=== PATIENT | female | born 1950 | race Caucasian/White ===

== ENCOUNTER 2018-01-02 19:47 | Emergency (ER) | payer MEDICARE ==
--- NOTE | 2018-01-02 19:58 | ER Report ---
History and Physical Time Seen By MD: 19:50 HPI/ROS CHIEF COMPLAINT: Chest tightness for 2 days HISTORY OF PRESENT ILLNESS: 67-year-old female who is a new resident at [facility]. She removed in today. Patient's from [place] where she lived for 55 years. She is on supplemental O2. She has an ostomy. She has numerous medical problems. Please see enclosed paperwork from [facility]. There is an H&P from her physician from July of this year. Patient is also DO NOT RESUSCITATE. REVIEW OF SYSTEMS: Respiratory: No cough, no dyspnea. Cardiovascular: As above Gastrointestinal: No vomiting, no abdominal pain. Musculoskeletal: No back pain. Allergies: Coded Allergies: Sulfa (Sulfonamide Antibiotics) (Verified Allergy, Unknown, 01/02/18) allergic to cream only amitriptyline (Verified Allergy, Unknown, 01/02/18) aspirin (Verified Allergy, Unknown, 01/02/18) Home Meds Active Scripts Fluticasone/Vilanterol (Breo Ellipta 200-25 Mcg INH) 1 Each Blst.w.dev, 1 PUFF INH DAILY for COPD control, #1 Prov:EDILMA MARTINEZ DO 01/02/18 Hydrocodone Bit/Acetaminophen (HYDROCODON-ACETAMINOPHEN 5-325) 1 Each Tablet, 1 EACH PO Q4-6H PRN for PAIN, #30 TAKE ONE TABLET BY MOUTH EVERY 4-6 HOURS NEEDED FOR PAIN Prov:EDILMA MARTINEZ DO 01/02/18 Reported Medications Venlafaxine Hcl (EFFEXOR XR) 150 Mg Cap.er.24h, 150 MG PO QDAY 01/02/18 Trazodone Hcl (TRAZODONE HCL) 50 Mg Tablet, 25 MG PO QHS 01/02/18 Glycopyrrolate (ROBINUL) 1 Mg Tablet, 4 MG PO 01/02/18 Prednisone 10 Mg Tab (PREDNISONE 10 MG TAB) 10 Mg Tablet, 10 MG PO QDAY, TAB 01/02/18 Potassium Bicarbonate/Cit Ac (POTASSIUM 25 MEQ TABLET EFF) 25 Meq Tablet.eff, 20 MEQ PO 01/02/18 Piperacillin Sodium/Tazobactam (PIPERACIL-TAZOBACT 3.375 GM VL) 3.375 Gm Vial.port, 3.375 GM IV Q8H 01/02/18 Pantoprazole Sodium (PANTOPRAZOLE SODIUM) 40 Mg Tablet.dr, 40 MG PO QDAY, TAB.SR 01/02/18 Nifedipine (NIFEDIPINE) 20 Mg Capsule, 30 MG PO QDAY, CAPSULE 01/02/18 Lorazepam (LORAZEPAM) 0.5 Mg Tablet, 0.5 MG PO AB 01/02/18 Levothyroxine Sodium (LEVOTHYROXINE SODIUM) 50 Mcg Tablet, 25 MCG PO QDAY, TAB 01/02/18 Gabapentin (GABAPENTIN) 300 Mg Capsule, 600 MG PO TID, CAPSULE 01/02/18 Fluticasone Prop 44 Mcg (FLOVENT HFA 44 MCG) 44 Mcg Inha, 44 MCG INH, INH 01/02/18 Clonazepam (CLONAZEPAM) 0.5 Mg Tablet, 0.5 MG PO QID, #6 TAB 01/02/18 Past Medical/Surgical History [facility] for extensive past medical history Reviewed Nurses Notes: Yes Old Medical Records Reviewed: Yes Constitutional Vital Sign - Last 24 Hours 01/02/18 01/02/18 01/02/18 01/02/18 19:47 19:53 19:54 20:02 Temp 98.5 Pulse ??? 94 91 Resp 20 15 B/P (MAP) 188/100 188/100 (129) Pulse Ox 95 100 O2 Delivery Room Air 01/02/18 01/02/18 01/02/18 01/02/18 20:03 20:17 20:32 20:47 Pulse 92 ??? 92 Resp 31 25 Pulse Ox 99 98 100 O2 Flow Rate 4.0 01/02/18 01/02/18 01/02/18 01/02/18 20:55 21:00 21:02 21:17 Pulse 94 90 Resp 10 B/P (MAP) 150/91 (110) 160/87 (111) Pulse Ox 99 99 01/02/18 01/02/18 01/02/18 21:30 21:32 21:40 Pulse 90 B/P (MAP) 160/134 (143) 152/89 (110) Pulse Ox 99 Physical Exam General Appearance: The patient is alert, has no immediate need for airway protection and no current signs of toxicity. Vital signs stable, afebrile, pulse ox normal HEENT: Pupils equal and round no injection. Oropharynx without redness or exudate, mucous. Membranes are moist Respiratory: Chest is non tender, lungs are clear to auscultation. No chest wall tenderness Cardiac: regular rate and rhythm Gastrointestinal: Abdomen is soft and non tender, no masses, bowel sounds normal. Musculoskeletal: Neck: Neck is supple and non tender. No lymphadenopathy, no JVD Extremities have full range of motion and are non tender. Skin: No rashes or lesions. DIFFERENTIAL DIAGNOSIS: After history and physical exam differential diagnosis was considered for chest pain including but not limited to myocardial ischemia, pericarditis pulmonary embolus, chest wall pain, pleural inflammation and pulmonary infectious causes. Medical Decision Making Data Points Result Diagram: 01/02/18202101/02/182021 Laboratory Hematology Test 01/02/18 20:22 Red Blood Count 4.48 M/uL (4.17-5.56) Mean Corpuscular Volume 77.0 fL (80.0-96.0) Mean Corpuscular Hemoglobin 24.3 pg (26.0-33.0) Mean Corpuscular Hemoglobin Concent 31.5 g/dL (32.0-36.0) Red Cell Distribution Width 18.9 % (11.5-14.5) Mean Platelet Volume 6.4 fL (7.2-11.1) Neutrophils (%) (Auto) 84.8 % (39.4-72.5) Lymphocytes (%) (Auto) 7.9 % (17.6-49.6) Monocytes (%) (Auto) 5.0 % (4.1-12.4) Eosinophils (%) (Auto) 0.5 % (0.4-6.7) Basophils (%) (Auto) 1.8 % (0.3-1.4) Nucleated RBC Relative Count (auto) 0.0 /100WBC Neutrophils # (Auto) 10.2 K/uL (2.0-7.4) Lymphocytes # (Auto) 0.9 K/uL (1.3-3.6) Monocytes # (Auto) 0.6 K/uL (0.3-1.0) Eosinophils # (Auto) 0.1 K/uL (0.0-0.5) Basophils # (Auto) 0.2 K/uL (0.0-0.1) Nucleated RBC Absolute Count (auto) 0.00 K/uL Peripheral Blood Smear Yes Y/N Prothrombin Time 12.4 seconds (12.0-14.4) Prothromb Time International Ratio 0.93 Activated Partial Thromboplast Time 21 seconds (23-35) D-Dimer Quantitative (PE/DVT) 1.02 ug/ml (0-0.50) Sodium Level 130 mmol/L (137-145) Potassium Level 3.7 mmol/L (3.5-5.0) Chloride Level 95 mmol/L (98-107) Carbon Dioxide Level 22 mmol/L (22-31) Blood Urea Nitrogen 26 mg/dl (7-18) Creatinine 1.00 mg/dl (0.52-1.04) Glomerular Filtration Rate Calc 55.3 Random Glucose 111 mg/dl (75-110) Calcium Level 9.7 mg/dl (8.4-10.2) Total Bilirubin 0.3 mg/dl (0.2-1.3) Aspartate Amino Transf (AST/SGOT) 60 U/L (0-35) Alanine Aminotransferase (ALT/SGPT) 50 U/L (0-56) Alkaline Phosphatase 100 U/L (0-126) Troponin I < 0.012 ng/ml B-Type Natriuretic Peptide 20 pg/ml (0-100) Total Protein 7.6 g/dl (6.3-8.2) Albumin 3.9 g/dl (3.5-5.0) Chemistry Test 01/02/18 20:22 White Blood Count 12.0 k/uL (4.5-11.0) Red Blood Count 4.48 M/uL (4.17-5.56) Hemoglobin 10.9 g/dL (12.0-16.0) Hematocrit 34.5 % (34.0-47.0) Mean Corpuscular Volume 77.0 fL (80.0-96.0) Mean Corpuscular Hemoglobin 24.3 pg (26.0-33.0) Mean Corpuscular Hemoglobin Concent 31.5 g/dL (32.0-36.0) Red Cell Distribution Width 18.9 % (11.5-14.5) Platelet Count 360 K/uL (150-450) Mean Platelet Volume 6.4 fL (7.2-11.1) Neutrophils (%) (Auto) 84.8 % (39.4-72.5) Lymphocytes (%) (Auto) 7.9 % (17.6-49.6) Monocytes (%) (Auto) 5.0 % (4.1-12.4) Eosinophils (%) (Auto) 0.5 % (0.4-6.7) Basophils (%) (Auto) 1.8 % (0.3-1.4) Nucleated RBC Relative Count (auto) 0.0 /100WBC Neutrophils # (Auto) 10.2 K/uL (2.0-7.4) Lymphocytes # (Auto) 0.9 K/uL (1.3-3.6) Monocytes # (Auto) 0.6 K/uL (0.3-1.0) Eosinophils # (Auto) 0.1 K/uL (0.0-0.5) Basophils # (Auto) 0.2 K/uL (0.0-0.1) Nucleated RBC Absolute Count (auto) 0.00 K/uL Peripheral Blood Smear Yes Y/N Prothrombin Time 12.4 seconds (12.0-14.4) Prothromb Time International Ratio 0.93 Activated Partial Thromboplast Time 21 seconds (23-35) D-Dimer Quantitative (PE/DVT) 1.02 ug/ml (0-0.50) Glomerular Filtration Rate Calc 55.3 Calcium Level 9.7 mg/dl (8.4-10.2) Total Bilirubin 0.3 mg/dl (0.2-1.3) Aspartate Amino Transf (AST/SGOT) 60 U/L (0-35) Alanine Aminotransferase (ALT/SGPT) 50 U/L (0-56) Alkaline Phosphatase 100 U/L (0-126) Troponin I < 0.012 ng/ml B-Type Natriuretic Peptide 20 pg/ml (0-100) Total Protein 7.6 g/dl (6.3-8.2) Albumin 3.9 g/dl (3.5-5.0) Coagulation Test 01/02/18 20:22 Prothrombin Time 12.4 seconds Prothromb Time International Ratio 0.93 Activated Partial Thromboplast Time 21 seconds D-Dimer Quantitative (PE/DVT) 1.02 ug/ml EKG/Imaging EKG Interpretation 12 lead EK Rhythm: normal sinus rhythm at 91 bpm [place]: Left axis deviation QRS: normal ST segments: normal. There is some baseline artifact due to a spinal cord stimulator that the patient has implanted, doubt overall any evidence of ischemia. There are old inferior Q waves Imaging X-ray: Two-view chest x-ray was obtained. I viewed the images myself on the PACS system. My interpretation of the images is: No infiltrate, no effusion, normal mediastinum. The radiologist interpretation had no clinically significant variation from this interpretation. ED Course/Re-evaluation Clinical Indication for ER IV: IV Access ED Course Patient was admitted to an examination room. H&P was done. The differential diagnoses was considered. Patient with chest pain for 2 days. She is recent admission to [facility]. She's not had all of her medications. Family failed to fill all of her prescriptions and deliver them. She is out of her hydrocodone. She is also out of her clonazepam. Patient notes chest pain for 2 days. It's sharp without radiation. She notes no changes with breathing. She's had no diaphoresis or nausea. Patient denies leg swelling or calf pain. Patient is on Xarelto. I do not think further evaluation of the CT angiogram is necessary. Patient can return to [facility] prescriptions were provided for the meds that the patient doesn't have filled at the present time. Decision to Disposition Date: Jan 02, 2018 Decision to Disposition Time: 21:28 Depart Departure Latest Vital Signs Vital Signs Date Time Temp Pulse Resp B/P (MAP) Pulse Ox O2 Delivery O2 Flow Rate FiO2 01/02/18 21:40 152/89 (110) 01/02/18 21:32 90 99 01/02/18 21:02 10 01/02/18 20:03 4.0 01/02/18 19:53 98.5 Room Air Impression: Primary Impression: Non-cardiac chest pain Additional Impressions: Anxiety COPD exacerbation Condition: Improved Disposition: HOME OR SELF-CARE New Scripts Fluticasone/Vilanterol (Breo Ellipta 200-25 Mcg INH) 1 Each Blst.w.dev 1 PUFF INH DAILY for COPD control, #1 Prov: EDILMA MARTINEZ DO 01/02/18 Hydrocodone Bit/Acetaminophen (HYDROCODON-ACETAMINOPHEN 5-325) 1 Each Tablet 1 EACH PO Q4-6H PRN for PAIN, #30 TAKE ONE TABLET BY MOUTH EVERY 4-6 HOURS NEEDED FOR PAIN Prov: EDILMA MARTINEZ DO 01/02/18 Patient Instructions: Noncardiac Chest Pain (ED) Additional Instructions: Follow-up with as planned January 24 Problem Qualifiers EDILMA MARTINEZ DO Jan 02, 2018 19:58
[2018-01-02] MEDS ORDERED: ASPIRIN 81 MG CHEW PO ONE (20:00)
[2018-01-02] MEDS ORDERED: [UNRECOGNIZED DRUG - CODE] IV (20:24)
[2018-01-02] MEDS ORDERED: FLU44R INH (20:24)
[2018-01-02] MEDS ORDERED: CLON-331 PO (20:24)
[2018-01-02] MEDS ORDERED: NIFE20CA8 PO (20:24)
[2018-01-02] MEDS ORDERED: PANT40TA65 PO (20:24)
[2018-01-02] MEDS ORDERED: TRAZ50TA34 PO (20:24)
[2018-01-02] MEDS ORDERED: VENL150C61 PO (20:24)
[2018-01-02] MEDS ORDERED: LEVO50TA86 PO (20:24)
[2018-01-02] MEDS ORDERED: GLYC1TAB21 PO (20:24)
[2018-01-02] MEDS ORDERED: LORA-630 PO (20:24)
[2018-01-02] MEDS ORDERED: POTA25TA28 PO (20:24)
[2018-01-02] MEDS ORDERED: PRED-1 PO (20:24)
[2018-01-02] MEDS ORDERED: GABA-549 PO (20:24)
[2018-01-02] MEDS ORDERED: ONDANSETRON 4 MG ODT TABDP SL ONE (20:30)
[2018-01-02 20:32] LABS: PLATELET COUNT, AUTOMATED 360 K/uL (150-450)
[2018-01-02 20:43] LABS: INR 0.93
--- NOTE | 2018-01-02 20:44 | EKG ---
[place] [facility] [place] NAME: JACKLYN FRANCISCO : [id number] MR: [id number] V: [id number] EXAM DATE: ORDERING PHYSICIAN: EDILMA MARTINEZ TECHNOLOGIST: YEMI Test Reason : CHEST, STOMACH PAIN Blood Pressure : / mmHG Vent. Rate : 091 BPM Atrial Rate : 091 BPM P-R Int : 084 ms QRS Dur : 070 ms QT Int : 344 ms P-R-T Axes : 004 -47 002 degrees QTc Int : 423 ms Suggest repeat ECG due to electrical interference. Left axis deviation Pulmonary disease pattern No previous ECGs available Confirmed by RENATA DORSEY ([id number]) on 01/02/2018 9:41:12 PM Referred By: JUAN Confirmed By:RENATA DORSEY
--- NOTE | 2018-01-02 21:14 | RADIOLOGY IMAGING REPORT ---
FACILITY: [facility] PATIENT NAME: Xin Tran : 1950 MR: [id number] V: [id number] EXAM DATE: ORDERING PHYSICIAN: EDILMA MARTINEZ TECHNOLOGIST: Location: [facility] Patient: Xin Tran : 1950 Visit/Account:[id number] Date of Sevice: 01/02/2018 EXAMINATION: Chest 2 Views HISTORY: Chest pain. COMPARISON: None. FINDINGS: There is obscuration of the right heart border on the frontal view with adjacent density. This may re present a prominent fat pad or could reflect consolidation or atelectasis in the right middle lobe. The lungs are otherwise clear. Costophrenic angles are sharp. No pneumothorax. Normal heart size and pulmonary vascularity. Left IJ central venous port, with tip overlying the mid to upper SVC. Left mastectomy with surgical clips along the left axilla. There are compression fractures of several vertebral bodies in the mid and lower thoracic spine, like ly nonacute. Plate and screw fixation along the cervical spine. Partially visualized fixation hardwa re along the proximal right humerus. There is an electronic stimulator device projecting over the low er cervical spine. Cholecystectomy clips in the upper abdomen. IVC filter in place. IMPRESSION: 1. Obscuration of the right heart border with adjacent opacity. This could represent a prominent fat pad or consolidation or atelectasis in the right middle lobe. If clinically indicated, follow-up CT c ould be performed for further evaluation. 2. Lungs are otherwise clear. No other acute findings in the chest. Report Dictated By: Vitaly Hackett MD at 01/02/2018 9:05 PM Report E-Signed By: Vitaly Hackett MD at 01/02/2018 9:10 PM WSN:[id number]
[2018-01-02] MEDS ORDERED: clonazePAM 1 MG TAB PO ONE (21:20)
[2018-01-02] MEDS ORDERED: APAP/HYDROCODONE 325/5 TAB PO ONE (21:20)
[2018-01-02] MEDS ORDERED: FLUT1BLS3 INH (21:35)
[2018-01-02] MEDS ORDERED: ACET/HYDROC 5/325MG TH ER ONLY 2 TAB/BOTTLE PO ONE (21:35)
[2018-01-02] MEDS ORDERED: LOR5/325 PO (21:35)
[2018-01-02 21:40] VITALS: BP 152/89
== END 2018-01-02 21:50 | disposition home or self-care (01) ==
LOC: ER 19:51
DX: J44.1 Chronic obstructive pulmonary disease with (acute) exacerbation (principal); R07.89 Other chest pain; F41.9 Anxiety disorder, unspecified
CPT/HCPCS: 36415; 71046; 83880; 84484; 85025; 85379; 85610; 85730; 93005; 99284; A9270; Q0162; 82040; 82247; 82310; 82374; 82435; 82565; 82947; 84075; 84132; 84155; 84295; 84450; 84460; 84520; S0119

== ENCOUNTER 2018-01-06 18:49 | Inpatient (IN) | payer MEDICARE ==
[~2018-01-06] VITALS: Ht 158.8 cm; Wt 59.9 kg
[~2018-01-06 18:49] MED LIST changes: -ACET-1966 PO; -BUPR1PAT22 TD; -CALC300T30 PO; -CALC625T69 PO; -CEPH500C24 PO; -FLUT1AER INH; -GUAI237L21 PO; -LEVO25TA57 PO; -MAG-66 PO; -MENT118G TOP; -MOM PO; -MULT-839 PO; -NIFE-15 PO; -NYST15PO4 TP; -POLY15DR7 OU; -POTA20TA94 PO; -PROM-110 PO; -RIVA20TA PO; -ROPI4TAB2 PO; -TETR15DR9 OP
--- NOTE | 2018-01-06 19:10 | ER Report ---
History and Physical Time Seen By MD: 18:55 Hx. of Stated Complaint: wound on abdomen. fever. chest pain and headache HPI/ROS CHIEF COMPLAINT: fever, abdominal skin breakdown around ostomy, chest pain and headache HISTORY OF PRESENT ILLNESS: This is a 67 year old female. She was sent to the ER by ambulance from [facility]. She has recently moved there from [place]. She has an ileostomy, with recent surgery on this in July or 2017. She has ongoing problems with this, problems getting this to seal. Also with severe skin breakdown of the abdomen to the point that they cannot get the stoma area to seal and having bleeding and severe pain and inflammation. Today with fever as well. She was complaining of some chest area pain, but is not short of breath. She is having severe pain associated with the skin on her abdomen. She is having some dysuria as well. Has a headache. Review of paperwork from [facility]. She is a DNR/DNI patient. Complex medical history. REVIEW OF SYSTEMS: Constitutional: As above. Eyes: No discharge. ENT: No sore throat. No congestion. Cardiovascular: As above. Respiratory: No cough. Gastrointestinal: As above. Genitourinary: As above. Musculoskeletal: Has some musculoskeletal aches. Skin: As above. Neurological: No numbness. No weakness. Allergies: Coded Allergies: Sulfa (Sulfonamide Antibiotics) (Verified Allergy, Unknown, 01/02/18) allergic to cream only amitriptyline (Verified Allergy, Unknown, 01/02/18) aspirin (Verified Allergy, Unknown, 01/02/18) Home Meds Active Scripts Fluticasone/Vilanterol (Breo Ellipta 200-25 Mcg INH) 1 Each Blst.w.dev, 1 PUFF INH DAILY for COPD control, #1 Prov:EDILMA MARTINEZ DO 01/02/18 Hydrocodone Bit/Acetaminophen (HYDROCODON-ACETAMINOPHEN 5-325) 1 Each Tablet, 1 EACH PO Q4-6H PRN for PAIN, #30 TAKE ONE TABLET BY MOUTH EVERY 4-6 HOURS NEEDED FOR PAIN Prov:BAYRON MARTINEZChasity Staples DO 01/02/18 Reported Medications Rivaroxaban 20 Mg (XARELTO 20 MG) 20 Mg Tablet, 20 MG PO, TAB 01/06/18 Venlafaxine Hcl (EFFEXOR XR) 150 Mg Cap.er.24h, 150 MG PO QDAY 01/02/18 Trazodone Hcl (TRAZODONE HCL) 50 Mg Tablet, 25 MG PO QHS 01/02/18 Glycopyrrolate (ROBINUL) 1 Mg Tablet, 4 MG PO 01/02/18 Prednisone 10 Mg Tab (PREDNISONE 10 MG TAB) 10 Mg Tablet, 10 MG PO QDAY, TAB 01/02/18 Potassium Bicarbonate/Cit Ac (POTASSIUM 25 MEQ TABLET EFF) 25 Meq Tablet.eff, 20 MEQ PO 01/02/18 Pantoprazole Sodium (PANTOPRAZOLE SODIUM) 40 Mg Tablet.dr, 40 MG PO QDAY, TAB.SR 01/02/18 Nifedipine (NIFEDIPINE) 20 Mg Capsule, 30 MG PO QDAY, CAPSULE 01/02/18 Levothyroxine Sodium (LEVOTHYROXINE SODIUM) 50 Mcg Tablet, 25 MCG PO QDAY, TAB 01/02/18 Gabapentin (GABAPENTIN) 300 Mg Capsule, 600 MG PO TID, CAPSULE 01/02/18 Fluticasone Prop 44 Mcg (FLOVENT HFA 44 MCG) 44 Mcg Inha, 44 MCG INH, INH 01/02/18 Clonazepam (CLONAZEPAM) 0.5 Mg Tablet, 0.5 MG PO QID, #6 TAB 01/02/18 Discontinued Reported Medications Piperacillin Sodium/Tazobactam (PIPERACIL-TAZOBACT 3.375 GM VL) 3.375 Gm Vial.port, 3.375 GM IV Q8H 01/02/18 Lorazepam (LORAZEPAM) 0.5 Mg Tablet, 0.5 MG PO AB 01/02/18 Past Medical/Surgical History Ileostomy with short gut syndrome, chronic diarrhea and fecal incontinence, fibromyalgia, atrial fibrillation, hypertension, on chronic oxygen use at 4 L nasal cannula for COPD, history of PE in the past, h/o right leg DVT, on Xarelto and history of IVC filter, bipolar disorder with anxiety and depression, insomnia, GERD, Hypothyroidism, Neuropathy, migraine headaches, history of breast cancer with left mastectomy, bowel surgery for her stoma 2 in July 2017, hysterectomy, hemorrhoidectomy, Right hip ORIF Reviewed Nurses Notes: Yes Constitutional Vital Sign - Last 24 Hours 01/06/18 18:51 Temp 99.7 Pulse 102 Resp 18 B/P (MAP) 151/76 Pulse Ox 98 O2 Delivery Nasal Cannula Physical Exam General Appearance: The patient is alert. She is having acute distress because of the pain on her abdomen. Eyes: Pupils are equal, round. No pallor, injection or icterus. ENT: Mucous membranes are moist. Normal oral mucosa. Posterior oropharynx is normal. Neck: Supple and non tender. No lymphadenopathy. Respiratory: Lungs are clear to auscultation. Cardiovascular: Regular rate and rhythm. No murmurs, gallops or rubs. Trace edema lower extremities bilaterally with normal capillary refill. Gastrointestinal: Abdomen is diffusely tender but seems to be coming from the raw skin and skin breakdown. There is also warmth and redness despite the breakdown which looks more like a superficial cellulitis. The stoma on her abdomen show normal mucosa. No sign of necrosis. Liquid stool coming out of the right lower stoma. Neurological: Alert and oriented x3. Skin: Warm and dry other than the abdomen. The abdomen and into the groin and perineal area is very inflamed. Musculoskeletal: Extremities are nontender. No pain with palpating over the back and spine. DIFFERENTIAL DIAGNOSIS: After history and physical exam, differential diagnosis was considered for patient with fever, ongoing problems with skin breakdown from leakage of the stoma on her abdomen. This appears likely cellulitis on the abdomen as well as skin breakdown. We'll look for other causes of fever as well. Medical Decision Making Data Points Result Diagram: 01/06/18190801/06/181908 Laboratory Hematology Test 01/06/18 19:09 01/06/18 21:03 01/06/18 21:41 Red Blood Count 4.36 M/uL (4.17-5.56) Mean Corpuscular Volume 77.3 fL (80.0-96.0) Mean Corpuscular Hemoglobin 24.2 pg (26.0-33.0) Mean Corpuscular Hemoglobin Concent 31.3 g/dL (32.0-36.0) Red Cell Distribution Width 19.4 % (11.5-14.5) Mean Platelet Volume 6.7 fL (7.2-11.1) Neutrophils (%) (Auto) 83.1 % (39.4-72.5) Lymphocytes (%) (Auto) 11.0 % (17.6-49.6) Monocytes (%) (Auto) 5.0 % (4.1-12.4) Eosinophils (%) (Auto) 0.2 % (0.4-6.7) Basophils (%) (Auto) 0.7 % (0.3-1.4) Nucleated RBC Relative Count (auto) 0.0 /100WBC Neutrophils # (Auto) 10.8 K/uL (2.0-7.4) Lymphocytes # (Auto) 1.4 K/uL (1.3-3.6) Monocytes # (Auto) 0.7 K/uL (0.3-1.0) Eosinophils # (Auto) 0.0 K/uL (0.0-0.5) Basophils # (Auto) 0.1 K/uL (0.0-0.1) Nucleated RBC Absolute Count (auto) 0.01 K/uL Peripheral Blood Smear Yes Y/N Prothrombin Time 16.2 seconds (12.0-14.4) Prothromb Time International Ratio 1.30 Activated Partial Thromboplast Time 26 seconds (23-35) Sodium Level 136 mmol/L (137-145) Potassium Level 4.3 mmol/L (3.5-5.0) Chloride Level 101 mmol/L (98-107) Carbon Dioxide Level 26 mmol/L (22-31) Blood Urea Nitrogen 17 mg/dl (7-18) Creatinine 1.00 mg/dl (0.52-1.04) Glomerular Filtration Rate Calc 55.3 Random Glucose 112 mg/dl (75-110) Lactate 2.5 mmol/L (0.7-2.1) Calcium Level 9.4 mg/dl (8.4-10.2) Total Bilirubin 0.2 mg/dl (0.2-1.3) Aspartate Amino Transf (AST/SGOT) 34 U/L (0-35) Alanine Aminotransferase (ALT/SGPT) 35 U/L (0-56) Alkaline Phosphatase 99 U/L (0-126) Total Protein 7.0 g/dl (6.3-8.2) Albumin 3.5 g/dl (3.5-5.0) Urine Color Yellow Urine Clarity Cloudy Urine pH 5.0 pH (4.8-9.5) Urine Specific [place] 1.014 Urine Protein 30 mg/dL (NEGATIVE) Urine Glucose (UA) Negative mg/dL (NEGATIVE) Urine Ketones Negative mg/dL (NEGATIVE) Urine Blood Negative (NEGATIVE) Urine Nitrite Negative (NEGATIVE) Urine Bilirubin Negative (NEGATIVE) Urine Urobilinogen Negative mg/dL (0.2-1.9) Urine Leukocyte Esterase Large (NEGATIVE) Urine RBC 14 /HPF (0-2/HPF) Urine WBC 290 /HPF (0-5/HPF) Urine WBC Clumps Many /HPF Urine Squamous Epithelial Cells Moderate /LPF (NONE-FEW) Urine Bacteria Many /HPF (NONE-FEW) Urine Mucus None /HPF (NONE-FEW) Stool Leukocytes, Qualitative Negative Clostridium Difficile Toxin A & B Negative Clostridium difficile Antigen Negative Chemistry Test 01/06/18 19:09 01/06/18 21:03 01/06/18 21:41 White Blood Count 13.0 k/uL (4.5-11.0) Red Blood Count 4.36 M/uL (4.17-5.56) Hemoglobin 10.6 g/dL (12.0-16.0) Hematocrit 33.7 % (34.0-47.0) Mean Corpuscular Volume 77.3 fL (80.0-96.0) Mean Corpuscular Hemoglobin 24.2 pg (26.0-33.0) Mean Corpuscular Hemoglobin Concent 31.3 g/dL (32.0-36.0) Red Cell Distribution Width 19.4 % (11.5-14.5) Platelet Count 425 K/uL (150-450) Mean Platelet Volume 6.7 fL (7.2-11.1) Neutrophils (%) (Auto) 83.1 % (39.4-72.5) Lymphocytes (%) (Auto) 11.0 % (17.6-49.6) Monocytes (%) (Auto) 5.0 % (4.1-12.4) Eosinophils (%) (Auto) 0.2 % (0.4-6.7) Basophils (%) (Auto) 0.7 % (0.3-1.4) Nucleated RBC Relative Count (auto) 0.0 /100WBC Neutrophils # (Auto) 10.8 K/uL (2.0-7.4) Lymphocytes # (Auto) 1.4 K/uL (1.3-3.6) Monocytes # (Auto) 0.7 K/uL (0.3-1.0) Eosinophils # (Auto) 0.0 K/uL (0.0-0.5) Basophils # (Auto) 0.1 K/uL (0.0-0.1) Nucleated RBC Absolute Count (auto) 0.01 K/uL Peripheral Blood Smear Yes Y/N Prothrombin Time 16.2 seconds (12.0-14.4) Prothromb Time International Ratio 1.30 Activated Partial Thromboplast Time 26 seconds (23-35) Glomerular Filtration Rate Calc 55.3 Lactate 2.5 mmol/L (0.7-2.1) Calcium Level 9.4 mg/dl (8.4-10.2) Total Bilirubin 0.2 mg/dl (0.2-1.3) Aspartate Amino Transf (AST/SGOT) 34 U/L (0-35) Alanine Aminotransferase (ALT/SGPT) 35 U/L (0-56) Alkaline Phosphatase 99 U/L (0-126) Total Protein 7.0 g/dl (6.3-8.2) Albumin 3.5 g/dl (3.5-5.0) Urine Color Yellow Urine Clarity Cloudy Urine pH 5.0 pH (4.8-9.5) Urine Specific [place] 1.014 Urine Protein 30 mg/dL (NEGATIVE) Urine Glucose (UA) Negative mg/dL (NEGATIVE) Urine Ketones Negative mg/dL (NEGATIVE) Urine Blood Negative (NEGATIVE) Urine Nitrite Negative (NEGATIVE) Urine Bilirubin Negative (NEGATIVE) Urine Urobilinogen Negative mg/dL (0.2-1.9) Urine Leukocyte Esterase Large (NEGATIVE) Urine RBC 14 /HPF (0-2/HPF) Urine WBC 290 /HPF (0-5/HPF) Urine WBC Clumps Many /HPF Urine Squamous Epithelial Cells Moderate /LPF (NONE-FEW) Urine Bacteria Many /HPF (NONE-FEW) Urine Mucus None /HPF (NONE-FEW) Stool Leukocytes, Qualitative Negative Clostridium Difficile Toxin A & B Negative Clostridium difficile Antigen Negative Coagulation Test 01/06/18 19:09 Prothrombin Time 16.2 seconds Prothromb Time International Ratio 1.30 Activated Partial Thromboplast Time 26 seconds Urinalysis Test 01/06/18 21:03 Urine Color Yellow Urine Clarity Cloudy Urine pH 5.0 pH (4.8-9.5) Urine Specific [place] 1.014 Urine Protein 30 mg/dL (NEGATIVE) Urine Glucose (UA) Negative mg/dL (NEGATIVE) Urine Ketones Negative mg/dL (NEGATIVE) Urine Blood Negative (NEGATIVE) Urine Nitrite Negative (NEGATIVE) Urine Bilirubin Negative (NEGATIVE) Urine Urobilinogen Negative mg/dL (0.2-1.9) Urine Leukocyte Esterase Large (NEGATIVE) Urine RBC 14 /HPF (0-2/HPF) Urine WBC 290 /HPF (0-5/HPF) Urine WBC Clumps Many /HPF Urine Squamous Epithelial Cells Moderate /LPF (NONE-FEW) Urine Bacteria Many /HPF (NONE-FEW) Urine Mucus None /HPF (NONE-FEW) EKG/Imaging Imaging Examination: PA chest with abdominal series HISTORY: Abdominal pain. Chest pain. COMPARISON: Chest x-ray 01/02/2018 FINDINGS: PA view of the chest demonstrates linear platelike atelectasis within the left midlung. Lungs are otherwise clear and well aerated. A left internal jugular port catheter is unchanged. Stimulator type wires are in place and are also stable. There has been prior fixation of the right humerus. There has been prior cervical fusion. There are changes of prior left mastectomy. Heart size and mediastinal contours are normal. No pleural effusion or pneumothorax. Supine and upright views of the abdomen demonstrate no free air or air-fluid levels. There is a relative paucity of bowel gas. Surgical anastomosis seen in the left mid to low abdomen. There are cholecystectomy clips. There is an inferior vena cava filter. Postoperative defect involves the right iliac wing. Multilevel degenerative changes involve the spine. IMPRESSION: 1. Platelike atelectasis in the left midlung. Lungs otherwise clear. 2. No evidence of free air or air-fluid levels. 3. Relative paucity of intestinal bowel gas. Report Dictated By: Dhaval Chacko at 01/06/2018 9:20 PM ABDOMEN/PELVIS WITH CONTRAST HISTORY: abd pain Additional history: Right-sided abdominal pain. Infected stoma. History of 2 colostomies. TECHNIQUE: Following administration of IV contrast contiguous axial images acquired through the abdomen/pelvis. Coronal and sagittal reformatting also performed. One of the following dose optimization techniques was utilized in the performance of this exam: Automated exposure control; adjustment of the mA and/or kV according to the patient's size; or use of an iterative reconstruction technique. Specific details can be referenced in the facility's radiology CT exam operational policy. CONTRAST: 75 mL Isovue-370 COMPARISON: None. FINDINGS: Visualized lung bases: There is Minimal bibasilar dependent pulmonary at electasis. Otherwise unremarkable. Hepatobiliary: There is at least mild hepatic steatosis. No focal liver lesions are seen. Remote cholecystectomy. Spleen: Negative. Adrenals: Negative. Pancreas: Negative. Kidneys ureters or bladder: Several subcentimeter renal cysts are seen. Kidneys Otherwise unremarkable. There is a Alejandra catheter in place in the urinary bladder. Genitalia: Remote hysterectomy. GI: There is Previous resection of the proximal colon with an ileostomy in the right lower quadrant. There is herniation of peritoneal fat which contains several loops of small bowel at the ostomy site. There is no evidence of an abscess at the ostomy. The distal half of the colon is intact and unremarkable in appearance. No evidence of diverticula.. There is evidence of a old colostomy site in the left lower quadrant with herniation containing a loop of colon. There is no evidence of entrapment at either ostomy site. Vessels/spaces/nodes: There is an IVC filter in place. There is a nonocclusive focal thrombus seen in the right common femoral vein (axial image 138 series 2). The left external iliac system is very atretic and left leg drains via collaterals. The arterial vasculature is unremarkable. Unremarkable. No adenopathy present. Bones/soft tissues: There is advanced wedge compression fracture of the T12 vertebral body and mild compression of the T10 and L1 vertebral bodies. Additional findings: Neurostimulator noted with device implanted left buttocks. IMPRESSION: No acute pathology identified. Partial colectomy with ileostomy right lower quadrant. Both ostomy sites have herniated peritoneal fat containing loops of bowel. No evidence of abscess at the current ostomy site which was an area of concern. IVC filter noted with a nonocclusive thrombus in the right common femoral vein. The left external iliac vein is very atretic with left leg draining via collaterals. Hepatic steatosis. Multiple compression fractures in the spinal axis as detailed above. Additional benign findings per above Report Dictated By: Ammon Mandel MD at 01/06/2018 11:08 PM ED Course/Re-evaluation Clinical Indication for ER IV: Hydration, IV Access ED Course Patient was evaluated as noted. An IV was started and labs obtained. The patient had an abdominal 3 view done which did not show any acute abnormalities. She is complaining of pain and we use some LET topical that significantly improved her pain. Also gave her some morphine. Later saw an old paperwork that she is allergic to morphine. She did receive 2 doses of 4 mg didn't help her pain. When questioned, she says she is not supposed to take morphine because it causes her to feel funny but there is no rash or allergic reaction that happens. Later I did give her another dose of hydromorphone to help her pain which did seem to help a lot more. She received another dose of LET topical as well. Labs show slight elevated white count with shift and a urinalysis that shows signs of infection. It also appears that her abdomen has a component of cellulitis as well. We went ahead and started her on Primaxin and vancomycin after I discussed the case with our hospitalist, Dr. Hurtado, who accepted the patient for admission. Decision to Disposition Date: Jan 06, 2018 Decision to Disposition Time: 23:30 Depart Departure Latest Vital Signs Vital Signs Date Time Temp Pulse Resp B/P (MAP) Pulse Ox O2 Delivery O2 Flow Rate FiO2 01/06/18 18:51 99.7 102 18 151/76 98 Nasal Cannula Impression: Primary Impression: Cellulitis of abdominal wall Additional Impression: Urinary tract infection Condition: Condition Unchanged Disposition: Admitted from ER Problem Qualifiers Additional Impression: Urinary tract infection Urinary tract infection type: acute cystitis Hematuria presence: without hematuria Qualified Codes: N30.00 - Acute cystitis without hematuria JAYANT DIGGS MD Jan 06, 2018 19:10
[2018-01-06 19:30] LABS: PLATELET COUNT, AUTOMATED 425 K/uL (150-450)
[2018-01-06 19:46] LABS: INR 1.3
--- NOTE | 2018-01-06 20:00 | EKG ---
[place] [facility] [place] JACKLYN FRANCISCO : [id number] MR: [id number] V: [id number] EXAM DATE: ORDERING PHYSICIAN: JAYANT DIGGS TECHNOLOGIST: Test Reason : Blood Pressure : / mmHG Vent. Rate : 101 BPM Atrial Rate : 101 BPM P-R Int : 132 ms QRS Dur : 060 ms QT Int : 324 ms P-R-T Axes : 051 -39 055 degrees QTc Int : 420 ms Sinus tachycardia Left axis deviation Possible previous inferior infarct Decreased R wave progression anteriorly Abnormal ECG No previous ECGs available Confirmed by MONA GONZALES ([id number]) on 01/07/2018 5:51:01 AM Referred By: Confirmed By:MONA GONZALES
[2018-01-06] MEDS ORDERED: MORPHINE 4 MG/ML SDV IVP ONE ×2 (20:25→21:05)
[2018-01-06] MEDS ORDERED: TETRACAIN/EPI/LIDO GEL 3ML SYR TP ONE ×2 (21:05→23:45)
--- NOTE | 2018-01-06 21:30 | RADIOLOGY IMAGING REPORT ---
FACILITY: [facility] [place] PATIENT NAME: Xin Tran : 1950 MR: [id number] V: [id number] EXAM DATE: ORDERING PHYSICIAN: JAYANT DIGGS TECHNOLOGIST: Location: [facility] Patient: Xin Tran : 1950 Visit/Account:[id number] Date of Sevice: 01/06/2018 Examination: PA chest with abdominal series HISTORY: Abdominal pain. Chest pain. COMPARISON: Chest x-ray 01/02/2018 FINDINGS: PA view of the chest demonstrates linear platelike atelectasis within the left midlung. Lungs are oth erwise clear and well aerated. A left internal jugular port catheter is unchanged. Stimulator type wi res are in place and are also stable. There has been prior fixation of the right humerus. There has b een prior cervical fusion. There are changes of prior left mastectomy. Heart size and mediastinal con tours are normal. No pleural effusion or pneumothorax. Supine and upright views of the abdomen demonstrate no free air or air-fluid levels. There is a relat elver paucity of bowel gas. Surgical anastomosis seen in the left mid to low abdomen. There are cholecy stectomy clips. There is an inferior vena cava filter. Postoperative defect involves the right iliac wing. Multilevel degenerative changes involve the spine. IMPRESSION: 1. Platelike atelectasis in the left midlung. Lungs otherwise clear. 2. No evidence of free air or air-fluid levels. 3. Relative paucity of intestinal bowel gas. Report Dictated By: Dhaval Chacko at 01/06/2018 9:20 PM Report E-Signed By: Dhaval Chacko at 01/06/2018 9:26 PM [id number]
[2018-01-06] MEDS ORDERED: diphenhydrAMINE 50 MG/ML VIAL IVP ONE (21:45)
[2018-01-06] MEDS ORDERED: HYDROMORPHONE HCL 1 MG/ML SYRINGE IVP ONE (21:45)
[2018-01-06] MEDS ORDERED: IOPAMIDOL 76% 75 ML INFUS BTL 75 ML ONE (22:31)
[2018-01-06] MEDS ORDERED: APAP/HYDROCODONE 325/10 TAB PO ONE (23:05)
[2018-01-06] MEDS ORDERED: KETOROLAC 30 MG/ML VIAL IVP ONE (23:05)
[2018-01-06] MEDS ORDERED: RIVA20TA PO (23:42)
--- NOTE | 2018-01-06 23:54 | RADIOLOGY IMAGING REPORT ---
FACILITY: [facility] [place] PATIENT NAME: Xin Tran : 1950 MR: [id number] V: [id number] EXAM DATE: ORDERING PHYSICIAN: JAYANT DIGGS TECHNOLOGIST: Location: [facility] [place] Patient: Xin Tran : 1950 Visit/Account:[id number] Date of Sevice: 01/06/2018 ABDOMEN/PELVIS WITH CONTRAST HISTORY: abd pain Additional history: Right-sided abdominal pain. Infected stoma. History of 2 colostomies. TECHNIQUE: Following administration of IV contrast contiguous axial images acquired through the abdom en/pelvis. Coronal and sagittal reformatting also performed. One of the following dose optimization techniques was utilized in the performance of this exam: Automated exposure control; adjustment of t he mA and/or kV according to the patient's size; or use of an iterative reconstruction technique. S pecific details can be referenced in the facility's radiology CT exam operational policy. CONTRAST: 75 mL Isovue-370 COMPARISON: None. FINDINGS: Visualized lung bases: There is Minimal bibasilar dependent pulmonary atelectasis. Otherwise unremar kable. Hepatobiliary: There is at least mild hepatic steatosis. No focal liver lesions are seen. Remote cho lecystectomy. Spleen: Negative. Adrenals: Negative. Pancreas: Negative. Kidneys ureters or bladder: Several subcentimeter renal cysts are seen. Kidneys Otherwise unremarkabl e. There is a Alejandra catheter in place in the urinary bladder. Genitalia: Remote hysterectomy. GI: There is Previous resection of the proximal colon with an ileostomy in the right lower quadrant. There is herniation of peritoneal fat which contains several loops of small bowel at the ostomy site . There is no evidence of an abscess at the ostomy. The distal half of the colon is intact and unremarkable in appearance. No evidence of diverticula.. T here is evidence of a old colostomy site in the left lower quadrant with herniation containing a loop of colon. There is no evidence of entrapment at either ostomy site. Vessels/spaces/nodes: There is an IVC filter in place. There is a nonocclusive focal thrombus seen i n the right common femoral vein (axial image 138 series 2). The left external iliac system is very at retic and left leg drains via collaterals. The arterial vasculature is unremarkable. Unremarkable. No adenopathy present. Bones/soft tissues: There is advanced wedge compression fracture of the T12 vertebral body and mild compression of the T10 and L1 vertebral bodies. Additional findings: Neurostimulator noted with device implanted left buttocks. IMPRESSION: No acute pathology identified. Partial colectomy with ileostomy right lower quadrant. Both ostomy sites have herniated peritoneal f at containing loops of bowel. No evidence of abscess at the current ostomy site which was an area of concern. IVC filter noted with a nonocclusive thrombus in the right common femoral vein. The left external prema ac vein is very atretic with left leg draining via collaterals. Hepatic steatosis. Multiple compression fractures in the spinal axis as detailed above. Additional benign findings per above Report Dictated By: Ammon Mandel MD at 01/06/2018 11:08 PM Report E-Signed By: Ammon Mandel MD at 01/06/2018 11:50 PM WSN:[id number]
[2018-01-07] MEDS ORDERED: IMIPENEM/CILASTA(*) 500MG VIAL 500 MG in NS(*) 0.9% 100 ML BAG 100 ML IVPB ONE
[2018-01-07] MEDS ORDERED: VANCOMYCIN 1 GM ADDVIAL 1 GM in NS(*) 0.9% 250 ML ADDVAN BAG 250 ML IVPB ONE
[2018-01-07] MEDS ORDERED: NS(*) 0.9% 1000 ML BAG 1,000 ML IV ONE
[2018-01-07 02:19] VITALS: BP 149/86
[2018-01-07] MEDS ORDERED: NS(*) 0.9% 1000 ML BAG 1,000 ML IV PRN (03:00)
[2018-01-07] MEDS ORDERED: INFLUENZA VIRUS VAC 0.5ML SYR IM ONLY ONE (03:00)
[2018-01-07] MEDS ORDERED: HYDROmorphone HCL 2 MG/ML SDV IVP PRN (03:00)
[2018-01-07] MEDS ORDERED: HYDROCORTISONE 100 MG/2 ML IVP ONE (03:00)
[2018-01-07] MEDS ORDERED: clonazePAM 0.5 MG TAB PO PRN (03:00)
[2018-01-07] MEDS ORDERED: ACETAMINOPHEN 325 MG TAB PO PRN (03:00)
--- NOTE | 2018-01-07 03:33 | History & Physical ---
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 She recently moved to [facility] and has been doing most of her own ostomy care. She reports increasing pain/redness in her abdominal wall surrounding her ileostomy site over the past several days. She has had associated fevers as well. Her ileostomy output is variable from soft/pasty to liquid. She has not been able to have an ostomy appliance in place due to the pain and inability for it to adhere. She was evaluated in the ER and found to have an elevated WBC count, slightly elevated lactate, low grade fever. She had CT scan of abdomen and pelvis, which did not show obvious abscess or necrotic areas. She was recommended for admission. History Problems: (1) Ischemic disease of gut Status: Chronic (2) S/P partial colectomy Status: Chronic (3) S/P ileostomy Status: Chronic (4) DVT (deep venous thrombosis) Status: Chronic (5) PE (pulmonary thromboembolism) Status: Chronic (6) S/P insertion of IVC (inferior vena caval) filter Status: Chronic (7) HTN (hypertension) Status: Chronic (8) COPD (chronic obstructive pulmonary disease) Status: Chronic (9) Hypothyroidism Status: Chronic (10) Steroid dependence Status: Chronic (11) Depression Status: Chronic Home Meds Active Scripts Fluticasone/Vilanterol (Breo Ellipta 200-25 Mcg INH) 1 Each Blst.w.dev, 1 PUFF INH DAILY for COPD control, #1 Prov:EDILMA MARTINEZ DO 01/02/18 Hydrocodone Bit/Acetaminophen (HYDROCODON-ACETAMINOPHEN 5-325) 1 Each Tablet, 1 EACH PO Q4-6H PRN for PAIN, #30 TAKE ONE TABLET BY MOUTH EVERY 4-6 HOURS NEEDED FOR PAIN Prov:EDILMA MARTINEZ DO 01/02/18 Reported Medications Rivaroxaban 20 Mg (XARELTO 20 MG) 20 Mg Tablet, 20 MG PO, TAB 01/06/18 Venlafaxine Hcl (EFFEXOR XR) 150 Mg Cap.er.24h, 150 MG PO QDAY 01/02/18 Trazodone Hcl (TRAZODONE HCL) 50 Mg Tablet, 25 MG PO QHS 01/02/18 Glycopyrrolate (ROBINUL) 1 Mg Tablet, 4 MG PO 01/02/18 Prednisone 10 Mg Tab (PREDNISONE 10 MG TAB) 10 Mg Tablet, 10 MG PO QDAY, TAB 01/02/18 Potassium Bicarbonate/Cit Ac (POTASSIUM 25 MEQ TABLET EFF) 25 Meq Tablet.eff, 20 MEQ PO 01/02/18 Pantoprazole Sodium (PANTOPRAZOLE SODIUM) 40 Mg Tablet.dr, 40 MG PO QDAY, TAB.SR 01/02/18 Nifedipine (NIFEDIPINE) 20 Mg Capsule, 30 MG PO QDAY, CAPSULE 01/02/18 Levothyroxine Sodium (LEVOTHYROXINE SODIUM) 50 Mcg Tablet, 25 MCG PO QDAY, TAB 01/02/18 Gabapentin (GABAPENTIN) 300 Mg Capsule, 600 MG PO TID, CAPSULE 01/02/18 Fluticasone Prop 44 Mcg (FLOVENT HFA 44 MCG) 44 Mcg Inha, 44 MCG INH, INH 01/02/18 Clonazepam (CLONAZEPAM) 0.5 Mg Tablet, 0.5 MG PO QID, #6 TAB 01/02/18 Discontinued Reported Medications Piperacillin Sodium/Tazobactam (PIPERACIL-TAZOBACT 3.375 GM VL) 3.375 Gm Vial.port, 3.375 GM IV Q8H 01/02/18 Lorazepam (LORAZEPAM) 0.5 Mg Tablet, 0.5 MG PO AB 01/02/18 Allergies: Coded Allergies: Sulfa (Sulfonamide Antibiotics) (Verified Allergy, Unknown, 01/02/18) allergic to cream only amitriptyline (Verified Allergy, Unknown, 01/02/18) aspirin (Verified Allergy, Unknown, 01/02/18) Other Social/Family Hx She currently resides at [facility]. Hx Smoking: Yes Smoking Status: Former Smoker Hx Alcohol Use: Yes (None currently) Hx Substance Use Disorder: No Social Drug Use: Never History of IV Drug Use: No Review of Systems Constitutional: Fever, Weight Loss, Chills Neurological: Weakness; No Syncope, No Confusion Eyes: Loss of Vision; No Vision Change ENT: Hearing Loss Cardiovascular: Chest Pain Respiratory: No Shortness of Breath, No Cough Gastrointestinal: No Nausea, No Vomiting, No Hematemesis, No Hematochezia, No Melena; Abdominal Pain, Other (ileostomy) Genitourinary: Dysuria; No Hematuria Musculoskeletal: Pain, Impaired Mobility Psychiatric: Depression Exam Vital Signs Vital Signs Date Time Temp Pulse Resp B/P (MAP) Pulse Ox O2 Delivery O2 Flow Rate FiO2 01/07/18 02:19 99.0 90 14 149/86 (107) 99 Nasal Cannula 4.0 General Appearance: Alert, Awake Neuro: No Gross deficits Eyes: PERRLA ENT: Oropharynx Clear Neck: No Masses Cardiovascular: Regular Rate and Rhythm (no murmur noted) Respiratory: Other (Essentially clear/somewhat diminished breath sounds bilaterally) Chest: No Tenderness GI: Other (She has ileostomy present in RLQ with some protrusion/colostomy pre sent LLQ) : No CVA Tenderness Lymph: No Adenopathy Extremities: Warm, Perfused Integumentary: Generalized Fragile Skin, Other (skin of anterior abdominal wall is diffusely erythematous with patches of shallow ulceration and some areas of darker discoloration) Psych: Alert & Oriented X3 Medical Decision Making Data Points Result Diagram: 01/06/18190801/06/181908 Item Value Date Time Albumin 3.5 g/dl 01/06/181908 Total Protein 7.0 g/dl 01/06/181908 Alkaline Phosphatase 99 U/L 01/06/181908 Alanine Aminotransferase (ALT/SGPT) 35 U/L 01/06/181908 Aspartate Amino Transf (AST/SGOT) 34 U/L 01/06/181908 Total Bilirubin 0.2 mg/dl 01/06/181908 Calcium Level 9.4 mg/dl 01/06/181908 Lactate 2.5 mmol/L H 01/06/181908 Prothrombin Time 16.2 seconds H 01/06/181908 Prothromb Time International Ratio 1.30 01/06/181908 Activated Partial Thromboplast Time 26 seconds 01/06/181908 Urine Color Yellow 01/06/182102 Urine Clarity Cloudy 01/06/182102 Urine pH 5.0 pH 01/06/182102 Urine Specific [place] 1.014 01/06/182102 Urine Protein 30 mg/dL 01/06/182102 Urine Glucose (UA) Negative mg/dL 01/06/182102 Urine Ketones Negative mg/dL 01/06/182102 Urine Blood Negative 01/06/182102 Urine Nitrite Negative 01/06/182102 Urine Bilirubin Negative 01/06/182102 Urine Urobilinogen Negative mg/dL 01/06/182102 Urine Leukocyte Esterase Large H 01/06/182102 Urine RBC 14 /HPF 01/06/182102 Urine WBC 290 /HPF 01/06/182102 Urine WBC Clumps Many /HPF 01/06/182102 Urine Squamous Epithelial Cells Moderate /LPF H 01/06/182102 Urine Bacteria Many /HPF H 01/06/182102 Urine Mucus None /HPF 01/06/182102 Stool Leukocytes, Qualitative Negative 01/06/182140 Clostridium Difficile Toxin A & B Negative 01/06/182140 Clostridium difficile Antigen Negative 01/06/182140 EKG / Imaging Imaging PATIENT NAME: Xin Tran : 1950 MR: [id number] V: [id number] EXAM DATE: ORDERING PHYSICIAN: JAYANT DIGGS TECHNOLOGIST: Location: Patient: Xin Tran : 1950 Visit/Account:[id number] Date of Sevice: 01/06/2018 ABDOMEN/PELVIS WITH CONTRAST HISTORY: abd pain Additional history: Right-sided abdominal pain. Infected stoma. History of 2 colostomies. TECHNIQUE: Following administration of IV contrast contiguous axial images acquired through the abdomen/pelvis. Coronal and sagittal reformatting also performed. One of the following dose optimization techniques was utilized in the performance of this exam: Automated exposure control; adjustment of the mA and/or kV according to the patient's size; or use of an iterative reconstruction technique. Specific details can be referenced in the facility's radiology CT exam operational policy. CONTRAST: 75 mL Isovue-370 COMPARISON: None. FINDINGS: Visualized lung bases: There is Minimal bibasilar dependent pulmonary atelectasis. Otherwise unremarkable. Hepatobiliary: There is at least mild hepatic steatosis. No focal liver lesions are seen. Remote cholecystectomy. Spleen: Negative. Adrenals: Negative. Pancreas: Negative. Kidneys ureters or bladder: Several subcentimeter renal cysts are seen. Kidneys Otherwise unremarkable. There is a Alejandra catheter in place in the urinary bladder. Genitalia: Remote hysterectomy. GI: There is Previous resection of the proximal colon with an ileostomy in the right lower quadrant. There is herniation of peritoneal fat which contains several loops of small bowel at the ostomy site. There is no evidence of an abscess at the ostomy. The distal half of the colon is intact and unremarkable in appearance. No evidence of diverticula.. There is evidence of a old colostomy site in the left lower quadrant with herniation containing a loop of colon. There is no evidence of entrapment at either ostomy site. Vessels/spaces/nodes: There is an IVC filter in place. There is a nonocclusive focal thrombus seen in the right common femoral vein (axial image 138 series 2). The left external iliac system is very atretic and left leg drains via collaterals. The arterial vasculature is unremarkable. Unremarkable. No adenopathy present. Bones/soft tissues: There is advanced wedge compression fracture of the T12 vertebral body and mild compression of the T10 and L1 vertebral bodies. Additional findings: Neurostimulator noted with device implanted left buttocks. IMPRESSION: No acute pathology identified. Partial colectomy with ileostomy right lower quadrant. Both ostomy sites have herniated peritoneal fat containing loops of bowel. No evidence of abscess at the current ostomy site which was an area of concern. IVC filter noted with a nonocclusive thrombus in the right common femoral vein. The left external iliac vein is very atretic with left leg draining via collaterals. Hepatic steatosis. Multiple compression fractures in the spinal axis as detailed above. Additional benign findings per above Report Dictated By: Ammon Mandel MD at 01/06/2018 11:08 PM Report E-Signed By: Ammon Mandel MD at 01/06/2018 11:50 PM [id number] Assessment and Plan Problems: (1) Cellulitis of abdominal wall Status: Acute Assessment & Plan: It appears she probably has cellulitis and possibly chemical irritation (due to ileostomy drainage) of the skin of her abdominal wall. Will admit for IV antibiotics with Primaxin and vancomycin. She will need ostomy care to avoid further skin irritation/damage. Will discuss with general surgery. She has been managing the ileostomy herself up to this point, but she may need more help. (2) PE (pulmonary thromboembolism) Status: Chronic Assessment & Plan: She is on Xarelto and has an IVC filter in place. (3) Hypothyroidism Status: Chronic Assessment & Plan: Continue L-thyroxine 25mcg daily. (4) HTN (hypertension) Status: Chronic Assessment & Plan: She has been on nifedipine, but will hold for now and monitor BPs. (5) Steroid dependence Status: Chronic Assessment & Plan: She has been on prednisone 10mg daily for years. Will place on stress dose Solu-Cortef acutely and then transition back to oral prednisone. (6) Depression Status: Chronic Assessment & Plan: Continue Effexor and trazodone. (7) COPD (chronic obstructive pulmonary disease) Status: Chronic Assessment & Plan: She has been on chronic oxygen and Breo Ellipta (not on formulary) - will place on Advair while she is here. Venous Thromboembolism Antithrombotics Is Pt On Any Antithrombotics?: Yes Exam Sepsis Risk: No Definite Risk MONA GONZALES MD Jan 07, 2018 03:33
--- NOTE | 2018-01-07 04:03 | General Surgery Consultation ---
History of Present Illness Requesting Physician Milton Hurtado MD Reason for Consult Ileostomy and mucus fistula with abdominal wall cellulitis Chief Complaint Abdominal wall cellulitis History of Present Illness Ms. Tran is a 67 year old woman who is admitted currently with abdominal wall cellulitis. She reports she underwent exploratory laparotomy with end ileostomy and mucus fistula in July 2017 in [facility]. She underwent surgery for "chronic diarrhea." She does report that she think she had some form of IBD, though there are no current records available. She reports she has had some recent skin irritation with difficulty pouching her ileostomy. She reports having to use 3 pouches per day in the last few days. She reports intermittent loose watery stool output alternating with thicker output. She denies fevers/chills. She came to the ED tonight with worsened pain and erythema of the abdominal wall. Of note she is on chronic anticoagulation with xarelto. She also has chronic steroid use with 10mg of prednisone daily. PMH: Chronic steroid use HTN COPD Anxiety/Depression Chronic VTE - DVT and PE PSH: Exploratory laparotomy with colectomy and end ileostomy with mucus fistula IVC filter in place History Home Meds Active Scripts Fluticasone/Vilanterol (Breo Ellipta 200-25 Mcg INH) 1 Each Blst.w.dev, 1 PUFF INH DAILY for COPD control, #1 Prov:EDILMA MARTINEZ DO 01/02/18 Hydrocodone Bit/Acetaminophen (HYDROCODON-ACETAMINOPHEN 5-325) 1 Each Tablet, 1 EACH PO Q4-6H PRN for PAIN, #30 TAKE ONE TABLET BY MOUTH EVERY 4-6 HOURS NEEDED FOR PAIN Prov:EDILMA MARTINEZ DO 01/02/18 Reported Medications Rivaroxaban 20 Mg (XARELTO 20 MG) 20 Mg Tablet, 20 MG PO, TAB 01/06/18 Venlafaxine Hcl (EFFEXOR XR) 150 Mg Cap.er.24h, 150 MG PO QDAY 01/02/18 Trazodone Hcl (TRAZODONE HCL) 50 Mg Tablet, 25 MG PO QHS 01/02/18 Glycopyrrolate (ROBINUL) 1 Mg Tablet, 4 MG PO 01/02/18 Prednisone 10 Mg Tab (PREDNISONE 10 MG TAB) 10 Mg Tablet, 10 MG PO QDAY, TAB 01/02/18 Potassium Bicarbonate/Cit Ac (POTASSIUM 25 MEQ TABLET EFF) 25 Meq Tablet.eff, 20 MEQ PO 01/02/18 Pantoprazole Sodium (PANTOPRAZOLE SODIUM) 40 Mg Tablet.dr, 40 MG PO QDAY, TAB.SR 01/02/18 Nifedipine (NIFEDIPINE) 20 Mg Capsule, 30 MG PO QDAY, CAPSULE 01/02/18 Levothyroxine Sodium (LEVOTHYROXINE SODIUM) 50 Mcg Tablet, 25 MCG PO QDAY, TAB 01/02/18 Gabapentin (GABAPENTIN) 300 Mg Capsule, 600 MG PO TID, CAPSULE 01/02/18 Fluticasone Prop 44 Mcg (FLOVENT HFA 44 MCG) 44 Mcg Inha, 44 MCG INH, INH 01/02/18 Clonazepam (CLONAZEPAM) 0.5 Mg Tablet, 0.5 MG PO QID, #6 TAB 01/02/18 Discontinued Reported Medications Piperacillin Sodium/Tazobactam (PIPERACIL-TAZOBACT 3.375 GM VL) 3.375 Gm Vi al.port, 3.375 GM IV Q8H 01/02/18 Lorazepam (LORAZEPAM) 0.5 Mg Tablet, 0.5 MG PO AB 01/02/18 Allergies: Coded Allergies: Sulfa (Sulfonamide Antibiotics) (Verified Allergy, Unknown, 01/02/18) allergic to cream only amitriptyline (Verified Allergy, Unknown, 01/02/18) aspirin (Verified Allergy, Unknown, 01/02/18) Review of Systems Constitutional: No Fever Neurological: No Confusion Cardiovascular: No Chest Pain, No Palpitations Respiratory: No Shortness of Breath, No Cough Gastrointestinal: Other (Reports chronic abdominal pain) Musculoskeletal: Other (Abdominal wall pain/burning) Psychiatric: Depression, Anxiety Exam Vital Signs Vital Signs Date Time Temp Pulse Resp B/P (MAP) Pulse Ox O2 Delivery O2 Flow Rate FiO2 01/07/18 02:19 99.0 90 14 149/86 (107) 99 Nasal Cannula 4.0 General Appearance: Alert, Awake, No Acute Distress Eyes: PERRLA ENT: Normal Cardiovascular: Normal Rhythm & Peripheral Pulses Respiratory: No Respiratory Distress GI: Other (Diffuse mild tenderness to palpation without guarding or masses) Extremities: Soft and Non Tender; No Edema Integumentary: Skin Intact without Lesion / Mass, Other (Abdominal wall blanching erythema and skin breakdown around ileostomy.) Psych: Alert & Oriented X3, Appropriate Mood & Affect Medical Decision Making Data Points Result Diagram: 01/06/18190801/06/181908 Lactate 2.5 Assessment and Plan Problems: (1) S/P ileostomy Status: Chronic (2) DVT (deep venous thrombosis) Status: Chronic (3) PE (pulmonary thromboembolism) Status: Chronic (4) Steroid dependence Status: Chronic (5) Urinary tract infection Status: Acute (6) Cellulitis of abdominal wall Status: Acute Assessment & Plan: 01/07/2018: Abdominal wall cellulitis around chronic ileostomy: - New pouch applied to abdominal wall. May need continuous drainage if stoma output becomes mores loose. Will need to protect skin from stoma output as much as possible. - patient reports she covers her mucus fistula with gauze at home; reports no significant output. ABD with very light tape applied. - Agree with abx for cellulitis - started on primaxin and vancomycin. Hopefully with improvement in cellulitis, pouching stoma should become easier - Peristomal hernia noted on CT scan - no clinical evidence of hernia or evidence of obstruction. - no evidence of necrotizing soft tissue infection - no need for surgical debridement of the abdominal wall at this time - Will follow with you Venous Thromboembolism Antithrombotics Is Pt On Any Antithrombotics?: Yes Problem Qualifiers (1) Urinary tract infection: Urinary tract infection type: acute cystitis Hematuria presence: without hematuria Qualified Codes: N30.00 - Acute cystitis without hematuria ALHAJI YOUNG MD Jan 07, 2018 04:03
[2018-01-07] MEDS ORDERED: IMIPENEM/CILASTA(*) 500MG VIAL 500 MG in NS(*) 0.9% 100 ML BAG 100 ML IVPB SCH (06:00)
[2018-01-07] MEDS ORDERED: SALMETEROL/FLUTIC 250/50 1 INH INH SCH (06:00)
[2018-01-07] MEDS: LEVOTHYROXINE SOD 0.025 MG TAB PO SCH (06:16)
[2018-01-07] MEDS ORDERED: IMIPENEM/CILASTA(*) 500MG VIAL 300 MG in NS(*) 0.9% 100 ML BAG 100 ML IVPB SCH (07:00)
[2018-01-07 07:33] LABS: PLATELET COUNT, AUTOMATED 359 K/uL (150-450)
--- NOTE | 2018-01-07 07:51 | General Surgery Progress Note ---
Subjective Progress Notes Subjective feels better. Physical Exam Vital Signs Date Time Temp Pulse Resp B/P (MAP) Pulse Ox O2 Delivery O2 Flow Rate FiO2 01/07/18 02:19 99.0 90 14 149/86 (107) 99 Nasal Cannula 4.0 Intake and Output 01/07/18 07:00 Intake Total 1050 ml Output Total 200 ml Balance 850 ml Intake IV Total 1050 ml Output Urine Total 100 ml Stool Total 100 ml # Bowel Movements 1 General Appearance: Alert, Awake, No Acute Distress, Afebrile Neuro: No Gross deficits Cardiovascular: Normal Rhythm & Peripheral Pulses Respiratory: No Respiratory Distress, Clear to Auscultation GI: Soft and Non-Tender, Other (abdominal wall cellulitis with diffuse erythema, ileostomy pouch intactRLQ with LLQ mucous fistula) Musculoskeletal: No Weakness/Pain Extremities: Soft and Non Tender, Warm, Pulses, Perfused Integumentary: Skin Intact without Lesion / Mass Psych: Alert & Oriented X3, Appropriate Mood & Affect Result Diagram: 01/06/18 1909 01/07/18 0723 Monitor Interpretation: Normal Sinus Rhythm Assessment and Plan Problems: (1) S/P ileostomy Status: Chronic (2) DVT (deep venous thrombosis) Status: Chronic (3) PE (pulmonary thromboembolism) Status: Chronic (4) Steroid dependence Status: Chronic (5) Urinary tract infection Status: Acute (6) Cellulitis of abdominal wall Status: Acute Assessment & Plan: 01/07/2018: Abdominal wall cellulitis around chronic ileostomy: - New pouch applied to abdominal wall. May need continuous drainage if stoma output becomes mores loose. Will need to protect skin from stoma output as much as possible. - patient reports she covers her mucus fistula with gauze at home; reports no significant output. ABD with very light tape applied. - Agree with abx for cellulitis - started on primaxin and vancomycin. Hopefully with improvement in cellulitis, pouching stoma should become easier - Peristomal hernia noted on CT scan - no clinical evidence of hernia or evidence of obstruction. - no evidence of necrotizing soft tissue infection - no need for surgical debridement of the abdominal wall at this time - Will follow with you 01/07/2018 Cont surgical care plan as above. Will follow clinical exam closely. Time Spent: > 30 min Exam Sepsis Risk: No Definite Risk Problem Qualifiers (1) Urinary tract infection: Urinary tract infection type: acute cystitis Hematuria presence: without hematuria Qualified Codes: N30.00 - Acute cystitis without hematuria JOSE SEPULVEDA MD Jan 07, 2018 07:51
[2018-01-07 08:00] VITALS: BP 139/75
[2018-01-07 09:02] VITALS: BP 121/67
[2018-01-07] MEDS ORDERED: CALC300T30 PO (11:07)
[2018-01-07] MEDS ORDERED: NIFE-15 PO (11:07)
[2018-01-07] MEDS ORDERED: TETR15DR9 OP (11:07)
[2018-01-07] MEDS ORDERED: CALC625T69 PO (11:07)
[2018-01-07] MEDS ORDERED: ACET-1966 PO (11:07)
[2018-01-07] MEDS ORDERED: FLUT1AER INH (11:07)
[2018-01-07] MEDS ORDERED: LEVO25TA57 PO (11:07)
[2018-01-07] MEDS ORDERED: POTA20TA94 PO (11:07)
[2018-01-07] MEDS ORDERED: NYST15PO4 TP (11:07)
[2018-01-07] MEDS ORDERED: MENT118G TOP (11:07)
[2018-01-07] MEDS ORDERED: GUAI237L21 PO (11:07)
[2018-01-07] MEDS ORDERED: BUPR1PAT22 TD (11:07)
[2018-01-07] MEDS ORDERED: MOM PO (11:07)
[2018-01-07 11:10] VITALS: BP 135/62
[2018-01-07] MEDS: RIVAROXABAN 10 MG TAB PO SCH (11:15)
[2018-01-07] MEDS: PANTOPRAZOLE SOD 40 MG TABEC PO SCH (11:16)
[2018-01-07] MEDS: POTASSIUM CHL 10 MEQ TABCR PO SCH (11:16)
[2018-01-07] MEDS: VENLAFAXINE XR 75 MG CAPCR PO SCH (11:16)
[2018-01-07] MEDS: GABAPENTIN 300 MG CAP PO SCH ×3 (11:19→20:20)
[2018-01-07] MEDS: AMPICILLIN/SULBACT (*) 3 GM VL 3 GM in NS(*) 0.9% 100 ML BAG 100 ML IVPB SCH ×3 (11:19→23:31)
--- NOTE | 2018-01-07 11:44 | EKG ---
FACILITY: [facility] [place] PATIENT NAME: JACKLYN FRANCISCO : [id number] MR: [id number] V: [id number] EXAM DATE: ORDERING PHYSICIAN: GRACIA PURVIS TECHNOLOGIST: KYLE Benoit Reason : CP Blood Pressure : / mmHG Vent. Rate : 088 BPM Atrial Rate : 088 BPM P-R Int : 130 ms QRS Dur : 062 ms QT Int : 364 ms P-R-T Axes : 052 -31 000 degrees QTc Int : 440 ms Normal sinus rhythm Leftward axis Inferior infarct , age undetermined Abnormal ECG Compared to previous EKG 01.07.2018 No significant change was found Confirmed by Gracia Gandara ([id number]) on 01/07/2018 8:33:54 PM Referred By: Confirmed By:Gracia Purvis
[2018-01-07] MEDS ORDERED: VANCOMYCIN(*) 1 GM VIAL 1 GM in NS(*) 0.9% 250 ML BAG 250 ML IVPB SCH (12:00)
[2018-01-07] MEDS ORDERED: MAG-66 PO (12:06)
[2018-01-07] MEDS ORDERED: PROM-110 PO (12:06)
[2018-01-07] MEDS ORDERED: MULT-839 PO (12:06)
[2018-01-07] MEDS ORDERED: ROPI4TAB2 PO (12:06)
[2018-01-07] MEDS: SALMETEROL/FLUTIC 250/50 1 INH INH SCH (17:29)
--- NOTE | 2018-01-07 18:44 | General Surgery Progress Note ---
Subjective Progress Notes Subjective no complaints, fariba diet. Physical Exam Vital Signs Date Time Temp Pulse Resp B/P (MAP) Pulse Ox O2 Delivery O2 Flow Rate FiO2 01/07/18 11:10 97.7 89 16 135/62 (86) 100 Nasal Cannula 4.0 Intake and Output 01/07/18 06:59 Intake Total 1050 ml Output Total 200 ml Balance 850 ml IV Total 1050 ml Output Urine Total 100 ml Stool Total 100 ml # Bowel Movements 1 Result Diagram: 01/07/1872201/07/18722 Monitor Interpretation: Normal Sinus Rhythm Assessment and Plan Problems: (1) S/P ileostomy Status: Chronic (2) DVT (deep venous thrombosis) Status: Chronic (3) PE (pulmonary thromboembolism) Status: Chronic (4) Steroid dependence Status: Chronic (5) Urinary tract infection Status: Acute (6) Cellulitis of abdominal wall Status: Acute Assessment & Plan: 01/07/2018: Abdominal wall cellulitis around chronic ileostomy: - New pouch applied to abdominal wall. May need continuous drainage if stoma output becomes mores loose. Will need to protect skin from stoma output as much as possible. - patient reports she covers her mucus fistula with gauze at home; reports no significant output. ABD with very light tape applied. - Agree with abx for cellulitis - started on primaxin and vancomycin. Hopefully with improvement in cellulitis, pouching stoma should become easier - Peristomal hernia noted on CT scan - no clinical evidence of hernia or evidence of obstruction. - no evidence of necrotizing soft tissue infection - no need for surgical debridement of the abdominal wall at this time - Will follow with you 01/07/2018 0730 Cont surgical care plan as above. Will follow clinical exam closely. 01/07/1018 1800 skin remains dry with pouch intact, less erythema, no fluctuance. Cont local wound care, IV antibiotics and close observation. Exam Sepsis Risk: No Definite Risk Problem Qualifiers (1) Urinary tract infection: Urinary tract infection type: acute cystitis Hematuria presence: without hematuria Qualified Codes: N30.00 - Acute cystitis without hematuria JOSE SEPULVEDA MD Jan 07, 2018 18:44
[2018-01-07 20:02] VITALS: BP 133/71
[2018-01-07] MEDS: traZODone HCL 50 MG TAB PO SCH (20:20)
[2018-01-07] MEDS: NYSTATIN 100,000 U/GM PWD 15GM TP SCH (20:20)
[2018-01-07] MEDS ORDERED: HYDROCORTISONE 100 MG/2 ML IVP SCH (21:00)
[2018-01-07] MEDS: ONDANSETRON 4 MG/2 ML VIAL IVP PRN (23:32)
[2018-01-07 23:42] VITALS: BP 112/64
[2018-01-08 04:45] VITALS: BP 127/75
[2018-01-08] MEDS: SALMETEROL/FLUTIC 250/50 1 INH INH SCH ×2 (05:01→17:08)
[2018-01-08] MEDS ORDERED: NS(*) 0.9% 250 ML BAG 250 ML ONE (05:14)
[2018-01-08 05:49] LABS: PLATELET COUNT, AUTOMATED 327 K/uL (150-450)
[2018-01-08] MEDS: LEVOTHYROXINE SOD 0.025 MG TAB PO SCH (05:51)
[2018-01-08] MEDS: AMPICILLIN/SULBACT (*) 3 GM VL 3 GM in NS(*) 0.9% 100 ML BAG 100 ML IVPB SCH (05:51)
[2018-01-08 07:45] VITALS: BP 142/86
--- NOTE | 2018-01-08 07:49 | General Surgery Progress Note ---
Subjective Progress Notes Subjective no new complaints, ostomy appliance held intact overnight Physical Exam Vital Signs Date Time Temp Pulse Resp B/P (MAP) Pulse Ox O2 Delivery O2 Flow Rate FiO2 01/08/18 04:45 97.9 75 18 127/75 (92) 99 Nasal Cannula 2.5 Intake and Output 01/08/18 06:59 Intake Total 1420 ml Output Total 3375 ml Balance -1955 ml Intake Oral 1220 ml IV Total 200 ml Output Urine Total 1100 ml Stool Total 2275 ml # Voids 1 # Bowel Movements 2 General Appearance: Alert, Awake, No Acute Distress, Afebrile Neuro: No Gross deficits Cardiovascular: Normal Rhythm & Peripheral Pulses, Regular Rate and Rhythm, No Edema Respiratory: No Respiratory Distress, Clear to Auscultation GI: Other (ileostomy patent with good seal of wafer; skin less erythematous with small punctate areas of full thickness injury, no fluctuance) Musculoskeletal: No Weakness/Pain Extremities: Soft and Non Tender, Warm, Pulses, Perfused Integumentary: Generalized Fragile Skin, Scaly / Dry Skin Psych: Alert & Oriented X3, Appropriate Mood & Affect Result Diagram: 01/08/18 0530 01/08/18 0530 Monitor Interpretation: Normal Sinus Rhythm Assessment and Plan Problems: (1) S/P ileostomy Status: Chronic (2) DVT (deep venous thrombosis) Status: Chronic (3) PE (pulmonary thromboembolism) Status: Chronic (4) Steroid dependence Status: Chronic (5) Urinary tract infection Status: Acute (6) Cellulitis of abdominal wall Status: Acute Assessment & Plan: 01/07/2018: Abdominal wall cellulitis around chronic ileostomy: - New pouch applied to abdominal wall. May need continuous drainage if stoma ou tput becomes mores loose. Will need to protect skin from stoma output as much as possible. - patient reports she covers her mucus fistula with gauze at home; reports no significant output. ABD with very light tape applied. - Agree with abx for cellulitis - started on primaxin and vancomycin. Hopefully with improvement in cellulitis, pouching stoma should become easier - Peristomal hernia noted on CT scan - no clinical evidence of hernia or evidence of obstruction. - no evidence of necrotizing soft tissue infection - no need for surgical debridement of the abdominal wall at this time - Will follow with you 01/07/2018 0730 Cont surgical care plan as above. Will follow clinical exam closely. 01/07/1018 1800 Skin remains dry with pouch intact, less erythema, no fluctuance. Cont local wound care, IV antibiotics and close observation. 01/08/2018 0800 Skin irritation/cellulitis/chemical burn continues to improve. Discussed with PT/Wound care, RN and Fagot Maker. Cont aggressive local wound care, shower daily as fariba, and serial abdominal exams. Antibiotics now changed to PO to cover UTI as well. Time Spent: > 30 min Exam Sepsis Risk: No Definite Risk Problem Qualifiers (1) Urinary tract infection: Urinary tract infection type: acute cystitis Hematuria presence: without hematuria Qualified Codes: N30.00 - Acute cystitis without hematuria JOSE SEPULVEDA MD Jan 08, 2018 07:49
--- NOTE | 2018-01-08 08:55 | Antimicrobial Stewardship ---
Antimicrobial Stewardship Empiricly appropriate: Yes Duplicate/overlapping Rx: No Support empiric regimen: Yes Comment 01/06: Admitted with presumed cellulitis of the abdomen, low grade fever on admission, elevated WBC (on prednisone), redness/irritation around ostomy site, cultures pending 01/06: Started on Vancomycin/Primaxin, switched to Unasyn, now on Augmentin Approriate Cultures done: Yes Cultures need repeate: No Gram stain show Microbs: No Appropriate dose for site: Yes Comment Antibiotic dosing appropriate Reviewed for Drug Interaction: Yes Monitored for Toxicities: Yes Clinically stable/improving: Yes IV to PO Opportunity: Yes Comment 01/08: Switched from Unasyn to Augmentin Determine cumulative duration: 01/08 is day 3 Determine standard duration: 5-10 days Verified plan for regimen: Yes Comment Upon evaluation, cellulitis appears to be chemical in nature, related specifically to GI drainage on the skin from stoma. Wound care involved. Antibiotics switched to cover GI deepika for potential cellulitis, switched to oral antibiotics 01/08. Currently on Augmentin 875mg po BID. Treatment duration should not exceed 10 days. Would aim for shorter course of 5-7 days. GLORIA COHEN Jan 08, 2018 08:55
[2018-01-08] MEDS: VENLAFAXINE XR 75 MG CAPCR PO SCH (09:49)
[2018-01-08] MEDS: AMOX/CLAV 875 MG TAB PO SCH ×2 (09:49→17:38)
[2018-01-08] MEDS: POTASSIUM CHL 10 MEQ TABCR PO SCH (09:49)
[2018-01-08] MEDS: GABAPENTIN 300 MG CAP PO SCH ×3 (09:50→21:13)
[2018-01-08] MEDS: PANTOPRAZOLE SOD 40 MG TABEC PO SCH (09:50)
[2018-01-08] MEDS: predniSONE 10 MG TAB PO SCH (09:50)
[2018-01-08] MEDS: NYSTATIN 100,000 U/GM PWD 15GM TP SCH ×2 (09:51→21:14)
[2018-01-08] MEDS: RIVAROXABAN 10 MG TAB PO SCH (09:51)
--- NOTE | 2018-01-08 11:52 | Hospitalist Progress Note ---
Subjective Progress Notes Subjective This patient was admitted for apparent cellulitis of the abdominal wall. She had no acute events overnight. Patient Complains of: Cardiovascular: No: Chest Pain Respiratory: No: Shortness of Breath Physical Exam Vital Signs Date Time Temp Pulse Resp B/P (MAP) Pulse Ox O2 Delivery O2 Flow Rate FiO2 01/08/18 07:45 97 Nasal Cannula 2.5 01/08/18 07:45 98.0 86 16 142/86 (104) Intake and Output 01/08/18 07:00 Intake Total 1420 ml Output Total 3375 ml Balance -1955 ml Intake Oral 1220 ml IV Total 200 ml Output Urine Total 1100 ml Stool Total 2275 ml # Voids 1 # Bowel Movements 2 Cardiovascular: Regular Rate and Rhythm Respiratory: Clear to Auscultation Integumentary: Other (Various stages of skin breakdown along abdominal wall. ) Result Diagram: 01/08/18 0530 01/08/18 0530 Monitor Interpretation: Normal Sinus Rhythm Assessment and Plan Problems: (1) Cellulitis of abdominal wall Status: Acute Assessment & Plan: It appears she probably has cellulitis and possibly chemical irritation (due to ileostomy drainage) of the skin of her abdominal wall. She was on Unasyn, but has now been converted to oral Augmentin. (2) PE (pulmonary thromboembolism) Status: Chronic Assessment & Plan: She is on Xarelto and has an IVC filter in place. (3) Hypothyroidism Status: Chronic Assessment & Plan: Continue L-thyroxine 25mcg daily. (4) HTN (hypertension) Status: Chronic Assessment & Plan: She has been on nifedipine, but will hold for now and monitor BPs. (5) Steroid dependence Status: Chronic Assessment & Plan: She has been on prednisone 10mg daily for years. She did initially get stress dose hydrocortisone, but is now back on prednisone. It is unclear why she is on fdc steroids. (6) Depression Status: Chronic Assessment & Plan: Continue Effexor and trazodone. (7) COPD (chronic obstructive pulmonary disease) Status: Chronic Assessment & Plan: She has been on chronic oxygen and Breo Ellipta (not on formulary) - will place on Advair while she is here. Exam Sepsis Risk: No Definite Risk OCTAVIO POSADA DO Jan 08, 2018 11:52
[2018-01-08 14:15] VITALS: BP 146/78
--- NOTE | 2018-01-08 14:39 | Medical Nutrition Therapy ---
Nutrition Anthropometrics Height (Inches): 62.50 Height (Calculated Centimeters: 158.031179 Weight (Pounds): 132 Weight (Calculated Kilograms): 59.874 Jani Nutrition Score: Adequate Jani Nutrition Risk Score: 15 Dietary Referral Nutrition Risk Factors: Nutrition Risk Comment: Physical Findings Physical Appearance: WNR Skin Appearance Skin Appearance: Edema Edema Location Modifier: Edema Location: Type of Edema: Degree of Edema: Gastrointestinal Symptoms GI Symtoms: Nausea Tube Present: Bowel Sounds: Recent Bowel Pattern: Stool Characteristics: Nutrition/Food History pt states has short gut syndrome, has ilieostomy Nutritional Diagnosis Nutritional Risk Acuity 2: Ileostomy Nutritional Risk Acuity 4: Good Appetite Past Medical History: ileostomy Nutritional Acuity: 2-Moderate Nutrition Diagnosis: Altered GI Function Nutrition Etiology: Physiological Causes Nutrition Problem/Etiology/Sym: AEB ileostomy Energy Requirement: 1840 (Miffin- StJ X 1.3 SF) Protein Requirement: 71 (1.2g/kg) Fluid Requirement: 2065 (35ml/kg) Diet Type: Diet as Tolerated ELIZABETH/REG Nutrition Intervention: Cont diet as ordered, Encourage intake Additional Diet Restrictions: OFFER NUTR SUPPLMENT Nutrition Monitoring & Eval Nutrition Goals: Eat 75-100% Meal RD Patient Assessment Time: [address] Assessment Type: RD Assessment Patient Nutrition Acuity: 2-Moderate Follow Up Date: Jan 12, 2018 Nutritional Comment: 10/ Pt admitted for cellulites around her ileostomy. Nutrition significant labs: Alb 3.6, H/H 10.3/33.6, BUN 22, creatinine 1, K+ 4.5. Pt on regular diet and ate 100% of first meal in facility. Will cont to monitor and encourage intake. / Pt states knows what she can eat for her ileostomy but is interested in handout that list foods which cause gas, diarrhea etc. Will provide pt with copy. Alb down to 3.1. Will offer nutr supplment to increase kcal and protein. TAPAN OCHOA Jan 08, 2018 14:39
[2018-01-08] MEDS: ONDANSETRON 4 MG/2 ML VIAL IVP PRN (17:41)
[2018-01-08 19:00] VITALS: BP 138/79
--- NOTE | 2018-01-08 19:07 | General Surgery Progress Note ---
Physical Exam Vital Signs Date Time Temp Pulse Resp B/P (MAP) Pulse Ox O2 Delivery O2 Flow Rate FiO2 01/08/18 14:15 98.2 102 16 146/78 (100) 98 Nasal Cannula 2.5 Intake and Output 01/08/18 07:00 Intake Total 1420 ml Output Total 3375 ml Balance -1955 ml Intake Oral 1220 ml IV Total 200 ml Output Urine Total 1100 ml Stool Total 2275 ml # Voids 1 # Bowel Movements 2 Result Diagram: 01/08/18 0530 01/08/18 0530 Monitor Interpretation: Normal Sinus Rhythm Assessment and Plan Problems: (1) S/P ileostomy Status: Chronic Assessment & Plan: Have asked for records to be faxed from [place], the op note and path report. (2) DVT (deep venous thrombosis) Status: Chronic Assessment & Plan: On Xarelto and has an IVC filter in place. (3) PE (pulmonary thromboembolism) Status: Chronic Assessment & Plan: On Xarelto and has an IVC filter in place. (4) Steroid dependence Status: Chronic Assessment & Plan: Has been on Pred 10 mg PO Q day for years by report. Wean as fariba per Shift Production Associate. (5) Urinary tract infection Status: Acute Assessment & Plan: Culture with mixed deepika. Likely can DC antibiotics next 24 hours. (6) Cellulitis of abdominal wall Status: Acute Assessment & Plan: 01/07/2018: Abdominal wall cellulitis around chronic ileostomy: - New pouch applied to abdominal wall. May need continuous drainage if stoma output becomes mores loose. Will need to protect skin from stoma output as much as possible. - patient reports she covers her mucus fistula with gauze at home; reports no significant output. ABD with very light tape applied. - Agree with abx for cellulitis - started on primaxin and vancomycin. Hopefully with improvement in cellulitis, pouching stoma should become easier - Peristomal hernia noted on CT scan - no clinical evidence of hernia or evidence of obstruction. - no evidence of necrotizing soft tissue infection - no need for surgical debridement of the abdominal wall at this time - Will follow with you 01/07/2018 0730 Cont surgical care plan as above. Will follow clinical exam closely. 01/07/1018 1800 Skin remains dry with pouch intact, less erythema, no fluctuance. Cont local wound care, IV antibiotics and close observation. 01/08/2018 0800 Skin irritation/cellulitis/chemical burn continues to improve. Discussed with PT/Wound care, RN and Shift Production Associate. Cont aggressive local wound care, shower daily as fariba, and serial abdominal exams. Antibiotics now changed to PO to cover UTI as well. 01/08/2018 1850 Wound examined again with PT/RN, appliance remains intact without leakage. Plan to wash anterior abdominal wall and change dressing in the am. Time Spent: < 30 min Exam Sepsis Risk: No Definite Risk Problem Qualifiers (1) Urinary tract infection: Urinary tract infection type: acute cystitis Hematuria presence: without hematuria Qualified Codes: N30.00 - Acute cystitis without hematuria JOSE SEPULVEDA MD Jan 08, 2018 19:07
[2018-01-08] MEDS: traZODone HCL 50 MG TAB PO SCH (21:13)
[2018-01-09 00:02] VITALS: BP 129/70
[2018-01-09] MEDS: ONDANSETRON 4 MG/2 ML VIAL IVP PRN (04:45)
[2018-01-09 04:49] VITALS: BP 136/66
[2018-01-09] MEDS: SALMETEROL/FLUTIC 250/50 1 INH INH SCH ×2 (05:46→18:11)
[2018-01-09] MEDS: LEVOTHYROXINE SOD 0.025 MG TAB PO SCH (06:00)
[2018-01-09 07:10] VITALS: BP 126/56
--- NOTE | 2018-01-09 07:55 | General Surgery Progress Note ---
Subjective Progress Notes Subjective Feeling better Physical Exam Vital Signs Date Time Temp Pulse Resp B/P (MAP) Pulse Ox O2 Delivery O2 Flow Rate FiO2 01/09/18 07:10 98.3 71 16 126/56 (79) 99 Nasal Cannula 1.0 01/09/18 05:48 32.0 Intake and Output 01/09/18 07:00 Intake Total 1552 ml Output Total 3450 ml Balance -1898 ml Intake Oral 1552 ml Output Urine Total 1850 ml Stool Total 1600 ml General Appearance: Alert, Awake, No Acute Distress, Afebrile GI: Soft and Non-Tender (Abdominal wall less inflamed, stoma functioning. Ileostomy bag intact without leakage.) Result Diagram: 01/08/18 0530 01/08/18 0530 Monitor Interpretation: Normal Sinus Rhythm Assessment and Plan Problems: (1) S/P ileostomy Status: Chronic Assessment & Plan: Have asked for records to be faxed from [place], the op no te and path report. (2) DVT (deep venous thrombosis) Status: Chronic Assessment & Plan: On Xarelto and has an IVC filter in place. (3) PE (pulmonary thromboembolism) Status: Chronic Assessment & Plan: On Xarelto and has an IVC filter in place. (4) Steroid dependence Status: Chronic Assessment & Plan: Has been on Pred 10 mg PO Q day for years by report. Wean as fariba per Draft Roller Picker. (5) Urinary tract infection Status: Acute Assessment & Plan: Culture with mixed deepika. Likely can DC antibiotics next 24 hours. (6) Cellulitis of abdominal wall Status: Acute Assessment & Plan: 01/07/2018: Abdominal wall cellulitis around chronic ileostomy: - New pouch applied to abdominal wall. May need continuous drainage if stoma output becomes mores loose. Will need to protect skin from stoma output as much as possible. - patient reports she covers her mucus fistula with gauze at home; reports no significant output. ABD with very light tape applied. - Agree with abx for cellulitis - started on primaxin and vancomycin. Hopefully with improvement in cellulitis, pouching stoma should become easier - Peristomal hernia noted on CT scan - no clinical evidence of hernia or evidence of obstruction. - no evidence of necrotizing soft tissue infection - no need for surgical debridement of the abdominal wall at this time - Will follow with you 01/07/2018 0730 Cont surgical care plan as above. Will follow clinical exam closely. 01/07/1018 1800 Skin remains dry with pouch intact, less erythema, no fluctuance. Cont local wound care, IV antibiotics and close observation. 01/08/2018 0800 Skin irritation/cellulitis/chemical burn continues to improve. Discussed with PT/Wound care, RN and Draft Roller Picker. Cont aggressive local wound care, shower daily as fariba, and serial abdominal exams. Antibiotics now changed to PO to cover UTI as well. 01/08/2018 1850 Wound examined again with PT/RN, appliance remains intact without leakage. Plan to wash anterior abdominal wall and change dressing in the am. 01/09/2018: Patient examined with Dr. Rose, abdominal wall inflammation much improved. Appliance intact and without leakage. Continue current management. Exam Sepsis Risk: No Definite Risk Problem Qualifiers (1) Urinary tract infection: Urinary tract infection type: acute cystitis Hematuria presence: without hematuria Qualified Codes: N30.00 - Acute cystitis without hematuria GERSON ELLIS MD Jan 09, 2018 07:55
[2018-01-09] MEDS: GABAPENTIN 300 MG CAP PO SCH ×3 (08:43→21:04)
[2018-01-09] MEDS: POTASSIUM CHL 10 MEQ TABCR PO SCH (08:43)
[2018-01-09] MEDS: predniSONE 10 MG TAB PO SCH (08:43)
[2018-01-09] MEDS: VENLAFAXINE XR 75 MG CAPCR PO SCH (08:43)
[2018-01-09] MEDS: AMOX/CLAV 875 MG TAB PO SCH (08:43)
[2018-01-09] MEDS: PANTOPRAZOLE SOD 40 MG TABEC PO SCH (08:43)
[2018-01-09] MEDS: RIVAROXABAN 10 MG TAB PO SCH (08:44)
[2018-01-09] MEDS: NYSTATIN 100,000 U/GM PWD 15GM TP SCH ×2 (08:44→21:04)
[2018-01-09] MEDS ORDERED: PATCH REMOVAL 1 EA TP SCH (09:00)
[2018-01-09] MEDS ORDERED: BUPRENORPHINE 5 MCG/HR TD SCH (09:00)
--- NOTE | 2018-01-09 09:14 | Medical Nutrition Therapy ---
Nutritional Diagnosis Nutritional Risk Acuity 2: Ileostomy Nutritional Risk Acuity 4: Good Appetite Past Medical History: ileostomy Nutritional Acuity: 2-Moderate Nutrition Diagnosis: Altered GI Function Nutrition Etiology: Physiological Causes Nutrition Problem/Etiology/Sym: AEB ileostomy Energy Requirement: 1840 ([place]iffin- StJ X 1.3 SF) Protein Requirement: 71 (1.2g/kg) Fluid Requirement: 2065 (35ml/kg) Diet Type: Diet as Tolerated ELIZABETH/REG Nutrition Intervention: Cont diet as ordered, Encourage intake Additional Diet Restrictions: OFFER NUTR SUPPLMENT Diet Comment To [facility]: NO TEETH, SOFT FOODS Nutritional Education Nutrition Education Topic: Other (ileostomy) Learning Readiness: Interested Teaching Methods: Discussion, Handout Response to Teaching: Verbalize understanding Teaching Recipient: Patient Nutrition Counseling: Provided information on ileostomy with tips of foods that may cause problems. Nutrition Monitoring & Eval RD Patient Assessment Time: [address] Assessment Type: RD Education Patient Nutrition Acuity: 2-Moderate Follow Up Date: Jan 12, 2018 Nutritional Comment: 10/3 Pt admitted for cellulites around her ileostomy. Nutrition significant labs: Alb 3.6, H/H 10.3/33.6, BUN 22, creatinine 1, K+ 4.5. Pt on regular diet and ate 100% of first meal in facility. Will cont to monitor and encourage intake. 10/ Pt states knows what she can eat for her ileostomy but is interested in handout that list foods which cause gas, diarrhea etc. Will provide pt with copy. Alb down to 3.1. Will offer nutr supplment to increase kcal and protein. TAPAN OCHOA Jan 09, 2018 09:13
[2018-01-09 11:30] VITALS: BP 139/81
--- NOTE | 2018-01-09 11:30 | Hospitalist Progress Note ---
Subjective Progress Notes Subjective Feeling much better overall. Physical Exam Vital Signs Date Time Temp Pulse Resp B/P (MAP) Pulse Ox O2 Delivery O2 Flow Rate FiO2 01/09/18 07:10 98.3 71 16 126/56 (79) 99 Nasal Cannula 1.0 01/09/18 05:48 32.0 Intake and Output 01/09/18 07:00 Intake Total 1552 ml Output Total 3450 ml Balance -1898 ml Intake Oral 1552 ml Output Urine Total 1850 ml Stool Total 1600 ml General Appearance: Alert, Awake, No Acute Distress, Afebrile Neuro: No Gross deficits Eyes: PERRLA Cardiovascular: Regular Rate and Rhythm Respiratory: Clear to Auscultation GI: Soft and Non-Tender, Other (Abdomen with some scaling. Wounds healing. No redness or discharge. Ostomy in place R abdomen. L abdomen with stoma which is pink without redness or discharge currently.) Extremities: Warm, Perfused Integumentary: Other (See above.) Psych: Alert & Oriented X3, Appropriate Mood & Affect Result Diagram: 01/08/1852901/08/18529 Monitor Interpretation: Normal Sinus Rhythm Assessment and Plan Problems: (1) Cellulitis of abdominal wall Status: Acute Assessment & Plan: It appears she probably has cellulitis and possibly chemical irritation (due to ileostomy drainage) of the skin of her abdominal wall. She was on Unasyn, and then was converted to oral Augmentin. UA shows E. coli resistant to Augmentin so will switch to Keflex. (2) PE (pulmonary thromboembolism) Status: Chronic Assessment & Plan: She is on Xarelto and has an IVC filter in place. (3) Hypothyroidism Status: Chronic Assessment & Plan: Continue L-thyroxine 25mcg daily. (4) HTN (hypertension) Status: Chronic Assessment & Plan: She has been on nifedipine which was initially held but she has had systolic readings in the 140s and occasionally 150s. Will restart. (5) Steroid dependence Status: Chronic Assessment & Plan: She has been on prednisone 10mg daily for years. She did initially get stress dose hydrocortisone, but is now back on prednisone. Dr. Gaudencio Sanderson prescribes this for her. May need to get records. (6) Depression Status: Chronic Assessment & Plan: Continue Effexor and trazodone. (7) COPD (chronic obstructive pulmonary disease) Status: Chronic Assessment & Plan: She has been on chronic oxygen and Breo Ellipta (not on formulary) - will place on Advair while she is here. Time Spent on Plan of Care: < 30 min Exam Sepsis Risk: No Definite Risk ELIAS GONZALES MD Jan 09, 2018 11:30
[2018-01-09] MEDS ORDERED: POLY15DR7 OU (13:23)
[2018-01-09] MEDS ORDERED: CEPH500C24 PO (13:30)
[2018-01-09] MEDS: CEPHALEXIN MONO 500 MG CAP PO SCH ×3 (14:22→21:04)
[2018-01-09] MEDS ORDERED: ONDANSETRON 4 MG ODT TABDP SL PRN (16:05)
[2018-01-09 16:21] VITALS: BP 151/86
[2018-01-09 20:50] VITALS: BP 149/74
[2018-01-09] MEDS: traZODone HCL 50 MG TAB PO SCH (21:03)
[2018-01-10 00:11] VITALS: BP 151/62
[2018-01-10 04:09] VITALS: BP 134/71
[2018-01-10] MEDS: LEVOTHYROXINE SOD 0.025 MG TAB PO SCH (05:35)
[2018-01-10] MEDS: SALMETEROL/FLUTIC 250/50 1 INH INH SCH (05:45)
[2018-01-10 06:19] LABS: PLATELET COUNT, AUTOMATED 374 K/uL (150-450)
[2018-01-10 08:03] VITALS: BP 142/78
--- NOTE | 2018-01-10 08:17 | Hospitalist Depart ---
Discharge Summary Reason for Hosp/Final Diag: (1) Cellulitis of abdominal wall Status: Acute Hospital Course & Plan: It appears she probably has cellulitis and possibly chemical irritation (due to ileostomy drainage) of the skin of her abdominal wall. She was on Unasyn, and then was converted to oral Augmentin. UA showed E. coli resistant to Augmentin so she was switched to Keflex. WBC normalized. CRP decreased from 6.9 to 1.8. (2) PE (pulmonary thromboembolism) Status: Chronic Hospital Course & Plan: She was continued on Xarelto. She does have an IVC filter in place. (3) Hypothyroidism Status: Chronic Hospital Course & Plan: She was continued on L-thyroxine 25mcg daily. (4) HTN (hypertension) Status: Chronic Hospital Course & Plan: She had been on nifedipine which was initially held but her systolic readings increased into the 140s and occasionally 150s. Nifedipine was restarted. (5) Steroid dependence Status: Chronic Hospital Course & Plan: She had been on prednisone 10mg daily for years. She did initially get stress dose hydrocortisone, but was then converted back to oral prednisone. Dr. Gaudenico Sanderson is the prescribing physician for her prednisone. (6) Depression Status: Chronic Hospital Course & Plan: She was continued on Effexor and trazodone. (7) COPD (chronic obstructive pulmonary disease) Status: Chronic Hospital Course & Plan: She had been on chronic oxygen and Breo Ellipta (not on formulary), She was placed on Advair while hospitalized and will resume Breo Ellipta at discharge. Departure Weight (Pounds): 132 Result Diagram: 01/10/1851801/10/18518 Condition: Improved PT/OT Follow Up For: PT For Strengthening, OT For ADL's, ST Evaluation and Treat Home Health RN Follow Up For: Nursing Assessment, Other Discharge Instructions Home Meds Active Scripts Hydrocodone Bit/Acetaminophen (HYDROCODON-ACETAMINOPHEN 5-325) 1 Each Tablet, 1 EACH PO Q4-6H PRN for PAIN, #30 TAKE ONE TABLET BY MOUTH EVERY 4-6 HOURS NEEDED FOR PAIN Prov:EDILMA MARTINEZ DO 01/02/18 Reported Medications Polyvinyl Alcohol (LIQUITEARS) 15 Ml Drops, 1 GTT OU PRN for dry eyes 01/09/18 Ropinirole Hcl (ROPINIROLE HCL) 4 Mg Tab.er.24h, 4 MG PO HS 01/07/18 Multivitamin (TAB-A-OMAR) 1 Each Tablet, 1 EACH PO QAM 01/07/18 Mag Hydrox/Al Hydrox/Simeth (MAALOX MAXIMUM STRENGTH SUSP) 355 Ml Oral.susp, 15 ML PO Q4H PRN for INDIGESTION 01/07/18 Promethazine Hcl (PROMETHAZINE HCL) 25 Mg Tablet, 25 MG PO Q8H PRN for NAUSEA/VOMITING, TAB 01/07/18 Potassium Chloride (POTASSIUM CHLORIDE) 20 Meq Tab.er.prt, 20 MEQ PO QDAY 01/07/18 Nystatin 100,000 Unit/Gm Top Powder (NYSTATIN 100,000 UNIT/GM TOP POWDER) 15 Gm Powder, 15 GM TP BID 01/07/18 Tetrahydrozoline Hcl (EYE DROPS) 15 Ml Drops, 1 DROP OP PRN 01/07/18 Guaifenesin/Dextromethorphan (Robitussin Cough-Chest Dm Liq) 100 Mg-5 Mg/5 Ml Liquid, 5 ML PO Q4-6H PRN for COUGH 01/07/18 Acetaminophen (TYLENOL) 325 Mg Tablet, 1-2 TAB PO Q4H PRN for PAIN, TAB 01/07/18 Buprenorphine (Buprenorphine) 5 Mcg/Hour Patch.tdwk, 1 PATCH TD every 7 days 01/07/18 Menthol (BIOFREEZE) 118 Ml Gel..ml., 1 JARETT TOP TID PRN for PAIN 01/07/18 Calcium Polycarbophil (FIBER) 625 Mg Tablet, 2 TAB PO DAILY 01/07/18 Calcium Carbonate (Calcium Carbonate) 300 Mg Calcium (750 Mg) Tab.chew, 2 TAB PO PRN Not to exceed 10 tablets in 24 hours 01/07/18 Nifedipine (NIFEDIPINE ER) 30 Mg Tab.er.24, 30 MG PO QDAY 01/07/18 Magnesium Hydroxide (MILK OF MAGNESIA) 400 Mg/5 Ml Oral.susp, 15-30 ML PO PRN PRN for CONSTIPATION, BOTTLE Not to exceed mokre than 2 doses in 24 hours 01/07/18 Levothyroxine Sodium (SYNTHROID) 25 Mcg Tablet, 25 MCG PO QDAY 01/07/18 Fluticasone/Vilanterol 100/25 Mcg/Inh (BREO ELLIPTA 100/25 MCG) 1 Each Aer.pow.ba, 1 INH INH QDAY, INH 01/07/18 Rivaroxaban 20 Mg (XARELTO 20 MG) 20 Mg Tablet, 20 MG PO, TAB 01/06/18 Venlafaxine Hcl (EFFEXOR XR) 150 Mg Cap.er.24h, 150 MG PO QDAY 01/02/18 Trazodone Hcl (TRAZODONE HCL) 50 Mg Tablet, 0.5 TAB PO QHS 01/02/18 Prednisone 10 Mg Tab (PREDNISONE 10 MG TAB) 10 Mg Tablet, 10 MG PO QDAY, TAB 01/02/18 Pantoprazole Sodium (PANTOPRAZOLE SODIUM) 40 Mg Tablet.dr, 40 MG PO QDAY, TAB.SR 01/02/18 Gabapentin (GABAPENTIN) 300 Mg Capsule, 600 MG PO TID, CAPSULE 01/02/18 Clonazepam (CLONAZEPAM) 0.5 Mg Tablet, 0.5 MG PO QID, #6 TAB 01/02/18 Discontinued Reported Medications Glycopyrrolate (ROBINUL) 1 Mg Tablet, 4 MG PO 01/02/18 Potassium Bicarbonate/Cit Ac (POTASSIUM 25 MEQ TABLET EFF) 25 Meq Tablet.eff, 20 MEQ PO 01/02/18 Nifedipine (NIFEDIPINE) 20 Mg Capsule, 30 MG PO QDAY, CAPSULE 01/02/18 Levothyroxine Sodium (LEVOTHYROXINE SODIUM) 50 Mcg Tablet, 25 MCG PO QDAY, TAB 01/02/18 Fluticasone Prop 44 Mcg (FLOVENT HFA 44 MCG) 44 Mcg Inha, 44 MCG INH, INH 01/02/18 Piperacillin Sodium/Tazobactam (PIPERACIL-TAZOBACT 3.375 GM VL) 3.375 Gm Vial.port, 3.375 GM IV Q8H 01/02/18 Lorazepam (LORAZEPAM) 0.5 Mg Tablet, 0.5 MG PO AB 01/02/18 Discontinued Scripts Fluticasone/Vilanterol (Breo Ellipta 200-25 Mcg INH) 1 Each Blst.w.dev, 1 PUFF INH DAILY for COPD control, #1 Prov:EDILMA MARTINEZ DO 01/02/18 Follow up Referrals: Internal Medicine - In Two Weeks @ [facility]-Primary with DARIO ROJAS MD Diet: Regular Activity: As Tolerated Copies to: DARIO ROJAS MD ; Venous Thromboembolism Antithrombotics Is Pt On Any Antithrombotics?: Yes ELIAS GONZALES MD Jan 10, 2018 08:17
[2018-01-10] MEDS: POTASSIUM CHL 10 MEQ TABCR PO SCH (08:27)
[2018-01-10] MEDS: RIVAROXABAN 10 MG TAB PO SCH (08:27)
[2018-01-10] MEDS: GABAPENTIN 300 MG CAP PO SCH (08:27)
[2018-01-10] MEDS: VENLAFAXINE XR 75 MG CAPCR PO SCH (08:27)
[2018-01-10] MEDS: CEPHALEXIN MONO 500 MG CAP PO SCH (08:27)
[2018-01-10] MEDS: PANTOPRAZOLE SOD 40 MG TABEC PO SCH (08:27)
[2018-01-10] MEDS: predniSONE 10 MG TAB PO SCH (08:28)
[2018-01-10] MEDS: NYSTATIN 100,000 U/GM PWD 15GM TP SCH (08:28)
[2018-01-10] MEDS ORDERED: NIFEdipine XL 30 MG TABCR PO SCH (09:00)
== END 2018-01-10 12:35 | disposition home or self-care (01) | DRG 602 ==
LOC: ER 19:09 → MED 01-07 01:11
PROVIDERS: ADMIT Internal Medicine; ATTEND Internal Medicine
DX: L03.311 Cellulitis of abdominal wall (principal); I26.99 Other pulmonary embolism without acute cor pulmonale; K91.2 Postsurgical malabsorption, not elsewhere classified; N30.00 Acute cystitis without hematuria; K94.19 Other complications of enterostomy; E03.9 Hypothyroidism, unspecified; I10 Essential (primary) hypertension; Z66 Do not resuscitate; B96.20 Unspecified Escherichia coli [E. coli] as the cause of diseases classified elsewhere; J44.9 Chronic obstructive pulmonary disease, unspecified; M79.7 Fibromyalgia; I48.2 Chronic atrial fibrillation; F31.9 Bipolar disorder, unspecified; G47.00 Insomnia, unspecified; K21.9 Gastro-esophageal reflux disease without esophagitis; G62.9 Polyneuropathy, unspecified; Z79.52 Long term (current) use of systemic steroids; Z88.2 Allergy status to sulfonamides; Z99.81 Dependence on supplemental oxygen; Z86.718 Personal history of other venous thrombosis and embolism; Z79.01 Long term (current) use of anticoagulants; Z85.3 Personal history of malignant neoplasm of breast; Z90.12 Acquired absence of left breast and nipple; Z90.710 Acquired absence of both cervix and uterus
CPT/HCPCS: 36415; 74022; 74177; 81001; 82040; 82247; 82310; 82374; 82435; 82565; 82947; 83605; 83630; 84075; 84132; 84155; 84295; 84450; 84460; 84484; 84520; 85025; 85610; 85730; 86140; 87040; 87045; 87077; 87088; 87186; 87324; 87449; 93005; 94640; 94660; 97163; C1758; J0295; J0743; J1170; J1720; J1885; J2270; J2405; J3370; J7030; J7050; J7512; Q9967; S0119

== ENCOUNTER → 2018-01-06 | Outpatient (CLI) | payer MEDICARE ==
[~2018-01-06] MED LIST: ACET-1966 PO; BUPR1PAT22 TD; CALC300T30 PO; CALC625T69 PO; CEPH500C24 PO; CLON-331 PO; FLU44R INH; FLUT1AER INH; FLUT1BLS3 INH; GABA-549 PO; GLYC1TAB21 PO; GUAI237L21 PO; LEVO25TA57 PO; LEVO50TA86 PO; LOR5/325 PO; LORA-630 PO; MAG-66 PO; MENT118G TOP; MOM PO; MULT-839 PO; NIFE-15 PO; NIFE20CA8 PO; NYST15PO4 TP; PANT40TA65 PO; POLY15DR7 OU; POTA20TA94 PO; POTA25TA28 PO; PRED-1 PO; PROM-110 PO; RIVA20TA PO; ROPI4TAB2 PO; TETR15DR9 OP; TRAZ50TA34 PO; VENL150C61 PO; [UNRECOGNIZED DRUG - CODE] IV
== END ==
LOC: AMB 18:22
PROVIDERS: ATTEND Nurse Practitioner
DX: R10.84 Generalized abdominal pain (principal); K94.01 Colostomy hemorrhage; K94.02 Colostomy infection; R50.9 Fever, unspecified
CPT/HCPCS: A0425; A0427

== ENCOUNTER 2018-01-27 20:00 | Inpatient (IN) | payer MEDICARE, OTHER ==
[~2018-01-27] VITALS: Ht 158.8 cm; Wt 62.6 kg
--- NOTE | 2018-01-27 20:06 | ER Report ---
History and Physical Time Seen By MD: 20:05 HPI/ROS CHIEF COMPLAINT: bleeding from mucous pouch HISTORY OF PRESENT ILLNESS: This is a 67 year old female. She is a resident of [facility]. She had sudden onset of bleeding red blood from her mucous pouch on the lower left quadrant tonight. Multiple ABD pads soaked and the assisted living staff sent her here by ambulance and were unable to care for her with this bleeding. She arrived by EMS and the bleeding had stopped. She had one blood soaked ABD pad over the pouch. No active bleeding. She does take Xarelto, for history of DVT, PE and has a history of an IVC filter as well. She states t he ileostomy is working well. No rectal bleeding. 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 She denies fevers. No other bleeding. No other complaints. Allergies: Coded Allergies: Sulfa (Sulfonamide Antibiotics) (Verified Allergy, Unknown, 01/27/18) allergic to cream only amitriptyline (Verified Allergy, Unknown, 01/27/18) aspirin (Verified Allergy, Unknown, 01/27/18) morphine (Verified Allergy, Unknown, 01/27/18) Home Meds Active Scripts Potassium Chloride (POTASSIUM CHLORIDE) 20 Meq Tab.er.prt, 1 TAB PO QDAY for 30 Days, #30 TAB Prov:DARIO ROJAS MD 01/22/18 Venlafaxine Hcl (EFFEXOR XR) 150 Mg Cap.er.24h, 1 CAP PO QDAY for 30 Days, #30 CAP Prov:DARIO ROJAS MD 01/22/18 Prednisone 10 Mg Tab (PREDNISONE 10 MG TAB) 10 Mg Tablet, 1 TAB PO QDAY for 30 Days, #30 TAB Prov:DARIO ROJAS MD 01/22/18 Pantoprazole Sodium (PANTOPRAZOLE SODIUM) 40 Mg Tablet.dr, 1 TAB PO QDAY for 30 Days, #30 TAB Prov:DARIO ROJAS MD 01/22/18 Trazodone Hcl (TRAZODONE HCL) 50 Mg Tablet, 1 TAB PO QHS for 30 Days, #30 TAB Prov:DARIO ROJAS MD 01/21/18 Hydrocodone Bit/Acetaminophen (HYDROCODON-ACETAMINOPHEN 5-325) 1 Each Tablet, 1 EACH PO Q4-6H PRN for PAIN, #30 TAKE ONE TABLET BY MOUTH EVERY 4-6 HOURS NEEDED FOR PAIN Prov:EDILMA MARTINEZ DO 01/02/18 Reported Medications Oxygen (OXYGEN) Inha, 2 L INH, L 2 Liters Continuous Oxygen and With CPap at HS 01/21/18 Protein Supplement (Protein Powder) 480 Gm Powder, 2 NOTSPEC PO TID 2 scoops of powder in 6-8oz of water between meals 01/21/18 Gabapentin (GABAPENTIN) 600 Mg Tablet, 1 TAB PO TID 01/21/18 Polyvinyl Alcohol (LIQUITEARS) 15 Ml Drops, 1 GTT OU PRN for dry eyes 01/09/18 Ropinirole Hcl (ROPINIROLE HCL) 4 Mg Tab.er.24h, 1 TAB PO HS 01/07/18 Multivitamin (TAB-A-OMAR) 1 Each Tablet, 1 EACH PO QAM 01/07/18 Mag Hydrox/Al Hydrox/Simeth (MAALOX MAXIMUM STRENGTH SUSP) 355 Ml Oral.susp, 15 ML PO Q4H PRN for INDIGESTION 01/07/18 Promethazine Hcl (PROMETHAZINE HCL) 25 Mg Tablet, 1 TAB PO Q8H PRN for NAUSEA/VOMITING 01/07/18 Nystatin 100,000 Unit/Gm Top Powder (NYSTATIN 100,000 UNIT/GM TOP POWDER) 15 Gm Powder, 15 GM TP BID 01/07/18 Tetrahydrozoline Hcl (EYE DROPS) 15 Ml Drops, 1 DROP OP PRN 01/07/18 Guaifenesin/Dextromethorphan (Robitussin Cough-Chest Dm Liq) 100 Mg-5 Mg/5 Ml Liquid, 5 ML PO Q4-6H PRN for COUGH 01/07/18 Acetaminophen (TYLENOL) 325 Mg Tablet, 1-2 TAB PO Q4H PRN for PAIN, TAB 01/07/18 Buprenorphine (Buprenorphine) 5 Mcg/Hour Patch.tdwk, 1 PATCH TD every 7 days 01/07/18 Menthol (BIOFREEZE) 118 Ml Gel..ml., 1 JARETT TOP TID PRN for PAIN 01/07/18 Calcium Polycarbophil (FIBER) 625 Mg Tablet, 2 TAB PO DAILY 01/07/18 Calcium Carbonate (Calcium Carbonate) 300 Mg Calcium (750 Mg) Tab.chew, 2 TAB PO PRN Not to exceed 10 tablets in 24 hours 01/07/18 Nifedipine (NIFEDIPINE ER) 30 Mg Tab.er.24, 1 TAB PO QDAY 01/07/18 Magnesium Hydroxide (MILK OF MAGNESIA) 400 Mg/5 Ml Oral.susp, 15-30 ML PO PRN PRN for CONSTIPATION, BOTTLE Not to exceed mokre than 2 doses in 24 hours 01/07/18 Levothyroxine Sodium (SYNTHROID) 25 Mcg Tablet, 1 TAB PO QDAY 01/07/18 Fluticasone/Vilanterol 100/25 Mcg/Inh (BREO ELLIPTA 100/25 MCG) 1 Each Aer.pow.ba, 1 INH INH QDAY 01/07/18 Rivaroxaban 20 Mg (XARELTO 20 MG) 20 Mg Tablet, 1 TAB PO DAILY 01/06/18 Clonazepam (CLONAZEPAM) 0.5 Mg Tablet, 0.5 MG PO QID, #6 TAB 01/02/18 Discontinued Reported Medications Gabapentin (GABAPENTIN) 300 Mg Capsule, 600 MG PO TID, CAPSULE 01/02/18 Discontinued Scripts Cephalexin Monohydrate (CEPHALEXIN) 500 Mg Cap, 500 MG PO QID for 7 Days, #28 CAP Prov:ELIAS GONZALES MD 01/09/18 Reviewed Nurses Notes: Yes Hx Smoking: Yes Smoking Status: Never Smoker, Former Smoker Hx Alcohol Use: Yes (None currently) Constitutional Vital Sign - Last 24 Hours 01/27/18 01/27/18 01/27/18 01/27/18 19:58 20:00 20:04 20:15 Temp 98.5 Pulse 91 ??? 98 Resp 14 B/P (MAP) 145/78 145/78 (100) Pulse Ox 100 100 O2 Delivery Room Air 01/27/18 01/27/18 01/27/18 01/27/18 20:30 20:45 21:00 21:15 Pulse 96 ? 101 B/P (MAP) 77/71 (73) 136/87 (103) Pulse Ox 100 99 01/27/18 01/27/18 01/27/18 01/27/18 21:30 21:35 22:00 22:05 Pulse 98 109 103 B/P (MAP) 127/74 (91) 121/75 (90) Pulse Ox 99 99 100 10/23/18 10/23/18 10/23/18 10/23/18 22:30 22:35 23:00 23:05 Pulse 102 96 B/P (MAP) 131/79 (96) 138/91 (107) Pulse Ox 100 100 Physical Exam General Appearance: The patient is alert. No acute distress. Eyes: Pupils are equal, round. No pallor, injection or icterus. ENT: Mucous membranes are moist. Normal oral mucosa. Posterior oropharynx is normal. Neck: Supple and non tender. Respiratory: Lungs are clear to auscultation. Cardiovascular: Regular rate and rhythm. No murmurs, gallops or rubs. Normal capillary refill. Gastrointestinal: Abdomen is soft, diffuse discomfort with palpation. Minimal distension. Normal mucosa of the mucous pouch with evidence of recent bleeding, but cannot see the area that is bleeding. Using some surgical jelly, inspected the mucosa with a gloved finger. No masses or recurrent bleeding noted on exam. Surrounding skin looks normal and healthy. No rebound or guarding. Hyperactive bowel sounds. No costovertebral angle tenderness with percussion. The ileostomy appears to be functioning well, no surrounding erythema. Neurological: Alert and oriented x3. Skin: Warm and dry. No bruising on the abdomen. DIFFERENTIAL DIAGNOSIS: After history and physical exam, differential diagnosis was considered for bleeding from the mucous pouch, lower GI bleeding from the remnant of the colon, likely AVM versus diverticulosis. Vital signs appear stable. Medical Decision Making Data Points Result Diagram: 01/27/18200701/27/182007 Laboratory Hematology Test 01/27/18 20:08 01/27/18 20:30 Red Blood Count 3.91 M/uL (4.17-5.56) Mean Corpuscular Volume 81.2 fL (80.0-96.0) Mean Corpuscular Hemoglobin 26.2 pg (26.0-33.0) Mean Corpuscular Hemoglobin Concent 32.3 g/dL (32.0-36.0) Red Cell Distribution Width 21.3 % (11.5-14.5) Mean Platelet Volume 6.4 fL (7.2-11.1) Neutrophils (%) (Auto) 79.4 % (39.4-72.5) Lymphocytes (%) (Auto) 13.7 % (17.6-49.6) Monocytes (%) (Auto) 5.5 % (4.1-12.4) Eosinophils (%) (Auto) 0.1 % (0.4-6.7) Basophils (%) (Auto) 1.3 % (0.3-1.4) Nucleated RBC Relative Count (auto) 0.1 /100WBC Neutrophils # (Auto) 8.2 K/uL (2.0-7.4) Lymphocytes # (Auto) 1.4 K/uL (1.3-3.6) Monocytes # (Auto) 0.6 K/uL (0.3-1.0) Eosinophils # (Auto) 0.0 K/uL (0.0-0.5) Basophils # (Auto) 0.1 K/uL (0.0-0.1) Nucleated RBC Absolute Count (auto) 0.01 K/uL Peripheral Blood Smear Yes Y/N Sodium Level 130 mmol/L (137-145) Potassium Level 3.4 mmol/L (3.5-5.0) Chloride Level 96 mmol/L (98-107) Carbon Dioxide Level 22 mmol/L (22-31) Blood Urea Nitrogen 17 mg/dl (7-18) Creatinine 1.20 mg/dl (0.52-1.04) Glomerular Filtration Rate Calc 44.8 Random Glucose 115 mg/dl (75-110) Lactate 3.4 mmol/L (0.7-2.1) Calcium Level 8.8 mg/dl (8.4-10.2) Total Bilirubin 0.3 mg/dl (0.2-1.3) Aspartate Amino Transf (AST/SGOT) 52 U/L (0-35) Alanine Aminotransferase (ALT/SGPT) 44 U/L (0-56) Alkaline Phosphatase 99 U/L (0-126) Total Protein 7.1 g/dl (6.3-8.2) Albumin 3.8 g/dl (3.5-5.0) Prothrombin Time 15.2 seconds (12.0-14.4) Prothromb Time International Ratio 1.20 Activated Partial Thromboplast Time 25 seconds (23-35) Chemistry Test 01/27/18 20:08 01/27/18 20:30 White Blood Count 10.3 k/uL (4.5-11.0) Red Blood Count 3.91 M/uL (4.17-5.56) Hemoglobin 10.3 g/dL (12.0-16.0) Hematocrit 31.8 % (34.0-47.0) Mean Corpuscular Volume 81.2 fL (80.0-96.0) Mean Corpuscular Hemoglobin 26.2 pg (26.0-33.0) Mean Corpuscular Hemoglobin Concent 32.3 g/dL (32.0-36.0) Red Cell Distribution Width 21.3 % (11.5-14.5) Platelet Count 410 K/uL (150-450) Mean Platelet Volume 6.4 fL (7.2-11.1) Neutrophils (%) (Auto) 79.4 % (39.4-72.5) Lymphocytes (%) (Auto) 13.7 % (17.6-49.6) Monocytes (%) (Auto) 5.5 % (4.1-12.4) Eosinophils (%) (Auto) 0.1 % (0.4-6.7) Basophils (%) (Auto) 1.3 % (0.3-1.4) Nucleated RBC Relative Count (auto) 0.1 /100WBC Neutrophils # (Auto) 8.2 K/uL (2.0-7.4) Lymphocytes # (Auto) 1.4 K/uL (1.3-3.6) Monocytes # (Auto) 0.6 K/uL (0.3-1.0) Eosinophils # (Auto) 0.0 K/uL (0.0-0.5) Basophils # (Auto) 0.1 K/uL (0.0-0.1) Nucleated RBC Absolute Count (auto) 0.01 K/uL Peripheral Blood Smear Yes Y/N Glomerular Filtration Rate Calc 44.8 Lactate 3.4 mmol/L (0.7-2.1) Calcium Level 8.8 mg/dl (8.4-10.2) Total Bilirubin 0.3 mg/dl (0.2-1.3) Aspartate Amino Transf (AST/SGOT) 52 U/L (0-35) Alanine Aminotransferase (ALT/SGPT) 44 U/L (0-56) Alkaline Phosphatase 99 U/L (0-126) Total Protein 7.1 g/dl (6.3-8.2) Albumin 3.8 g/dl (3.5-5.0) Prothrombin Time 15.2 seconds (12.0-14.4) Prothromb Time International Ratio 1.20 Activated Partial Thromboplast Time 25 seconds (23-35) Coagulation Test 01/27/18 20:30 Prothrombin Time 15.2 seconds Prothromb Time International Ratio 1.20 Activated Partial Thromboplast Time 25 seconds EKG/Imaging Imaging ACUTE ABDOMEN SERIES 3 VIEW Comparison: January 06, 2018 Additional pertinent history: Abdominal pain FINDINGS: PA chest: Life-support: Left internal jugular venous port with its tip in the distal SVC. Cardiomediastinal silhouette: Negative. Cardiopulmonary vasculature: Negative. Lung parenchyma: Mild linear scarring at the left lung base. Otherwise negative Pleural spaces: Negative Osseous structures: Patient status post previous anterior interbody fusion at the cervicothoracic junction. ORIF of the proximal right humerus. Surrounding soft tissues: Nerve stimulator projecting over the lower cervical spine. Patient status post previous left axillary dissection and previous left mastectomy. Abdomen: Free air: None. Bowel gas pattern: Negative. Solid organs/surrounding soft tissues: Patient status post cholecystectomy. IVC filter in place. Osseous structures: Negative. Impression: 1. No evidence of acute cardiopulmonary disease. 2. No evidence of acute intra-abdominal process. Report Dictated By: Shaji Mcleod MD at 01/27/2018 10:48 PM ED Course/Re-evaluation Clinical Indication for ER IV: IV Access ED Course The patient had no further bleeding after my exam until she went to x-ray. Whenever she would sit up and move around to get onto the exam table, she had further bleeding that soaked through about 3 towels. The bleeding then stopped again. No blood per rectum. The patient continues to have discomfort in the ab domen. No acute problems noted on imaging. She has a chronic mild anemia which is unchanged. Vital signs of remained stable. I discussed the case with Dr. Moss, general surgery. And also called and spoke with Dr. Deluca, hospitalist. Because the assisted living staff is unable to care for this problem, the patient needs to be admitted. Dr. Deluca will admit tonight with Dr. Moss consulting. Decision to Disposition Date: Jan 27, 2018 Decision to Disposition Time: 22:42 Depart Departure Latest Vital Signs Vital Signs Date Time Temp Pulse Resp B/P (MAP) Pulse Ox O2 Delivery O2 Flow Rate FiO2 01/27/18 23:05 96 100 01/27/18 23:00 138/91 (107) 01/27/18 19:58 98.5 14 Room Air Impression: Primary Impression: Gastrointestinal bleeding, lower Condition: Improved Disposition: Admitted from ER Referrals: DARIO ROJAS MD (PCP) JAYANT DIGGS MD Jan 27, 2018 20:06
[2018-01-27 20:30] LABS: PLATELET COUNT, AUTOMATED 410 K/uL (150-450)
[2018-01-27 20:47] LABS: INR 1.2
--- NOTE | 2018-01-27 22:55 | RADIOLOGY IMAGING REPORT ---
[place] [facility] [place] NAME: Xin Tran : 1950 MR: [id number] V: [id number] EXAM DATE: ORDERING PHYSICIAN: JAYANT DIGGS TECHNOLOGIST: Location: [facility] Patient: Xin Tran : 1950 Visit/Account:[id number] Date of Sevice: 01/27/2018 ACUTE ABDOMEN SERIES 3 VIEW Comparison: January 06, 2018 Additional pertinent history: Abdominal pain FINDINGS: PA chest: Life-support: Left internal jugular venous port with its tip in the distal SVC. Cardiomediastinal silhouette: Negative. Cardiopulmonary vasculature: Negative. Lung parenchyma: Mild linear scarring at the left lung base. Otherwise negative Pleural spaces: Negative Osseous structures: Patient status post previous anterior interbody fusion at the cervicothoracic ju nction. ORIF of the proximal right humerus. Surrounding soft tissues: Nerve stimulator projecting over the lower cervical spine. Patient status post previous left axillary dissection and previous left mastectomy. Abdomen: Free air: None. Bowel gas pattern: Negative. Solid organs/surrounding soft tissues: Patient status post cholecystectomy. IVC filter in place. Osseous structures: Negative. Impression: 1. No evidence of acute cardiopulmonary disease. 2. No evidence of acute intra-abdominal process. Report Dictated By: Shaji Mcleod MD at 01/27/2018 10:48 PM Report E-Signed By: Shaji Mcleod MD at 01/27/2018 10:50 PM [id number]
[2018-01-27 23:25] VITALS: BP 145/86
[2018-01-27] MEDS ORDERED: ACETAMINOPHEN 500 MG TAB PO PRN (23:45)
[2018-01-27] MEDS ORDERED: KCL 2 MEQ/ML 20 MEQ/10 ML VIAL 30 MEQ in NS(*) 0.9% 1000 ML BAG 1,000 ML IV SCH (23:45)
[2018-01-27] MEDS ORDERED: FLUSH 10 ML SYR IVP PRN (23:45)
[2018-01-28] VITALS (13 sets, daily range): BP systolic 92–188; BP diastolic 57–167; Ht 158.8 cm; Wt 62.6 kg
--- NOTE | 2018-01-28 00:43 | History & Physical ---
History of Present Illness Chief Complaint Bleeding from abdominal wall. History of Present Illness 67 yr old female with several days of bright red bleeding from her stoma in mid lower abdomen. The bleeding was fairly profuse earlier today and patient sent to ER where she soaked through multiple dressings during her evaluation. 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 No bleeding from elsewhere (nose, gums, respiratory, skin, urine, etc..). Surgery declined admission so admitted under hospitalist service. History Problems: (1) COPD (chronic obstructive pulmonary disease) Status: Chronic (2) Depression Status: Chronic (3) Hypothyroidism Status: Chronic (4) HTN (hypertension) Status: Chronic (5) Ischemic disease of gut Status: Resolved (6) PE (pulmonary thromboembolism) Status: Resolved (7) DVT (deep venous thrombosis) Status: Resolved (8) S/P partial colectomy Status: Resolved (9) S/P insertion of IVC (inferior vena caval) filter Status: Resolved (10) S/P ileostomy Status: Chronic (11) Cellulitis of abdominal wall Status: Resolved Home Meds Active Scripts Potassium Chloride (POTASSIUM CHLORIDE) 20 Meq Tab.er.prt, 1 TAB PO QDAY for 30 Days, #30 TAB Prov:DARIO ROJAS MD 01/22/18 Venlafaxine Hcl (EFFEXOR XR) 150 Mg Cap.er.24h, 1 CAP PO QDAY for 30 Days, #30 CAP Prov:DARIO ROJAS MD 01/22/18 Prednisone 10 Mg Tab (PREDNISONE 10 MG TAB) 10 Mg Tablet, 1 TAB PO QDAY for 30 D ays, #30 TAB Prov:DARIO ROJAS MD 01/22/18 Pantoprazole Sodium (PANTOPRAZOLE SODIUM) 40 Mg Tablet.dr, 1 TAB PO QDAY for 30 Days, #30 TAB Prov:DARIO ROJAS MD 01/22/18 Trazodone Hcl (TRAZODONE HCL) 50 Mg Tablet, 1 TAB PO QHS for 30 Days, #30 TAB Prov:DARIO ROJAS MD 01/21/18 Hydrocodone Bit/Acetaminophen (HYDROCODON-ACETAMINOPHEN 5-325) 1 Each Tablet, 1 EACH PO Q4-6H PRN for PAIN, #30 TAKE ONE TABLET BY MOUTH EVERY 4-6 HOURS NEEDED FOR PAIN Prov:EDILMA MARTINEZ DO 01/02/18 Reported Medications Oxygen (OXYGEN) Inha, 2 L INH, L 2 Liters Continuous Oxygen and With CPap at HS 01/21/18 Protein Supplement (Protein Powder) 480 Gm Powder, 2 NOTSPEC PO TID 2 scoops of powder in 6-8oz of water between meals 01/21/18 Gabapentin (GABAPENTIN) 600 Mg Tablet, 1 TAB PO TID 01/21/18 Polyvinyl Alcohol (LIQUITEARS) 15 Ml Drops, 1 GTT OU PRN for dry eyes 01/09/18 Ropinirole Hcl (ROPINIROLE HCL) 4 Mg Tab.er.24h, 1 TAB PO HS 01/07/18 Multivitamin (TAB-A-OMAR) 1 Each Tablet, 1 EACH PO QAM 01/07/18 Mag Hydrox/Al Hydrox/Simeth (MAALOX MAXIMUM STRENGTH SUSP) 355 Ml Oral.susp, 15 ML PO Q4H PRN for INDIGESTION 01/07/18 Promethazine Hcl (PROMETHAZINE HCL) 25 Mg Tablet, 1 TAB PO Q8H PRN for NAUSEA/VOMITING 01/07/18 Nystatin 100,000 Unit/Gm Top Powder (NYSTATIN 100,000 UNIT/GM TOP POWDER) 15 Gm Powder, 15 GM TP BID 01/07/18 Tetrahydrozoline Hcl (EYE DROPS) 15 Ml Drops, 1 DROP OP PRN 01/07/18 Guaifenesin/Dextromethorphan (Robitussin Cough-Chest Dm Liq) 100 Mg-5 Mg/5 Ml Liquid, 5 ML PO Q4-6H PRN for COUGH 01/07/18 Acetaminophen (TYLENOL) 325 Mg Tablet, 1-2 TAB PO Q4H PRN for PAIN, TAB 01/07/18 Buprenorphine (Buprenorphine) 5 Mcg/Hour Patch.tdwk, 1 PATCH TD every 7 days 01/07/18 Menthol (BIOFREEZE) 118 Ml Gel..ml., 1 JARETT TOP TID PRN for PAIN 01/07/18 Calcium Polycarbophil (FIBER) 625 Mg Tablet, 2 TAB PO DAILY 01/07/18 Calcium Carbonate (Calcium Carbonate) 300 Mg Calcium (750 Mg) Tab.chew, 2 TAB PO PRN Not to exceed 10 tablets in 24 hours 01/07/18 Nifedipine (NIFEDIPINE ER) 30 Mg Tab.er.24, 1 TAB PO QDAY 01/07/18 Magnesium Hydroxide (MILK OF MAGNESIA) 400 Mg/5 Ml Oral.susp, 15-30 ML PO PRN PRN for CONSTIPATION, BOTTLE Not to exceed mokre than 2 doses in 24 hours 01/07/18 Levothyroxine Sodium (SYNTHROID) 25 Mcg Tablet, 1 TAB PO QDAY 01/07/18 Fluticasone/Vilanterol 100/25 Mcg/Inh (BREO ELLIPTA 100/25 MCG) 1 Each Aer.pow.ba, 1 INH INH QDAY 01/07/18 Rivaroxaban 20 Mg (XARELTO 20 MG) 20 Mg Tablet, 1 TAB PO DAILY 01/06/18 Clonazepam (CLONAZEPAM) 0.5 Mg Tablet, 0.5 MG PO QID, #6 TAB 01/02/18 Discontinued Reported Medications Gabapentin (GABAPENTIN) 300 Mg Capsule, 600 MG PO TID, CAPSULE 01/02/18 Discontinued Scripts Cephalexin Monohydrate (CEPHALEXIN) 500 Mg Cap, 500 MG PO QID for 7 Days, #28 CAP Prov:ELIAS GONZALES MD 01/09/18 Allergies: Coded Allergies: Sulfa (Sulfonamide Antibiotics) (Verified Allergy, Unknown, 01/27/18) allergic to cream only amitriptyline (Verified Allergy, Unknown, 01/27/18) aspirin (Verified Allergy, Unknown, 01/27/18) morphine (Verified Allergy, Unknown, 01/27/18) Patient History: FH: diabetes mellitus FH: hypertension Hx Smoking: Yes Smoking Status: Never Smoker, Former Smoker Hx Alcohol Use: Yes (None currently) Hx Substance Use Disorder: No Social Drug Use: Never Review of Systems Constitutional: Weight Loss; No Fever, No Weight Gain, No Chills, No Night Sweats Neurological: Weakness; No Syncope, No Confusion, No Dizziness, No Slurred Spe ech ENT: No Hearing Loss, No Sinus Congestion, No Sore Throat, No Ear Ache, No Tinnitus Cardiovascular: No Chest Pain, No Palpitations, No Orthostatic Hypotension Respiratory: Shortness of Breath; No Cough, No Wheezing Gastrointestinal: Nausea, Diarrhea, Early Satiety, Abdominal Pain Genitourinary: Urinary Incontinence Musculoskeletal: Pain, Impaired Mobility Psychiatric: Depression, Anxiety Exam Vital Signs Vital Signs Date Time Temp Pulse Resp B/P (MAP) Pulse Ox O2 Delivery O2 Flow Rate FiO2 01/27/18 23:05 96 100 10/23/18 23:00 138/91 (107) 01/27/18 19:58 98.5 14 Room Air General Appearance: Alert, Awake, No Acute Distress, Afebrile Cardiovascular: Regular Rate and Rhythm, Other (S1S2 are soft, No murmuir, gallops or rubs.) Respiratory: Clear to Auscultation Chest: No Tenderness GI: Abd Soft and Non-Tender, Other (BS are active. Ostomy mid lower abdomen appears normal without bleeding at this time. No cellulitis of abdominal wall. No organomegaly or masses. Ileostomy in RLQ. ) : No CVA Tenderness Extremities: Soft and Non Tender, Warm, Pulses, Perfused, Other (No edema. ) Psych: Alert & Oriented X3, Appropriate Mood & Affect Medical Decision Making Data Points Result Diagram: 01/27/18200701/27/182007 Item Value Date Time Glomerular Filtration Rate Calc 44.8 01/27/182007 Random Glucose 115 mg/dl H 01/27/182007 Lactate 3.4 mmol/L H 01/27/182007 Calcium Level 8.8 mg/dl 01/27/182007 Total Bilirubin 0.3 mg/dl 01/27/182007 Aspartate Amino Transf (AST/SGOT) 52 U/L H 01/27/182007 Alanine Aminotransferase (ALT/SGPT) 44 U/L 01/27/182007 Alkaline Phosphatase 99 U/L 01/27/182007 Total Protein 7.1 g/dl 01/27/182007 Albumin 3.8 g/dl 01/27/182007 Prothrombin Time 15.2 seconds H 01/27/182029 Prothromb Time International Ratio 1.20 01/27/182029 Activated Partial Thromboplast Time 25 seconds 01/27/182029 EKG / Imaging Monitor Interpretation: Normal Sinus Rhythm Imaging Reviewed. Pre-Admit Course ED Medications Reviewed. Medical Record Review: Yes Assessment and Plan Problems: (1) Gastrointestinal bleeding, lower Status: Acute Assessment & Plan: This appears to be coming from the osteomy region which is connected to the rectum. Whether the bleeding is from the xarelto, diverticular bleeding, tumor or other cause is not clear at this time. We will hold anticoagulants for now. Surgical consult in the morning for possible endoscopy. Recheck labs in AM. (2) High serum lactate Status: Acute Assessment & Plan: Not clear as to source of the elevated lactate. She does not appear to be septic with no mental status changes, no increase respiratory rate, and no hypotension/fever/leukocytosis. No obvious infection or ischemia of the gut. Will recheck in the morning. Check UA. (3) Hyponatremia Status: Chronic Assessment & Plan: Suspect this is alf problem for her given her absorption issues but will use IV fluids with NS at 100 cc per hour and recheck Na+ in AM. (4) Hypokalemia Status: Chronic Assessment & Plan: K+ is 3.4 and is usually low according to patient due to med s and absorption issues. Will add KCL to Iv and recheck labs in AM. (5) Anemia in chronic illness Status: Chronic Assessment & Plan: The anemia appears to be stable despite blood loss thus far. Will follow labs. (6) COPD (chronic obstructive pulmonary disease) Status: Chronic (7) Depression Status: Chronic (8) Anxiety Status: Chronic (9) Hypothyroidism Status: Chronic (10) DVT (deep venous thrombosis) Status: Resolved (11) HTN (hypertension) Status: Chronic (12) Ischemic disease of gut Status: Resolved (13) PE (pulmonary thromboembolism) Status: Resolved Time Spent on Plan of Care: > 30 min Copies to: DARIO ROJAS MD ; Venous Thromboembolism VTE Risk Physician Assess for VTE Risk: Yes VTE Diagnostic Test 2 Days Prior to Admit: No Antithrombotics Is Pt On Any Antithrombotics?: No Prophylaxis Tx Contraindicated Pharmacological Contraindicati: Active Bleeding Exam Sepsis Risk: No Definite Risk SCOTT DORSEY MD FACP Jan 28, 2018 00:42
[2018-01-28] MEDS ORDERED: KCL/NS* 20 MEQ/1000 ML PREMIX 1,000 ML IV ONE (00:50)
[2018-01-28] MEDS ORDERED: KCL 2 MEQ/ML 20 MEQ/10 ML VIAL ONE (00:52)
[2018-01-28] MEDS: ACETAMINOPHEN 325 MG TAB PO PRN ×2 (04:03→15:57)
[2018-01-28] MEDS: PROMETHAZINE HCL 25 MG TAB PO PRN ×2 (04:03→15:57)
[2018-01-28] MEDS: LEVOTHYROXINE SOD 0.025 MG TAB PO SCH (06:05)
[2018-01-28 06:38] LABS: PLATELET COUNT, AUTOMATED 351 K/uL (150-450)
--- NOTE | 2018-01-28 06:38 | General Surgery Consultation ---
History of Present Illness Requesting Physician Dr. 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 She had a bowel resection, both small bowel and extended right hemicolectomy with ileostomy and mucus fistula of sigmoid colon in 2004. 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 She recently moved to [facility] from a facility in [place]. Yesterday, she experienced copious amounts of bright red blood from her LLQ mucus fistula that soaked through several ABD pads prompting her to come in to the ER. She denies any blood per rectum. The bleeding occurred several times in the ER as well so admission was recommended. I asked for the Hospitalists to admit her due to her extensive comorbidities and so they have been kind enough to admit her. She was recently admitted for cellulitis around her ileostomy but this is much better now and she's had no further problems with this. She is on chronic xarelto for h/o DVT/PE. She also has an IVC filter in place. History Problems: (1) Steroid dependence Status: Chronic (2) COPD (chronic obstructive pulmonary disease) Status: Chronic (3) Hypokalemia Status: Chronic (4) Anxiety Status: Chronic (5) Depression Status: Chronic (6) Hyponatremia Status: Chronic (7) Hypothyroidism Status: Chronic (8) HTN (hypertension) Status: Chronic (9) Anemia in chronic illness Status: Chronic (10) S/P ileostomy Status: Chronic (11) S/P partial colectomy Status: Chronic (12) S/P insertion of IVC (inferior vena caval) filter Status: Resolved Home Meds Active Scripts Potassium Chloride (POTASSIUM CHLORIDE) 20 Meq Tab.er.prt, 1 TAB PO QDAY for 30 Days, #30 TAB Prov:DARIO ROJAS MD 01/22/18 Venlafaxine Hcl (EFFEXOR XR) 150 Mg Cap.er.24h, 1 CAP PO QDAY for 30 Days, #30 CAP Prov:DARIO ROJAS MD 01/22/18 Prednisone 10 Mg Tab (PREDNISONE 10 MG TAB) 10 Mg Tablet, 1 TAB PO QDAY for 30 Days, #30 TAB Prov:DARIO ROJAS MD 01/22/18 Pantoprazole Sodium (PANTOPRAZOLE SODIUM) 40 Mg Tablet.dr, 1 TAB PO QDAY for 30 Days, #30 TAB Prov:DARIO ROJAS MD 01/22/18 Trazodone Hcl (TRAZODONE HCL) 50 Mg Tablet, 1 TAB PO QHS for 30 Days, #30 TAB Prov:DARIO ROJAS MD 01/21/18 Hydrocodone Bit/Acetaminophen (HYDROCODON-ACETAMINOPHEN 5-325) 1 Each Tablet, 1 EACH PO Q4-6H PRN for PAIN, #30 TAKE ONE TABLET BY MOUTH EVERY 4-6 HOURS NEEDED FOR PAIN Prov:EDILMA MARTINEZ DO 01/02/18 Reported Medications Oxygen (OXYGEN) Inha, 3 L INH, L 2 Liters Continuous Oxygen and With CPap at HS 01/21/18 Protein Supplement (Protein Powder) 480 Gm Powder, 2 NOTSPEC PO TID 2 scoops of powder in 6-8oz of water between meals 01/21/18 Gabapentin (GABAPENTIN) 600 Mg Tablet, 1 TAB PO TID 01/21/18 Polyvinyl Alcohol (LIQUITEARS) 15 Ml Drops, 1 GTT OU PRN for dry eyes 01/09/18 Ropinirole Hcl (ROPINIROLE HCL) 4 Mg Tab.er.24h, 1 TAB PO HS 01/07/18 Multivitamin (TAB-A-OMAR) 1 Each Tablet, 1 EACH PO QAM 01/07/18 Mag Hydrox/Al Hydrox/Simeth (MAALOX MAXIMUM STRENGTH SUSP) 355 Ml Oral.susp, 15 ML PO Q4H PRN for INDIGESTION 01/07/18 Promethazine Hcl (PROMETHAZINE HCL) 25 Mg Tablet, 1 TAB PO Q8H PRN for NAUSEA/VOMITING 01/07/18 Nystatin 100,000 Unit/Gm Top Powder (NYSTATIN 100,000 UNIT/GM TOP POWDER) 15 Gm Powder, 15 GM TP BID 01/07/18 Tetrahydrozoline Hcl (EYE DROPS) 15 Ml Drops, 1 DROP OP PRN 01/07/18 Guaifenesin/Dextromethorphan (Robitussin Cough-Chest Dm Liq) 100 Mg-5 Mg/5 Ml Liquid, 5 ML PO Q4-6H PRN for COUGH 01/07/18 Acetaminophen (TYLENOL) 325 Mg Tablet, 1-2 TAB PO Q4H PRN for PAIN, TAB 01/07/18 Buprenorphine (Buprenorphine) 5 Mcg/Hour Patch.tdwk, 1 PATCH TD every 7 days 01/07/18 Menthol (BIOFREEZE) 118 Ml Gel..ml., 1 JARETT TOP TID PRN for PAIN 01/07/18 Calcium Polycarbophil (FIBER) 625 Mg Tablet, 2 TAB PO DAILY 01/07/18 Calcium Carbonate (Calcium Carbonate) 300 Mg Calcium (750 Mg) Tab.chew, 2 TAB PO PRN Not to exceed 10 tablets in 24 hours 01/07/18 Nifedipine (NIFEDIPINE ER) 30 Mg Tab.er.24, 1 TAB PO QDAY 01/07/18 Magnesium Hydroxide (MILK OF MAGNESIA) 400 Mg/5 Ml Oral.susp, 15-30 ML PO PRN PRN for CONSTIPATION, BOTTLE Not to exceed mokre than 2 doses in 24 hours 01/07/18 Levothyroxine Sodium (SYNTHROID) 25 Mcg Tablet, 1 TAB PO QDAY 01/07/18 Fluticasone/Vilanterol 100/25 Mcg/Inh (BREO ELLIPTA 100/25 MCG) 1 Each Aer.pow.ba, 1 INH INH QDAY 01/07/18 Rivaroxaban 20 Mg (XARELTO 20 MG) 20 Mg Tablet, 1 TAB PO DAILY 01/06/18 Clonazepam (CLONAZEPAM) 0.5 Mg Tablet, 0.5 MG PO QID, #6 TAB 01/02/18 Discontinued Reported Medications Gabapentin (GABAPENTIN) 300 Mg Capsule, 600 MG PO TID, CAPSULE 01/02/18 Discontinued Scripts Cephalexin Monohydrate (CEPHALEXIN) 500 Mg Cap, 500 MG PO QID for 7 Days, #28 CAP Prov:ELIAS GONZALES MD 01/09/18 Allergies: Coded Allergies: Sulfa (Sulfonamide Antibiotics) (Verified Allergy, Unknown, 01/27/18) allergic to cream only amitriptyline (Verified Allergy, Unknown, 01/27/18) aspirin (Verified Allergy, Unknown, 01/27/18) morphine (Verified Allergy, Unknown, 01/27/18) Family History: FH: diabetes mellitus FH: hypertension Review of Systems All Systems Reviewed/Normal: Yes, Except as Noted Exam Vital Signs Vital Signs Date Time Temp Pulse Resp B/P (MAP) Pulse Ox O2 Delivery O2 Flow Rate FiO2 01/28/18 03:56 98.9 87 20 118/64 (82) 98 Nasal Cannula 3.0 General Appearance: Alert, Awake, No Acute Distress, Afebrile GI: Other (Soft, diffuse chronic abdominal TTP, mucus fistula is pink, no bleeding currently. The dressing covering the fistula has scant clear drainage on it. Ileostomy is covered with an opaque bag and I didn't remove this.) Extremities: Warm, Perfused Medical Decision Making Data Points Result Diagram: 01/27/18200701/27/182007 Assessment and Plan Problems: (1) Gastrointestinal bleeding, lower Status: Acute Assessment & Plan: 01/28/18: No bleeding at the moment. Vitals stable, H/H stable compared to previous H/H from last admission but this morning's labs are pending. No external lesions to explain bleeding. Will plan on endoscopic evaluation of the remaining portions of her colon and rectum via her mucus fistula and rectum later this morning. I have explained the procedure, al ternatives, risks with the patient in detail and her questions have been answered. She would like to proceed with endoscopy. (2) S/P ileostomy Status: Chronic (3) S/P partial colectomy Status: Chronic Condition Stable. Time Spent: < 30 min Venous Thromboembolism Antithrombotics Is Pt On Any Antithrombotics?: No OCTAVIO CARTWRIGHT MD Jan 28, 2018 06:38
[2018-01-28] MEDS: VENLAFAXINE XR 75 MG CAPCR PO SCH (09:31)
[2018-01-28] MEDS: GABAPENTIN 300 MG CAP PO SCH ×3 (09:31→21:12)
--- NOTE | 2018-01-28 10:44 | Hospitalist Progress Note ---
Subjective Progress Notes Subjective She reports no further blood from her ostomy (mucosal colostomy). Physical Exam Vital Signs Date Time Temp Pulse Resp B/P (MAP) Pulse Ox O2 Delivery O2 Flow Rate FiO2 01/28/18 09:26 100 Nasal Cannula 3.5 01/28/18 09:12 98.3 75 16 113/72 (86) Intake and Output 01/28/18 07:00 Output Total 125 ml Balance -125 ml Output Stool Total 125 ml # Voids 2 # Bowel Movements 2 General Appearance: Alert, Awake GI: Other (Soft/ileostomy bag with liquid stool/LLQ mucosal ostomy site clean/pink/no blood currently) Result Diagram: 01/28/18 0630 01/28/18 0630 Monitor Interpretation: Normal Sinus Rhythm Assessment and Plan Problems: (1) Gastrointestinal bleeding, lower Status: Acute Assessment & Plan: This appeared to be coming from the mucosal colostomy region which is connected to the rectum. Whether the bleeding is from diverticular bleeding, tumor or other cause is not clear at this time. The Xarelto has most likely exacerbated the bleeding and we are currently holding anticoagulants for now. Dr. Swartz has seen this morning for possible endoscopy. Re-check labs in AM. (2) High serum lactate Status: Acute Assessment & Plan: Improved. Not clear as to source of the elevated lactate. She does not appear to be septic. No obvious ischemia of the gut. Will recheck in the morning. (3) Hyponatremia Status: Chronic Assessment & Plan: Improved with IV fluids. 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 (4) Hypokalemia Status: Chronic Assessment & Plan: Improved with IV supplements. Most likely due to meds and absorption issues. Re-check labs in AM. (5) Anemia in chronic illness Status: Chronic Assessment & Plan: The anemia appears to be stable despite blood loss. Will follow labs. (6) COPD (chronic obstructive pulmonary disease) Status: Chronic (7) Depression Status: Chronic (8) Anxiety Status: Chronic (9) Hypothyroidism Status: Chronic (10) DVT (deep venous thrombosis) Status: Resolved (11) HTN (hypertension) Status: Chronic (12) Ischemic disease of gut Status: Resolved (13) PE (pulmonary thromboembolism) Status: Resolved Exam Sepsis Risk: No Definite Risk MONA GONZALES MD Jan 28, 2018 10:44
[2018-01-28] MEDS ORDERED: NORMOSOL R SOLN(*) 1000 ML BAG 1,000 ML IV ONE (10:50)
[2018-01-28] MEDS ORDERED: FAMOTIDINE(*) 20MG/50ML PREMIX 0 ML IVPB ONE (10:53)
[2018-01-28] MEDS: KCL 2 MEQ/ML 20 MEQ/10 ML VIAL 30 MEQ in NS(*) 0.9% 1000 ML BAG 1,000 ML IV SCH (12:22)
[2018-01-28] MEDS: traZODone HCL 50 MG TAB PO SCH (21:12)
[2018-01-29] MEDS: KCL 2 MEQ/ML 20 MEQ/10 ML VIAL 30 MEQ in NS(*) 0.9% 1000 ML BAG 1,000 ML IV SCH (02:10)
[2018-01-29 02:56] VITALS: BP 154/98
[2018-01-29] MEDS: LEVOTHYROXINE SOD 0.025 MG TAB PO SCH (05:19)
[2018-01-29 07:22] VITALS: BP 139/62
[2018-01-29 07:48] LABS: PLATELET COUNT, AUTOMATED 314 K/uL (150-450)
[2018-01-29] MEDS: GABAPENTIN 300 MG CAP PO SCH ×3 (08:53→20:46)
[2018-01-29] MEDS: VENLAFAXINE XR 75 MG CAPCR PO SCH (08:54)
[2018-01-29] MEDS: PANTOPRAZOLE SOD 40 MG TABEC PO SCH (09:11)
--- NOTE | 2018-01-29 13:52 | Hospitalist Progress Note ---
Subjective Progress Notes Subjective 67F admitted for GI bleeding. ALBERTO overnight, visualization of lower mucous fistula? negative. Patient Complains of: Gastrointestinal: No Nausea, No Vomiting Physical Exam Vital Signs Date Time Temp Pulse Resp B/P (MAP) Pulse Ox O2 Delivery O2 Flow Rate FiO2 01/29/18 10:58 99.4 99 100 Nasal Cannula 3.0 01/29/18 07:22 20 139/62 (87) Intake and Output 01/29/18 07:00 Intake Total 4984 ml Output Total 1250 ml Balance 3734 ml Intake Oral 1382 ml IV Total 3602 ml Output Stool Total 1250 ml # Voids 4 # Bowel Movements 2 General Appearance: Alert, No Acute Distress Neuro: No Gross deficits Eyes: PERRLA ENT: Normal Cardiovascular: Normal Rhythm & Peripheral Pulses Respiratory: No Respiratory Distress GI: Soft and Non-Tender (Ostomy sites without bleeding) Musculoskeletal: No Weakness/Pain Extremities: Soft and Non Tender, Warm, Pulses, Perfused Integumentary: Skin Intact without Lesion / Mass Psych: Alert & Oriented X3 Result Diagram: 01/29/18 0742 01/29/18 0605 Monitor Interpretation: Normal Sinus Rhythm Assessment and Plan Problems: (1) Gastrointestinal bleeding, lower Status: Acute Assessment & Plan: This appeared to be coming from the mucosal colostomy region which is connected to the rectum. Whether the bleeding is from diverticular bleeding, tumor or other cause is not clear at this time. The Xarelto has most likely exacerbated the bleeding and we are currently holding anticoagulants for now. Dr. Swartz performed endoscopy on bleeding ostomy site, no acute findings to explain. (2) High serum lactate Status: Acute Assessment & Plan: Improved. Not clear as to source of the elevated lactate. She does not appear to be septic. No obvious ischemia of the gut. Remains mildly elevated and asymptomatic. (3) Hyponatremia Status: Chronic Assessment & Plan: Improved with IV fluids. 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 (4) Hypokalemia Status: Chronic Assessment & Plan: Improved with IV supplements. Most likely due to meds and absorption issues. (5) Anemia in chronic illness Status: Chronic Assessment & Plan: The anemia appears to be stable despite blood loss. Will follow labs. (6) COPD (chronic obstructive pulmonary disease) Status: Chronic (7) Depression Status: Chronic (8) Anxiety Status: Chronic (9) Hypothyroidism Status: Chronic (10) DVT (deep venous thrombosis) Status: Resolved (11) HTN (hypertension) Status: Chronic (12) Ischemic disease of gut Status: Resolved (13) PE (pulmonary thromboembolism) Status: Resolved Exam Sepsis Risk: No Definite Risk GRACIA WITT DO Jan 29, 2018 13:52
[2018-01-29 14:36] VITALS: BP 139/77
[2018-01-29] MEDS: ACETAMINOPHEN 325 MG TAB PO PRN ×3 (15:44→21:58)
[2018-01-29] MEDS: traZODone HCL 50 MG TAB PO SCH (20:46)
[2018-01-29] MEDS: PROMETHAZINE HCL 25 MG TAB PO PRN (20:46)
[2018-01-29 20:47] VITALS: BP 146/78
[2018-01-30 02:29] VITALS: BP 154/74
[2018-01-30] MEDS: LEVOTHYROXINE SOD 0.025 MG TAB PO SCH (06:13)
[2018-01-30 07:35] VITALS: BP 135/75
[2018-01-30] MEDS: PANTOPRAZOLE SOD 40 MG TABEC PO SCH (08:20)
[2018-01-30] MEDS: VENLAFAXINE XR 75 MG CAPCR PO SCH (08:20)
[2018-01-30] MEDS: GABAPENTIN 300 MG CAP PO SCH ×3 (08:20→20:58)
[2018-01-30 11:15] VITALS: BP 129/70
[2018-01-30 11:34] LABS: PLATELET COUNT, AUTOMATED 298 K/uL (150-450)
--- NOTE | 2018-01-30 12:52 | Hospitalist Progress Note ---
Subjective Progress Notes Subjective She has not had any more bleeding from the LLQ mucus fistula since yesterday afternoon. Physical Exam Vital Signs Date Time Temp Pulse Resp B/P (MAP) Pulse Ox O2 Delivery O2 Flow Rate FiO2 01/30/18 11:20 Nasal Cannula 3.0 01/30/18 11:15 99.5 85 16 129/70 (89) 99 Intake and Output 01/30/18 07:00 Intake Total 1450 ml Output Total 2600 ml Balance -1150 ml Intake Oral 1010 ml IV Total 440 ml Output Stool Total 2600 ml # Voids 2 General Appearance: Alert, Awake, No Acute Distress GI: Soft and Non-Tender (No evidence of blood from the LLQ mucus fistula) Result Diagram: 01/30/18 1120 01/30/18 1120 Monitor Interpretation: Normal Sinus Rhythm Assessment and Plan Problems: (1) Gastrointestinal bleeding, lower Status: Acute Assessment & Plan: This appeared to be coming from the mucosal colostomy region which is connected to the rectum. The last episode was yesterday afternoon. The Xarelto has most likely exacerbated the bleeding and we are currently holding anticoagulants for now. Dr. Swartz performed endoscopy on bleeding ostomy site, no acute findings to explain. Will try restarting the Xarelto >48 hours after the last bleeding event. (2) High serum lactate Status: Acute Assessment & Plan: Improved. Not clear as to source of the elevated lactate. She does not appear to be septic. No obvious ischemia of the gut. Remains mildly elevated and asymptomatic. Repeat test pending. Continue to follow. (3) DVT (deep venous thrombosis) Status: Resolved Assessment & Plan: She has had multiple and a PE. She has an IVC filter in place. She is chronically on Xarelto. See above. (4) Hyponatremia Status: Chronic Assessment & Plan: Improved with IV fluids. 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 (5) Hypokalemia Status: Chronic Assessment & Plan: Improved with IV supplements. Most likely due to meds and absorption issues. (6) Anemia in chronic illness Status: Chronic Assessment & Plan: The anemia appears to be stable despite blood loss. Will follow labs. (7) COPD (chronic obstructive pulmonary disease) Status: Chronic (8) Depression Status: Chronic (9) Anxiety Status: Chronic (10) Hypothyroidism Status: Chronic (11) HTN (hypertension) Status: Chronic (12) Ischemic disease of gut Status: Resolved (13) PE (pulmonary thromboembolism) Status: Resolved Assessment & Plan: See above. Exam Sepsis Risk: No Definite Risk GEETHA DEJESUS MD Jan 30, 2018 12:52
--- NOTE | 2018-01-30 14:22 | Medical Nutrition Therapy ---
Nutrition Anthropometrics Height (Inches): 62.50 Height (Calculated Centimeters: 158.138455 Weight (Pounds): 138 Weight (Calculated Kilograms): 62.823 Jani Nutrition Score: Probably Inadequate Jani Nutrition Risk Score: 17 Dietary Referral Nutrition Risk Factors: Nutrition Risk Comment: NO TEETH Physical Findings Physical Appearance: Overweight BMI 25-29 Skin Appearance Skin Appearance: Edema Edema Location Modifier: Edema Location: Type of Edema: Degree of Edema: Gastrointestinal Symptoms GI Symtoms: Nausea Tube Present: Bowel Sounds: Recent Bowel Pattern: Colostomy Stool Characteristics: Brown, Loose Nutritional Diagnosis Nutritional Risk Acuity 2: Ileostomy Nutritional Risk Acuity 4: Good Appetite Past Medical History: COPD, Depression, Hypothyroidism, HTN, Ischemic disease of gut, PE, DVT, partial colectomy, ileostomy, Cellulitis of abdominal wall Nutritional Acuity: 2-Moderate Nutrition Diagnosis: Altered GI Function Nutrition Etiology: Physiological Causes Nutrition Problem/Etiology/Sym: Altered GI function related to physiological causes as evidenced by GI bleed from ostomy site and PMH of ileostomy Energy Requirement: 1750 (6254-0659 HB x 1.3-1.5) Protein Requirement: 62 Fluid Requirement: 1860 (30 ml/kg) Diet Type: Diet as Tolerated ELIZABETH/REG Nutrition Intervention: Cont diet as ordered Diet Comment To [facility]: OFFER NUTR SUPPLMENT, NO TEETH, SOFT FOODS Nutrition Monitoring & Eval RD Patient Assessment Time: [address] Assessment Type: RD Screen Patient Nutrition Acuity: 2-Moderate Follow Up Date: Jan 29, 2018 Nutritional Comment: 01/28/18 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 Within normal wt range with BMI of 24.9. Alb 3.7, Low H/H, Lactate 2.6, Low Na+. Diet recently changed to ELIZABETH from NPO after endoscopic evaluation. Follow labs and diet tolerance. Continue to monitor and encourage intake. -DRT 01/08 Pt states knows what she can eat for her ileostomy but is interested in handout that list foods which cause gas, diarrhea etc. Will provide pt with copy. Alb down to 3.1. Will offer nutr supplment to increase kcal and protein. 01/30 Pt intake of 75-100%. Noting low H/H, K 3.4 and alb 3.3. Does not seem to cont to have bleeding. Will cont to monitor and encourage intake. -TONI BENJAMIN Jan 30, 2018 14:21
[2018-01-30 14:37] VITALS: BP 130/81
[2018-01-30] MEDS: ACETAMINOPHEN 325 MG TAB PO PRN (16:40)
[2018-01-30 19:33] VITALS: BP 136/73
[2018-01-30] MEDS: APAP/HYDROCODONE 325/5 TAB PO PRN (20:58)
[2018-01-30] MEDS: PROMETHAZINE HCL 25 MG TAB PO PRN (20:58)
[2018-01-30] MEDS: traZODone HCL 50 MG TAB PO SCH (20:58)
[2018-01-31 04:33] VITALS: BP 140/86
[2018-01-31] MEDS: APAP/HYDROCODONE 325/5 TAB PO PRN ×3 (04:41→18:24)
[2018-01-31] MEDS: LEVOTHYROXINE SOD 0.025 MG TAB PO SCH (06:10)
[2018-01-31 07:59] VITALS: BP 144/76
--- NOTE | 2018-01-31 09:00 | Medical Nutrition Therapy ---
Nutrition Anthropometrics Height (Inches): 62.50 Height (Calculated Centimeters: 158.684416 Weight (Pounds): 138 Weight (Calculated Kilograms): 62.823 Jani Nutrition Score: Probably Inadequate Jani Nutrition Risk Score: 18 Dietary Referral Nutrition Risk Factors: Nutrition Risk Comment: NO TEETH Nutritional Diagnosis Nutritional Risk Acuity 2: Ileostomy Nutritional Risk Acuity 4: Good Appetite Past Medical History: COPD, Depression, Hypothyroidism, HTN, Ischemic disease of gut, PE, DVT, partial colectomy, ileostomy, Cellulitis of abdominal wall Nutritional Acuity: 2-Moderate Nutrition Diagnosis: Altered GI Function Nutrition Etiology: Physiological Causes Nutrition Problem/Etiology/Sym: Altered GI function related to physiological causes as evidenced by GI bleed from ostomy site and PMH of ileostomy Energy Requirement: 1750 (0484-5297 HB x 1.3-1.5) Protein Requirement: 62 Fluid Requirement: 1860 (30 ml/kg) Diet Type: Diet as Tolerated ELIZABETH/REG Nutrition Intervention: Cont diet as ordered Diet Comment To [facility]: OFFER NUTR SUPPLMENT, NO TEETH, SOFT FOODS Nutrition Monitoring & Eval RD Patient Assessment Time: [address] Assessment Type: RD Screen Patient Nutrition Acuity: 2-Moderate Follow Up Date: Feb 03, 2018 Nutritional Comment: 01/28/18 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 Within normal wt range with BMI of 24.9. Alb 3.7, Low H/H, Lactate 2.6, Low Na+. Diet recently changed to ELIZABETH from NPO after endoscopic evaluation. Follow labs and diet tolerance. Continue to monitor and encourage intake. -DRT 01/08 Pt states knows what she can eat for her ileostomy but is interested in handout that list foods which cause gas, diarrhea etc. Will provide pt with copy. Alb down to 3.1. Will offer nutr supplment to increase kcal and protein. BK 01/30 Pt intake of 75-100%. Noting low H/H, K 3.4 and alb 3.3. Does not seem to cont to have bleeding. Will cont to monitor and encourage intake. -EK 01/21 Alb cont 3.3. Eating 50- 100%. Cont to monitor. TAPAN FUNEZ Jan 31, 2018 09:00
[2018-01-31] MEDS: GABAPENTIN 300 MG CAP PO SCH ×3 (09:12→20:28)
[2018-01-31] MEDS: PANTOPRAZOLE SOD 40 MG TABEC PO SCH (09:12)
[2018-01-31] MEDS: VENLAFAXINE XR 75 MG CAPCR PO SCH (09:12)
--- NOTE | 2018-01-31 11:38 | Hospitalist Progress Note ---
Subjective Progress Notes Subjective She reports doing well. No further bleeding. Physical Exam Vital Signs Date Time Temp Pulse Resp B/P (MAP) Pulse Ox O2 Delivery O2 Flow Rate FiO2 01/31/18 07:59 99.4 88 20 144/76 (98) 98 Nasal Cannula 2.0 Intake and Output 01/31/18 07:00 Intake Total 937 ml Output Total 1475 ml Balance -538 ml Intake Oral 937 ml Output Stool Total 1475 ml # Voids 3 # Bowel Movements 1 General Appearance: Alert, Awake Cardiovascular: Regular Rate and Rhythm Respiratory: Clear to Auscultation GI: Other (mucosal ostomy looks good/ileostomy bag with liquid stool) Result Diagram: 01/30/18 1120 01/30/18 1120 Assessment and Plan Problems: (1) Gastrointestinal bleeding, lower Status: Acute Assessment & Plan: This appeared to be coming from the mucosal colostomy region which is connected to the rectum. The Xarelto has most likely exacerbated the bleeding and we have been holding anticoagulants. Dr. Swartz performed endoscopy on bleeding ostomy site, no acute findings to explain the bleeding. Will now try restarting the Xarelto (>48 hours after the last bleeding event). (2) High serum lactate Status: Acute Assessment & Plan: Improved. Not clear as to source of the elevated lactate. She does not appear to be septic. No obvious ischemia of the gut. Remains asymptomatic. Repeat test now in normal range. (3) DVT (deep venous thrombosis) Status: Resolved Assessment & Plan: She has had multiple and a PE. She has an IVC filter in place. She is chronically on Xarelto (restarting today). See above. (4) PE (pulmonary thromboembolism) Status: Resolved Assessment & Plan: See above. (5) Hyponatremia Status: Chronic Assessment & Plan: Improved with IV fluids. 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 (6) Hypokalemia Status: Chronic Assessment & Plan: Improved with IV supplements. Most likely due to meds and absorption issues. (7) Anemia in chronic illness Status: Chronic Assessment & Plan: The anemia appears to be stable despite blood loss. Will follow labs. (8) COPD (chronic obstructive pulmonary disease) Status: Chronic (9) Depression Status: Chronic (10) Anxiety Status: Chronic (11) Hypothyroidism Status: Chronic (12) HTN (hypertension) Status: Chronic (13) Ischemic disease of gut Status: Resolved Exam Sepsis Risk: No Definite Risk MONA GONZALES MD Jan 31, 2018 11:38
[2018-01-31] MEDS: RIVAROXABAN 10 MG TAB PO SCH (12:10)
[2018-01-31 12:11] VITALS: BP 131/75
[2018-01-31 16:09] VITALS: BP 130/80
[2018-01-31] MEDS: [UNRECOGNIZED DRUG - OTHER] TP PRN (18:25)
[2018-01-31] MEDS: VITAMIN A TP PRN (18:25)
[2018-01-31 19:44] VITALS: BP 130/75
[2018-01-31] MEDS: traZODone HCL 50 MG TAB PO SCH (20:28)
[2018-01-31] MEDS: PROMETHAZINE HCL 25 MG TAB PO PRN (20:28)
[2018-02-01 06:05] VITALS: BP 140/76
[2018-02-01] MEDS: APAP/HYDROCODONE 325/5 TAB PO PRN ×3 (06:24→20:15)
[2018-02-01] MEDS: LEVOTHYROXINE SOD 0.025 MG TAB PO SCH (06:24)
[2018-02-01] MEDS: PROMETHAZINE HCL 25 MG TAB PO PRN (06:24)
[2018-02-01 08:18] VITALS: BP 152/80
[2018-02-01] MEDS: RIVAROXABAN 10 MG TAB PO SCH (09:12)
[2018-02-01] MEDS: GABAPENTIN 300 MG CAP PO SCH ×3 (09:12→20:15)
[2018-02-01] MEDS: VENLAFAXINE XR 75 MG CAPCR PO SCH (09:13)
[2018-02-01] MEDS: PANTOPRAZOLE SOD 40 MG TABEC PO SCH (09:13)
[2018-02-01] MEDS: POTASSIUM CHL 20 MEQ TABCR PO SCH (09:13)
--- NOTE | 2018-02-01 11:20 | Hospitalist Progress Note ---
Subjective Progress Notes Subjective 67F admitted for GI bleeding. ALBERTO overnight, awaiting placement in SNF. No signs bleeding on reinitiation of anticoagulation. Patient Complains of: Gastrointestinal: No Nausea, No Vomiting Physical Exam Vital Signs Date Time Temp Pulse Resp B/P (MAP) Pulse Ox O2 Delivery O2 Flow Rate FiO2 02/01/18 08:18 99.4 86 18 152/80 (104) 100 Nasal Cannula 2.0 Intake and Output 02/01/18 07:00 Intake Total 1157 ml Output Total 1425 ml Balance -268 ml Intake Oral 1157 ml Stool Total 1425 ml # Voids 3 General Appearance: No Acute Distress (sleeping comfortably) Neuro: No Gross deficits Eyes: PERRLA ENT: Normal Neck: No Masses Cardiovascular: Normal Rhythm & Peripheral Pulses Respiratory: No Respiratory Distress GI: Soft and Non-Tender Extremities: Soft and Non Tender, Warm, Pulses, Perfused; No Edema Integumentary: Skin Intact without Lesion / Mass Result Diagram: 01/30/18 1120 01/30/18 1120 Assessment and Plan Problems: (1) Gastrointestinal bleeding, lower Status: Acute Assessment & Plan: This appeared to be coming from the mucosal colostomy region which is connected to the rectum. The Xarelto has most likely exacerbated the bleeding and we have been holding anticoagulants. Dr. Swartz performed endoscopy on bleeding ostomy site, no acute findings to explain the bleeding. Xarelto resumed, no bleeding noted. (2) High serum lactate Status: Acute Assessment & Plan: Resolved. Not clear as to source of the elevated lactate. She does not appear to be septic. No obvious ischemia of the gut. Remains as ymptomatic. Repeat test now in normal range. (3) DVT (deep venous thrombosis) Status: Resolved Assessment & Plan: She has had multiple and a PE. She has an IVC filter in place. She is chronically on Xarelto. See above. (4) PE (pulmonary thromboembolism) Status: Resolved Assessment & Plan: See above. (5) Hyponatremia Status: Chronic Assessment & Plan: Improved with IV fluids. 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 (6) Hypokalemia Status: Chronic Assessment & Plan: Improved with IV supplements. Most likely due to meds and absorption issues. (7) Anemia in chronic illness Status: Chronic Assessment & Plan: The anemia appears to be stable despite blood loss. Will follow labs. (8) COPD (chronic obstructive pulmonary disease) Status: Chronic (9) Depression Status: Chronic (10) Anxiety Status: Chronic (11) Hypothyroidism Status: Chronic (12) HTN (hypertension) Status: Chronic (13) Ischemic disease of gut Status: Resolved Exam Sepsis Risk: No Definite Risk GRACIA WITT DO Feb 01, 2018 11:20
[2018-02-01 15:10] VITALS: BP 121/79
[2018-02-01] MEDS: traZODone HCL 50 MG TAB PO SCH (20:15)
[2018-02-01 20:18] VITALS: BP 121/79
[2018-02-02] MEDS: LEVOTHYROXINE SOD 0.025 MG TAB PO SCH (05:08)
[2018-02-02 07:31] VITALS: BP 131/74
[2018-02-02] MEDS: APAP/HYDROCODONE 325/5 TAB PO PRN ×3 (07:59→20:52)
[2018-02-02] MEDS: PANTOPRAZOLE SOD 40 MG TABEC PO SCH (09:00)
[2018-02-02] MEDS: VENLAFAXINE XR 75 MG CAPCR PO SCH (09:00)
[2018-02-02] MEDS: RIVAROXABAN 10 MG TAB PO SCH (09:00)
[2018-02-02] MEDS: POTASSIUM CHL 20 MEQ TABCR PO SCH (09:00)
[2018-02-02] MEDS: GABAPENTIN 300 MG CAP PO SCH ×3 (09:00→20:52)
[2018-02-02] MEDS: [UNRECOGNIZED DRUG - OTHER] TP PRN (10:33)
[2018-02-02] MEDS: VITAMIN A TP PRN (10:33)
--- NOTE | 2018-02-02 10:40 | Hospitalist Progress Note ---
Subjective Progress Notes Subjective She denies any problems. No recurrent bleeding. Physical Exam Vital Signs Date Time Temp Pulse Resp B/P (MAP) Pulse Ox O2 Delivery O2 Flow Rate FiO2 02/02/18 07:31 98.6 93 20 131/74 (93) 97 CPAP 32.0 02/01/18 20:18 2.0 Intake and Output 02/02/18 07:00 Intake Total 796 ml Output Total 2450 ml Balance -1654 ml Intake Oral 796 ml Output Urine Total 150 ml Stool Total 2300 ml General Appearance: Alert, Awake GI: Soft and Non-Tender, Other (ileostomy with liquid stool/mucosal ostomy clean with no evidence of blood) Result Diagram: 01/30/18 1120 02/02/18 0545 Assessment and Plan Problems: (1) Gastrointestinal bleeding, lower Status: Acute Assessment & Plan: This appeared to be coming from the mucosal colostomy region which is connected to the rectum. The Xarelto has most likely exacerbated the bleeding and we were intially holding anticoagulants. Dr. Swartz performed e ndoscopy on bleeding ostomy site, no acute findings to explain the bleeding. Xarelto has been resumed and no recurrent bleeding noted thus far. (2) High serum lactate Status: Acute Assessment & Plan: Resolved. Not clear as to source of the elevated lactate. She did not appear to be septic. No obvious ischemia of the gut. She remains asymptomatic. Follow up lactate in normal range. (3) DVT (deep venous thrombosis) Status: Resolved Assessment & Plan: She has had multiple and a PE. She has an IVC filter in place. She is chronically on Xarelto. See above. (4) PE (pulmonary thromboembolism) Status: Resolved Assessment & Plan: See above. (5) Hyponatremia Status: Chronic Assessment & Plan: Improved with IV fluids. This appears to be a correction problem for her given her absorption issues. (6) Hypokalemia Status: Chronic Assessment & Plan: Improved with IV supplements. Most likely due to meds and absorption issues. (7) Anemia in chronic illness Status: Chronic Assessment & Plan: The anemia appears to be stable despite blood loss. Will follow labs. (8) COPD (chronic obstructive pulmonary disease) Status: Chronic (9) Depression Status: Chronic (10) Anxiety Status: Chronic (11) Hypothyroidism Status: Chronic (12) HTN (hypertension) Status: Chronic (13) Ischemic disease of gut Status: Resolved Exam Sepsis Risk: No Definite Risk MONA GONZALES MD Feb 02, 2018 10:40
[2018-02-02 10:45] VITALS: BP 147/80
[2018-02-02 14:41] VITALS: BP 141/81
[2018-02-02 19:08] VITALS: BP 142/78
[2018-02-02 20:43] VITALS: BP 146/77
[2018-02-02] MEDS: traZODone HCL 50 MG TAB PO SCH (20:52)
[2018-02-02] MEDS: PROMETHAZINE HCL 25 MG TAB PO PRN (20:55)
[2018-02-02 22:54] VITALS: BP 127/68
[2018-02-03 02:17] VITALS: BP 163/68
[2018-02-03] MEDS: APAP/HYDROCODONE 325/5 TAB PO PRN ×4 (03:51→22:10)
[2018-02-03] MEDS: LEVOTHYROXINE SOD 0.025 MG TAB PO SCH (05:39)
[2018-02-03 08:25] VITALS: BP 154/80
[2018-02-03] MEDS: VENLAFAXINE XR 75 MG CAPCR PO SCH (08:52)
[2018-02-03] MEDS: PANTOPRAZOLE SOD 40 MG TABEC PO SCH (08:52)
[2018-02-03] MEDS: RIVAROXABAN 10 MG TAB PO SCH (08:52)
[2018-02-03] MEDS: POTASSIUM CHL 20 MEQ TABCR PO SCH (08:52)
[2018-02-03] MEDS: GABAPENTIN 300 MG CAP PO SCH ×3 (08:52→21:03)
[2018-02-03 11:47] VITALS: BP 146/84
--- NOTE | 2018-02-03 12:19 | Hospitalist Progress Note ---
Subjective Progress Notes Subjective She slept well and has an appetite. No more bleeding from the fistula for a number of days. Physical Exam Vital Signs Date Time Temp Pulse Resp B/P (MAP) Pulse Ox O2 Delivery O2 Flow Rate FiO2 02/03/18 11:47 99.4 99 18 146/84 (104) 98 Nasal Cannula 2.0 02/03/18 02:17 32.0 Intake and Output 02/03/18 07:00 Intake Total 2159 ml Output Total 1050 ml Balance 1109 ml Intake Oral 2159 ml Stool Total 1050 ml # Voids 2 # Bowel Movements 1 General Appearance: Alert, Awake, No Acute Distress Result Diagram: 01/30/18 1120 02/02/18 0545 Assessment and Plan Problems: (1) Weakness Status: Acute Assessment & Plan: She would like to go to the [facility] because she was having difficulty in her current living situation. Awaiting the PASRR 2 paperwork to be completed, so that then someone from [facility] can get the referral for the LT101. (2) Gastrointestinal bleeding, lower Status: Acute Assessment & Plan: This appeared to be coming from the mucosal colostomy region which is connected to the rectum. The Xarelto most likely exacerbated the bleeding and it was initially held. Dr. Swartz performed endoscopy at the bleeding ostomy site, but no acute findings seen to explain the bleeding. Xarelto was resumed on 01/21 and no recurrent bleeding noted thus far. (3) High serum lactate Status: Acute Assessment & Plan: Resolved. Not clear as to source of the elevated lactate. She did not appear to be septic. No obvious ischemia of the gut. She remains asymptomatic. Follow up lactate in normal range. (4) DVT (deep venous thrombosis) Status: Resolved Assessment & Plan: She has had multiple and a PE. She has an IVC filter in place. She is chronically on Xarelto. See above. (5) PE (pulmonary thromboembolism) Status: Resolved Assessment & Plan: See above. (6) Hyponatremia Status: Chronic Assessment & Plan: Improved with IV fluids. 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 (7) Hypokalemia Status: Chronic Assessment & Plan: Improved with IV supplements. Most likely due to meds and absorption issues. (8) Anemia in chronic illness Status: Chronic Assessment & Plan: The anemia appears to be stable despite blood loss. Will follow labs. (9) COPD (chronic obstructive pulmonary disease) Status: Chronic (10) Depression Status: Chronic (11) Anxiety Status: Chronic (12) Hypothyroidism Status: Chronic (13) HTN (hypertension) Status: Chronic (14) Ischemic disease of gut Status: Resolved Exam Sepsis Risk: No Definite Risk GEETHA DEJESUS MD Feb 03, 2018 12:19
[2018-02-03 15:41] VITALS: BP 134/91
[2018-02-03 19:42] VITALS: BP 150/87
[2018-02-03] MEDS: traZODone HCL 50 MG TAB PO SCH (21:03)
[2018-02-04 04:17] VITALS: BP 140/90
[2018-02-04] MEDS: APAP/HYDROCODONE 325/5 TAB PO PRN ×3 (04:19→16:56)
[2018-02-04] MEDS: LEVOTHYROXINE SOD 0.025 MG TAB PO SCH (05:22)
--- NOTE | 2018-02-04 06:39 | Hospitalist Progress Note ---
Subjective Progress Notes Subjective No bleeding from the mucus fistula. No concerns from staff. Physical Exam Vital Signs Date Time Temp Pulse Resp B/P (MAP) Pulse Ox O2 Delivery O2 Flow Rate FiO2 02/04/18 04:17 98.7 96 18 140/90 (107) 96 Nasal Cannula 2.0 02/03/18 02:17 32.0 Intake and Output 02/04/18 07:00 Intake Total 1072 ml Output Total 1375 ml Balance -303 ml Intake Oral 1072 ml Stool Total 1375 ml # Voids 2 General Appearance: Alert, Awake, No Acute Distress Result Diagram: 02/02/18 0545 Assessment and Plan Problems: (1) Weakness Status: Acute Assessment & Plan: She would like to go to the [facility] because she was having difficulty in her current living situation. Awaiting the PASRR 2 paperwork to be completed, so that then someone from [facility] can get the referral for the LT101. (2) Gastrointestinal bleeding, lower Status: Resolved Assessment & Plan: This appeared to be coming from the mucosal colostomy region which is connected to the rectum. The Xarelto most likely exacerbated the bleeding and it was initially held. Dr. Swartz performed endoscopy at the bleeding ostomy site, but no acute findings seen to explain the bleeding. Xarelto was resumed on 01/21 and no recurrent bleeding noted thus far. (3) High serum lactate Status: Resolved Assessment & Plan: Resolved. Not clear as to source of the elevated lactate. She did not appear to be septic. No obvious ischemia of the gut. She remains asymptomatic. Follow up lactate in normal range. (4) DVT (deep venous thrombosis) Status: Resolved Assessment & Plan: She has had multiple and a PE. She has an IVC filter in place. She is chronically on Xarelto. See above. (5) PE (pulmonary thromboembolism) Status: Resolved Assessment & Plan: See above. (6) Hyponatremia Status: Resolved Assessment & Plan: Improved with IV fluids. This appears to be a mcc problem for her given her absorption issues. (7) Hypokalemia Status: Resolved Assessment & Plan: Improved with IV supplements. Most likely due to meds and absorption issues. (8) Anemia in chronic illness Status: Chronic Assessment & Plan: The anemia appears to be stable despite blood loss. Will follow labs. (9) COPD (chronic obstructive pulmonary disease) Status: Chronic (10) Depression Status: Chronic (11) Anxiety Status: Chronic (12) Hypothyroidism Status: Chronic (13) HTN (hypertension) Status: Chronic (14) Ischemic disease of gut Status: Resolved Exam Sepsis Risk: No Definite Risk GEETHA DEJESUS MD Feb 04, 2018 06:39
[2018-02-04 07:55] VITALS: BP 153/90
[2018-02-04] MEDS: POTASSIUM CHL 20 MEQ TABCR PO SCH (08:41)
[2018-02-04] MEDS: VENLAFAXINE XR 75 MG CAPCR PO SCH (08:41)
[2018-02-04] MEDS: RIVAROXABAN 10 MG TAB PO SCH (08:41)
[2018-02-04] MEDS: PANTOPRAZOLE SOD 40 MG TABEC PO SCH (08:41)
[2018-02-04] MEDS: GABAPENTIN 300 MG CAP PO SCH ×3 (08:42→21:21)
[2018-02-04 11:08] VITALS: BP 153/84
[2018-02-04 15:04] VITALS: BP 133/90
--- NOTE | 2018-02-04 17:59 | Medical Nutrition Therapy ---
Nutrition Anthropometrics Height (Inches): 62.50 Height (Calculated Centimeters: 158.858295 Weight (Pounds): 138 Weight (Calculated Kilograms): 62.823 Jani Nutrition Score: Adequate Jani Nutrition Risk Score: 18 Dietary Referral Nutrition Risk Factors: Nutrition Risk Comment: NO TEETH Nutritional Diagnosis Nutritional Risk Acuity 2: Ileostomy Nutritional Risk Acuity 4: Good Appetite Past Medical History: COPD, Depression, Hypothyroidism, HTN, Ischemic disease of gut, PE, DVT, partial colectomy, ileostomy, Cellulitis of abdominal wall Nutritional Acuity: 2-Moderate Nutrition Diagnosis: Altered GI Function Nutrition Etiology: Physiological Causes Nutrition Problem/Etiology/Sym: Altered GI function related to physiological causes as evidenced by GI bleed from ostomy site and PMH of ileostomy Energy Requirement: 1750 (3761-6286 HB x 1.3-1.5) Protein Requirement: 62 Fluid Requirement: 1860 (30 ml/kg) Diet Type: Diet as Tolerated ELIZABETH/REG Nutrition Intervention: Cont diet as ordered, Between meal supplement Diet Comment To [facility]: OFFER NUTR SUPPLMENT, NO TEETH, SOFT FOODS Nutrition Monitoring & Eval Nutrition Goals: Eat 75-100% Meal Nutrition Follow-Up: Fair Intake RD Patient Assessment Time: [address] Assessment Type: RD Re-Assessment Patient Nutrition Acuity: 2-Moderate Follow Up Date: Feb 09, 2018 Nutritional Comment: 01/28/18 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 Within normal wt range with BMI of 24.9. Alb 3.7, Low H/H, Lactate 2.6, Low Na+. Diet recently changed to ELIZABETH from NPO after endoscopic evaluation. Follow labs and diet tolerance. Continue to monitor and encourage intake. -DRT 02/04 Pt eating 50-100% of regular diet. Pt cont to report nausea which may be affecting intake. No new labs. Will cont to monitor and encourage intake. BK 01/08 Pt states knows what she can eat for her ileostomy but is interested in handout that list foods which cause gas, diarrhea etc. Will provide pt with copy. Alb down to 3.1. Will offer nutr supplment to increase kcal and protein. BK 01/30 Pt intake of 75-100%. Noting low H/H, K 3.4 and alb 3.3. Does not seem to cont to have bleeding. Will cont to monitor and encourage intake. -EK 10/17 Alb cont 3.3. Eating 50- 100%. Cont to monitor. TAPAN FUNEZ Feb 04, 2018 17:59
[2018-02-04 20:07] VITALS: BP 132/67
[2018-02-04] MEDS: traZODone HCL 50 MG TAB PO SCH (21:21)
[2018-02-05 03:14] VITALS: BP 135/77
[2018-02-05] MEDS: APAP/HYDROCODONE 325/5 TAB PO PRN ×2 (03:19→09:00)
[2018-02-05] MEDS: LEVOTHYROXINE SOD 0.025 MG TAB PO SCH (05:20)
[2018-02-05 07:56] VITALS: BP 141/67
[2018-02-05] MEDS: RIVAROXABAN 10 MG TAB PO SCH (09:00)
[2018-02-05] MEDS: VENLAFAXINE XR 75 MG CAPCR PO SCH (09:00)
[2018-02-05] MEDS: POTASSIUM CHL 20 MEQ TABCR PO SCH (09:00)
[2018-02-05] MEDS: GABAPENTIN 300 MG CAP PO SCH ×2 (09:00→14:07)
[2018-02-05] MEDS: PANTOPRAZOLE SOD 40 MG TABEC PO SCH (09:00)
--- NOTE | 2018-02-05 13:31 | Hospitalist Depart ---
Discharge Summary Reason for Hosp/Final Diag: (1) Weakness Status: Acute Hospital Course & Plan: She would like to go to the [facility] because she was having difficulty in her current living situation. She will be transferred to [facility]. (2) Gastrointestinal bleeding, lower Status: Resolved Hospital Course & Plan: This appeared to be coming from the mucosal colostomy region which is connected to the rectum. The Xarelto most likely exacerbated the bleeding and it was initially held. Dr. Swartz performed endoscopy at the bleeding ostomy site, but no acute findings seen to explain the bleeding. Xarelto was resumed on 01/21 and no recurrent bleeding noted thus far. (3) High serum lactate Status: Resolved Hospital Course & Plan: Resolved. Not clear as to source of the elevated lactate. She did not appear to be septic. No obvious ischemia of the gut. She remains asymptomatic. Follow up lactate in normal range. (4) DVT (deep venous thrombosis) Status: Resolved Hospital Course & Plan: She has had multiple and a PE. She has an IVC filter in place. She is chronically on Xarelto. See above. (5) PE (pulmonary thromboembolism) Status: Resolved Hospital Course & Plan: See above. (6) Hyponatremia Status: Resolved Hospital Course & Plan: Improved with IV fluids. This appears to be a oil heaterman problem for her given her absorption issues. (7) Hypokalemia Status: Resolved Hospital Course & Plan: Improved with IV supplements. Most likely due to meds and absorption issues. She does take Potassium chronically. (8) Anemia in chronic illness Status: Chronic Hospital Course & Plan: The anemia appears to be stable despite blood loss. W ill follow labs. (9) COPD (chronic obstructive pulmonary disease) Status: Chronic Hospital Course & Plan: On chronic oxygen. (10) Depression Status: Chronic (11) Anxiety Status: Chronic (12) Hypothyroidism Status: Chronic (13) HTN (hypertension) Status: Chronic (14) Ischemic disease of gut Status: Resolved Departure Latest Vital Signs Vital Signs 02/03/18 02/05/18 02/05/18 02:17 07:56 08:00 Temp 98.4 Pulse 88 Resp 16 B/P (MAP) 141/67 (91) Pulse Ox 96 O2 Delivery Nasal Cannula O2 Flow Rate 2.0 FiO2 32.0 Weight (Pounds): 138 Weight (Ounces): 8.0 Result Diagram: 10/26/18 1120 02/02/18 0545 Condition: Improved Discharge: [facility] PT/OT Follow Up For: PT For Strengthening, OT For ADL's, PT Evaluation and Treat, OT Evaluation and Treat Discharge Instructions Home Meds Active Scripts Potassium Chloride (POTASSIUM CHLORIDE) 20 Meq Tab.er.prt, 1 TAB PO QDAY for 30 Days, #30 TAB Prov:DARIO ROJAS MD 01/22/18 Venlafaxine Hcl (EFFEXOR XR) 150 Mg Cap.er.24h, 1 CAP PO QDAY for 30 Days, #30 CAP Prov:DARIO ROJAS MD 01/22/18 Prednisone 10 Mg Tab (PREDNISONE 10 MG TAB) 10 Mg Tablet, 1 TAB PO QDAY for 30 Days, #30 TAB Prov:DARIO ROAJS MD 01/22/18 Pantoprazole Sodium (PANTOPRAZOLE SODIUM) 40 Mg Tablet.dr, 1 TAB PO QDAY for 30 Days, #30 TAB Prov:DARIO ROJAS MD 01/22/18 Trazodone Hcl (TRAZODONE HCL) 50 Mg Tablet, 1 TAB PO QHS for 30 Days, #30 TAB Prov:DARIO ROJAS MD 01/21/18 Hydrocodone Bit/Acetaminophen (HYDROCODON-ACETAMINOPHEN 5-325) 1 Each Tablet, 1 EACH PO Q4-6H PRN for PAIN, #30 TAKE ONE TABLET BY MOUTH EVERY 4-6 HOURS NEEDED FOR PAIN Prov:EDILMA MARTINEZ DO 01/02/18 Reported Medications Oxygen (OXYGEN) Inha, 3 L INH, L 2 Liters Continuous Oxygen and With CPap at HS 01/21/18 Protein Supplement (Protein Powder) 480 Gm Powder, 2 NOTSPEC PO TID 2 scoops of powder in 6-8oz of water between meals 01/21/18 Gabapentin (GABAPENTIN) 600 Mg Tablet, 1 TAB PO TID 01/21/18 Polyvinyl Alcohol (LIQUITEARS) 15 Ml Drops, 1 GTT OU PRN for dry eyes 01/09/18 Ropinirole Hcl (ROPINIROLE HCL) 4 Mg Tab.er.24h, 1 TAB PO HS 01/07/18 Multivitamin (TAB-A-OMAR) 1 Each Tablet, 1 EACH PO QAM 01/07/18 Mag Hydrox/Al Hydrox/Simeth (MAALOX MAXIMUM STRENGTH SUSP) 355 Ml Oral.susp, 15 ML PO Q4H PRN for INDIGESTION 01/07/18 Promethazine Hcl (PROMETHAZINE HCL) 25 Mg Tablet, 1 TAB PO Q8H PRN for NAUSEA/VOMITING 01/07/18 Nystatin 100,000 Unit/Gm Top Powder (NYSTATIN 100,000 UNIT/GM TOP POWDER) 15 Gm Powder, 15 GM TP BID 01/07/18 Tetrahydrozoline Hcl (EYE DROPS) 15 Ml Drops, 1 DROP OP PRN 01/07/18 Guaifenesin/Dextromethorphan (Robitussin Cough-Chest Dm Liq) 100 Mg-5 Mg/5 Ml Liquid, 5 ML PO Q4-6H PRN for COUGH 01/07/18 Acetaminophen (TYLENOL) 325 Mg Tablet, 1-2 TAB PO Q4H PRN for PAIN, TAB 01/07/18 Buprenorphine (Buprenorphine) 5 Mcg/Hour Patch.tdwk, 1 PATCH TD every 7 days 01/07/18 Menthol (BIOFREEZE) 118 Ml Gel..ml., 1 JARETT TOP TID PRN for PAIN 01/07/18 Calcium Polycarbophil (FIBER) 625 Mg Tablet, 2 TAB PO DAILY 01/07/18 Calcium Carbonate (Calcium Carbonate) 300 Mg Calcium (750 Mg) Tab.chew, 2 TAB PO PRN Not to exceed 10 tablets in 24 hours 01/07/18 Nifedipine (NIFEDIPINE ER) 30 Mg Tab.er.24, 1 TAB PO QDAY 01/07/18 Magnesium Hydroxide (MILK OF MAGNESIA) 400 Mg/5 Ml Oral.susp, 15-30 ML PO PRN PRN for CONSTIPATION, BOTTLE Not to exceed mokre than 2 doses in 24 hours 01/07/18 Levothyroxine Sodium (SYNTHROID) 25 Mcg Tablet, 1 TAB PO QDAY 01/07/18 Fluticasone/Vilanterol 100/25 Mcg/Inh (BREO ELLIPTA 100/25 MCG) 1 Each Aer.pow.ba, 1 INH INH QDAY 01/07/18 Rivaroxaban 20 Mg (XARELTO 20 MG) 20 Mg Tablet, 1 TAB PO DAILY 01/06/18 Discontinued Reported Medications Clonazepam (CLONAZEPAM) 0.5 Mg Tablet, 0.5 MG PO QID, #6 TAB 01/02/18 Diet: Regular Activity: As Tolerated Copies to: DARIO ROJAS MD ; Venous Thromboembolism Antithrombotics Is Pt On Any Antithrombotics?: No LUIS ALBERTO HAUSER [employer] Feb 05, 2018 13:31
[2018-02-05 15:49] VITALS: BP 101/81
[2018-02-06] MEDS ORDERED: BUPRENORPHINE 5 MCG/HR TD SCH (06:30)
== END 2018-02-05 16:00 | DRG 394 ==
LOC: ER 20:08 → MED 23:06
PROVIDERS: ADMIT Internal Medicine; ATTEND Internal Medicine
PROC: 0DJD8ZZ Inspection of Lower Intestinal Tract, Via Natural or Artificial Opening Endoscopic (ICD-10-PCS; principal; 2018-01-28 11:17)
PROC: 5A09357 Assistance with Respiratory Ventilation, Less than 24 Consecutive Hours, Continuous Positive Airway Pressure (ICD-10-PCS; 2018-02-01)
DX: K94.11 Enterostomy hemorrhage (principal); E87.1 Hypo-osmolality and hyponatremia; K91.2 Postsurgical malabsorption, not elsewhere classified; T45.515A Adverse effect of anticoagulants, initial encounter; R74.8 Abnormal levels of other serum enzymes; K21.9 Gastro-esophageal reflux disease without esophagitis; G47.33 Obstructive sleep apnea (adult) (pediatric); I48.91 Unspecified atrial fibrillation; R53.1 Weakness; I10 Essential (primary) hypertension; J44.9 Chronic obstructive pulmonary disease, unspecified; E03.9 Hypothyroidism, unspecified; Z87.891 Personal history of nicotine dependence; Z79.01 Long term (current) use of anticoagulants; Z95.828 Presence of other vascular implants and grafts; Z88.2 Allergy status to sulfonamides; E87.6 Hypokalemia; Z79.52 Long term (current) use of systemic steroids; Z86.718 Personal history of other venous thrombosis and embolism; Z86.711 Personal history of pulmonary embolism; Z88.6 Allergy status to analgesic agent; Z88.8 Allergy status to other drugs, medicaments and biological substances; Z86.73 Personal history of transient ischemic attack (TIA), and cerebral infarction without residual deficits; Z87.19 Personal history of other diseases of the digestive system; F32.9 Major depressive disorder, single episode, unspecified; F41.9 Anxiety disorder, unspecified; D64.9 Anemia, unspecified
CPT/HCPCS: 36415; 74022; 81001; 82040; 82247; 82310; 82374; 82435; 82565; 82947; 83605; 84075; 84132; 84155; 84295; 84450; 84460; 84520; 85025; 85610; 85730; 94660; 99284; A4371; A4406; J3480; J7030; Q0169

== ENCOUNTER → 2018-01-27 | Outpatient (CLI) | payer MEDICARE, OTHER ==
[~2018-01-27] MED LIST changes: +ACET-1966 PO; +BUPR1PAT22 TD; +CALC300T30 PO; +CALC625T69 PO; +CEPH500C24 PO; +FLUT1AER INH; +GABA-503 PO; +GUAI237L21 PO; +LEVO25TA57 PO; +MAG-66 PO; +MENT118G TOP; +MOM PO; +MULT-839 PO; +NIFE-15 PO; +NYST15PO4 TP; +OXYGENHOME INH; +POLY15DR7 OU; +POTA20TA94 PO; +PROM-110 PO; +PROT480P2 PO; +RIVA20TA PO; +ROPI4TAB2 PO; +TETR15DR9 OP
[2018-01-28 15:56] VITALS: BMI 24.8
== END ==
LOC: AMB 19:35
PROVIDERS: ATTEND Nurse Practitioner
DX: K94.01 Colostomy hemorrhage (principal)
CPT/HCPCS: A0425; A0427

== ENCOUNTER 2018-03-10 16:49 | Inpatient (IN) | payer MEDICARE, OTHER ==
[~2018-03-10] VITALS: Ht 158.8 cm; Wt 57.8 kg
[2018-03-10] MEDS ORDERED: NS(*) 0.9% 500 ML BAG 500 ML IV ONE (16:55)
--- NOTE | 2018-03-10 17:12 | ER Report ---
History and Physical Time Seen By MD: 17:00 Hx. of Stated Complaint: PT REPORTS DIFFICULTY BREATHING, REPORTS NOT SLEEPING FOR 4 DAYS, PT REPORTS "I'M SPASTIC" HPI/ROS CHIEF COMPLAINT: low sodium HISTORY OF PRESENT ILLNESS: pt is 67 f with multiple medical problems as below, recent changes include PE dc's approx 5 mo ago, on xarelto, recently complicated by bleed from left ostomy site, noted increased spasm/jerking, but unclear etiology, followed up today with pcm and noted to be hyponatremic REVIEW OF SYSTEMS: Constitutional: chills Eyes: No discharge. ENT: No sore throat. Cardiovascular: ongoing intermittent cp Respiratory: ongoing intermittent sob Gastrointestinal: ongoing abd pain Genitourinary: No hematuria. Musculoskeletal: No back pain. Skin: No rashes. Neurological: No headache. Remainder of the 14 system rev: Yes Allergies: Coded Allergies: Sulfa (Sulfonamide Antibiotics) (Verified Allergy, Unknown, 03/10/18) allergic to cream only amitriptyline (Verified Allergy, Unknown, 03/10/18) aspirin (Verified Allergy, Unknown, 03/10/18) Home Meds Active Scripts Potassium Chloride (POTASSIUM CHLORIDE) 20 Meq Tab.er.prt, 1 TAB PO QDAY for 30 Days, #30 TAB Prov:ADRIO ROJAS MD 01/22/18 Venlafaxine Hcl (EFFEXOR XR) 150 Mg Cap.er.24h, 1 CAP PO QDAY for 30 Days, #30 CAP Prov:DARIO ROJAS MD 01/22/18 Prednisone 10 Mg Tab (PREDNISONE 10 MG TAB) 10 Mg Tablet, 1 TAB PO QDAY for 30 Days, #30 TAB Prov:DARIO ROJAS MD 01/22/18 Pantoprazole Sodium (PANTOPRAZOLE SODIUM) 40 Mg Tablet.dr, 1 TAB PO QDAY for 30 Days, #30 TAB Prov:DARIO ROJAS MD 01/22/18 Trazodone Hcl (TRAZODONE HCL) 50 Mg Tablet, 1 TAB PO QHS for 30 Days, #30 TAB Prov:DARIO ROJAS MD 01/21/18 Reported Medications Loperamide HCl (Imodium A-D) 2 Mg Capsule, 1 BID 03/09/18 Hydrocodone Bit/Acetaminophen (NORCO 5-325 TABLET) 1 Each Tablet, 1 EACH PO BID, TAB 03/05/18 Acetaminophen 500 Mg Tab (ACETAMINOPHEN EXTRA STRENGTH) 500 Mg Tablet, 2 TAB PO BID, TAB 03/05/18 Lidocaine (Aspercreme) 4 % Adh..patch, 1 ADH.PATCH TOP QDAY 03/05/18 Ropinirole Hcl (ROPINIROLE HCL) 2 Mg Tablet, 2 MG PO QDAY taper- 2mg po qd x2d, then 1.5mg po qd x2d, then 1mg po qd, then 0.5mg poo qd and then stop. 03/05/18 Ondansetron Hcl (ZOFRAN) 4 Mg Tablet, 4 MG PO Q12H PRN for nausea, TAB 02/16/18 Oxygen (OXYGEN) Inha, 3 L INH, L 2 Liters Continuous Oxygen and With CPap at HS 01/21/18 Protein Supplement (Protein Powder) 480 Gm Powder, 2 NOTSPEC PO TID 2 scoops of powder in 6-8oz of water between meals 01/21/18 Gabapentin (GABAPENTIN) 600 Mg Tablet, 0.5-1 TAB PO TID 300mg qam 300mg noon and 600mg qhs x 1 week, then decrease to 300mg qam and 600qhs x 1 week, then 300mg bid 01/21/18 Polyvinyl Alcohol (LIQUITEARS) 15 Ml Drops, 1 GTT OU PRN for dry eyes 01/09/18 Multivitamin (TAB-A-OMAR) 1 Each Tablet, 1 EACH PO QAM 01/07/18 Mag Hydrox/Al Hydrox/Simeth (MAALOX MAXIMUM STRENGTH SUSP) 355 Ml Oral.susp, 15 ML PO Q4H PRN for INDIGESTION 01/07/18 Nystatin 100,000 Unit/Gm Top Powder (NYSTATIN 100,000 UNIT/GM TOP POWDER) 15 Gm Powder, 15 GM TP BID 01/07/18 Tetrahydrozoline Hcl (EYE DROPS) 15 Ml Drops, 1 DROP OP PRN 01/07/18 Guaifenesin/Dextromethorphan (Robitussin Cough-Chest Dm Liq) 100 Mg-5 Mg/5 Ml Liquid, 5 ML PO Q4-6H PRN for COUGH 01/07/18 Acetaminophen (TYLENOL) 325 Mg Tablet, 1-2 TAB PO Q4H PRN for PAIN, TAB 01/07/18 Buprenorphine (Buprenorphine) 5 Mcg/Hour Patch.tdwk, 1 PATCH TD every 7 days 01/07/18 Menthol (BIOFREEZE) 118 Ml Gel..ml., 1 JARETT TOP TID PRN for PAIN 01/07/18 Calcium Polycarbophil (FIBER) 625 Mg Tablet, 2 TAB PO DAILY 01/07/18 Calcium Carbonate (Calcium Carbonate) 300 Mg Calcium (750 Mg) Tab.chew, 2 TAB PO PRN Not to exceed 10 tablets in 24 hours 01/07/18 Nifedipine (NIFEDIPINE ER) 30 Mg Tab.er.24, 1 TAB PO QDAY 01/07/18 Magnesium Hydroxide (MILK OF MAGNESIA) 400 Mg/5 Ml Oral.susp, 15-30 ML PO PRN PRN for CONSTIPATION, BOTTLE Not to exceed mokre than 2 doses in 24 hours 01/07/18 Levothyroxine Sodium (SYNTHROID) 25 Mcg Tablet, 1 TAB PO QDAY 01/07/18 Fluticasone/Vilanterol 100/25 Mcg/Inh (BREO ELLIPTA 100/25 MCG) 1 Each Aer.pow.ba, 1 INH INH QDAY 01/07/18 Rivaroxaban 20 Mg (XARELTO 20 MG) 20 Mg Tablet, 1 TAB PO DAILY 01/06/18 Discontinued Reported Medications Ropinirole Hcl (ROPINIROLE HCL) 4 Mg Tab.er.24h, 1 TAB PO HS decrease to 3.5mg qhs x 1 week then 3 mg qhs x1 week then 2.5mg x 1 week then 2mg 01/07/18 Reviewed Nurses Notes: Yes Old Medical Records Reviewed: Yes Hx Smoking: Yes Smoking Status: Former Smoker Hx Substance Use Disorder: No Hx Alcohol Use: No Constitutional Vital Sign - Last 24 Hours 03/10/18 16:54 Pulse 105 Resp 20 B/P (MAP) 134/54 Pulse Ox 87 O2 Delivery Nasal Cannula Physical Exam General Appearance: The patient is alert, has no immediate need for airway protection and no signs of toxicity. She has frequent spasms throughout her body and occ stuttering Eyes: Pupils equal and round no pallor or injection. ENT, Mouth: Mucous membranes are moist. Respiratory: There are no retractions, lungs are clear to auscultation. Cardiovascular: Regular rate and rhythm. Gastrointestinal: Abdomen is soft and non tender, no masses, bowel sounds normal. R colostomy appears nl; no focal ttp Neurological: alert, oriented, frequent uncontrollable spasms Skin: Warm and dry, no rashes. Musculoskeletal: Extremities are nontender, nonswollen and have full range of motion. DIFFERENTIAL DIAGNOSIS: After history and physical exam differential diagnosis was considered for electrolyte abnormality, infectious etiology, underlying malignancy, other emergent etiology. Medical Decision Making Data Points Result Diagram: 03/10/18 1712 03/10/18 1712 Laboratory Hematology Test 03/10/18 17:12 03/10/18 17:27 Red Blood Count 4.21 M/uL (4.17-5.56) Mean Corpuscular Volume 80.6 fL (80.0-96.0) Mean Corpuscular Hemoglobin 26.1 pg (26.0-33.0) Mean Corpuscular Hemoglobin Concent 32.4 g/dL (32.0-36.0) Red Cell Distribution Width 18.3 % (11.5-14.5) Mean Platelet Volume 6.0 fL (7.2-11.1) Neutrophils (%) (Auto) 89.9 % (39.4-72.5) Lymphocytes (%) (Auto) 5.6 % (17.6-49.6) Monocytes (%) (Auto) 3.9 % (4.1-12.4) Eosinophils (%) (Auto) 0.1 % (0.4-6.7) Basophils (%) (Auto) 0.5 % (0.3-1.4) Nucleated RBC Relative Count (auto) 0.1 /100WBC Neutrophils # (Auto) 18.8 K/uL (2.0-7.4) Lymphocytes # (Auto) 1.2 K/uL (1.3-3.6) Monocytes # (Auto) 0.8 K/uL (0.3-1.0) Eosinophils # (Auto) 0.0 K/uL (0.0-0.5) Basophils # (Auto) 0.1 K/uL (0.0-0.1) Nucleated RBC Absolute Count (auto) 0.02 K/uL Peripheral Blood Smear Yes Y/N Sodium Level 123 mmol/L (137-145) Potassium Level 5.2 mmol/L (3.5-5.0) Chloride Level 87 mmol/L (98-107) Carbon Dioxide Level 17 mmol/L (22-31) Blood Urea Nitrogen 69 mg/dl (7-18) Creatinine 2.60 mg/dl (0.52-1.04) Glomerular Filtration Rate Calc 18.4 Random Glucose 101 mg/dl (75-110) Lactate 1.7 mmol/L (0.7-2.1) Calcium Level 9.8 mg/dl (8.4-10.2) Magnesium Level 2.0 mg/dl (1.7-2.2) Total Bilirubin 0.5 mg/dl (0.2-1.3) Aspartate Amino Transf (AST/SGOT) 72 U/L (0-35) Alanine Aminotransferase (ALT/SGPT) 42 U/L (0-56) Alkaline Phosphatase 115 U/L (0-126) Total Protein 8.4 g/dl (6.3-8.2) Albumin 4.7 g/dl (3.5-5.0) Lipase 1022 U/L (23-300) Urine Color Yellow Urine Clarity Cloudy Urine pH 5.0 pH (4.8-9.5) Urine Specific [place] 1.016 Urine Protein 30 mg/dL (NEGATIVE) Urine Glucose (UA) Negative mg/dL (NEGATIVE) Urine Ketones Negative mg/dL (NEGATIVE) Urine Blood Moderate (NEGATIVE) Urine Nitrite Negative (NEGATIVE) Urine Bilirubin Negative (NEGATIVE) Urine Urobilinogen Negative mg/dL (0.2-1.9) Urine Leukocyte Esterase Large (NEGATIVE) Urine RBC 12 /HPF (0-2/HPF) Urine WBC 261 /HPF (0-5/HPF) Urine WBC Clumps Many /HPF Urine Squamous Epithelial Cells Few /LPF (NONE-FEW) Urine Bacteria Many /HPF (NONE-FEW) Urine Hyaline Casts Few /LPF (NONE-FEW) Urine Mucus None /HPF (NONE-FEW) Chemistry Test 03/10/18 17:12 03/10/18 17:27 White Blood Count 21.0 k/uL (4.5-11.0) Red Blood Count 4.21 M/uL (4.17-5.56) Hemoglobin 11.0 g/dL (12.0-16.0) Hematocrit 33.9 % (34.0-47.0) Mean Corpuscular Volume 80.6 fL (80.0-96.0) Mean Corpuscular Hemoglobin 26.1 pg (26.0-33.0) Mean Corpuscular Hemoglobin Concent 32.4 g/dL (32.0-36.0) Red Cell Distribution Width 18.3 % (11.5-14.5) Platelet Count 590 K/uL (150-450) Mean Platelet Volume 6.0 fL (7.2-11.1) Neutrophils (%) (Auto) 89.9 % (39.4-72.5) Lymphocytes (%) (Auto) 5.6 % (17.6-49.6) Monocytes (%) (Auto) 3.9 % (4.1-12.4) Eosinophils (%) (Auto) 0.1 % (0.4-6.7) Basophils (%) (Auto) 0.5 % (0.3-1.4) Nucleated RBC Relative Count (auto) 0.1 /100WBC Neutrophils # (Auto) 18.8 K/uL (2.0-7.4) Lymphocytes # (Auto) 1.2 K/uL (1.3-3.6) Monocytes # (Auto) 0.8 K/uL (0.3-1.0) Eosinophils # (Auto) 0.0 K/uL (0.0-0.5) Basophils # (Auto) 0.1 K/uL (0.0-0.1) Nucleated RBC Absolute Count (auto) 0.02 K/uL Peripheral Blood Smear Yes Y/N Glomerular Filtration Rate Calc 18.4 Lactate 1.7 mmol/L (0.7-2.1) Calcium Level 9.8 mg/dl (8.4-10.2) Magnesium Level 2.0 mg/dl (1.7-2.2) Total Bilirubin 0.5 mg/dl (0.2-1.3) Aspartate Amino Transf (AST/SGOT) 72 U/L (0-35) Alanine Aminotransferase (ALT/SGPT) 42 U/L (0-56) Alkaline Phosphatase 115 U/L (0-126) Total Protein 8.4 g/dl (6.3-8.2) Albumin 4.7 g/dl (3.5-5.0) Lipase 1022 U/L (23-300) Urine Color Yellow Urine Clarity Cloudy Urine pH 5.0 pH (4.8-9.5) Urine Specific [place] 1.016 Urine Protein 30 mg/dL (NEGATIVE) Urine Glucose (UA) Negative mg/dL (NEGATIVE) Urine Ketones Negative mg/dL (NEGATIVE) Urine Blood Moderate (NEGATIVE) Urine Nitrite Negative (NEGATIVE) Urine Bilirubin Negative (NEGATIVE) Urine Urobilinogen Negative mg/dL (0.2-1.9) Urine Leukocyte Esterase Large (NEGATIVE) Urine RBC 12 /HPF (0-2/HPF) Urine WBC 261 /HPF (0-5/HPF) Urine WBC Clumps Many /HPF Urine Squamous Epithelial Cells Few /LPF (NONE-FEW) Urine Bacteria Many /HPF (NONE-FEW) Urine Hyaline Casts Few /LPF (NONE-FEW) Urine Mucus None /HPF (NONE-FEW) Urinalysis Test 03/10/18 17:27 Urine Color Yellow Urine Clarity Cloudy Urine pH 5.0 pH (4.8-9.5) Urine Specific [place] 1.016 Urine Protein 30 mg/dL (NEGATIVE) Urine Glucose (UA) Negative mg/dL (NEGATIVE) Urine Ketones Negative mg/dL (NEGATIVE) Urine Blood Moderate (NEGATIVE) Urine Nitrite Negative (NEGATIVE) Urine Bilirubin Negative (NEGATIVE) Urine Urobilinogen Negative mg/dL (0.2-1.9) Urine Leukocyte Esterase Large (NEGATIVE) Urine RBC 12 /HPF (0-2/HPF) Urine WBC 261 /HPF (0-5/HPF) Urine WBC Clumps Many /HPF Urine Squamous Epithelial Cells Few /LPF (NONE-FEW) Urine Bacteria Many /HPF (NONE-FEW) Urine Hyaline Casts Few /LPF (NONE-FEW) Urine Mucus None /HPF (NONE-FEW) EKG/Imaging EKG Interpretation 12 lead EKG: Rhythm: normal sinus rhythm [place]: normal QRS: normal ST segments: normal artifact due to spinal stimulator; neg stemi, no st depressions. Monitor Interpretation: Normal Sinus Rhythm ED Course/Re-evaluation ED Course 67 f with hx of S/P partial colectomy - short gut syndrome; Anxiety; Anemia in chronic illness; S/P insertion of IVC (inferior vena caval) filter; COPD (chronic obstructive pulmonary disease on prednisone 10mg HTN; Movement disorder; Muscle spasm; recent med changes: Recently: New Medications * Lidocaine (Aspercreme) 4 % ADH..PATCH: 1 ADH.PATCH TOP QDAY * ACETAMINOPHEN 500 MG TAB (ACETAMINOPHEN EXTRA STRENGTH) 500 MG TABLET: 2 TAB PO BID * HYDROCODONE BIT/ACETAMINOPHEN (NORCO 5-325 TABLET) 1 EACH TABLET: 1 EACH PO BID Replaced HYDROCODONE BIT/ACETAMINOPHEN (HYDROCODON-ACETAMINOPHEN 5-325) 1 EACH TABLET: 1 EACH PO Q4-6H PRN PAIN #30 Changed Medications * GABAPENTIN 600 MG TABLET: 0.5-1 TAB PO TID Instructions: 300mg qam 300mg noon and 600mg qhs x 1 week, then decrease to 300mg qam and 600qhs x 1 week, then 300mg bid * ROPINIROLE HCL 2 MG TABLET: 2 MG PO QDAY Replaced 4 MG TAB.ER.24H: 1 TAB PO HS Instructions: taper- 2mg po qd x2d, then 1.5mg po qd x2d, then 1mg po qd, then 0.5mg poo qd and then stop. Discontinued Medications * HYDROCODONE BIT/ACETAMINOPHEN (HYDROCODON-ACETAMINOPHEN 5-325) 1 EACH TABLET: 1 EACH PO Q4-6H PRN PAIN #30 Instructions: TAKE ONE TABLET BY MOUTH EVERY 4-6 HOURS NEEDED FOR PAIN also recently started on: pramipexole 0.125mg PO BID recently seen by pcm with following plan: Assessment and Plan: Ms. Tran is a pleasant 67yo here for fu #chest muscle spasm-pain on palpation, will apply lidoderm patch #Ostomy- skin irritation, discussed care with [facility] RN. Continue wound care, try barrier cream around ostomy adhesive. Is on calcium polycarbophil to try to bulk stool which is not completely effective. #psych-doing better on trazodone 50mg at night, also on venlafaxine #chronic pain-seeing Dr. Thorpe who rx buprenorphine patches, taking hydrocodone bid, patient does not think gabapentin is helping and wants to continue taper, will decrease by 300mg/week until off #restless leg-patient does not think ropinirole is helping, will taper off over the next week and start mirapex #COPD-on chronic pred, breo inhalers, chronic O2 #HTN-nifedipine #h/o DVT/PE-IVC filter in place and on xarelto 20mg #hypothyroid-low dose levothyroxine #GERD-high dose PPI, h/o GI bleed Seen today and noted to have hyponatremia, deirdre. In ed, also note leukocytosis of unclear etiology; will admit for hypona, continue to evaluate for source of infection UA c/w uti; rocephin initated. Unclear etiology of lipase as pt without e/o acute pancreatitis. Decision to Disposition Date: Mar 10, 2018 Decision to Disposition Time: 17:40 Depart Departure Latest Vital Signs Vital Signs Date Time Temp Pulse Resp B/P (MAP) Pulse Ox O2 Delivery O2 Flow Rate FiO2 03/10/18 16:54 105 20 134/54 87 Nasal Cannula Impression: Primary Impression: Hyponatremia Additional Impressions: DEIRDRE (acute kidney injury) Leukocytosis Condition: Condition Unchanged Disposition: Admitted from ER Referrals: DARIO ROJAS MD (PCP) Problem Qualifiers Additional Impressions: Leukocytosis Leukocytosis type: unspecified Qualified Codes: D72.829 - Elevated white blood cell count, unspecified LUCIANO SANDERS MD Mar 10, 2018 17:12
[2018-03-10 17:20] LABS: PLATELET COUNT, AUTOMATED 590 K/uL (150-450)
--- NOTE | 2018-03-10 17:43 | EKG ---
FACILITY: [facility] PATIENT NAME: JACKLYN FRANCISCO : [id number] MR: [id number] V: [id number] EXAM DATE: ORDERING PHYSICIAN: LUCIANO SANDERS TECHNOLOGIST: Test Reason : Blood Pressure : / mmHG Vent. Rate : 075 BPM Atrial Rate : 075 BPM P-R Int : 100 ms QRS Dur : 062 ms QT Int : 356 ms P-R-T Axes : 005 -30 036 degrees QTc Int : 397 ms Sinus rhythm with short OR Left axis deviation No obvious ST-T abnormalities, but baseline artifact limits reading When compared with ECG of 07-JAN-2018 11:24, OR interval has decreased Criteria for Inferior infarct are no longer present Non-specific change in ST segment in Inferior leads T wave amplitude has increased in Anterior leads Confirmed by GEETHA DEJESUS ([id number]) on 03/10/2018 6:36:16 PM Referred By: Confirmed By:GEETHA DEJESUS
[2018-03-10] MEDS ORDERED: cefTRIAXone 1 GM VIAL IVP ONE (17:55)
--- NOTE | 2018-03-10 18:11 | RADIOLOGY IMAGING REPORT ---
FACILITY: [facility] [place] PATIENT NAME: Xin Tran : 1950 MR: [id number] V: [id number] EXAM DATE: ORDERING PHYSICIAN: LUCIANO SANDERS TECHNOLOGIST: Location: [facility] [place] Patient: Xin Tran : 1950 Visit/Account:[id number] Date of Sevice: 03/10/2018 CHEST SINGLE AP COMPARISONS: 2 view chest dated January 02, 2018 ADDITIONAL PERTINENT HISTORY: Shortness of breath FINDINGS: Life-support: Left internal jugular venous port with its tip in the mid SVC. Cardiomediastinal silhouette: Negative. Pulmonary vasculature: Negative. Lung murillo: Negative. Pleural spaces: Negative. Osseous structures: Patient status post previous anterior interbody fusion of the lower cervical spi ne. Surgical hardware involving the proximal right humerus. Surrounding soft tissues: Patient status post cholecystectomy. Left axillary dissection. IMPRESSION: No evidence of acute cardiopulmonary disease. Report Dictated By: Shaji Mcleod MD at 03/10/2018 6:04 PM Report E-Signed By: Shaji Mcleod MD at 03/10/2018 6:06 PM WSN:[id number]
[2018-03-10] MEDS ORDERED: FLUSH 10 ML SYR IVP PRN (19:55)
[2018-03-10] MEDS ORDERED: MAGNESIUM HYDROXIDE* 30ML UDCP PO PRN (19:55)
[2018-03-10] MEDS ORDERED: CALCIUM CARBONATE 500 MG CHEW PO PRN (19:55)
[2018-03-10] MEDS ORDERED: ACETAMINOPHEN 325 MG TAB PO PRN (19:55)
[2018-03-10] MEDS ORDERED: ONDANSETRON 4 MG/2 ML VIAL IVP PRN (19:55)
[2018-03-10 20:08] VITALS: BP 122/103
--- NOTE | 2018-03-10 21:16 | History & Physical ---
History of Present Illness Chief Complaint Hyponatremia, DEIRDRE History of Present Illness 67F with PMHx significant for bowel resection and ileostomy. Presented after routine labs found her hyponatremic and with DEIRDRE. Reports increased ostomy output, denies fever, chills, abdominal pain. No recent antibiotics use. She is having whole body gyrating movements which are better when no one is in room, these are reportedly due to conversion disorder. WBC elevated. History Problems: (1) HTN (hypertension) Status: Chronic (2) COPD (chronic obstructive pulmonary disease) Status: Chronic (3) Hypothyroidism Status: Chronic (4) PE (pulmonary thromboembolism) Status: Resolved (5) Ischemic disease of gut Status: Resolved Home Meds Active Scripts Potassium Chloride (POTASSIUM CHLORIDE) 20 Meq Tab.er.prt, 1 TAB PO QDAY for 30 Days, #30 TAB Prov:DARIO ROJAS MD 01/22/18 Venlafaxine Hcl (EFFEXOR XR) 150 Mg Cap.er.24h, 1 CAP PO QDAY for 30 Days, #30 CAP Prov:DARIO ROJAS MD 01/22/18 Prednisone 10 Mg Tab (PREDNISONE 10 MG TAB) 10 Mg Tablet, 1 TAB PO QDAY for 30 Days, #30 TAB Prov:DARIO ROJAS MD 01/22/18 Pantoprazole Sodium (PANTOPRAZOLE SODIUM) 40 Mg Tablet.dr, 1 TAB PO QDAY for 30 Days, #30 TAB Prov:DARIO ROJAS MD 01/22/18 Trazodone Hcl (TRAZODONE HCL) 50 Mg Tablet, 1 TAB PO QHS for 30 Days, #30 TAB Prov:DARIO ROJAS MD 01/21/18 Reported Medications Loperamide HCl (Imodium A-D) 2 Mg Capsule, 1 BID 03/09/18 Hydrocodone Bit/Acetaminophen (NORCO 5-325 TABLET) 1 Each Tablet, 1 EACH PO BID, TAB 03/05/18 Acetaminophen 500 Mg Tab (ACETAMINOPHEN EXTRA STRENGTH) 500 Mg Tablet, 2 TAB PO BID, TAB 03/05/18 Lidocaine (Aspercreme) 4 % Adh..patch, 1 ADH.PATCH TOP QDAY 03/05/18 Ropinirole Hcl (ROPINIROLE HCL) 2 Mg Tablet, 2 MG PO QDAY taper- 2mg po qd x2d, then 1.5mg po qd x2d, then 1mg po qd, then 0.5mg poo qd and then stop. 03/05/18 Ondansetron Hcl (ZOFRAN) 4 Mg Tablet, 4 MG PO Q12H PRN for nausea, TAB 02/16/18 Oxygen (OXYGEN) Inha, 3 L INH, L 2 Liters Continuous Oxygen and With CPap at HS 01/21/18 Protein Supplement (Protein Powder) 480 Gm Powder, 2 NOTSPEC PO TID 2 scoops of powder in 6-8oz of water between meals 01/21/18 Gabapentin (GABAPENTIN) 600 Mg Tablet, 0.5-1 TAB PO TID 300mg qam 300mg noon and 600mg qhs x 1 week, then decrease to 300mg qam and 600qhs x 1 week, then 300mg bid 01/21/18 Polyvinyl Alcohol (LIQUITEARS) 15 Ml Drops, 1 GTT OU PRN for dry eyes 01/09/18 Multivitamin (TAB-A-OMAR) 1 Each Tablet, 1 EACH PO QAM 01/07/18 Mag Hydrox/Al Hydrox/Simeth (MAALOX MAXIMUM STRENGTH SUSP) 355 Ml Oral.susp, 15 ML PO Q4H PRN for INDIGESTION 01/07/18 Nystatin 100,000 Unit/Gm Top Powder (NYSTATIN 100,000 UNIT/GM TOP POWDER) 15 Gm Powder, 15 GM TP BID 01/07/18 Tetrahydrozoline Hcl (EYE DROPS) 15 Ml Drops, 1 DROP OP PRN 01/07/18 Guaifenesin/Dextromethorphan (Robitussin Cough-Chest Dm Liq) 100 Mg-5 Mg/5 Ml Liquid, 5 ML PO Q4-6H PRN for COUGH 01/07/18 Acetaminophen (TYLENOL) 325 Mg Tablet, 1-2 TAB PO Q4H PRN for PAIN, TAB 01/07/18 Buprenorphine (Buprenorphine) 5 Mcg/Hour Patch.tdwk, 1 PATCH TD every 7 days 01/07/18 Menthol (BIOFREEZE) 118 Ml Gel..ml., 1 JARETT TOP TID PRN for PAIN 01/07/18 Calcium Polycarbophil (FIBER) 625 Mg Tablet, 2 TAB PO DAILY 01/07/18 Calcium Carbonate (Calcium Carbonate) 300 Mg Calcium (750 Mg) Tab.chew, 2 TAB PO PRN Not to exceed 10 tablets in 24 hours 01/07/18 Nifedipine (NIFEDIPINE ER) 30 Mg Tab.er.24, 1 TAB PO QDAY 01/07/18 Magnesium Hydroxide (MILK OF MAGNESIA) 400 Mg/5 Ml Oral.susp, 15-30 ML PO PRN PRN for CONSTIPATION, BOTTLE Not to exceed mokre than 2 doses in 24 hours 01/07/18 Levothyroxine Sodium (SYNTHROID) 25 Mcg Tablet, 1 TAB PO QDAY 01/07/18 Fluticasone/Vilanterol 100/25 Mcg/Inh (BREO ELLIPTA 100/25 MCG) 1 Each Aer.pow.ba, 1 INH INH QDAY 01/07/18 Rivaroxaban 20 Mg (XARELTO 20 MG) 20 Mg Tablet, 1 TAB PO DAILY 01/06/18 Discontinued Reported Medications Ropinirole Hcl (ROPINIROLE HCL) 4 Mg Tab.er.24h, 1 TAB PO HS decrease to 3.5mg qhs x 1 week then 3 mg qhs x1 week then 2.5mg x 1 week then 2mg 01/07/18 Allergies: Coded Allergies: Sulfa (Sulfonamide Antibiotics) (Verified Allergy, Unknown, 03/10/18) allergic to cream only amitriptyline (Verified Allergy, Unknown, 03/10/18) aspirin (Verified Allergy, Unknown, 03/10/18) Patient History: FH: diabetes mellitus FH: hypertension Hx Smoking: Yes Smoking Status: Former Smoker Caffeine Intake: Soda Caffeine/Cups Per Day: 3 Hx Alcohol Use: No Hx Substance Use Disorder: No Social Drug Use: Never Review of Systems All Systems Reviewed/Normal: Yes, Except as Noted Constitutional: No Fever, No Chills Respiratory: No Shortness of Breath, No Cough Gastrointestinal: No Nausea, No Vomiting; Diarrhea; No Abdominal Pain Exam Vital Signs Vital Signs Date Time Temp Pulse Resp B/P (MAP) Pulse Ox O2 Delivery O2 Flow Rate FiO2 03/10/18 20:08 97.1 81 20 122/103 (109) 100 Nasal Cannula 3.0 General Appearance: Alert (whole body movements), Awake, No Acute Distress, Afebrile Neuro: No Gross deficits Eyes: PERRLA ENT: Other (mucous membranes dry) Cardiovascular: Normal Rhythm & Peripheral Pulses Respiratory: No Respiratory Distress GI: Abd Soft and Non-Tender (+ ileostomy, brown liquid watery stool) Musculoskeletal: No Weakness/Pain Extremities: Soft and Non Tender, Warm, Pulses, Perfused; No Edema Integumentary: Other (some mild redness abdomen) Medical Decision Making Data Points Result Diagram: 03/10/18 17103/10/18 171 Assessment and Plan Problems: (1) DEIRDRE (acute kidney injury) Status: Acute Assessment & Plan: Suspect prerenal due to increased ostomy output and subsequent dehydration. Will give IV NS and recheck labs. Urine with possible UTI, begin Rocephin. (2) Leukocytosis Status: Acute Assessment & Plan: Possible elevation from chronic steroid with hemoconcentration vs UTI. Will recheck after IV fluid hydration. Cdiff ordered given increased ostomy output and leukocytosis. (3) Hyponatremia Status: Resolved Assessment & Plan: Hypovolemic hyponatremia. IV NS and recheck BMP. (4) Urinary tract infection Status: Acute Assessment & Plan: Rocephin for empiric coverage of UTI. (5) HTN (hypertension) Status: Chronic Assessment & Plan: Stable, on chronic nifedipine. (6) Hypothyroidism Status: Chronic Assessment & Plan: Chronic levothyroxine 25 mcg. (7) Steroid dependence Status: Chronic Assessment & Plan: Chronic 10mg prednisone daily. No need for stress dosing evident, continue prednisone. Venous Thromboembolism Antithrombotics Is Pt On Any Antithrombotics?: Yes Exam Sepsis Risk: No Definite Risk Problem Qualifiers (1) Leukocytosis: Leukocytosis type: unspecified Qualified Codes: D72.829 - Elevated white blood cell count, unspecified GRACIA WITT DO Mar 10, 2018 21:16
[2018-03-10] MEDS: traZODone HCL 50 MG TAB PO SCH (21:32)
[2018-03-10] MEDS: APAP/HYDROCODONE 325/5 TAB PO PRN (21:32)
[2018-03-10] MEDS: NS(*) 0.9% 1000 ML BAG 1,000 ML IV PRN (21:38)
[2018-03-10 21:45] VITALS: BP 116/98
[2018-03-10 22:06] LABS: PLATELET COUNT, AUTOMATED 485 K/uL (150-450)
[2018-03-10 23:17] VITALS: BP 104/69
[2018-03-11] MEDS: LEVOTHYROXINE SOD 0.025 MG TAB PO SCH (05:26)
[2018-03-11 05:50] LABS: PLATELET COUNT, AUTOMATED 487 K/uL (150-450)
[2018-03-11 07:59] VITALS: BP 98/77
[2018-03-11] MEDS ORDERED: POTASSIUM CHL 20 MEQ TABCR PO SCH (09:00)
[2018-03-11] MEDS ORDERED: predniSONE 10 MG TAB PO SCH (09:00)
[2018-03-11] MEDS: CALCIUM POLYCARBOPH 625 MG TAB PO SCH (09:41)
[2018-03-11] MEDS: VENLAFAXINE XR 75 MG CAPCR PO SCH (09:41)
[2018-03-11] MEDS: RIVAROXABAN 10 MG TAB PO SCH (09:42)
[2018-03-11] MEDS: NIFEdipine XL 30 MG TABCR PO SCH (09:42)
[2018-03-11] MEDS: PANTOPRAZOLE SOD 40 MG TABEC PO SCH (09:42)
[2018-03-11 12:31] VITALS: Ht 158.8 cm; Wt 57.8 kg
--- NOTE | 2018-03-11 13:36 | Medical Nutrition Therapy ---
Nutrition Anthropometrics Height (Inches): 62.50 Height (Calculated Centimeters: 158.260744 Weight (Pounds): 127 Weight (Calculated Kilograms): 57.833 BMI: 22.9 Jani Nutrition Score: Adequate Jani Nutrition Risk Score: 17 Dietary Referral Nutrition Risk Factors: Nutrition Risk Comment: NO TEETH Physical Findings Physical Appearance: WNR Skin Appearance Skin Appearance: Edema Edema Location Modifier: Edema Location: Type of Edema: Degree of Edema: Gastrointestinal Symptoms GI Symtoms: Change in Bowel Pattern Tube Present: Bowel Sounds: Recent Bowel Pattern: Colostomy Stool Characteristics: Foamy, Liquid Nutrition/Food History No Teeth Nutritional Diagnosis Nutritional Risk Acuity 1: Acute/ES Renal Nutritional Risk Acuity 2: Ileostomy Past Medical History: COPD, Depression, Hypothyroidism, HTN, Ischemic disease of gut, PE, DVT, partial colectomy, ileostomy, Cellulitis of abdominal wall Nutritional Acuity: 1-High Nutrition Diagnosis: Chewing Difficulties Nutrition Etiology: Physiological Causes Nutrition Problem/Etiology/Sym: Biting/Chewing (Masticatory) Difficulty related to Partial or complete edentulism AEB need for soft foods. Energy Requirement: 1610 ([place] Je[place]: Actual BW X 1.5) Protein Requirement: 58 (Actual BW Kg X 1.0) Fluid Requirement: 1610 Diet Type: Diet as Tolerated ELIZABETH/REG Nutrition Intervention: Cont diet as ordered Diet Comment To [facility]: OFFER NUTR SUPPLMENT, NO TEETH, SOFT FOODS Nutrition Monitoring & Eval Nutrition Goals: Eat 75-100% Meal RD Patient Assessment Time: [address] Assessment Type: RD Assessment Patient Nutrition Acuity: 1-High Follow Up Date: Mar 14, 2018 Nutritional Comment: 03/11/18 Pt admitted for hyponatremia and DEIRDRE. High WBC, Low H/H, Na+128, Lipase 1022, Alb 3.7, High BUN/Creat. Normal wt range with BMI of 22.9. Pt receiving ELIZABETH with no reports of intake. Reports of complete edentulism - will offer nutritional supplements and soft foods. Follow labs, intake, etc. -NELSON CORONADO Mar 11, 2018 13:36
[2018-03-11 14:24] VITALS: BP 101/77
--- NOTE | 2018-03-11 14:34 | Hospitalist Progress Note ---
Subjective Progress Notes Subjective She reports feeling improved. Appetite good. Physical Exam Vital Signs Date Time Temp Pulse Resp B/P (MAP) Pulse Ox O2 Delivery O2 Flow Rate FiO2 03/11/18 14:24 96.9 79 20 101/77 (85) 100 Nasal Cannula 4.0 Intake and Output 03/11/18 06:58 Output Total 730 ml Balance -730 ml Output Urine Total 130 ml Stool Total 600 ml # Voids 3 General Appearance: Alert, Awake, Other (some chorea-like movements) ENT: Oropharynx Clear Cardiovascular: Regular Rate and Rhythm Respiratory: Clear to Auscultation GI: Soft and Non-Tender, Other (ileostomy with bilious stool) Extremities: Warm, Perfused Result Diagram: 03/11/1852803/11/18528 Monitor Interpretation: Normal Sinus Rhythm Assessment and Plan Problems: (1) DEIRDRE (acute kidney injury) Status: Acute Assessment & Plan: Suspect prerenal due to increased ostomy output and subsequent dehydration. Improved with IV NS. UTI on IV Rocephin. (2) Hyponatremia Status: Resolved Assessment & Plan: Hypovolemic hyponatremia. Improved with IV NS. Watch labs. (3) Urinary tract infection Status: Acute Assessment & Plan: She is on IV Rocephin for empiric coverage of UTI. Await culture results. (4) HTN (hypertension) Status: Chronic Assessment & Plan: Stable, on chronic nifedipine. (5) Hypothyroidism Status: Chronic Assessment & Plan: On her usual levothyroxine 25 mcg PO daily. (6) Steroid dependence Status: Chronic Assessment & Plan: She has been on chronic 10mg prednisone daily. Will have her on double dose for a few days. Watch closely. Exam Sepsis Risk: No Definite Risk MONA GONZALES MD Mar 11, 2018 14:34
[2018-03-11] MEDS: cefTRIAXone 1 GM VIAL IVP SCH (17:28)
[2018-03-11 19:42] VITALS: BP 106/72
[2018-03-11] MEDS: predniSONE 10 MG TAB PO SCH (21:40)
[2018-03-11] MEDS: traZODone HCL 50 MG TAB PO SCH (21:40)
[2018-03-11] MEDS: APAP/HYDROCODONE 325/5 TAB PO PRN (21:41)
[2018-03-12] MEDS: NS(*) 0.9% 1000 ML BAG 1,000 ML IV PRN (01:29)
[2018-03-12 03:21] VITALS: BP 139/72
[2018-03-12] MEDS: LEVOTHYROXINE SOD 0.025 MG TAB PO SCH (05:08)
[2018-03-12 05:54] LABS: PLATELET COUNT, AUTOMATED 447 K/uL (150-450)
[2018-03-12 07:25] VITALS: BP 17/84
[2018-03-12] MEDS: NIFEdipine XL 30 MG TABCR PO SCH (08:12)
[2018-03-12] MEDS: predniSONE 10 MG TAB PO SCH ×2 (08:12→21:07)
[2018-03-12] MEDS: PANTOPRAZOLE SOD 40 MG TABEC PO SCH (08:12)
[2018-03-12] MEDS: CALCIUM POLYCARBOPH 625 MG TAB PO SCH (08:12)
[2018-03-12] MEDS: RIVAROXABAN 10 MG TAB PO SCH (08:12)
[2018-03-12] MEDS: VENLAFAXINE XR 75 MG CAPCR PO SCH (08:13)
[2018-03-12] MEDS ORDERED: INFLUENZA VIRUS VAC 0.5ML SYR IM ONLY ONE (09:00)
[2018-03-12 10:57] VITALS: BP 109/83
--- NOTE | 2018-03-12 11:23 | Hospitalist Progress Note ---
Subjective Progress Notes Subjective The patient denies any pain or nausea. Staff reports that she is a bit confused. Physical Exam Vital Signs Date Time Temp Pulse Resp B/P (MAP) Pulse Ox O2 Delivery O2 Flow Rate FiO2 03/12/18 10:57 96.9 83 16 109/83 (92) 94 Nasal Cannula 2.0 Intake and Output 03/12/18 06:59 Intake Total 820 ml Output Total 625 ml Balance 195 ml Intake Oral 820 ml Stool Total 625 ml # Voids 2 # Bowel Movements 1 General Appearance: Alert, Awake, No Acute Distress Neuro: Other (Knows where she is but thought she was in for a GI bleed (previous admission). When told she was here for a UTI, she then seemed to remeber. In good spirits. Appears comfortable. Tangential with speech.) GI: Soft and Non-Tender Result Diagram: 03/12/1854103/12/18541 Monitor Interpretation: Normal Sinus Rhythm Assessment and Plan Problems: (1) Urinary tract infection Status: Acute Assessment & Plan: Afebrile. Normal WBC. She is on IV Rocephin for empiric coverage of UTI. Await culture results. (2) DEIRDRE (acute kidney injury) Status: Resolved Assessment & Plan: Suspect prerenal due to increased ostomy output and subsequent dehydration. Improved with IV NS. Will saline lock and follow. (3) Hyponatremia Status: Resolved Assessment & Plan: Hypovolemic hyponatremia. Improving with IV NS. Saline locked. Watch labs. (4) HTN (hypertension) Status: Chronic Assessment & Plan: Stable, on chronic nifedipine. (5) Hypothyroidism Status: Chronic Assessment & Plan: On her usual levothyroxine 25 mcg PO daily. (6) Steroid dependence Status: Chronic Assessment & Plan: She has been on chronic 10mg prednisone daily. Will have her on double dose for a few days. Watch closely. Exam Sepsis Risk: No Definite Risk GEETHA DEJESUS MD Mar 12, 2018 11:23
[2018-03-12 15:20] VITALS: BP 120/79
[2018-03-12] MEDS: cefTRIAXone 1 GM VIAL IVP SCH (17:59)
[2018-03-12 19:30] VITALS: BP 115/70
[2018-03-12] MEDS: traZODone HCL 50 MG TAB PO SCH (21:07)
[2018-03-12] MEDS: APAP/HYDROCODONE 325/5 TAB PO PRN (21:07)
[2018-03-13] VITALS (7 sets, daily range): BP systolic 114–152; BP diastolic 67–106
[2018-03-13 05:40] LABS: PLATELET COUNT, AUTOMATED 546 K/uL (150-450)
[2018-03-13] MEDS: LEVOTHYROXINE SOD 0.025 MG TAB PO SCH (06:04)
[2018-03-13] MEDS ORDERED: BUPRENORPHINE 5 MCG/HR TD SCH (09:00)
--- NOTE | 2018-03-13 09:13 | Hospitalist Progress Note ---
Subjective Progress Notes Subjective This patient was admitted for hyponatremia. She had no acute events overnight. Patient Complains of: Cardiovascular: No: Chest Pain Respiratory: No: Shortness of Breath Physical Exam Vital Signs Date Time Temp Pulse Resp B/P (MAP) Pulse Ox O2 Delivery O2 Flow Rate FiO2 03/13/18 07:22 97 Nasal Cannula 1.0 03/13/18 07:20 97.0 100 16 145/81 (102) Intake and Output 03/13/18 06:59 Intake Total 600 ml Output Total 800 ml Balance -200 ml Intake Oral 600 ml Stool Total 800 ml # Voids 4 Cardiovascular: Regular Rate and Rhythm Respiratory: Clear to Auscultation Result Diagram: 03/13/18 0520 03/13/18 05 Monitor Interpretation: Normal Sinus Rhythm Assessment and Plan Problems: (1) Urinary tract infection Status: Acute Assessment & Plan: She has been afebrile, but did have an elevated WBC at admission. Her urine culture showed large leukocytes and only few squamous cells. She is on ceftriaxone. Culture results are pending. (2) DEIRDRE (acute kidney injury) Status: Resolved Assessment & Plan: Resolved with IV fluids. (3) Hyponatremia Status: Resolved Assessment & Plan: Improved with IV fluids. (4) HTN (hypertension) Status: Chronic Assessment & Plan: She is on chronic treatment with nifedipine. (5) Hypothyroidism Status: Chronic Assessment & Plan: She is on chronic treatment with Synthroid. (6) Steroid dependence Status: Chronic Assessment & Plan: She is on chronic treatment with prednisone at 10mg daily, but is currently receiving double her dose. Exam Sepsis Risk: No Definite Risk Problem Qualifiers (1) HTN (hypertension): Hypertension type: essential hypertension Qualified Codes: I10 - Essential (primary) hypertension OCTAVIO POSADA DO Mar 13, 2018 09:13
[2018-03-13] MEDS: VENLAFAXINE XR 75 MG CAPCR PO SCH (09:27)
[2018-03-13] MEDS: RIVAROXABAN 10 MG TAB PO SCH (09:27)
[2018-03-13] MEDS: predniSONE 10 MG TAB PO SCH ×2 (09:27→20:52)
[2018-03-13] MEDS: CALCIUM POLYCARBOPH 625 MG TAB PO SCH (09:27)
[2018-03-13] MEDS: PANTOPRAZOLE SOD 40 MG TABEC PO SCH (09:27)
[2018-03-13] MEDS: NIFEdipine XL 30 MG TABCR PO SCH (09:27)
--- NOTE | 2018-03-13 15:45 | Antimicrobial Stewardship ---
Antimicrobial Stewardship Empiricly appropriate: Yes Comment Rocephin 1 gm IV daily for UTI Approriate Cultures done: Yes Gram stain show Microbs: Yes (Gram negative nirmala) Reviewed for Drug Interaction: Yes Clinically stable/improving: Yes Comment WBC returned to normal IV to PO Opportunity: Yes Comment Waiting on ID and sensitivities Determine cumulative duration: 5-14 days JANEY FLORES Mar 13, 2018 15:45
[2018-03-13] MEDS: cefTRIAXone 1 GM VIAL IVP SCH (17:41)
[2018-03-13] MEDS: APAP/HYDROCODONE 325/5 TAB PO PRN (20:52)
[2018-03-13] MEDS: traZODone HCL 50 MG TAB PO SCH (20:52)
[2018-03-14] MEDS: LEVOTHYROXINE SOD 0.025 MG TAB PO SCH (05:30)
[2018-03-14 05:31] VITALS: BP 138/87
[2018-03-14 07:25] VITALS: BP 131/69
[2018-03-14] MEDS: CALCIUM POLYCARBOPH 625 MG TAB PO SCH (09:21)
[2018-03-14] MEDS: RIVAROXABAN 10 MG TAB PO SCH (09:21)
[2018-03-14] MEDS: predniSONE 10 MG TAB PO SCH (09:21)
[2018-03-14] MEDS: VENLAFAXINE XR 75 MG CAPCR PO SCH (09:21)
[2018-03-14] MEDS: NIFEdipine XL 30 MG TABCR PO SCH (09:21)
[2018-03-14] MEDS: PANTOPRAZOLE SOD 40 MG TABEC PO SCH (09:21)
[2018-03-14] MEDS ORDERED: ACET-1966 PO (09:47)
[2018-03-14] MEDS ORDERED: CIPR-214 PO (09:47)
--- NOTE | 2018-03-14 09:53 | Hospitalist Depart ---
Discharge Summary Reason for Hosp/Final Diag: (1) Urinary tract infection Status: Acute Hospital Course & Plan: She has been afebrile, but did have an elevated WBC at admission. Her urine culture showed large leukocytes and only few squamous cells. She was initially placed on IV ceftriaxone. Culture did grow Enteroba cter aerogenes. She was transitioned to oral ciprofloxacin based on culture results. (2) DEIRDRE (acute kidney injury) Status: Resolved Hospital Course & Plan: Resolved with IV fluids. Creatinine at the time of discharge is 0.8. (3) Hyponatremia Status: Resolved Hospital Course & Plan: Most likely due to volume depletion/fluid losses. Improved with IV fluids. Sodium 129 at the time of discharge. (4) HTN (hypertension) Status: Chronic Hospital Course & Plan: She is on chronic treatment with nifedipine. (5) Hypothyroidism Status: Chronic Hospital Course & Plan: She is on chronic treatment with Synthroid. (6) Steroid dependence Status: Chronic Hospital Course & Plan: She is on chronic treatment with prednisone at 10mg daily, but we did double her dose during her acute stay. She will now be back on her usual regimen. Departure Weight (Pounds): 127 Weight (Ounces): 8.0 Result Diagram: 03/13/1851903/13/18519 Item Value Date Time Sodium Level 123 mmol/L *L 03/10/18 0000 Potassium Level 4.5 mmol/L 03/10/18 0000 Chloride Level 88 mmol/L L 03/10/18 0000 Carbon Dioxide Level 16 mmol/L L 03/10/18 0000 Blood Urea Nitrogen 68 mg/dl H 03/10/18 0000 Creatinine 2.30 mg/dl H 03/10/18 0000 Random Glucose 160 mg/dl H 03/10/18 0000 Calcium Level 9.8 mg/dl 03/10/18 0000 Aspartate Amino Transf (AST/SGOT) 82 U/L H 03/10/18 0000 Total Bilirubin 0.6 mg/dl 03/10/18 0000 Alanine Aminotransferase (ALT/SGPT) 41 U/L 03/10/18 0000 Alkaline Phosphatase 118 U/L 03/10/18 0000 Total Protein 8.9 g/dl H 03/10/18 0000 Albumin 4.6 g/dl 03/10/18 0000 White Blood Count 21.0 k/uL H 03/10/18 1712 Hemoglobin 11.0 g/dL L 03/10/18 1712 Hematocrit 33.9 % L 03/10/18 1712 Platelet Count 590 K/uL H 03/10/18 1712 Urine Color Yellow 03/10/18 1727 Urine Clarity Cloudy 03/10/18 1727 Urine pH 5.0 pH 03/10/18 1727 Urine Specific [place] 1.016 03/10/18 1727 Urine Protein 30 mg/dL 03/10/18 1727 Urine Glucose (UA) Negative mg/dL 03/10/18 1727 Urine Ketones Negative mg/dL 03/10/18 1727 Urine Blood Moderate 03/10/18 1727 Urine Nitrite Negative 03/10/18 1727 Urine Bilirubin Negative 03/10/18 1727 Urine Urobilinogen Negative mg/dL 03/10/18 1727 Urine Leukocyte Esterase Large H 03/10/18 1727 Urine RBC 12 /HPF 03/10/18 1727 Urine WBC 261 /HPF 03/10/18 1727 Urine WBC Clumps Many /HPF 03/10/18 1727 Urine Squamous Epithelial Cells Few /LPF 03/10/18 1727 Urine Bacteria Many /HPF H 03/10/18 1727 Urine Hyaline Casts Few /LPF 03/10/18 1727 Urine Mucus None /HPF 03/10/18 1727 C. difficile Toxin B Gene (PCR) Negative 03/10/182045 [facility] *LIVE* [address] [place] [address] ANDREEA MANCIA M.D., DIRECTOR OF LABORATORY SERVICES GRACIA GEORGES M.D., PATHOLOGIST RUN DATE: 03/14/18 Specimen Inquiry Report PAGE 1 RUN TIME: 0852 PATIENT: JACKLYN FRANCISCO ACCT: [id number] LOC: MED U: [id number] AGE/SX: 67/F ROOM: [facility] RE03/10/[address]: GRACIA WITT DOB: 1950 BED: 270 DIS: STATUS: ADM IN TLOC: SPEC #: [id number] QUE: 03/12/18-UNK STATUS: COMP REQ #: [id number] RECD: 03/12/[address]: GEETHA DEJESUS MD SOURCE: LY ENTR: 03/12/[address] [facility] [address]: DARIO ROJAS MD SPDESC: GRACIA WITT DO ORDERED: CULT URINE COMMENTS: Comments: add to previous Procedure Result Verified URINE CULTURE Final 03/14/18 Organism 1 ENTEROBACTER AEROGENES >100,000 COL/ML OG PAZ M.I.CHanna RX --------- --- CEFAZOLIN >=64 R CEFTAZIDIME <=1 S CEFTRIAXONE <=1 S CEFEPIME <=1 S CEFOXITIN >=64 R ERTAPENEM <=0.5 S CIPROFLOXACIN <=0.25 S GENTAMICIN <=1 S IMIPENEM 1 S LEVOFLOXACIN <=0.12 S NITROFURANTOIN 64 I PIPERACILLIN/TAZOBACTAM <=4 S TOBRAMYCIN <=1 S TRIMETHOPRIM/SULFAMETHOXAZOLE <=20 S Imaging PATIENT NAME: Jacklyn Francisco : 1950 MR: [id number] V: [id number] EXAM DATE: [id number] ORDERING PHYSICIAN: LUCIANO SANDERS TECHNOLOGIST: Location: [facility] [place] Patient: Jacklyn Francisco : 1950 Visit/Account:[id number] Date of Sevice: 03/10/2018 CHEST SINGLE AP COMPARISONS: 2 view chest dated January 02, 2018 ADDITIONAL PERTINENT HISTORY: Shortness of breath FINDINGS: Life-support: Left internal jugular venous port with its tip in the mid SVC. Cardiomediastinal silhouette: Negative. Pulmonary vasculature: Negative. Lung murillo: Negative. Pleural spaces: Negative. Osseous structures: Patient status post previous anterior interbody fusion of the lower cervical spine. Surgical hardware involving the proximal right humerus. Surrounding soft tissues: Patient status post cholecystectomy. Left axillary dissection. IMPRESSION: No evidence of acute cardiopulmonary disease. Report Dictated By: Shaji Mcleod MD at 03/10/2018 6:04 PM Report E-Signed By: Shaji Mcleod MD at 03/10/2018 6:06 PM WSN:[id number] EKG PATIENT NAME: JACKLYN FRANCISCO : [id number] MR: [id number] V: [id number] EXAM DATE: [id number] ORDERING PHYSICIAN: LUCIANO SANDERS TECHNOLOGIST: Test Reason : Blood Pressure : / mmHG Vent. Rate : 075 BPM Atrial Rate : 075 BPM P-R Int : 100 ms QRS Dur : 062 ms QT Int : 356 ms P-R-T Axes : 005 -30 036 degrees QTc Int : 397 ms Sinus rhythm with short IN Left axis deviation No obvious ST-T abnormalities, but baseline artifact limits reading When compared with ECG of 07-JAN-2018 11:24, IN interval has decreased Criteria for Inferior infarct are no longer present Non-specific change in ST segment in Inferior leads T wave amplitude has increased in Anterior leads Confirmed by GEETHA DEJESUS ([id number]) on 03/10/2018 6:36:16 PM Referred By: Confirmed By:GEETHA DEJESUS Condition: Improved Discharge: [facility] ([facility]) Discharge Code Status: DNR, DNI Follow-Up Labs: Other (BMP, CBC, UA with culture in 7-10 days.) Time Spent: > 30 min Discharge Instructions Home Meds Active Scripts Ciprofloxacin 500 Mg Tab (CIPROFLOXACIN 500 MG TAB) 500 Mg Tablet, 250 MG PO BIDAC for 7 Days, #14 TAB 0 Refills Prov:MONA GONZALES MD 03/14/18 Acetaminophen (TYLENOL) 325 Mg Tablet, 1-2 TAB PO Q6H PRN for PAIN for 30 Days, TAB Prov:MONA GONZALES MD 03/14/18 Potassium Chloride (POTASSIUM CHLORIDE) 20 Meq Tab.er.prt, 1 TAB PO QDAY for 30 Days, #30 TAB Prov:DARIO ROJAS MD 01/22/18 Venlafaxine Hcl (EFFEXOR XR) 150 Mg Cap.er.24h, 1 CAP PO QDAY for 30 Days, #30 CAP Prov:DARIO ROJAS MD 01/22/18 Prednisone 10 Mg Tab (PREDNISONE 10 MG TAB) 10 Mg Tablet, 1 TAB PO QDAY for 30 Days, #30 TAB Prov:DARIO ROJAS MD 01/22/18 Pantoprazole Sodium (PANTOPRAZOLE SODIUM) 40 Mg Tablet.dr, 1 TAB PO QDAY for 30 Days, #30 TAB Prov:DARIO ROJAS MD 01/22/18 Trazodone Hcl (TRAZODONE HCL) 50 Mg Tablet, 1 TAB PO QHS for 30 Days, #30 TAB Prov:DARIO ROJAS MD 01/21/18 Reported Medications Loperamide HCl (Imodium A-D) 2 Mg Capsule, 1 BID 03/09/18 Hydrocodone Bit/Acetaminophen (NORCO 5-325 TABLET) 1 Each Tablet, 1 EACH PO BID, TAB 03/05/18 Lidocaine (Aspercreme) 4 % Adh..patch, 1 ADH.PATCH TOP QDAY 03/05/18 Ropinirole Hcl (ROPINIROLE HCL) 2 Mg Tablet, 2 MG PO QDAY taper- 2mg po qd x2d, then 1.5mg po qd x2d, then 1mg po qd, then 0.5mg poo qd and then stop. 03/05/18 Oxygen (OXYGEN) Inha, 3 L INH, L 2 Liters Continuous Oxygen and With CPap at HS 01/21/18 Protein Supplement (Protein Powder) 480 Gm Powder, 2 NOTSPEC PO TID 2 scoops of powder in 6-8oz of water between meals 01/21/18 Gabapentin (GABAPENTIN) 600 Mg Tablet, 0.5-1 TAB PO TID 300mg qam 300mg noon and 600mg qhs x 1 week, then decrease to 300mg qam and 600qhs x 1 week, then 300mg bid 01/21/18 Polyvinyl Alcohol (LIQUITEARS) 15 Ml Drops, 1 GTT OU PRN for dry eyes 01/09/18 Multivitamin (TAB-A-OMAR) 1 Each Tablet, 1 EACH PO QAM 01/07/18 Mag Hydrox/Al Hydrox/Simeth (MAALOX MAXIMUM STRENGTH SUSP) 355 Ml Oral.susp, 15 ML PO Q4H PRN for INDIGESTION 01/07/18 Nystatin 100,000 Unit/Gm Top Powder (NYSTATIN 100,000 UNIT/GM TOP POWDER) 15 Gm Powder, 15 GM TP BID 01/07/18 Tetrahydrozoline Hcl (EYE DROPS) 15 Ml Drops, 1 DROP OU PRN 01/07/18 Guaifenesin/Dextromethorphan (Robitussin Cough-Chest Dm Liq) 100 Mg-5 Mg/5 Ml Liquid, 5 ML PO Q4-6H PRN for COUGH 01/07/18 Buprenorphine (Buprenorphine) 5 Mcg/Hour Patch.tdwk, 1 PATCH TD every 7 days PT. has a new RX for 7.5mcg/hr patch and was supposed to discontinue this strength on Friday03/13/[address] Rojas RN at the [facility]. 01/07/18 Menthol (BIOFREEZE) 118 Ml Gel..ml., 1 JARETT TOP TID PRN for PAIN 01/07/18 Calcium Polycarbophil (FIBER) 625 Mg Tablet, 2 TAB PO DAILY 01/07/18 Calcium Carbonate (Calcium Carbonate) 300 Mg Calcium (750 Mg) Tab.chew, 2 TAB PO PRN Not to exceed 10 tablets in 24 hours 01/07/18 Nifedipine (NIFEDIPINE ER) 30 Mg Tab.er.24, 1 TAB PO QDAY 01/07/18 Levothyroxine Sodium (SYNTHROID) 25 Mcg Tablet, 1 TAB PO QDAY 01/07/18 Fluticasone/Vilanterol 100/25 Mcg/Inh (BREO ELLIPTA 100/25 MCG) 1 Each Aer.pow.ba, 1 INH INH QDAY 01/07/18 Rivaroxaban 20 Mg (XARELTO 20 MG) 20 Mg Tablet, 1 TAB PO DAILY 01/06/18 Discontinued Reported Medications Acetaminophen 500 Mg Tab (ACETAMINOPHEN EXTRA STRENGTH) 500 Mg Tablet, 2 TAB PO BID, TAB 03/05/18 Ondansetron Hcl (ZOFRAN) 4 Mg Tablet, 4 MG PO Q12H PRN for nausea, TAB 02/16/18 Magnesium Hydroxide (MILK OF MAGNESIA) 400 Mg/5 Ml Oral.susp, 15-30 ML PO PRN PRN for CONSTIPATION, BOTTLE Not to exceed mokre than 2 doses in 24 hours 01/07/18 Diet: Regular (Continue protein supplement) Activity: As Tolerated Special Instructions: Continue ostomy care. Follow up with primary care provider (Dr. Rojas) in next 5-10 days. Copies to: DARIO ROJAS MD ; Venous Thromboembolism Antithrombotics Is Pt On Any Antithrombotics?: Yes Problem Qualifiers (1) HTN (hypertension): Hypertension type: essential hypertension Qualified Codes: I10 - Essential (primary) hypertension MONA GONZALES MD Mar 14, 2018 09:53
[2018-03-14] MEDS ORDERED: CIPROFLOXACIN 500 MG TAB PO SCH (10:00)
== END 2018-03-14 13:15 | DRG 641 ==
LOC: ER 17:02 → MED 19:35
PROVIDERS: ADMIT Internal Medicine; ATTEND Internal Medicine
DX: E87.1 Hypo-osmolality and hyponatremia (principal); N17.9 Acute kidney failure, unspecified; N39.0 Urinary tract infection, site not specified; K91.2 Postsurgical malabsorption, not elsewhere classified; I10 Essential (primary) hypertension; K21.9 Gastro-esophageal reflux disease without esophagitis; B96.89 Other specified bacterial agents as the cause of diseases classified elsewhere; F41.9 Anxiety disorder, unspecified; D63.8 Anemia in other chronic diseases classified elsewhere; J44.9 Chronic obstructive pulmonary disease, unspecified; M62.838 Other muscle spasm; F44.4 Conversion disorder with motor symptom or deficit; E03.9 Hypothyroidism, unspecified; Z79.52 Long term (current) use of systemic steroids; Z86.718 Personal history of other venous thrombosis and embolism; Z86.711 Personal history of pulmonary embolism; Z88.8 Allergy status to other drugs, medicaments and biological substances; Z86.73 Personal history of transient ischemic attack (TIA), and cerebral infarction without residual deficits; Z93.3 Colostomy status; Z88.2 Allergy status to sulfonamides; Z95.828 Presence of other vascular implants and grafts
CPT/HCPCS: 36415; 71045; 81001; 82040; 82247; 82310; 82374; 82435; 82565; 82947; 83605; 83690; 83735; 84075; 84132; 84155; 84295; 84450; 84460; 84520; 85025; 87077; 87088; 87186; 87493; 93005; 96361; 96374; 96375; 99284; A4353; A4406; J0696; J2405; J7030; J7040; J7512

== ENCOUNTER → 2018-03-10 | Outpatient (REF) | payer MEDICARE, OTHER ==
[2018-01-28 15:56] VITALS: BMI 24.8
[~2018-03-10] MED LIST changes: +ACET-2146 PO; +HYDR-653 PO; +LIDO1ADH44 TOP; +LOPE2CAP15; +ONDA4TAB97 PO; +ROPI2TAB28 PO; -TETR15DR9 OP; +TETR15DR9 OU
== END ==
LOC: ZZLCC 14:20
PROVIDERS: ATTEND Family Medicine
DX: Z93.2 Ileostomy status (principal)
CPT/HCPCS: 82040; 82247; 82310; 82374; 82435; 82565; 82947; 84075; 84132; 84155; 84295; 84450; 84460; 84520; 85027

== ENCOUNTER 2018-03-23 08:53 | Emergency (ER) | payer MEDICARE, OTHER ==
[2018-03-11 12:31] VITALS: Wt 57.7 kg
--- NOTE | 2018-03-23 08:56 | ER Report ---
History and Physical Time Seen By : 08:56 HPI/ROS This is a 67-year-old female with multiple medical problems including a history of hyponatremia. She was sent to the emergency department from her alf facility after she was noticed to have a sodium of 122 on routine labs. The patient states that she does not feel differently than her baseline. She complains of fatigue, but says that is baseline for her. Her primary care physician has been monitoring her closely. She denies drinking an excessive amount of free water. She has no pain other than her baseline pain from "spasticity." No recent trauma. No cough or SOB. No fever/chills. No vomiting or diarrhea. Remainder of the 14 system rev: Yes Allergies: Coded Allergies: Sulfa (Sulfonamide Antibiotics) (Verified Allergy, Unknown, 03/23/18) allergic to cream only amitriptyline (Verified Allergy, Unknown, 03/23/18) aspirin (Verified Allergy, Unknown, 03/23/18) Home Meds Active Scripts Ciprofloxacin 500 Mg Tab (CIPROFLOXACIN 500 MG TAB) 500 Mg Tablet, 250 MG PO BIDAC for 7 Days, #14 TAB 0 Refills Prov:MONA GONZALES MD 03/14/18 Acetaminophen (TYLENOL) 325 Mg Tablet, 1-2 TAB PO Q6H PRN for PAIN for 30 Days, TAB Prov:MONA GONZALES MD 03/14/18 Potassium Chloride (POTASSIUM CHLORIDE) 20 Meq Tab.er.prt, 1 TAB PO QDAY for 30 Days, #30 TAB Prov:DARIO ROJAS MD 01/22/18 Venlafaxine Hcl (EFFEXOR XR) 150 Mg Cap.er.24h, 1 CAP PO QDAY for 30 Days, #30 CAP Prov:DARIO ROJAS MD 01/22/18 Prednisone 10 Mg Tab (PREDNISONE 10 MG TAB) 10 Mg Tablet, 1 TAB PO QDAY for 30 Days, #30 TAB Prov:DARIO ROJAS MD 01/22/18 Pantoprazole Sodium (PANTOPRAZOLE SODIUM) 40 Mg Tablet.dr, 1 TAB PO QDAY for 30 Days, #30 TAB Prov:DARIO ROJAS MD 01/22/18 Trazodone Hcl (TRAZODONE HCL) 50 Mg Tablet, 1 TAB PO QHS for 30 Days, #30 TAB Prov:DARIO ROJAS MD 01/21/18 Reported Medications Loperamide HCl (Imodium A-D) 2 Mg Capsule, 1 BID 03/09/18 Hydrocodone Bit/Acetaminophen (NORCO 5-325 TABLET) 1 Each Tablet, 1 EACH PO BID, TAB 03/05/18 Lidocaine (Aspercreme) 4 % Adh..patch, 1 ADH.PATCH TOP QDAY 03/05/18 Ropinirole Hcl (ROPINIROLE HCL) 2 Mg Tablet, 2 MG PO QDAY taper- 2mg po qd x2d, then 1.5mg po qd x2d, then 1mg po qd, then 0.5mg poo qd and then stop. 03/05/18 Oxygen (OXYGEN) Inha, 3 L INH, L 2 Liters Continuous Oxygen and With CPap at HS 01/21/18 Protein Supplement (Protein Powder) 480 Gm Powder, 2 NOTSPEC PO TID 2 scoops of powder in 6-8oz of water between meals 01/21/18 Gabapentin (GABAPENTIN) 600 Mg Tablet, 0.5-1 TAB PO TID 300mg qam 300mg noon and 600mg qhs x 1 week, then decrease to 300mg qam and 600qhs x 1 week, then 300mg bid 01/21/18 Polyvinyl Alcohol (LIQUITEARS) 15 Ml Drops, 1 GTT OU PRN for dry eyes 01/09/18 Multivitamin (TAB-A-OMAR) 1 Each Tablet, 1 EACH PO QAM 01/07/18 Mag Hydrox/Al Hydrox/Simeth (MAALOX MAXIMUM STRENGTH SUSP) 355 Ml Oral.susp, 15 ML PO Q4H PRN for INDIGESTION 01/07/18 Nystatin 100,000 Unit/Gm Top Powder (NYSTATIN 100,000 UNIT/GM TOP POWDER) 15 Gm Powder, 15 GM TP BID 01/07/18 Tetrahydrozoline Hcl (EYE DROPS) 15 Ml Drops, 1 DROP OU PRN 01/07/18 Guaifenesin/Dextromethorphan (Robitussin Cough-Chest Dm Liq) 100 Mg-5 Mg/5 Ml Liquid, 5 ML PO Q4-6H PRN for COUGH 01/07/18 Buprenorphine (Buprenorphine) 5 Mcg/Hour Patch.tdwk, 1 PATCH TD every 7 days PT. has a new RX for 7.5mcg/hr patch and was supposed to discontinue this strength on Friday03/13/[address] Rojas RN at the [facility]. 01/07/18 Menthol (BIOFREEZE) 118 Ml Gel..ml., 1 JARETT TOP TID PRN for PAIN 01/07/18 Calcium Polycarbophil (FIBER) 625 Mg Tablet, 2 TAB PO DAILY 01/07/18 Calcium Carbonate (Calcium Carbonate) 300 Mg Calcium (750 Mg) Tab.chew, 2 TAB PO PRN Not to exceed 10 tablets in 24 hours 01/07/18 Nifedipine (NIFEDIPINE ER) 30 Mg Tab.er.24, 1 TAB PO QDAY 01/07/18 Levothyroxine Sodium (SYNTHROID) 25 Mcg Tablet, 1 TAB PO QDAY 01/07/18 Fluticasone/Vilanterol 100/25 Mcg/Inh (BREO ELLIPTA 100/25 MCG) 1 Each Aer.pow.ba, 1 INH INH QDAY 01/07/18 Rivaroxaban 20 Mg (XARELTO 20 MG) 20 Mg Tablet, 1 TAB PO DAILY 01/06/18 Hx Smoking: Yes Smoking Status: Former Smoker Hx Substance Use Disorder: No Hx Alcohol Use: No Constitutional Vital Sign - Last 24 Hours 03/23/18 03/23/18 03/23/18 03/23/18 09:03 09:05 09:23 09:53 Temp 97.5 Pulse 89 87 87 Resp 16 B/P (MAP) 121/78 (92) 121/78 Pulse Ox 100 100 99 O2 Delivery Nasal Cannula Nasal Cannula O2 Flow Rate 2 03/23/18 03/23/18 03/23/18 03/23/18 10:11 10:23 10:25 10:30 Pulse 74 81 B/P (MAP) 140/82 (101) 139/72 (94) 146/74 (98) Pulse Ox 100 100 O2 Delivery Nasal Cannula Nasal Cannula O2 Flow Rate 2 2 03/23/18 03/23/18 03/23/18 03/23/18 10:45 11:15 11:30 11:35 Pulse 79 74 B/P (MAP) 156/70 (98) 124/72 (89) 140/66 (90) Pulse Ox 100 100 O2 Delivery Nasal Cannula Nasal Cannula O2 Flow Rate 2 2 12/17/18 12/17/18 12/17/18 12/17/18 11:45 12:00 12:05 12:10 Pulse 70 73 Resp 31 B/P (MAP) 123/62 (82) 136/64 (88) Pulse Ox 100 100 O2 Delivery Nasal Cannula Nasal Cannula O2 Flow Rate 2 2 03/23/18 03/23/18 03/23/18 03/23/18 12:15 12:30 12:40 12:45 Pulse 85 B/P (MAP) 117/60 (79) 122/58 (79) 157/79 (105) Pulse Ox 100 O2 Delivery Nasal Cannula O2 Flow Rate 2 03/23/18 03/23/18 13:00 13:10 Pulse 79 B/P (MAP) 160/69 (99) Pulse Ox 100 Physical Exam General Appearance: The patient is alert, has no immediate need for airway protection and no current signs of toxicity. Eyes: Pupils equal and round no injection. Respiratory: Lungs are clear to auscultation. Cardiac: regular rate and rhythm Gastrointestinal: Abdomen is soft and non tender, no masses, bowel sounds normal. Musculoskeletal: No focal TTP Neck: Neck is supple and non tender. Extremities have full range of motion and are non tender. Skin: No rashes or lesions. DIFFERENTIAL DIAGNOSIS: After history and physical exam differential diagnosis was considered for infection, kidney failure, adverse reaction to medication, excessive free water Medical Decision Making Data Points Result Diagram: 03/23/18 1009 03/23/18 1009 Laboratory Hematology Test 03/23/18 10:09 03/23/18 10:40 Red Blood Count 4.53 M/uL (4.17-5.56) Mean Corpuscular Volume 81.9 fL (80.0-96.0) Mean Corpuscular Hemoglobin 26.2 pg (26.0-33.0) Mean Corpuscular Hemoglobin Concent 32.0 g/dL (32.0-36.0) Red Cell Distribution Width 18.3 % (11.5-14.5) Mean Platelet Volume 6.1 fL (7.2-11.1) Neutrophils (%) (Auto) 87.7 % (39.4-72.5) Lymphocytes (%) (Auto) 7.2 % (17.6-49.6) Monocytes (%) (Auto) 4.2 % (4.1-12.4) Eosinophils (%) (Auto) 0.4 % (0.4-6.7) Basophils (%) (Auto) 0.5 % (0.3-1.4) Nucleated RBC Relative Count (auto) 0.1 /100WBC Neutrophils # (Auto) 16.1 K/uL (2.0-7.4) Lymphocytes # (Auto) 1.3 K/uL (1.3-3.6) Monocytes # (Auto) 0.8 K/uL (0.3-1.0) Eosinophils # (Auto) 0.1 K/uL (0.0-0.5) Basophils # (Auto) 0.1 K/uL (0.0-0.1) Nucleated RBC Absolute Count (auto) 0.02 K/uL Peripheral Blood Smear Yes Y/N Sodium Level 126 mmol/L (137-145) Potassium Level 4.5 mmol/L (3.5-5.0) Chloride Level 94 mmol/L (98-107) Carbon Dioxide Level 16 mmol/L (22-31) Blood Urea Nitrogen 23 mg/dl (7-18) Creatinine 0.90 mg/dl (0.52-1.04) Glomerular Filtration Rate Calc > 60.0 Random Glucose 121 mg/dl (75-110) Calcium Level 9.7 mg/dl (8.4-10.2) Total Bilirubin 0.3 mg/dl (0.2-1.3) Aspartate Amino Transf (AST/SGOT) 41 U/L (0-35) Alanine Aminotransferase (ALT/SGPT) 39 U/L (0-56) Alkaline Phosphatase 168 U/L (0-126) Total Protein 7.4 g/dl (6.3-8.2) Albumin 4.1 g/dl (3.5-5.0) Urine Color Yellow Urine Clarity Clear Urine pH 6.0 pH (4.8-9.5) Urine Specific [place] 1.003 Urine Protein Negative mg/dL (NEGATIVE) Urine Glucose (UA) Negative mg/dL (NEGATIVE) Urine Ketones Negative mg/dL (NEGATIVE) Urine Blood Negative (NEGATIVE) Urine Nitrite Negative (NEGATIVE) Urine Bilirubin Negative (NEGATIVE) Urine Urobilinogen Negative mg/dL (0.2-1.9) Urine Leukocyte Esterase Negative (NEGATIVE) Urine RBC <1 /HPF (0-2/HPF) Urine WBC None /HPF (0-5/HPF) Urine Squamous Epithelial Cells None /LPF (NONE-FEW) Urine Bacteria Negative /HPF (NONE-FEW) Urine Mucus None /HPF (NONE-FEW) Urine Random Creatinine 18.3 mg/dl Urine Random Sodium < 5 MEQ/L Urine Opiates Screen Negative Urine Barbiturates Screen Negative Ur Tricyclic Antidepressants Screen Negative Urine Phencyclidine Screen Negative Urine Amphetamines Screen Negative Urine Benzodiazepines Screen Negative Urine Cocaine Screen Negative Urine Cannabinoids Screen Negative Chemistry Test 03/23/18 10:09 03/23/18 10:40 White Blood Count 18.3 k/uL (4.5-11.0) Red Blood Count 4.53 M/uL (4.17-5.56) Hemoglobin 11.9 g/dL (12.0-16.0) Hematocrit 37.0 % (34.0-47.0) Mean Corpuscular Volume 81.9 fL (80.0-96.0) Mean Corpuscular Hemoglobin 26.2 pg (26.0-33.0) Mean Corpuscular Hemoglobin Concent 32.0 g/dL (32.0-36.0) Red Cell Distribution Width 18.3 % (11.5-14.5) Platelet Count 552 K/uL (150-450) Mean Platelet Volume 6.1 fL (7.2-11.1) Neutrophils (%) (Auto) 87.7 % (39.4-72.5) Lymphocytes (%) (Auto) 7.2 % (17.6-49.6) Monocytes (%) (Auto) 4.2 % (4.1-12.4) Eosinophils (%) (Auto) 0.4 % (0.4-6.7) Basophils (%) (Auto) 0.5 % (0.3-1.4) Nucleated RBC Relative Count (auto) 0.1 /100WBC Neutrophils # (Auto) 16.1 K/uL (2.0-7.4) Lymphocytes # (Auto) 1.3 K/uL (1.3-3.6) Monocytes # (Auto) 0.8 K/uL (0.3-1.0) Eosinophils # (Auto) 0.1 K/uL (0.0-0.5) Basophils # (Auto) 0.1 K/uL (0.0-0.1) Nucleated RBC Absolute Count (auto) 0.02 K/uL Peripheral Blood Smear Yes Y/N Glomerular Filtration Rate Calc > 60.0 Calcium Level 9.7 mg/dl (8.4-10.2) Total Bilirubin 0.3 mg/dl (0.2-1.3) Aspartate Amino Transf (AST/SGOT) 41 U/L (0-35) Alanine Aminotransferase (ALT/SGPT) 39 U/L (0-56) Alkaline Phosphatase 168 U/L (0-126) Total Protein 7.4 g/dl (6.3-8.2) Albumin 4.1 g/dl (3.5-5.0) Urine Color Yellow Urine Clarity Clear Urine pH 6.0 pH (4.8-9.5) Urine Specific [place] 1.003 Urine Protein Negative mg/dL (NEGATIVE) Urine Glucose (UA) Negative mg/dL (NEGATIVE) Urine Ketones Negative mg/dL (NEGATIVE) Urine Blood Negative (NEGATIVE) Urine Nitrite Negative (NEGATIVE) Urine Bilirubin Negative (NEGATIVE) Urine Urobilinogen Negative mg/dL (0.2-1.9) Urine Leukocyte Esterase Negative (NEGATIVE) Urine RBC <1 /HPF (0-2/HPF) Urine WBC None /HPF (0-5/HPF) Urine Squamous Epithelial Cells None /LPF (NONE-FEW) Urine Bacteria Negative /HPF (NONE-FEW) Urine Mucus None /HPF (NONE-FEW) Urine Random Creatinine 18.3 mg/dl Urine Random Sodium < 5 MEQ/L Urine Opiates Screen Negative Urine Barbiturates Screen Negative Ur Tricyclic Antidepressants Screen Negative Urine Phencyclidine Screen Negative Urine Amphetamines Screen Negative Urine Benzodiazepines Screen Negative Urine Cocaine Screen Negative Urine Cannabinoids Screen Negative Toxicology Test 03/23/18 10:40 Urine Opiates Screen Negative Urine Barbiturates Screen Negative Ur Tricyclic Antidepressants Screen Negative Urine Phencyclidine Screen Negative Urine Amphetamines Screen Negative Urine Benzodiazepines Screen Negative Urine Cocaine Screen Negative Urine Cannabinoids Screen Negative Urinalysis Test 03/23/18 10:40 Urine Color Yellow Urine Clarity Clear Urine pH 6.0 pH (4.8-9.5) Urine Specific [place] 1.003 Urine Protein Negative mg/dL (NEGATIVE) Urine Glucose (UA) Negative mg/dL (NEGATIVE) Urine Ketones Negative mg/dL (NEGATIVE) Urine Blood Negative (NEGATIVE) Urine Nitrite Negative (NEGATIVE) Urine Bilirubin Negative (NEGATIVE) Urine Urobilinogen Negative mg/dL (0.2-1.9) Urine Leukocyte Esterase Negative (NEGATIVE) Urine RBC <1 /HPF (0-2/HPF) Urine WBC None /HPF (0-5/HPF) Urine Squamous Epithelial Cells None /LPF (NONE-FEW) Urine Bacteria Negative /HPF (NONE-FEW) Urine Mucus None /HPF (NONE-FEW) Urine Random Creatinine 18.3 mg/dl Urine Random Sodium < 5 MEQ/L ED Course/Re-evaluation ED Course Labs at baseline. Patient was initially more fatigued than her baseline, but upon my physical exam the patient states she was more awake and was making jokes. She does not have any new pain. She complains of her baseline pain from her spasticity. She was seen by Dr. Rojas in the emergency department. Her sodium is at baseline. Dr. Rojas will continue to evaluate her medications for those that may be causing hyponatremia. In the meantime, she will return to the care center. Decision to Disposition Date: Mar 23, 2018 Decision to Disposition Time: 13:41 Depart Departure Latest Vital Signs Vital Signs Date Time Temp Pulse Resp B/P (MAP) Pulse Ox O2 Delivery O2 Flow Rate FiO2 03/23/18 13:10 79 100 03/23/18 13:00 160/69 (99) 03/23/18 12:40 Nasal Cannula 2 03/23/18 12:05 31 03/23/18 09:05 97.5 Impression: Primary Impression: Hyponatremia Condition: Improved Disposition: HOME OR SELF-CARE Referrals: DARIO ROJAS MD (PCP) Patient Instructions: Hyponatremia (ED) JAGJIT SANDERS MD Mar 23, 2018 08:56
[2018-03-23] MEDS ORDERED: NS(*) 0.9% 1000 ML BAG 1,000 ML IV ONE (09:30)
[2018-03-23 10:22] LABS: PLATELET COUNT, AUTOMATED 552 K/uL (150-450)
--- NOTE | 2018-03-23 11:32 | RADIOLOGY IMAGING REPORT ---
FACILITY: [facility] PATIENT NAME: Xin Tran : 1950 MR: [id number] V: [id number] EXAM DATE: ORDERING PHYSICIAN: JAGJIT SANDERS TECHNOLOGIST: Location: [facility] Patient: Xin Tran : 1950 Visit/Account:[id number] Date of Sevice: 03/23/2018 HEAD W/O CONTRAST History: ams TECHNIQUE: Contiguous angled axial images were obtained from the vertex through the base of the sku ll without intravenous contrast. One of the following dose optimization techniques was utilized in e performance of this exam: Automated exposure control; adjustment of the mA and/or kV according to t he patient's size; or use of an iterative reconstruction technique. Specific details can be referen alfredo in the facility's radiology CT exam operational policy. COMPARISON STUDIES: none FINDINGS: Ventricles / sulci / fissures: Ventricles and sulci are quite prominent compatible with global volum e loss. Masses / hemorrhage / midline shift: Negative. Intra-axial findings: Normal. Extra-axial fluid collections: Negative. Intracranial vasculature and dural sinuses: Negative. Skull base / calvarium: Negative. Scalp: negative Visualized mastoid air cells / paranasal sinuses: Well aerated. Orbits: Negative IMPRESSION: Age-related global volume loss. No acute intracranial pathology identified. Report Dictated By: Ammon Mandel MD at 03/23/2018 11:24 AM Report E-Signed By: Ammon Mandel MD at 03/23/2018 11:27 AM WSN:[id number]
[2018-03-23 13:30] VITALS: BP 137/66
[2018-03-25] MEDS ORDERED: GABA-549 PO (09:07)
== END 2018-03-23 14:07 | disposition home or self-care (01) ==
LOC: ER 09:22
DX: E87.1 Hypo-osmolality and hyponatremia (principal)
CPT/HCPCS: 70450; 80305; 81001; 82570; 84300; 85025; 96360; 96361; 99284; J7030; 82040; 82247; 82310; 82374; 82435; 82565; 82947; 84075; 84132; 84155; 84295; 84450; 84460; 84520

== ENCOUNTER → 2018-03-23 | Outpatient (REF) | payer MEDICARE, OTHER ==
[2018-03-11 12:31] VITALS: BMI 22.9
[~2018-03-23] MED LIST changes: +CIPR-214 PO
== END ==
LOC: ZZLCC 07:33
PROVIDERS: ATTEND Family Medicine
DX: E87.1 Hypo-osmolality and hyponatremia (principal); N39.0 Urinary tract infection, site not specified
CPT/HCPCS: 82310; 82374; 82435; 82565; 82947; 84132; 84295; 84520; 85027

== ENCOUNTER → 2018-04-02 | Outpatient (CLI) | payer MEDICARE, OTHER ==
[2018-03-11 12:31] VITALS: BMI 22.9
[~2018-04-02] MED LIST changes: +BUPR1PAT TOP; +CHOL4PAC15 PO; +SULF-198 PO; +VENL75TA98 PO; +[UNRECOGNIZED DRUG - CODE] PO
== END ==
LOC: AMB 18:03
PROVIDERS: ATTEND Nurse Practitioner
DX: E88.9 Metabolic disorder, unspecified (principal); Z74.01 Bed confinement status
CPT/HCPCS: A0425; A0428

== ENCOUNTER → 2018-04-06 | Outpatient (REF) | payer MEDICARE, OTHER ==
[2018-03-11 12:31] VITALS: BMI 22.9
[~2018-04-06] MED LIST changes: -BUPR1PAT TOP; -[UNRECOGNIZED DRUG - CODE] PO
== END ==
LOC: ZZLCC 07:15
PROVIDERS: ATTEND Family Medicine
DX: E87.1 Hypo-osmolality and hyponatremia (principal)
CPT/HCPCS: 82310; 82374; 82435; 82565; 82947; 84132; 84295; 84520

== ENCOUNTER → 2018-04-08 | Outpatient (REF) | payer MEDICARE, OTHER ==
[2018-03-11 12:31] VITALS: BMI 22.9
[~2018-04-08] MED LIST changes: +BUPR1PAT TOP; +[UNRECOGNIZED DRUG - CODE] PO
== END ==
LOC: ZZSENDIN 16:10
PROVIDERS: ATTEND Family Medicine
DX: E87.1 Hypo-osmolality and hyponatremia (principal)
CPT/HCPCS: 82310; 82374; 82435; 82565; 82947; 84132; 84295; 84520

== ENCOUNTER → 2018-04-15 | Outpatient (REF) | payer MEDICARE, OTHER ==
[2018-03-11 12:31] VITALS: BMI 22.9
== END ==
LOC: ZZLCC 08:23
PROVIDERS: ATTEND Family Medicine
DX: E87.1 Hypo-osmolality and hyponatremia (principal)
CPT/HCPCS: 82310; 82374; 82435; 82565; 82947; 84132; 84295; 84520

== ENCOUNTER → 2018-04-22 | Outpatient (REF) | payer MEDICARE, OTHER ==
[2018-03-11 12:31] VITALS: BMI 22.9
[~2018-04-22] MED LIST changes: -GABA-503 PO; +GABA-533 PO
== END ==
LOC: ZZLCC 10:32
PROVIDERS: ATTEND Family Medicine
DX: E87.1 Hypo-osmolality and hyponatremia (principal)
CPT/HCPCS: 82310; 82374; 82435; 82565; 82947; 84132; 84295; 84520

== ENCOUNTER → 2018-05-04 | Outpatient (CLI) | payer MEDICARE, OTHER ==
[2018-03-11 12:31] VITALS: BMI 22.9
[~2018-05-04] MED LIST changes: +DIPH-1 PO; +TRIA10.8 NS
[2018-05-04 09:17] LABS: PLATELET COUNT, AUTOMATED 559 K/uL (150-450)
== END ==
LOC: LAB 09:06
PROVIDERS: ATTEND Family Medicine
DX: E87.1 Hypo-osmolality and hyponatremia (principal); I10 Essential (primary) hypertension
CPT/HCPCS: 36415; 82310; 82374; 82435; 82565; 82947; 84132; 84295; 84520; 85025

== ENCOUNTER → 2018-05-11 | Outpatient (REF) | payer MEDICARE, OTHER ==
[2018-03-11 12:31] VITALS: BMI 22.9
== END ==
LOC: ZZLCC 07:28
PROVIDERS: ATTEND Family Medicine
DX: E87.1 Hypo-osmolality and hyponatremia (principal)
CPT/HCPCS: 82310; 82374; 82435; 82565; 82947; 84132; 84295; 84520

== ENCOUNTER → 2018-05-25 | Outpatient (CLI) | payer MEDICARE, OTHER ==
[2018-03-11 12:31] VITALS: BMI 22.9
== END ==
LOC: LAB 14:29
PROVIDERS: ATTEND Family Medicine
DX: E87.1 Hypo-osmolality and hyponatremia (principal)
CPT/HCPCS: 36415; 82310; 82374; 82435; 82565; 82947; 84132; 84295; 84520

== ENCOUNTER → 2018-06-15 | Outpatient (REF) | payer MEDICARE, OTHER ==
[2018-03-11 12:31] VITALS: BMI 22.9
== END ==
LOC: ZZLCC 07:39
PROVIDERS: ATTEND Family Medicine
DX: E87.1 Hypo-osmolality and hyponatremia (principal)
CPT/HCPCS: 82310; 82374; 82435; 82565; 82947; 84132; 84295; 84520

== ENCOUNTER → 2018-07-01 | Outpatient (REF) | payer MEDICARE, OTHER ==
[2018-03-11 12:31] VITALS: BMI 22.9
== END ==
LOC: ZZLCC 06:25
PROVIDERS: ATTEND Family Medicine
DX: N17.9 Acute kidney failure, unspecified (principal)
CPT/HCPCS: 82310; 82374; 82435; 82565; 82947; 84132; 84295; 84520

== ENCOUNTER 2018-08-11 12:44 | Emergency (ER) | payer MEDICARE, OTHER ==
[2018-03-11 12:31] VITALS: BMI 22.9
--- NOTE | 2018-08-11 12:46 | ER Report ---
History and Physical Time Seen By MD: 12:46 HPI/ROS Multiple medical problems. Mechanical fall face first out of wheel chair. Now with nasal deformity and forehead laceration. No LOC. No focal neuro deficits. ALso with neck pain and pain in right wrist. No other complaints. Remainder of the 14 system rev: Yes Allergies: Coded Allergies: Sulfa (Sulfonamide Antibiotics) (Verified Allergy, Unknown, 04/02/18) allergic to cream only amitriptyline (Verified Allergy, Unknown, 04/02/18) aspirin (Verified Allergy, Unknown, 04/02/18) Home Meds Active Scripts Diphenoxylate Hcl/Atropine (LOMOTIL TABLET) 1 Each Tablet, 2 TAB PO QID, #180 TAB 4 Refills Prov:DARIO ROJAS MD 07/20/18 Potassium Chloride (POTASSIUM CHLORIDE) 20 Meq Tab.er.prt, 1 TAB PO BID for 30 Days, #30 TAB Prov:DARIO ROJAS MD 06/15/18 Acetaminophen (TYLENOL) 325 Mg Tablet, 1-2 TAB PO Q6H PRN for PAIN for 30 Days, TAB Prov:MONA GONZALES MD 03/14/18 Prednisone 10 Mg Tab (PREDNISONE 10 MG TAB) 10 Mg Tablet, 1 TAB PO QDAY for 30 Days, #30 TAB Prov:DARIO ROJAS MD 01/22/18 Pantoprazole Sodium (PANTOPRAZOLE SODIUM) 40 Mg Tablet.dr, 1 TAB PO QDAY for 30 Days, #30 TAB Prov:DARIO ROJAS MD 01/22/18 Trazodone Hcl (TRAZODONE HCL) 50 Mg Tablet, 1 TAB PO QHS for 30 Days, #30 TAB Prov:DAIRO ROJAS MD 01/21/18 Reported Medications Benzonatate 100 Mg Cap (TESSALON PERLE 100 MG CAP) 100 Mg Capsule, 100 MG PO TID, #15 CAP 08/11/18 Triamcinolone Acetonide (Nasacort) 10.8 Ml [place], 1 SPRAY NS BID for 30 Days, #1 BOT 05/04/18 Electrolyte,Oral (PEDIALYTE) 1,000 Ml Solution, 240 ML PO QID 04/09/18 Buprenorphine (Buprenorphine) 7.5 Mcg/Hour Patch.tdwk, 1 PATCH.WK TOP QWEEKF 04/09/18 Acetaminophen 500 Mg Tab (ACETAMINOPHEN EXTRA STRENGTH) 500 Mg Tablet, 2 TAB PO BID, TAB 04/09/18 Cholestyramine (With Sugar) (CHOLESTYRAMINE PACKET) 4 Gm Powd.pack, 4 GM PO QID 04/03/18 Venlafaxine Hcl (VENLAFAXINE HCL ER) 75 Mg Tab.er.24, 75 MG PO QDAY 04/01/18 Loperamide HCl (Imodium A-D) 2 Mg Capsule, 1 QID 03/09/18 Hydrocodone Bit/Acetaminophen (NORCO 5-325 TABLET) 1 Each Tablet, 1 EACH PO BID PRN for PAIN, TAB 03/05/18 Oxygen (OXYGEN) Inha, 3 L INH, L 2 Liters Continuous Oxygen and With CPap at HS 01/21/18 Protein Supplement (Protein Powder) 480 Gm Powder, 2 NOTSPEC PO TID 2 scoops of powder in 6-8oz of water between meals 01/21/18 Polyvinyl Alcohol (LIQUITEARS) 15 Ml Drops, 1 GTT OU PRN for dry eyes 01/09/18 Multivitamin (TAB-A-OMAR) 1 Each Tablet, 1 EACH PO QAM 01/07/18 Mag Hydrox/Al Hydrox/Simeth (MAALOX MAXIMUM STRENGTH SUSP) 355 Ml Oral.susp, 15 ML PO Q4H PRN for INDIGESTION 01/07/18 Nystatin 100,000 Unit/Gm Top Powder (NYSTATIN 100,000 UNIT/GM TOP POWDER) 15 Gm Powder, 15 GM TP BID 01/07/18 Tetrahydrozoline Hcl (EYE DROPS) 15 Ml Drops, 1 DROP OU PRN 01/07/18 Guaifenesin/Dextromethorphan (Robitussin Cough-Chest Dm Liq) 100 Mg-5 Mg/5 Ml Liquid, 5 ML PO Q4-6H PRN for COUGH 01/07/18 Menthol (BIOFREEZE) 118 Ml Gel..ml., 1 JARETT TOP TID PRN for PAIN 01/07/18 Calcium Polycarbophil (FIBER) 625 Mg Tablet, 2 TAB PO BID 01/07/18 Calcium Carbonate (Calcium Carbonate) 300 Mg Calcium (750 Mg) Tab.chew, 2 TAB PO PRN Not to exceed 10 tablets in 24 hours 01/07/18 Nifedipine (NIFEDIPINE ER) 30 Mg Tab.er.24, 1 TAB PO QDAY 01/07/18 Levothyroxine Sodium (SYNTHROID) 25 Mcg Tablet, 1 TAB PO QDAY 01/07/18 Fluticasone/Vilanterol 100/25 Mcg/Inh (BREO ELLIPTA 100/25 MCG) 1 Each Aer.pow.ba, 1 INH INH QDAY 01/07/18 Rivaroxaban 20 Mg (XARELTO 20 MG) 20 Mg Tablet, 1 TAB PO DAILY 01/06/18 Reviewed Nurses Notes: Yes Old Medical Records Reviewed: Yes Hx Smoking: Yes Smoking Status: Former Smoker Hx Substance Use Disorder: No Hx Alcohol Use: No Constitutional Vital Sign - Last 24 Hours 08/11/18 12:51 Temp 98.3 Pulse 108 Resp 18 B/P (MAP) 154/106 Pulse Ox 94 O2 Delivery Nasal Cannula Physical Exam General Appearance: The patient is alert, has no immediate need for airway protection and no current signs of toxicity. Eyes: Pupils equal and round no injection. Respiratory: Chest is non tender, lungs are clear to auscultation. Cardiac: regular rate and rhythm Gastrointestinal: Abdomen is soft and non tender, no masses, bowel sounds normal. Neck: Neck is supple. TTP of C4-C7. Extremities have full range of motion. Mild TTP of the right wrist Skin: ecchymoses and abrasion to nose, 2cm linear laceration to forehead. Medical Decision Making ED Course/Re-evaluation ED Course Minimally displaced nasal bone fractire. No septal hematoma, abrasion to nose and laceration to forehead. Laceration closed with skin glue. Normal neuro exam. No bleeding in brain. Procedure Procedure: Laceration repair. Verbal consent was obtained from the patient. The 2 cm linear laceration on the forehead The wound was scrubbed, draped and explored to its base with a gloved finger. There were no deep structures involved. The wound was repaired with dermabond. The wound repair was simple. The procedure was performed by me. Decision to Disposition Date: August 11, 2018 Decision to Disposition Time: 14:28 Depart Departure Latest Vital Signs Vital Signs Date Time Temp Pulse Resp B/P (MAP) Pulse Ox O2 Delivery O2 Flow Rate FiO2 08/11/18 12:51 98.3 108 18 154/106 94 Nasal Cannula Impression: Primary Impression: Fall Additional Impressions: Nasal bone fx-closed Laceration Pulmonary nodule Condition: Improved Disposition: HOME OR SELF-CARE Referrals: DARIO ROJAS MD (PCP) Patient Instructions: Skin Adhesive Care (ED) Additional Instructions: YOU WERE FOUND TO HAVE A PULMONARY NODULE ON YOUR LEFT UPPER LUNG. PLEASE FOLLOW UP WITH DR. ROJAS FOR FURTHER INSTRUCTIONS FOR REPEAT TESTING. Problem Qualifiers Primary Impression: Fall Encounter type: initial encounter Qualified Codes: W19.XXXA - Unspecified fall, initial encounter Additional Impressions: Nasal bone fx-closed Encounter type: initial encounter Qualified Codes: S02.2XXA - Fracture of nasal bones, initial encounter for closed fracture JAGJIT SANDERS MD August 11, 2018 12:46
[2018-08-11] MEDS ORDERED: BENZ100C4 PO (13:38)
--- NOTE | 2018-08-11 13:41 | RADIOLOGY IMAGING REPORT ---
FACILITY: [facility] - [place] PATIENT NAME: Xin Tran : 1950 MR: [id number] V: [id number] EXAM DATE: ORDERING PHYSICIAN: JAGJIT SANDERS TECHNOLOGIST: Location: [facility] Patient: Xin Tran : 1950 Visit/Account:[id number] Date of Sevice: 08/11/2018 XR WRIST 2 VWS RT Indication: Fall out of wheelchair Comparison: None Available Findings: No evidence of fracture, dislocation, or acute osseous abnormality right wrist. No evidence of radiopaque foreign body. There is no focal soft tissue abnormality. The bones are osteopenic IMPRESSION: 1.No acute osseous abnormality right wrist Report Dictated By: Bob Kay at 08/11/2018 1:37 PM Report E-Signed By: Bob Kay at 08/11/2018 1:38 PM WSN:[id number]
--- NOTE | 2018-08-11 14:16 | RADIOLOGY IMAGING REPORT ---
[place] [facility] [place]IENT NAME: Xin Tran : 1950 MR: [id number] V: [id number] EXAM DATE: ORDERING PHYSICIAN: JAGJIT SANDERS TECHNOLOGIST: Location: [facility] [place] Patient: Xin Tran : 1950 Visit/Account:[id number] Date of Sevice: 08/11/2018 EXAMINATION: CT Head without intravenous contrast CT Face without intravenous contrast CT Cervical spine without intravenous contrast HISTORY: Trauma. Colon cancer. TECHNIQUE: Head: Axial images were obtained from the skull base to the vertex without intravenous contrast. Sa gittal and coronal reformatted images are also submitted. Face: Axial images were obtained from the superior aspect of the orbits through the inferior aspect of mandible. Coronal and sagittal reformatted images were obtained from the axial source data. Cervical spine: Axial images were obtained from the skull base through the upper thoracic spine with out IV contrast administration. Coronal and sagittal reformatted images were obtained from the axial source data. One of the following dose optimization techniques was utilized in the performance of this exam: Autom ated exposure control; adjustment of the mA and/or kV according to the patient's size; or use of an i terative reconstruction technique. Specific details can be referenced in the facility's radiology C T exam operational policy. COMPARISON: Noncontrast head CT dated 03/23/2018. FINDINGS: HEAD: Brain volume: Mild generalized volume loss. Ventricles: Negative. Acute ischemic changes: None. Hemorrhage: None. Masses / edema: None. Abrams-white: Negative. White matter: Negative. Vessels: Negative. Extra-axial: Negative. Calvarium / skull base: Mild frontal scalp contusion with no radiopaque foreign body or fracture. FACE: Soft Tissues: Negative. Mandible / TMJ: Multiple missing and carious teeth. Eye temporomandibular joint arthritis. Otherwise negative. Maxillae / pterygoid plates: Multiple missing carious teeth. Multiple periapical lucencies. Otherwise negative. Zygoma / zygomatic arches: Negative. Orbits: Negative. Nasal bones / nasal septum: Minimally displaced nasal bone fracture. Rightward nasal septal deviation . 1 cm perforation in the nasal septum. Frontal bones: Negative. Sinuses: Extensive mucosal thickening and fluid in the paranasal sinuses. CERVICAL SPINE: Alignment: 4 mm of retrolisthesis of C3 over C4 and C4 over C5. Cranio-cervical junction: Mild degenerative changes in the atlantodental joint. Vertebral bodies: Degenerative endplate changes at a few levels. Mild T2 superior endplate compressio n fracture is most likely chronic. Posterior elements: Multilevel facet hypertrophy. Hardware: Anterior fusion hardware at at C6 and C6-C7. Partially imaged spinal stimulator entering th e T2-T3 interlaminar space and terminating in the spinal canal on the left at C6. No perihardware ana ency. Disc Spaces: Multilevel degenerative disc disease. No definite solid fusion at C5-C6 or C6-C7. Soft tissues: No prevertebral soft tissue swelling. Partial retropharyngeal course of the carotid art eries. Visualized upper chest: 7 mm pulmonary nodule in the anterior left upper lobe. Partially imaged left chest wall port. IMPRESSION: 1. Mild frontal scalp contusion with no foreign body or fracture. No acute intracranial abnormality. 2. Minimally displaced nasal bone fractures. No additional facial fractures. 3. No acute cervical spine fracture. Mild T2 superior endplate compression fracture is most likely ch ronic. 4. 7 mm pulmonary nodule in the anterior left upper lobe. Suspicious for metastasis given history of colon cancer. 5. Multiple missing and carious teeth with multiple periapical lucencies surrounding the roots of the maxillary teeth. 6. Multilevel degenerative disc disease and facet hypertrophy in the cervical spine with 4 mm of ante rior listhesis of C3 over C4 and C4 over C5. 7. Ante ior fusion hardware at C5-C6 and C6-C7. No evidence of hardware failure. No definite solid fu tamar. Report Dictated By: Ted Bartlett MD at 08/11/2018 1:50 PM Report E-Signed By: Ted Bartlett MD at 08/11/2018 2:12 PM
--- NOTE | 2018-08-11 14:17 | RADIOLOGY IMAGING REPORT ---
[place] [facility] [place] Xin Tran : 1950 MR: [id number] V: [id number] EXAM DATE: ORDERING PHYSICIAN: JAGJIT SANDERS TECHNOLOGIST: Location: [facility] Patient: Xin Tran : 1950 Visit/Account:[id number] Date of Sevice: 08/11/2018 EXAMINATION: CT Head without intravenous contrast CT Face without intravenous contrast CT Cervical spine without intravenous contrast HISTORY: Trauma. Colon cancer. TECHNIQUE: Head: Axial images were obtained from the skull base to the vertex without intravenous contrast. Sa gittal and coronal reformatted images are also submitted. Face: Axial images were obtained from the superior aspect of the orbits through the inferior aspect of mandible. Coronal and sagittal reformatted images were obtained from the axial source data. Cervical spine: Axial images were obtained from the skull base through the upper thoracic spine with out IV contrast administration. Coronal and sagittal reformatted images were obtained from the axial source data. One of the following dose optimization techniques was utilized in the performance of this exam: Autom ated exposure control; adjustment of the mA and/or kV according to the patient's size; or use of an i terative reconstruction technique. Specific details can be referenced in the facility's radiology C T exam operational policy. COMPARISON: Noncontrast head CT dated 03/23/2018. FINDINGS: HEAD: Brain volume: Mild generalized volume loss. Ventricles: Negative. Acute ischemic changes: None. Hemorrhage: None. Masses / edema: None. Abrams-white: Negative. White matter: Negative. Vessels: Negative. Extra-axial: Negative. Calvarium / skull base: Mild frontal scalp contusion with no radiopaque foreign body or fracture. FACE: Soft Tissues: Negative. Mandible / TMJ: Multiple missing and carious teeth. Eye temporomandibular joint arthritis. Otherwise negative. Maxillae / pterygoid plates: Multiple missing carious teeth. Multiple periapical lucencies. Otherwise negative. Zygoma / zygomatic arches: Negative. Orbits: Negative. Nasal bones / nasal septum: Minimally displaced nasal bone fracture. Rightward nasal septal deviation . 1 cm perforation in the nasal septum. Frontal bones: Negative. Sinuses: Extensive mucosal thickening and fluid in the paranasal sinuses. CERVICAL SPINE: Alignment: 4 mm of retrolisthesis of C3 over C4 and C4 over C5. Cranio-cervical junction: Mild degenerative changes in the atlantodental joint. Vertebral bodies: Degenerative endplate changes at a few levels. Mild T2 superior endplate compressio n fracture is most likely chronic. Posterior elements: Multilevel facet hypertrophy. Hardware: Anterior fusion hardware at at C6 and C6-C7. Partially imaged spinal stimulator entering th e T2-T3 interlaminar space and terminating in the spinal canal on the left at C6. No perihardware ana ency. Disc Spaces: Multilevel degenerative disc disease. No definite solid fusion at C5-C6 or C6-C7. Soft tissues: No prevertebral soft tissue swelling. Partial retropharyngeal course of the carotid art eries. Visualized upper chest: 7 mm pulmonary nodule in the anterior left upper lobe. Partially imaged left chest wall port. IMPRESSION: 1. Mild frontal scalp contusion with no foreign body or fracture. No acute intracranial abnormality. 2. Minimally displaced nasal bone fractures. No additional facial fractures. 3. No acute cervical spine fracture. Mild T2 superior endplate compression fracture is most likely ch ronic. 4. 7 mm pulmonary nodule in the anterior left upper lobe. Suspicious for metastasis given history of colon cancer. 5. Multiple missing and carious teeth with multiple periapical lucencies surrounding the roots of the maxillary teeth. 6. Multilevel degenerative disc disease and facet hypertrophy in the cervical spine with 4 mm of ante rior listhesis of C3 over C4 and C4 over C5. 7. Ante ior fusion hardware at C5-C6 and C6-C7. No evidence of hardware failure. No definite solid fu tamar. Report Dictated By: Ted Bartlett MD at 08/11/2018 1:50 PM Report E-Signed By: Ted Bartlett MD at 08/11/2018 2:12 PM
--- NOTE | 2018-08-11 14:18 | RADIOLOGY IMAGING REPORT ---
FACILITY: [facility] PATIENT NAME: Xin Tran : 1950 MR: [id number] V: [id number] EXAM DATE: ORDERING PHYSICIAN: JAGJIT SANDERS TECHNOLOGIST: [place] [facility] [place]: Xin Tran : 1950 Visit/Account:[id number] Date of Sevice: 08/11/2018 EXAMINATION: CT Head without intravenous contrast CT Face without intravenous contrast CT Cervical spine without intravenous contrast HISTORY: Trauma. Colon cancer. TECHNIQUE: Head: Axial images were obtained from the skull base to the vertex without intravenous contrast. Sa gittal and coronal reformatted images are also submitted. Face: Axial images were obtained from the superior aspect of the orbits through the inferior aspect of mandible. Coronal and sagittal reformatted images were obtained from the axial source data. Cervical spine: Axial images were obtained from the skull base through the upper thoracic spine with out IV contrast administration. Coronal and sagittal reformatted images were obtained from the axial source data. One of the following dose optimization techniques was utilized in the performance of this exam: Autom ated exposure control; adjustment of the mA and/or kV according to the patient's size; or use of an i terative reconstruction technique. Specific details can be referenced in the facility's radiology C T exam operational policy. COMPARISON: Noncontrast head CT dated 03/23/2018. FINDINGS: HEAD: Brain volume: Mild generalized volume loss. Ventricles: Negative. Acute ischemic changes: None. Hemorrhage: None. Masses / edema: None. Abrams-white: Negative. White matter: Negative. Vessels: Negative. Extra-axial: Negative. Calvarium / skull base: Mild frontal scalp contusion with no radiopaque foreign body or fracture. FACE: Soft Tissues: Negative. Mandible / TMJ: Multiple missing and carious teeth. Eye temporomandibular joint arthritis. Otherwise negative. Maxillae / pterygoid plates: Multiple missing carious teeth. Multiple periapical lucencies. Otherwise negative. Zygoma / zygomatic arches: Negative. Orbits: Negative. Nasal bones / nasal septum: Minimally displaced nasal bone fracture. Rightward nasal septal deviation . 1 cm perforation in the nasal septum. Frontal bones: Negative. Sinuses: Extensive mucosal thickening and fluid in the paranasal sinuses. CERVICAL SPINE: Alignment: 4 mm of retrolisthesis of C3 over C4 and C4 over C5. Cranio-cervical junction: Mild degenerative changes in the atlantodental joint. Vertebral bodies: Degenerative endplate changes at a few levels. Mild T2 superior endplate compressio n fracture is most likely chronic. Posterior elements: Multilevel facet hypertrophy. Hardware: Anterior fusion hardware at at C6 and C6-C7. Partially imaged spinal stimulator entering th e T2-T3 interlaminar space and terminating in the spinal canal on the left at C6. No perihardware ana ency. Disc Spaces: Multilevel degenerative disc disease. No definite solid fusion at C5-C6 or C6-C7. Soft tissues: No prevertebral soft tissue swelling. Partial retropharyngeal course of the carotid art eries. Visualized upper chest: 7 mm pulmonary nodule in the anterior left upper lobe. Partially imaged left chest wall port. IMPRESSION: 1. Mild frontal scalp contusion with no foreign body or fracture. No acute intracranial abnormality. 2. Minimally displaced nasal bone fractures. No additional facial fractures. 3. No acute cervical spine fracture. Mild T2 superior endplate compression fracture is most likely ch ronic. 4. 7 mm pulmonary nodule in the anterior left upper lobe. Suspicious for metastasis given history of colon cancer. 5. Multiple missing and carious teeth with multiple periapical lucencies surrounding the roots of the maxillary teeth. 6. Multilevel degenerative disc disease and facet hypertrophy in the cervical spine with 4 mm of ante rior listhesis of C3 over C4 and C4 over C5. 7. Ante ior fusion hardware at C5-C6 and C6-C7. No evidence of hardware failure. No definite solid fu tamar. Report Dictated By: Ted Bartlett MD at 08/11/2018 1:50 PM Report E-Signed By: Ted Bartlett MD at 08/11/2018 2:12 PM
== END 2018-08-11 15:14 | disposition home or self-care (01) ==
LOC: ER 12:53
DX: S02.2XXA Fracture of nasal bones, initial encounter for closed fracture (principal); S01.81XA Laceration without foreign body of other part of head, initial encounter; R91.1 Solitary pulmonary nodule; W05.0XXA Fall from non-moving wheelchair, initial encounter
CPT/HCPCS: 12011; 70450; 70486; 72125; 73100; 99284; L0172

== ENCOUNTER 2018-08-19 12:23 | Emergency (ER) | payer MEDICARE ==
[2018-03-11 12:31] VITALS: Wt 56.8 kg
--- NOTE | 2018-08-19 12:33 | ER Report ---
History and Physical Time Seen By MD: 12:31 Hx. of Stated Complaint: FALL OUT WHEELCHAIR - C/O RIGHT SHOULDER AND RIGHT HIP PAIN HPI/ROS CHIEF COMPLAINT: Fall HISTORY OF PRESENT ILLNESS: 67-year-old female came to the emergency department after mechanical fall out of the wheelchair this is her 2nd visit in 8 days for mechanical fall on the wheelchair she is from an outside care facility. Patient states she hit her eye with the loss of consciousness complaining of had C-spine and pelvic discomfort. Patient states that they took away her region grabbing apparatuses forcing her to lean forward more and she falls of her wheelchair when this happens. Patient denies any chest pain shortness of breath nausea vomiting diarrhea or additional complaints nothing prior to the fall this is simply mechanical fall REVIEW OF SYSTEMS: Respiratory: No cough, no dyspnea. Cardiovascular: No chest pain, no palpitations. Gastrointestinal: No vomiting, no abdominal pain. Musculoskeletal: Right shoulder hip left pain Remainder of the 14 system rev: Yes Allergies: Coded Allergies: Sulfa (Sulfonamide Antibiotics) (Verified Allergy, Unknown, 09/01/18) allergic to cream only amitriptyline (Verified Allergy, Unknown, 09/01/18) aspirin (Verified Allergy, Unknown, 09/01/18) Home Meds Active Scripts Potassium Chloride (POTASSIUM CHLORIDE) 20 Meq Tab.er.prt, 1 TAB PO BID for 30 Days, #30 TAB Prov:DARIO ROJAS MD 06/15/18 Pantoprazole Sodium (PANTOPRAZOLE SODIUM) 40 Mg Tablet.dr, 1 TAB PO QDAY for 30 Days, #30 TAB Prov:DARIO ROJAS MD 01/22/18 Trazodone Hcl (TRAZODONE HCL) 50 Mg Tablet, 1 TAB PO QHS for 30 Days, #30 TAB Prov:DARIO ROJAS MD 01/21/18 Reported Medications Venlafaxine Hcl (VENLAFAXINE HCL) 37.5 Mg Tab, 37.5 MG PO DAILY, TAB 09/02/18 Acetaminophen (TYLENOL) 325 Mg Tablet, 325 MG PO Q6H, TAB 09/02/18 Prednisone (PREDNISONE) 1 Mg Tab, 8 MG PO DAILY, TAB one time a day for chrinic pain syndrome for 2 weeks 09/02/18 Prednisone 10 Mg Tab (PREDNISONE 10 MG TAB) 10 Mg Tablet, 5 MG PO QDAY, TAB 09/02/18 Electrolyte,Oral (PEDIALYTE) 1,000 Ml Solution, 240 ML PO QID 09/02/18 0.9 % Sodium Chloride (NORMAL SALINE FLUSH) 2 Ml Disp.syrin, 10 ML IV every 28 days 09/02/18 Diphenoxylate Hcl/Atropine (LOMOTIL TABLET) 1 Each Tablet, 2 TAB PO QID PRN for DIARRHEA, TAB 09/02/18 Heparin Sodium,Porcine/Pf (HEPARIN LOCK FLUSH 100 UNIT/ML) 100 Unit/1 Ml Vial, 500 UNIT IV every 28 days, VIAL 09/02/18 Menthol (BIOFREEZE) 118 Ml Gel..ml., 1 JARETT TOP TID for pain 09/02/18 Lidocaine (Lidocaine) 5 % Adh..patch, 1 PATCH.24H TP DAILY apply in am and remove 12 hours later 09/01/18 Benzonatate 100 Mg Cap (TESSALON PERLE 100 MG CAP) 100 Mg Capsule, 100 MG PO TID PRN for cough, #15 CAP 08/11/18 Triamcinolone Acetonide (Nasacort) 10.8 Ml [place], 1 SPRAY NS BID for 30 Days, #1 BOT 05/04/18 Buprenorphine (Buprenorphine) 7.5 Mcg/Hour Patch.tdwk, 1 PATCH.WK TOP QWEEKF 04/09/18 Cholestyramine (With Sugar) (CHOLESTYRAMINE PACKET) 4 Gm Powd.pack, 4 GM PO QID 04/03/18 Loperamide HCl (Imodium A-D) 2 Mg Capsule, 1 QID PRN for DIARRHEA 03/09/18 Hydrocodone Bit/Acetaminophen (NORCO 5-325 TABLET) 1 Each Tablet, 1 EACH PO BID PRN for PAIN, TAB 03/05/18 Oxygen (OXYGEN) Inha, 3 L INH, L 2 Liters Continuous Oxygen and With CPap at HS 01/21/18 Protein Supplement (Protein Powder) 480 Gm Powder, 2 NOTSPEC PO TID 2 scoops of powder in 6-8oz of water between meals 01/21/18 Polyvinyl Alcohol (LIQUITEARS) 15 Ml Drops, 1 GTT OU PRN for dry eyes 01/09/18 Multivitamin (TAB-A-OMAR) 1 Each Tablet, 1 EACH PO QAM 01/07/18 Mag Hydrox/Al Hydrox/Simeth (MAALOX MAXIMUM STRENGTH SUSP) 355 Ml Oral.susp, 15 ML PO Q4H PRN for INDIGESTION 01/07/18 Nystatin 100,000 Unit/Gm Top Powder (NYSTATIN 100,000 UNIT/GM TOP POWDER) 15 Gm Powder, 15 GM TP BID 01/07/18 Tetrahydrozoline Hcl (EYE DROPS) 15 Ml Drops, 1 DROP OU PRN 01/07/18 Guaifenesin/Dextromethorphan (Robitussin Cough-Chest Dm Liq) 100 Mg-5 Mg/5 Ml Liquid, 5 ML PO Q4-6H PRN for COUGH 01/07/18 Calcium Polycarbophil (FIBER) 625 Mg Tablet, 2 TAB PO BID 01/07/18 Calcium Carbonate (Calcium Carbonate) 300 Mg Calcium (750 Mg) Tab.chew, 2 TAB PO PRN Not to exceed 10 tablets in 24 hours 01/07/18 Nifedipine (NIFEDIPINE ER) 30 Mg Tab.er.24, 1 TAB PO QDAY 01/07/18 Levothyroxine Sodium (SYNTHROID) 25 Mcg Tablet, 1 TAB PO QDAY 01/07/18 Fluticasone/Vilanterol 100/25 Mcg/Inh (BREO ELLIPTA 100/25 MCG) 1 Each Aer.pow.ba, 1 INH INH QDAY 01/07/18 Rivaroxaban 20 Mg (XARELTO 20 MG) 20 Mg Tablet, 1 TAB PO DAILY 01/06/18 Discontinued Reported Medications Prednisone 10 Mg Tab (PREDNISONE 10 MG TAB) 10 Mg Tablet, 5 MG PO QDAY, TAB 09/02/18 Electrolyte,Oral (PEDIALYTE) 1,000 Ml Solution, 240 ML PO QID 04/09/18 Acetaminophen 500 Mg Tab (ACETAMINOPHEN EXTRA STRENGTH) 500 Mg Tablet, 2 TAB PO BID, TAB 04/09/18 Venlafaxine Hcl (VENLAFAXINE HCL ER) 75 Mg Tab.er.24, 0.5 TAB PO QDAY 04/01/18 Menthol (BIOFREEZE) 118 Ml Gel..ml., 1 JARETT TOP TID PRN for PAIN 01/07/18 Discontinued Scripts Prednisone 10 Mg Tab (PREDNISONE 10 MG TAB) 10 Mg Tablet, 8 MG PO QDAY for 30 Days, #30 TAB Prov:DARIO ROJAS MD 09/01/18 Diphenoxylate Hcl/Atropine (LOMOTIL TABLET) 1 Each Tablet, 2 TAB PO QID, #180 TAB 4 Refills Prov:DARIO ROJAS MD 07/20/18 Acetaminophen (TYLENOL) 325 Mg Tablet, 1-2 TAB PO Q6H PRN for PAIN for 30 Days, TAB Prov:MONA GONZALES MD 03/14/18 Reviewed Nurses Notes: Yes Old Medical Records Reviewed: Yes Hx Smoking: Yes Smoking Status: Former Smoker Hx Substance Use Disorder: No Hx Alcohol Use: No Constitutional Physical Exam General Appearance: The patient is alert, has no immediate need for airway protection and no current signs of toxicity. [ ] Eyes: Pupils equal and round no injection. Respiratory: Chest is non tender, lungs are clear to auscultation. Cardiac: regular rate and rhythm [ ] Gastrointestinal: Abdomen is soft and non tender, no masses, bowel sounds normal. Musculoskeletal: Pain with internal and external rotation of the left hip Mild tenderness to palpation to the midline of the C-spine no bony abnormalities no step-offs proximal C4 C5 C6 level Extremities have full range of motion and are non tender. Skin: No rashes or lesions. [ Multiple skin tears of the right upper extremity a abrasion to the right forehead] DIFFERENTIAL DIAGNOSIS: After history and physical exam differential diagnosis was considered for [intracranial bleed mass lesion C-spine fracture or pelvis fracture right shoulder injury ] Medical Decision Making ED Course/Re-evaluation ED Course 67-year-old female multiple falls out of a wheelchair and had a head CT and neck CT performed x-rays no new or acute abnormalities noted advised caregivers to make sure she is adequately restrained diagnosis fall Decision to Disposition Date: September 03, 2018 Decision to Disposition Time: 07:27 Depart Departure Latest Vital Signs Impression: Primary Impression: Fall Additional Impression: Fall from wheelchair Condition: Improved Disposition: HOME OR SELF-CARE Referrals: DARIO ROJAS MD (PCP) Problem Qualifiers SCOTT OSORIO MD August 19, 2018 12:33
--- NOTE | 2018-08-19 13:14 | RADIOLOGY IMAGING REPORT ---
FACILITY: [facility] [place] PATIENT NAME: Xin Tran : 1950 MR: [id number] V: [id number] EXAM DATE: ORDERING PHYSICIAN: SCOTT OSORIO TECHNOLOGIST: Location: [facility] Patient: Xin Tran : 1950 Visit/Account:[id number] Date of Sevice: 08/19/2018 SHOULDER MIN 2 VIEWS RIGHT COMPARISON: None. HISTORY: Trauma, fall TECHNIQUE: 3 views of the right shoulder were obtained FINDINGS: BONES: On the transscapular Y view only there is a small focus of cortical disruption along the unde rsurface of the distal clavicle suspicious for an acute fracture, superimposed on an otherwise chroni c appearing healed fracture deformity of the distal clavicle which has healed in anatomic alignment. The AC joint is not significantly widened. The coracoclavicular distance is not appreciably widened . Chronic fracture deformity of the right humeral head and neck, with metallic internal fixation hardwa re, no definite acute superimposed fracture. The humeral alignment is normal and there is no discret e scapular/glenoid fracture. Chronic appearing irregular defect of the greater tubercle is noted. SOFT TISSUES: Negative. No visible soft tissue swelling. EFFUSION: None suggested. OTHER: Other Ganglia the imaged findings include a lower cervical spine fusion plate, a venous arvind ter terminating in the SVC, and electrodes which may be neuro stimulators. IMPRESSION: 1. On a single view there is question of an acute nondisplaced fracture of the distal clavicle super imposed upon what is otherwise a chronic, healed fracture deformity of the distal clavicle. 2. Chronic healed fracture deformity of the right humeral head and neck with internal fixation. No appreciable proximal humerus fracture by plain films. Report Dictated By: Xavi Vital at 08/19/2018 1:04 PM Report E-Signed By: Xavi Vital at 08/19/2018 1:10 PM [id number]
[2018-08-19 14:00] VITALS: BP 153/75
--- NOTE | 2018-08-19 14:00 | RADIOLOGY IMAGING REPORT ---
FACILITY: [facility] - [place] PATIENT NAME: Xin Tran : 1950 MR: [id number] V: [id number] EXAM DATE: [id number] ORDERING PHYSICIAN: SCOTT OSORIO TECHNOLOGIST: Location: [facility] Patient: Xin Tran : 1950 Visit/Account:[id number] Date of Sevice: 08/19/2018 EXAMINATION: CT Head without intravenous contrast CT Cervical spine without intravenous contrast HISTORY: Trauma. TECHNIQUE: Head: Axial images were obtained from the skull base to the vertex without intravenous contrast. Sa gittal and coronal reformatted images are also submitted. Cervical spine: Axial images were obtained from the skull base through the upper thoracic spine with out IV contrast administration. Coronal and sagittal reformatted images were obtained from the axial source data. One of the following dose optimization techniques was utilized in the performance of this exam: Autom ated exposure control; adjustment of the mA and/or kV according to the patient's size; or use of an i terative reconstruction technique. Specific details can be referenced in the facility's radiology C T exam operational policy. COMPARISON: 08/11/2018. FINDINGS: HEAD: Brain volume: Normal. Ventricles: Negative. Acute ischemic changes: None. Hemorrhage: None. Masses / edema: None. Abrams-white: Negative. White matter: Negative. Vessels: Negative. Extra-axial: Negative. Calvarium / skull base: Negative. Visualized sinuses / orbits: Moderate mucosal thickening in the maxillary sinuses, right worse than left. 1 cm nasal septal perforation. Rightward nasal septal deviation. CERVICAL SPINE: Alignment: 4 mm of retrolisthesis of C3 over C4 and C4 over C5. Cranio-cervical junction: Mild degenerative changes. Otherwise negative. Vertebral bodies: Degenerative endplate changes at a few levels. Stable mild chronic compression fra cture of T2. Posterior elements: Multilevel facet arthropathy. Hardware: Anterior fusion hardware at C5-C6 and C6-C7. No perihardware lucency. Partially imaged sp inal stimulator entering the spinal canal at T2-T3 and terminating in the left side of the spinal can al at C6. Disc Spaces: Multilevel degenerative disc disease. No definite solid fusion at C5-C6 or C6-C7. Soft tissues: No prevertebral soft tissue swelling. Retropharyngeal course of the carotid arteries. Calcified plaque in the carotid bulbs. Visualized upper chest: Partially imaged left chest wall port. IMPRESSION: 1. No acute intracranial abnormality. 2. No acute cervical spine fracture. 3. See above report for chronic findings. Report Dictated By: Ted Bartlett MD at 08/19/2018 1:44 PM Report E-Signed By: Ted Bartlett MD at 08/19/2018 1:54 PM WSN:[id number]
--- NOTE | 2018-08-19 14:01 | RADIOLOGY IMAGING REPORT ---
FACILITY: [facility] [place] PATIENT NAME: Xin Tran : 1950 MR: [id number] V: [id number] EXAM DATE: ORDERING PHYSICIAN: SCOTT OSORIO TECHNOLOGIST: Location: [facility] [place] Patient: Xin Tran : 1950 Visit/Account:[id number] Date of Sevice: 08/19/2018 EXAMINATION: CT Head without intravenous contrast CT Cervical spine without intravenous contrast HISTORY: Trauma. TECHNIQUE: Head: Axial images were obtained from the skull base to the vertex without intravenous contrast. Sa gittal and coronal reformatted images are also submitted. Cervical spine: Axial images were obtained from the skull base through the upper thoracic spine with out IV contrast administration. Coronal and sagittal reformatted images were obtained from the axial source data. One of the following dose optimization techniques was utilized in the performance of this exam: Autom ated exposure control; adjustment of the mA and/or kV according to the patient's size; or use of an i terative reconstruction technique. Specific details can be referenced in the facility's radiology C T exam operational policy. COMPARISON: 08/11/2018. FINDINGS: HEAD: Brain volume: Normal. Ventricles: Negative. Acute ischemic changes: None. Hemorrhage: None. Masses / edema: None. Abrams-white: Negative. White matter: Negative. Vessels: Negative. Extra-axial: Negative. Calvarium / skull base: Negative. Visualized sinuses / orbits: Moderate mucosal thickening in the maxillary sinuses, right worse than left. 1 cm nasal septal perforation. Rightward nasal septal deviation. CERVICAL SPINE: Alignment: 4 mm of retrolisthesis of C3 over C4 and C4 over C5. Cranio-cervical junction: Mild degenerative changes. Otherwise negative. Vertebral bodies: Degenerative endplate changes at a few levels. Stable mild chronic compression fra cture of T2. Posterior elements: Multilevel facet arthropathy. Hardware: Anterior fusion hardware at C5-C6 and C6-C7. No perihardware lucency. Partially imaged sp inal stimulator entering the spinal canal at T2-T3 and terminating in the left side of the spinal can al at C6. Disc Spaces: Multilevel degenerative disc disease. No definite solid fusion at C5-C6 or C6-C7. Soft tissues: No prevertebral soft tissue swelling. Retropharyngeal course of the carotid arteries. Calcified plaque in the carotid bulbs. Visualized upper chest: Partially imaged left chest wall port. IMPRESSION: 1. No acute intracranial abnormality. 2. No acute cervical spine fracture. 3. See above report for chronic findings. Report Dictated By: Ted Bartlett MD at 08/19/2018 1:44 PM Report E-Signed By: Ted Bartlett MD at 08/19/2018 1:54 PM WSN:[id number]
--- NOTE | 2018-08-19 14:01 | RADIOLOGY IMAGING REPORT ---
FACILITY: [facility] PATIENT NAME: Xin Tran : 1950 MR: [id number] V: [id number] EXAM DATE: [id number] ORDERING PHYSICIAN: SCOTT OSORIO TECHNOLOGIST: Location: [facility] [place] Patient: Xin Tran : 1950 Visit/Account:[id number] Date of Sevice: 08/19/2018 CT of the osseous pelvis without contrast Indication: Fall. Evaluate for fracture. Comparison: 01/06/2018 Technique: Axial CT images were obtained through the pelvis. Reformatted coronal and sagittal images were reviewed. One of the following dose optimization techniques was utilized in the performance of this exam: Autom ated exposure control; adjustment of the mA and/or kV according to the patient's size; or use of an i terative reconstruction technique. Specific details can be referenced in the facility's radiology C T exam operational policy. Findings: No acute fracture deformity is seen to involve the pelvis, sacrum or the proximal femora. There are f elt to be old healed fractures of the bilateral sacrum. These findings were seen on the prior study. 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 There has been prior antegrade nail removal from the proximal right femur. There is an old screw tract seen within the right femoral neck and head as well. This has a similar appearance to the prior scan. Correlate with operative history. With respect to the soft tissues, there is a stimulator type battery pack device within the subcutane ous tissues of the left buttock. Leads extend cephalad and outside the [id number]-[id number]. There is a colo stomy involving the left anterior pelvis. 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 Inferior vena cava filter is in place which is incomple tely evaluated. There has been prior hysterectomy. No free pelvic fluid. No well-defined soft tissue hematoma is identified. IMPRESSION: 1. No acute fracture of the bony pelvis, sacrum or proximal femora. 2. Postoperative changes as reported above. Report Dictated By: Dhaval Chacko at 08/19/2018 1:44 PM Report E-Signed By: Dhaval Chacko at 08/19/2018 1:55 PM WSN:[id number]
[2018-09-01] MEDS ORDERED: PRED-1 PO (17:15)
[2018-09-02] MEDS ORDERED: PRED-1 PO (12:51)
== END 2018-08-19 15:47 | disposition home or self-care (01) ==
LOC: ER 12:43
DX: S09.90XA Unspecified injury of head, initial encounter (principal); R10.2 Pelvic and perineal pain; W05.0XXA Fall from non-moving wheelchair, initial encounter
CPT/HCPCS: 70450; 72125; 72192; 73030; 99284; A4565

== ENCOUNTER → 2018-08-19 | Outpatient (CLI) | payer MEDICARE ==
[2018-03-11 12:31] VITALS: BMI 22.9
[~2018-08-19] MED LIST changes: +BENZ100C4 PO
== END ==
LOC: AMB 11:54
PROVIDERS: ATTEND Nurse Practitioner
DX: R51 Headache (principal); M25.551 Pain in right hip; W05.0XXA Fall from non-moving wheelchair, initial encounter; Z91.81 History of falling
CPT/HCPCS: A0425; A0429

== ENCOUNTER → 2018-08-19 | Outpatient (CLI) | payer MEDICARE ==
[2018-03-11 12:31] VITALS: BMI 22.9
== END ==
LOC: AMB 15:36
PROVIDERS: ATTEND Nurse Practitioner
DX: M25.511 Pain in right shoulder (principal); R53.1 Weakness
CPT/HCPCS: A0425; A0428

== ENCOUNTER 2018-08-24 11:40 | Emergency (ER) | payer MEDICARE ==
[2018-03-11 12:31] VITALS: Wt 55.3 kg
[~2018-08-24 11:40] MED LIST changes: -LIDO700A19 TP
--- NOTE | 2018-08-24 11:45 | ER Report ---
History and Physical Time Seen By MD: 11:44 HPI/ROS CHIEF COMPLAINT: Fall HISTORY OF PRESENT ILLNESS: This is a 67-year-old female who presents to the emergency department via EMS for a fall. Patient is a resident of the [facility], was sitting in her wheelchair this morning apparently had an unwitnessed fall forward, landed on the hard floor surface, where she sustained a hematoma and laceration to her right forehead. She may have also hit her right orbit and her shoulder. A similar injury and fall happened proximally 3 days ago. She does not recall the fall today. She is taking Xarelto for history of clots. She does have bruising to the right orbit, in multiple stages of healing. She also has another injury to the right forehead near the new laceration, this apparently was sustained 3 days ago. She also has a history of right shoulder pain, worse today. She also has some C-spine tenderness, she did arrive in a C collar. CMS intact. Denies chest pain or shortness of breath. No nausea or vomiting. No other complaints. REVIEW OF SYSTEMS: Constitutional: No fever, no chills. Eyes: No discharge. ENT: No sore throat. Cardiovascular: No chest pain, no palpitations. Respiratory: No cough, no shortness of breath. Gastrointestinal: No abdominal pain, no vomiting. Genitourinary: No hematuria. Musculoskeletal: As above. Skin: As above. Neurological: As above. Allergies: Coded Allergies: Sulfa (Sulfonamide Antibiotics) (Verified Allergy, Unknown, 08/19/18) allergic to cream only amitriptyline (Verified Allergy, Unknown, 08/19/18) aspirin (Verified Allergy, Unknown, 08/19/18) Home Meds Active Scripts Diphenoxylate Hcl/Atropine (LOMOTIL TABLET) 1 Each Tablet, 2 TAB PO QID, #180 TAB 4 Refills Prov:DARIO ROJAS MD 07/20/18 Potassium Chloride (POTASSIUM CHLORIDE) 20 Meq Tab.er.prt, 1 TAB PO BID for 30 Days, #30 TAB Prov:DARIO ROJAS MD 06/15/18 Acetaminophen (TYLENOL) 325 Mg Tablet, 1-2 TAB PO Q6H PRN for PAIN for 30 Days, TAB Prov:MONA GONZALES MD 03/14/18 Prednisone 10 Mg Tab (PREDNISONE 10 MG TAB) 10 Mg Tablet, 1 TAB PO QDAY for 30 Days, #30 TAB Prov:DARIO ROJAS MD 01/22/18 Pantoprazole Sodium (PANTOPRAZOLE SODIUM) 40 Mg Tablet.dr, 1 TAB PO QDAY for 30 Days, #30 TAB Prov:DARIO ROJAS MD 01/22/18 Trazodone Hcl (TRAZODONE HCL) 50 Mg Tablet, 1 TAB PO QHS for 30 Days, #30 TAB Prov:DARIO ROJAS MD 01/21/18 Reported Medications Benzonatate 100 Mg Cap (TESSALON PERLE 100 MG CAP) 100 Mg Capsule, 100 MG PO TID, #15 CAP 08/11/18 Triamcinolone Acetonide (Nasacort) 10.8 Ml Outing, 1 SPRAY NS BID for 30 Days, #1 BOT 05/04/18 Electrolyte,Oral (PEDIALYTE) 1,000 Ml Solution, 240 ML PO QID 04/09/18 Buprenorphine (Buprenorphine) 7.5 Mcg/Hour Patch.tdwk, 1 PATCH.WK TOP QWEEKF 04/09/18 Acetaminophen 500 Mg Tab (ACETAMINOPHEN EXTRA STRENGTH) 500 Mg Tablet, 2 TAB PO BID, TAB 04/09/18 Cholestyramine (With Sugar) (CHOLESTYRAMINE PACKET) 4 Gm Powd.pack, 4 GM PO QID 04/03/18 Venlafaxine Hcl (VENLAFAXINE HCL ER) 75 Mg Tab.er.24, 75 MG PO QDAY 04/01/18 Loperamide HCl (Imodium A-D) 2 Mg Capsule, 1 QID 03/09/18 Hydrocodone Bit/Acetaminophen (NORCO 5-325 TABLET) 1 Each Tablet, 1 EACH PO BID PRN for PAIN, TAB 03/05/18 Oxygen (OXYGEN) Inha, 3 L INH, L 2 Liters Continuous Oxygen and With CPap at HS 01/21/18 Protein Supplement (Protein Powder) 480 Gm Powder, 2 NOTSPEC PO TID 2 scoops of powder in 6-8oz of water between meals 01/21/18 Polyvinyl Alcohol (LIQUITEARS) 15 Ml Drops, 1 GTT OU PRN for dry eyes 01/09/18 Multivitamin (TAB-A-OMAR) 1 Each Tablet, 1 EACH PO QAM 01/07/18 Mag Hydrox/Al Hydrox/Simeth (MAALOX MAXIMUM STRENGTH SUSP) 355 Ml Oral.susp, 15 ML PO Q4H PRN for INDIGESTION 01/07/18 Nystatin 100,000 Unit/Gm Top Powder (NYSTATIN 100,000 UNIT/GM TOP POWDER) 15 Gm Powder, 15 GM TP BID 01/07/18 Tetrahydrozoline Hcl (EYE DROPS) 15 Ml Drops, 1 DROP OU PRN 01/07/18 Guaifenesin/Dextromethorphan (Robitussin Cough-Chest Dm Liq) 100 Mg-5 Mg/5 Ml Liquid, 5 ML PO Q4-6H PRN for COUGH 01/07/18 Menthol (BIOFREEZE) 118 Ml Gel..ml., 1 JARETT TOP TID PRN for PAIN 01/07/18 Calcium Polycarbophil (FIBER) 625 Mg Tablet, 2 TAB PO BID 01/07/18 Calcium Carbonate (Calcium Carbonate) 300 Mg Calcium (750 Mg) Tab.chew, 2 TAB PO PRN Not to exceed 10 tablets in 24 hours 01/07/18 Nifedipine (NIFEDIPINE ER) 30 Mg Tab.er.24, 1 TAB PO QDAY 01/07/18 Levothyroxine Sodium (SYNTHROID) 25 Mcg Tablet, 1 TAB PO QDAY 01/07/18 Fluticasone/Vilanterol 100/25 Mcg/Inh (BREO ELLIPTA 100/25 MCG) 1 Each Aer.pow.ba, 1 INH INH QDAY 01/07/18 Rivaroxaban 20 Mg (XARELTO 20 MG) 20 Mg Tablet, 1 TAB PO DAILY 01/06/18 Past Medical/Surgical History The patient has a past medical and surgical history of fibromyalgia, meningitis, TIA, seizures, headaches, atrial fibrillation, DVTs, clotting disorder, hypertension, pneumonia, COPD, continues use of oxygen, GERD, cholecystectomy, short gut syndrome, chronic diarrhea, fecal incontinence, ileostomy, overactive bladder, urinary tract infections, right shoulder fracture, right hip fracture, left lower leg fracture, wears glasses, hyponatremia, Bibiana's disease, pulmonary embolus, MRSA, depression, anxiety, bipolar, major depressive disorder, breast cancer, metastasis, hysterectomy, cervical spine fusion, right shoulder surgery. Hx Smoking: Yes Smoking Status: Former Smoker Hx Substance Use Disorder: No Hx Alcohol Use: No Constitutional Vital Sign - Last 24 Hours 08/24/18 08/24/18 08/24/1808/24/19 11:50 12:10 12:40 14:30 Temp 98.0 Pulse 83 83 80 88 Resp 16 B/P (MAP) 138/73 146/82 (103) Pulse Ox 98 98 99 97 O2 Delivery Nasal Cannula Nasal Cannula Physical Exam General Appearance: The patient is alert, has no immediate need for airway protection and no signs of toxicity. Eyes: 3 mm pupils, equal round and reactive, EOMs intact, no nystagmus. ENT, Mouth: Mucous membranes are moist. Respiratory: There are no retractions, lungs are clear to auscultation. Cardiovascular: Regular rate and rhythm. No murmurs, clicks or rubs. Gastrointestinal: Abdomen is soft and non tender, no masses, bowel sounds no rmal. Neurological: Alert and oriented 4. Moving all extremities. Following all commands. No focal neuro deficits. Skin: Hematoma to the right forehead, contusion to the right forehead and right orbit, in multiple stages of healing. Scabbed over wound on the right lateral forehead from 3 days ago. New 1.5 cm laceration to the right forehead, bleeding controlled. Musculoskeletal: Tenderness to the cervical spine, no crepitus or obvious deformities. Extremities right shoulder discomfort with palpation, no bruising, crepitus or obvious deformities. DIFFERENTIAL DIAGNOSIS: After history and physical exam differential diagnosis w as considered for headache including but not limited to subarachnoid hemorrhage, migraine headache, tension headache and infectious causes such as meningitis, pharyngitis and sinusitis. Medical Decision Making EKG/Imaging Imaging PATIENT NAME: Xin Tran : 1950 MR: [id number] V: [id number] EXAM DATE: ORDERING PHYSICIAN: JOHAN BARRIOS TECHNOLOGIST: Location: [facility] Patient: Xin Tran : 1950 Visit/Account:[id number] Date of Sevice: 08/24/2018 Technique: SHOULDER MIN 2 VIEWS RIGHT HISTORY: Fall Comparison studies: Right shoulder radiographs 2019 FINDINGS: Redemonstrated is an acute on chronic fracture involving the distal clavicle. Extensive postoperative hardware overlies the right humeral head extending into the proximal humeral diaphysis. The alignment of the right shoulder is preserved. IMPRESSION: 1. Unchanged acute on chronic fracture involving the distal right clavicle. Report Dictated By: Isra Schmidt DO at 08/24/2018 1:12 PM Report E-Signed By: Isra Schmidt DO at 08/24/2018 1:15 PM WSN:[id number] FACILITY: [facility] PATIENT NAME: Xin Tran : 1950 MR: [id number] V: [id number] EXAM DATE: ORDERING PHYSICIAN: JOHAN BARRIOS TECHNOLOGIST: Location: [facility] Patient: Xin Tran : 1950 Visit/Account:[id number] Date of Sevice: 08/24/[address] scan without contrast HISTORY: Fall, on Xarelto COMPARISONS: August 19, 2018 TECHNIQUE: Non-contrast head CT was performed with sagittal and coronal reformations. One of the following dose optimization techniques was utilized in the performance of this exam: automated exposure control; adjustment of the mA and/or kV according to patient size; or use of iterative reconstruction technique. Specific details can be referenced in the facility's radiology CT exam operational policy. FINDINGS: There is no intracranial hemorrhage, hydrocephalus or midline shift. The basal cisterns, corcoran-white differentiation, and convexity sulci are maintained. Normal orbital soft tissues. Right frontal scalp swelling and scalp soft tissue gas. Mild unchanged patchy white matter hypoattenuation. Trace sphenoid sinus secretions. Moderate right maxillary sinus mucosal thickeni ng. No acute osseous abnormality. IMPRESSION: No acute intracranial abnormality. Right frontal scalp laceration. Report Dictated By: Delroy Dan MD at 08/24/2018 1:37 PM Report E-Signed By: Delroy Dan MD at 08/24/2018 1:41 PM WSN:[email or web address] PATIENT NAME: Xin Tran : 1950 MR: [id number] V: [id number] EXAM DATE: ORDERING PHYSICIAN: JOHAN BARRIOS TECHNOLOGIST: Location: [facility] Patient: Xin Tran : 1950 Visit/Account:[id number] Date of Sevice: 08/24/2018 EXAMINATION: CT facial bones without IV contrast HISTORY: Fall COMPARISON: August 11, 2018 TECHNIQUE: Axial images were obtained through the facial bones. Coronal and sagittal reformatted images were generated from the source data. No IV contrast was administered. One of the following dose optimization techniques was utilized in the performance of this exam: automated exposure control; adjustment of the mA and/or kV according to patient size; or use of iterative reconstruction technique. Specific details can be referenced in the facility's radiology CT exam operational policy. FINDINGS: Mastoid air cells and sinuses: Clear mastoid air cells. Trace new sphenoid sinus secretions. Moderate right maxillary sinus mucosal thickening has increased. Resolution of the previously seen maxillary sinus fluid. Osseous structures including mandible and orbital beauchamp: Midline nasal bone fracture deformity appears less displaced compared to prior. Unchanged rightward nasal septum deviation. Visible soft tissues including orbital soft tissues and upper neck: Right fr ontal scalp swelling and soft tissue gas. Visible intracranial structures: Normal. IMPRESSION: 1. Midline nasal bone fracture deformity appears less displaced compared to prior. 2. No new fracture. 3. Right frontal scalp laceration. 4. Trace new sphenoid sinus secretions. 5. Resolution of previously seen bilateral maxillary sinus fluid. Moderate new right maxillary sinus mucosal thickening. Report Dictated By: Delroy Dan MD at 08/24/2018 1:48 PM Report E-Signed By: Delroy Dan MD at 08/24/2018 1:55 PM WSN:[email or web address] PATIENT NAME: Xin Tran : 1950 MR: [id number] V: [id number] EXAM DATE: ORDERING PHYSICIAN: JOHAN BARRIOS TECHNOLOGIST: Location: [facility] Patient: Xin Tran : 1950 Visit/Account:[id number] Date of Sevice: 08/24/2018 EXAMINATION: CT Cervical spine without intravenous contrast HISTORY: Fall COMPARISON: August 19, 2018 TECHNIQUE: Axial images were obtained from the skull base through the upper thoracic spine without IV contrast administration. Coronal and sagittal reformatted images were generated from the axial source data. One of the following dose optimization techniques was utilized in the performance of this exam: automated exposure control; adjustment of the mA and/or kV according to patient size; or use of iterative reconstruction technique. Specific details can be referenced in the facility's radiology CT exam operational policy. FINDINGS: Vertebral bodies and posterior elements: Normal cervical vertebral body heights. No acute fracture or osseous destruction. Multilevel facet arthropathy. Unchanged chronic T2 wedge compression deformity. Unchanged subchondral cyst within the left C3 articular pillar. Alignment: Unchanged retrolisthesis of C3 3 on C4 and C4 on C5. Disc Spaces: Unchanged severe C3-4 and C4-5 disc space degeneration. Unchanged C5-6 and C6-7 disc space prostheses. Multilevel degenerative foraminal narrowing. Hardware: Unchanged anterior fusion hardware extends from C5 through C7. The hardware is intact without evidence of loosening. Other: Spinal stimulator lead extends into the canal posteriorly at the T2-3 disc space level. At the mid C6 level. Soft tissues: Normal. Visualized upper chest: Left upper lobe 7 mm nodule is more completely imaged on this exam. IMPRESSION: 1. No acute finding in the cervical spine. 2. Unchanged chronic cervical findings as described above. 3. 7 mm left upper lobe pulmonary nodule is more completely imaged on this exam. Follow-up may be warranted based on Fleischner criteria described below. FLEISCHNER SOCIETY FOLLOW-UP GUIDELINES FOR NEWLY DETECTED INCIDENTAL NODULES IN PERSONS 35 YEARS OF AGE OR OLDER. *These recommendations do NOT apply to lung cancer screening, patients with immunosuppression or patients with a known primary malignancy. NODULE(S) IDENTIFIED ON INCOMPLETE CHEST If nodule size is < 6 mm: * No further investigation on the basis of the estimated low risk of maligna ncy. If nodule size is 6-8 mm: * Follow-up CT of the complete chest after 3-12 months (depending on clinical risk), to confirm stability and to evaluate additional findings. If nodule size is > 8 mm or otherwise very suspicious: * Dedicated complete thoracic CT recommended. LOW RISK PATIENT: Minimal or absent history of tobacco use and of other known risk factors. HIGH RISK PATIENT: Tobacco use, family history of lung cancer, upper pulmonary lobe location of nodule, presence of emphysema, pulmonary fibrosis, older age. Monica H, John DP, Ketan RIDDLE, et al. Guidelines for Management of Incidental Pulmonary Nodules Detected on CT Images: From the Fleischner Society 2017. Radiology. Report Dictated By: Delroy Dan MD at 08/24/2018 1:41 PM Report E-Signed By: Delroy Dan MD at 08/24/2018 1:48 PM WSN:[email or web address] ED Course/Re-evaluation ED Course Patient was admitted to room. A history of physical were obtained. Differential diagnoses were considered. A CT of the brain, facial bones, cervical spine were negative for any acute abnormalities. Right shoulder x-ray negative for any acute abnormalities. Results were reviewed with the patient. The wound was repaired as noted below, patient tolerated well. Patient does have a follow-up appointment scheduled with Dr. Rojas for reevaluation this coming Friday. I did suggest to the patient perhaps they could find a reclining wheelchair that would help prevent her from falling forward. Patient's built speak with Dr. Marck kline and the [facility] staff about the suggestion. She had no other questions or concerns at this time and discharged home. 08/24/2018 2:10:25 pm no acute findings on C-spine CT, c-collar was removed, no concerns with flexion, extension and rotation for right to left. I did review the results with the patient, I did tell her that there was a nodule noted on her long, she said she will follow-up with Dr. Rojas this week for reevaluation. Procedure: Laceration repair. Verbal consent was obtained from the patient. The 1.5 cm laceration on the right forehead was anesthetized in the usual fashion. The wound was scrubbed, draped and explored to its base with a gloved finger. There were no deep structures involved. No tendon injury was identified. The wound was repaired with 5, 5-0 Prolene simple interrupted sutures. The wound repair was simple. The procedure was performed by myself. Decision to Disposition Date: August 24, 2018 Decision to Disposition Time: 14:11 Depart Departure Latest Vital Signs Vital Signs Date Time Temp Pulse Resp B/P (MAP) Pulse Ox O2 Delivery O2 Flow Rate FiO2 08/24/18 14:30 88 146/82 (103) 97 Nasal Cannula 08/24/18 11:50 98.0 16 Impression: Primary Impression: Fall from wheelchair Additional Impressions: Forehead laceration Traumatic hematoma of forehead Contusion Condition: Improved Disposition: HOME OR SELF-CARE Referrals: DARIO ROJAS MD (PCP) 2 Days Patient Instructions: Acute Wound Care (ED), Contusion in Adults (ED), Facial Laceration (ED) Additional Instructions: Keep wound dry for 48 hours. Follow up with your primary care provider in the next 6 days to have sutures removed. Monitor for signs of infection; redness, swelling, heat, discharge, increasing pain or red streaking. Take Tylenol or Ibuprofen as needed for pain. Return to the ER with any concerns. You may change dressing as needed. There was also a nodule noted on your lung, please discuss this with Dr. Rojas when you follow-up Friday. Problem Qualifiers Primary Impression: Fall from wheelchair Encounter type: initial encounter Qualified Codes: W05.0XXA - Fall from non-moving wheelchair, initial encounter Additional Impressions: Forehead laceration Encounter type: initial encounter Qualified Codes: S01.81XA - Laceration without foreign body of other part of head, initial encounter Traumatic hematoma of forehead Encounter type: initial encounter Qualified Codes: S00.83XA - Contusion of other part of head, initial encounter Contusion Encounter type: initial encounter Contusion area: head Contusion of head detail: orbital tissues Laterality: right Qualified Codes: S05.11XA - Contusion of eyeball and orbital tissues, right eye, initial encounter JOHAN BARRIOS AUTO TRANSMISSION TECHNICIAN-BC August 24, 2018 11:45
--- NOTE | 2018-08-24 13:18 | RADIOLOGY IMAGING REPORT ---
FACILITY: [facility] [place] PATIENT NAME: Xin Tran : 1950 MR: [id number] V: [id number] EXAM DATE: ORDERING PHYSICIAN: JOHAN BARRIOS TECHNOLOGIST: Location: [facility] [place] Patient: Xin Tran : 1950 Visit/Account:[id number] Date of Sevice: 08/24/2018 Technique: SHOULDER MIN 2 VIEWS RIGHT HISTORY: Fall Comparison studies: Right shoulder radiographs 2019 FINDINGS: Redemonstrated is an acute on chronic fracture involving the distal clavicle. Extensive po stoperative hardware overlies the right humeral head extending into the proximal humeral diaphysis. The alignment of the right shoulder is preserved. IMPRESSION: 1. Unchanged acute on chronic fracture involving the distal right clavicle. Report Dictated By: Isra Schmidt DO at 08/24/2018 1:12 PM Report E-Signed By: Isra Schmidt DO at 08/24/2018 1:15 PM WSN:[id number]
--- NOTE | 2018-08-24 13:45 | RADIOLOGY IMAGING REPORT ---
FACILITY: [facility] [place] PATIENT NAME: Xin Tran : 1950 MR: [id number] V: [id number] EXAM DATE: ORDERING PHYSICIAN: JOHAN BARRIOS TECHNOLOGIST: Location: [facility] Patient: Xin Tran : 1950 Visit/Account:[id number] Date of Sevice: 08/24/[address] scan without contrast HISTORY: Fall, on Xarelto COMPARISONS: August 19, 2018 TECHNIQUE: Non-contrast head CT was performed with sagittal and coronal reformations. One of the following dose optimization techniques was utilized in the performance of this exam: autom ated exposure control; adjustment of the mA and/or kV according to patient size; or use of iterative reconstruction technique. Specific details can be referenced in the facility's radiology CT exam ope rational policy. FINDINGS: There is no intracranial hemorrhage, hydrocephalus or midline shift. The basal cisterns, corcoran-white differentiation, and convexity sulci are maintained. Normal orbital soft tissues. Right frontal scalp swelling and scalp soft tissue gas. Mild unchanged patchy white matter hypoattenuation. Trace sphenoid sinus secretions. Moderate right maxillary sinus mucosal thickening. No acute osseous abnormality. IMPRESSION: No acute intracranial abnormality. Right frontal scalp laceration. Report Dictated By: Delroy Dan MD at 08/24/2018 1:37 PM Report E-Signed By: Delory Dan MD at 08/24/2018 1:41 PM WSN:[email or web address]
--- NOTE | 2018-08-24 13:51 | RADIOLOGY IMAGING REPORT ---
FACILITY: [facility] [place] PATIENT NAME: Xin Tran : 1950 MR: [id number] V: [id number] EXAM DATE: ORDERING PHYSICIAN: JOHAN BARRIOS TECHNOLOGIST: Location: [facility] Patient: Xin Tran : 1950 Visit/Account:[id number] Date of Sevice: 08/24/2018 EXAMINATION: CT Cervical spine without intravenous contrast HISTORY: Fall COMPARISON: August 19, 2018 TECHNIQUE: Axial images were obtained from the skull base through the upper thoracic spine without I V contrast administration. Coronal and sagittal reformatted images were generated from the axial sour ce data. One of the following dose optimization techniques was utilized in the performance of this exam: autom ated exposure control; adjustment of the mA and/or kV according to patient size; or use of iterative reconstruction technique. Specific details can be referenced in the facility's radiology CT exam ope rational policy. FINDINGS: Vertebral bodies and posterior elements: Normal cervical vertebral body heights. No acute fracture o r osseous destruction. Multilevel facet arthropathy. Unchanged chronic T2 wedge compression deformity . Unchanged subchondral cyst within the left C3 articular pillar. Alignment: Unchanged retrolisthesis of C3 3 on C4 and C4 on C5. Disc Spaces: Unchanged severe C3-4 and C4-5 disc space degeneration. Unchanged C5-6 and C6-7 disc spa ce prostheses. Multilevel degenerative foraminal narrowing. Hardware: Unchanged anterior fusion hardware extends from C5 through C7. The hardware is intact witho ut evidence of loosening. Other: Spinal stimulator lead extends into the canal posteriorly at the T2-3 disc space level. At the mid C6 level. Soft tissues: Normal. Visualized upper chest: Left upper lobe 7 mm nodule is more completely imaged on this exam. IMPRESSION: 1. No acute finding in the cervical spine. 2. Unchanged chronic cervical findings as described above. 3. 7 mm left upper lobe pulmonary nodule is more completely imaged on this exam. Follow-up may be war ranted based on Fleischner criteria described below. FLEISCHNER SOCIETY FOLLOW-UP GUIDELINES FOR NEWLY DETECTED INCIDENTAL NODULES IN PERSONS 35 YEARS OF AGE OR OLDER. *These recommendations do NOT apply to lung cancer screening, patients with immunosuppression or mookie ents with a known primary malignancy. NODULE(S) IDENTIFIED ON INCOMPLETE CHEST If nodule size is < 6 mm: * No further investigation on the basis of the estimated low risk of malignancy. If nodule size is 6-8 mm: * Follow-up CT of the complete chest after 3-12 months (depending on clinical risk), to confirm stab ility and to evaluate additional findings. If nodule size is > 8 mm or otherwise very suspicious: * Dedicated complete thoracic CT recommended. LOW RISK PATIENT: Minimal or absent history of tobacco use and of other known risk factors. HIGH RISK PATIENT: Tobacco use, family history of lung cancer, upper pulmonary lobe location of nodul e, presence of emphysema, pulmonary fibrosis, older age. Monica H, John DP, Daveo JM, et al. Guidelines for Management of Incidental Pulmonary Nodules Dete cted on CT Images: From the Fleischner Society 2017. Radiology. Report Dictated By: Delroy Dan MD at 08/24/2018 1:41 PM Report E-Signed By: Delroy Dan MD at 08/24/2018 1:48 PM WSN:[email or web address]
--- NOTE | 2018-08-24 14:00 | RADIOLOGY IMAGING REPORT ---
FACILITY: [facility] PATIENT NAME: Xin Tran : 1950 MR: [id number] V: [id number] EXAM DATE: ORDERING PHYSICIAN: JOHAN BARRIOS TECHNOLOGIST: [place] [facility] [place] Patient: Xin Tran : 1950 Visit/Account:[id number] Date of Sevice: 08/24/2018 EXAMINATION: CT facial bones without IV contrast HISTORY: Fall COMPARISON: August 11, 2018 TECHNIQUE: Axial images were obtained through the facial bones. Coronal and sagittal reformatted adam ges were generated from the source data. No IV contrast was administered. One of the following dose optimization techniques was utilized in the performance of this exam: autom ated exposure control; adjustment of the mA and/or kV according to patient size; or use of iterative reconstruction technique. Specific details can be referenced in the facility's radiology CT exam ope rational policy. FINDINGS: Mastoid air cells and sinuses: Clear mastoid air cells. Trace new sphenoid sinus secretions. Moderat e right maxillary sinus mucosal thickening has increased. Resolution of the previously seen maxillary sinus fluid. Osseous structures including mandible and orbital beauchamp: Midline nasal bone fracture deformity appear s less displaced compared to prior. Unchanged rightward nasal septum deviation. Visible soft tissues including orbital soft tissues and upper neck: Right frontal scalp swelling and soft tissue gas. Visible intracranial structures: Normal. IMPRESSION: 1. Midline nasal bone fracture deformity appears less displaced compared to prior. 2. No new fracture. 3. Right frontal scalp laceration. 4. Trace new sphenoid sinus secretions. 5. Resolution of previously seen bilateral maxillary sinus fluid. Moderate new right maxillary sinus mucosal thickening. Report Dictated By: Delroy Dan MD at 08/24/2018 1:48 PM Report E-Signed By: Delroy Dan MD at 08/24/2018 1:55 PM WSN:[id number]
[2018-08-24 14:30] VITALS: BP 146/82
== END 2018-08-24 14:45 | disposition home or self-care (01) ==
LOC: ER 11:48
DX: S01.81XA Laceration without foreign body of other part of head, initial encounter (principal); S00.83XA Contusion of other part of head, initial encounter; S05.11XA Contusion of eyeball and orbital tissues, right eye, initial encounter; Z79.01 Long term (current) use of anticoagulants; W05.0XXA Fall from non-moving wheelchair, initial encounter
CPT/HCPCS: 12011; 70450; 70486; 72125; 73030; 99284; A4565

== ENCOUNTER → 2018-08-24 | Outpatient (CLI) | payer MEDICARE ==
[2018-03-11 12:31] VITALS: BMI 22.9
[~2018-08-24] MED LIST changes: +LIDO700A19 TP
== END ==
LOC: AMB 14:38
PROVIDERS: ATTEND Nurse Practitioner
DX: Z99.81 Dependence on supplemental oxygen (principal); Z74.01 Bed confinement status
CPT/HCPCS: A0425; A0428

== ENCOUNTER → 2018-08-24 | Outpatient (CLI) | payer MEDICARE ==
[2018-03-11 12:31] VITALS: BMI 22.9
== END ==
LOC: AMB 11:25
PROVIDERS: ATTEND Nurse Practitioner
DX: S01.111A Laceration without foreign body of right eyelid and periocular area, initial encounter (principal); W19.XXXA Unspecified fall, initial encounter
CPT/HCPCS: A0425; A0429

== ENCOUNTER 2018-09-01 17:56 | Inpatient (IN) | payer MEDICARE ==
[~2018-09-01] VITALS: Ht 157.5 cm; Wt 56.0 kg
[~2018-09-01 17:56] MED LIST changes: -0.92DISP2 IV; -LIDO700A19 TP; -PRE1 PO; -TRAZ50TA34 PO; +TRAZ50TA52 PO; -VENL37.514 PO; -[UNRECOGNIZED DRUG - CODE] IV
[2018-09-01] MEDS ORDERED: LIDO700A19 TP (18:03)
--- NOTE | 2018-09-01 18:10 | ER Report ---
History and Physical Time Seen By MD: 18:10 HPI/ROS CHIEF COMPLAINT: Critical labs HISTORY OF PRESENT ILLNESS: This is a 67-year-old female presents to the emergency department from the [facility] for a critical lab values. Patient has been seen and evaluated in the emergency room several times last couple months for recurrent falls, she saw her primary care provider today, had sutures removed from the right forehead, has been doing well since she was sent home last week. They did some routine laboratory studies today, her hemoglobin was noted to have fallen from 12.3-7.5. She states she's had increased shortness of breath some mild chest discomfort, she denies significant amounts of gross blood from her ileostomy however she states that when they do clean that she notes that it does bleed and is uncomfortable. No vomiting or any other complaints. No fevers or chills. REVIEW OF SYSTEMS: Constitutional: No fever, no chills. Eyes: No discharge. ENT: No sore throat. Cardiovascular: As above. Respiratory: As above. Gastrointestinal: As above. Genitourinary: No hematuria. Musculoskeletal: No back pain. Skin: No rashes. Neurological: No headache. Allergies: Coded Allergies: Sulfa (Sulfonamide Antibiotics) (Verified Allergy, Unknown, 09/01/18) allergic to cream only amitriptyline (Verified Allergy, Unknown, 09/01/18) aspirin (Verified Allergy, Unknown, 09/01/18) Home Meds Active Scripts Prednisone 10 Mg Tab (PREDNISONE 10 MG TAB) 10 Mg Tablet, 8 MG PO QDAY for 30 Days, #30 TAB Prov:DARIO ROJAS MD 09/01/18 Diphenoxylate Hcl/Atropine (LOMOTIL TABLET) 1 Each Tablet, 2 TAB PO QID, #180 TAB 4 Refills Prov:DARIO ROJAS MD 07/20/18 Potassium Chloride (POTASSIUM CHLORIDE) 20 Meq Tab.er.prt, 1 TAB PO BID for 30 Days, #30 TAB Prov:DARIO ROJAS MD 06/15/18 Acetaminophen (TYLENOL) 325 Mg Tablet, 1-2 TAB PO Q6H PRN for PAIN for 30 Days, TAB Prov:MONA GONZALES MD 03/14/18 Pantoprazole Sodium (PANTOPRAZOLE SODIUM) 40 Mg Tablet.dr, 1 TAB PO QDAY for 30 Days, #30 TAB Prov:DARIO ROJAS MD 01/22/18 Trazodone Hcl (TRAZODONE HCL) 50 Mg Tablet, 1 TAB PO QHS for 30 Days, #30 TAB Prov:DARIO ROJAS MD 01/21/18 Reported Medications Lidocaine (Lidocaine) 5 % Adh..patch, 1 PATCH.24H TP DAILY apply in am and remove 12 hours later 09/01/18 Benzonatate 100 Mg Cap (TESSALON PERLE 100 MG CAP) 100 Mg Capsule, 100 MG PO TID, #15 CAP 08/11/18 Triamcinolone Acetonide (Nasacort) 10.8 Ml [place], 1 SPRAY NS BID for 30 Days, #1 BOT 05/04/18 Electrolyte,Oral (PEDIALYTE) 1,000 Ml Solution, 240 ML PO QID 04/09/18 Buprenorphine (Buprenorphine) 7.5 Mcg/Hour Patch.tdwk, 1 PATCH.WK TOP QWEEKF 04/09/18 Acetaminophen 500 Mg Tab (ACETAMINOPHEN EXTRA STRENGTH) 500 Mg Tablet, 2 TAB PO BID, TAB 04/09/18 Cholestyramine (With Sugar) (CHOLESTYRAMINE PACKET) 4 Gm Powd.pack, 4 GM PO QID 04/03/18 Venlafaxine Hcl (VENLAFAXINE HCL ER) 75 Mg Tab.er.24, 0.5 TAB PO QDAY 04/01/18 Loperamide HCl (Imodium A-D) 2 Mg Capsule, 1 QID 03/09/18 Hydrocodone Bit/Acetaminophen (NORCO 5-325 TABLET) 1 Each Tablet, 1 EACH PO BID PRN for PAIN, TAB 03/05/18 Oxygen (OXYGEN) Inha, 3 L INH, L 2 Liters Continuous Oxygen and With CPap at HS 01/21/18 Protein Supplement (Protein Powder) 480 Gm Powder, 2 NOTSPEC PO TID 2 scoops of powder in 6-8oz of water between meals 01/21/18 Polyvinyl Alcohol (LIQUITEARS) 15 Ml Drops, 1 GTT OU PRN for dry eyes 01/09/18 Multivitamin (TAB-A-OMAR) 1 Each Tablet, 1 EACH PO QAM 01/07/18 Mag Hydrox/Al Hydrox/Simeth (MAALOX MAXIMUM STRENGTH SUSP) 355 Ml Oral.susp, 15 ML PO Q4H PRN for INDIGESTION 01/07/18 Nystatin 100,000 Unit/Gm Top Powder (NYSTATIN 100,000 UNIT/GM TOP POWDER) 15 Gm Powder, 15 GM TP BID 01/07/18 Tetrahydrozoline Hcl (EYE DROPS) 15 Ml Drops, 1 DROP OU PRN 01/07/18 Guaifenesin/Dextromethorphan (Robitussin Cough-Chest Dm Liq) 100 Mg-5 Mg/5 Ml Liquid, 5 ML PO Q4-6H PRN for COUGH 01/07/18 Calcium Polycarbophil (FIBER) 625 Mg Tablet, 2 TAB PO BID 01/07/18 Calcium Carbonate (Calcium Carbonate) 300 Mg Calcium (750 Mg) Tab.chew, 2 TAB PO PRN Not to exceed 10 tablets in 24 hours 01/07/18 Nifedipine (NIFEDIPINE ER) 30 Mg Tab.er.24, 1 TAB PO QDAY 01/07/18 Levothyroxine Sodium (SYNTHROID) 25 Mcg Tablet, 1 TAB PO QDAY 01/07/18 Fluticasone/Vilanterol 100/25 Mcg/Inh (BREO ELLIPTA 100/25 MCG) 1 Each Aer.pow.ba, 1 INH INH QDAY 01/07/18 Rivaroxaban 20 Mg (XARELTO 20 MG) 20 Mg Tablet, 1 TAB PO DAILY 01/06/18 Discontinued Reported Medications Menthol (BIOFREEZE) 118 Ml Gel..ml., 1 JARETT TOP TID PRN for PAIN 01/07/18 Past Medical/Surgical History The patient has a past medical and surgical history of fibromyalgia, meningitis, TIA, seizures, headaches, atrial fibrillation, DVTs, clotting disorder, hypertension, pneumonia, COPD, continues use of oxygen, GERD, cholecystectomy, short gut syndrome, chronic diarrhea, fecal incontinence, ileostomy, overactive bladder, urinary tract infections, right shoulder fracture, right hip fracture, left lower leg fracture, wears glasses, hyponatremia, Bibiana's disease, pulmonary embolus, MRSA, depression, anxiety, bipolar, major depressive disorder, breast cancer, metastasis, hysterectomy, cervical spine fusion, right shoulder surgery. Reviewed Nurses Notes: Yes Hx Smoking: Yes Smoking Status: Former Smoker Hx Substance Use Disorder: No Hx Alcohol Use: No Constitutional Vital Sign - Last 24 Hours 09/01/18 09/01/18 09/01/18 09/01/18 18:11 18:11 18:14 18:26 Temp 99.0 Pulse ??? 78 86 Resp 20 B/P (MAP) 143/67 (92) 143/67 Pulse Ox 98 99 O2 Delivery Nasal Cannula O2 Flow Rate 4.0 09/01/18 09/01/18 09/01/18 09/01/18 18:30 18:41 18:56 19:00 Pulse 85 87 B/P (MAP) 142/67 (92) 134/65 (88) Pulse Ox 98 98 09/01/18 09/01/18 09/01/18 09/01/18 19:11 19:26 19:30 19:41 Pulse 83 81 82 B/P (MAP) 132/60 (84) Pulse Ox 98 97 96 09/01/18 09/01/18 09/01/18 09/01/18 19:46 20:00 20:01 20:16 Pulse 83 78 78 B/P (MAP) 135/54 (81) Pulse Ox 97 98 98 09/01/18 09/01/18 09/01/18 09/01/18 20:30 20:31 20:46 21:00 Pulse 78 77 B/P (MAP) 135/63 (87) 127/56 (79) Pulse Ox 98 97 09/01/18 09/01/18 09/01/18 09/01/18 21:01 21:16 21:30 21:31 Pulse 74 69 ??? B/P (MAP) 123/54 (77) Pulse Ox 97 100 83 09/01/18 09/01/18 21:36 21:51 Pulse 73 68 Pulse Ox 100 99 Physical Exam General Appearance: The patient is alert, has no immediate need for airway protection and no signs of toxicity. Eyes: Pupils equal and round no pallor or injection. ENT, Mouth: Mucous membranes are pale and moist. Respiratory: There are no retractions, lungs are clear to auscultation. Cardiovascular: Regular rate and rhythm. No murmurs, clicks or rubs. Gastrointestinal: Abdomen is soft, generalized tenderness, this is typical for the patient, ileostomy to the right lower quadrant, no masses, bowel sounds normal. Neurological: Alert and oriented 4. Moving all extremities. Following all commands. No focal neuro deficits. Skin: Warm and dry, no rashes. Musculoskeletal: Neck is supple non tender. Extremities are nontender, nonswollen and have full range of motion. DIFFERENTIAL DIAGNOSIS: After history and physical exam differential diagnosis was considered for upper GI bleed, lower GI bleed, intussusception, bowel obstruction, failure of forensic medical examiner an appliance. Medical Decision Making Data Points Result Diagram: 09/01/18191909/01/181919 Laboratory Hematology Test 09/01/18 19:20 09/01/18 19:56 Red Blood Count 3.40 M/uL (4.17-5.56) Mean Corpuscular Volume 73.8 fL (80.0-96.0) Mean Corpuscular Hemoglobin 22.5 pg (26.0-33.0) Mean Corpuscular Hemoglobin Concent 30.5 g/dL (32.0-36.0) Red Cell Distribution Width 16.5 % (11.5-14.5) Mean Platelet Volume 7.2 fL (7.2-11.1) Neutrophils (%) (Auto) 74.1 % (39.4-72.5) Lymphocytes (%) (Auto) 16.6 % (17.6-49.6) Monocytes (%) (Auto) 7.6 % (4.1-12.4) Eosinophils (%) (Auto) 0.5 % (0.4-6.7) Basophils (%) (Auto) 1.2 % (0.3-1.4) Nucleated RBC Relative Count (auto) 0.1 /100WBC Neutrophils # (Auto) 5.4 K/uL (2.0-7.4) Lymphocytes # (Auto) 1.2 K/uL (1.3-3.6) Monocytes # (Auto) 0.6 K/uL (0.3-1.0) Eosinophils # (Auto) 0.0 K/uL (0.0-0.5) Basophils # (Auto) 0.1 K/uL (0.0-0.1) Nucleated RBC Absolute Count (auto) 0.01 K/uL Prothrombin Time 15.2 seconds (12.0-14.4) Prothromb Time International Ratio 1.19 Activated Partial Thromboplast Time 27 seconds (23-35) Sodium Level 142 mmol/L (137-145) Potassium Level 4.3 mmol/L (3.5-5.0) Chloride Level 107 mmol/L (98-107) Carbon Dioxide Level 21 mmol/L (22-31) Blood Urea Nitrogen 14 mg/dl (7-18) Creatinine 0.80 mg/dl (0.52-1.04) Glomerular Filtration Rate Calc > 60.0 Random Glucose 105 mg/dl (75-110) Calcium Level 8.8 mg/dl (8.4-10.2) Total Bilirubin < 0.1 mg/dl (0.2-1.3) Aspartate Amino Transf (AST/SGOT) 26 U/L (0-35) Alanine Aminotransferase (ALT/SGPT) 27 U/L (0-56) Alkaline Phosphatase 83 U/L (0-126) Total Protein 6.5 g/dl (6.3-8.2) Albumin 3.7 g/dl (3.5-5.0) Stool Occult Blood (IFOB) Positive (NEGATIVE) Chemistry Test 09/01/18 19:20 09/01/18 19:56 White Blood Count 7.3 k/uL (4.5-11.0) Red Blood Count 3.40 M/uL (4.17-5.56) Hemoglobin 7.6 g/dL (12.0-16.0) Hematocrit 25.1 % (34.0-47.0) Mean Corpuscular Volume 73.8 fL (80.0-96.0) Mean Corpuscular Hemoglobin 22.5 pg (26.0-33.0) Mean Corpuscular Hemoglobin Concent 30.5 g/dL (32.0-36.0) Red Cell Distribution Width 16.5 % (11.5-14.5) Platelet Count 320 K/uL (150-450) Mean Platelet Volume 7.2 fL (7.2-11.1) Neutrophils (%) (Auto) 74.1 % (39.4-72.5) Lymphocytes (%) (Auto) 16.6 % (17.6-49.6) Monocytes (%) (Auto) 7.6 % (4.1-12.4) Eosinophils (%) (Auto) 0.5 % (0.4-6.7) Basophils (%) (Auto) 1.2 % (0.3-1.4) Nucleated RBC Relative Count (auto) 0.1 /100WBC Neutrophils # (Auto) 5.4 K/uL (2.0-7.4) Lymphocytes # (Auto) 1.2 K/uL (1.3-3.6) Monocytes # (Auto) 0.6 K/uL (0.3-1.0) Eosinophils # (Auto) 0.0 K/uL (0.0-0.5) Basophils # (Auto) 0.1 K/uL (0.0-0.1) Nucleated RBC Absolute Count (auto) 0.01 K/uL Prothrombin Time 15.2 seconds (12.0-14.4) Prothromb Time International Ratio 1.19 Activated Partial Thromboplast Time 27 seconds (23-35) Glomerular Filtration Rate Calc > 60.0 Calcium Level 8.8 mg/dl (8.4-10.2) Total Bilirubin < 0.1 mg/dl (0.2-1.3) Aspartate Amino Transf (AST/SGOT) 26 U/L (0-35) Alanine Aminotransferase (ALT/SGPT) 27 U/L (0-56) Alkaline Phosphatase 83 U/L (0-126) Total Protein 6.5 g/dl (6.3-8.2) Albumin 3.7 g/dl (3.5-5.0) Stool Occult Blood (IFOB) Positive (NEGATIVE) Coagulation Test 09/01/18 19:20 Prothrombin Time 15.2 seconds Prothromb Time International Ratio 1.19 Activated Partial Thromboplast Time 27 seconds EKG/Imaging EKG Interpretation 12 lead EKG: Time of EKG 1815. Rhythm: Sinus rhythm, 81 bpm. [place]: Left axis deviation. QRS: normal ST segments: No ST depression or elevation identified, underlying artifact secondary to spinal stimulator. No signal can changes from the 04/02/2018 EKG. ED Course/Re-evaluation Clinical Indication for ER IV: IV Access ED Course The patient was admitted to room. A history and physical obtained. Differential diagnoses were considered. The patient's port was accessed. A CBC, CMP, type and screen were obtained.CBC showing rbc's 3.4, H&H 7.6 and 25, MCV 73, MCH 22, chemistry unremarkable, INR 1.19, positive Hemoccult stool. Patient was given 4 mg IV Zofran she states he is feeling better. I did review the results with the patient, I also spoke with Dr. Coronado, the general surgeon on-call as noted below, I also spoke with Dr. Riojas, the hospitalist he will come and evaluate the patient for an admission. Dr. Riojas did accept the patient into the [facility] services. 09/01/2018 9:01:45 pm I did speak with Dr. Coronado, the general surgeon on-call we discussed the case, with the patient's comorbidities, he did recommend admission to the hospitalist and he will consult. I do have a call out to the hospitalist. Nothing by mouth after midnight. 09/01/2018 9:15:58 pm he did seek with Dr. Riojas, the hospitalist clinical rn liaison, he will come to evaluate the patient. Decision to Disposition Date: September 01, 2018 Decision to Disposition Time: 21:19 Depart Departure Latest Vital Signs Vital Signs Date Time Temp Pulse Resp B/P (MAP) Pulse Ox O2 Delivery O2 Flow Rate FiO2 09/01/18 21:51 68 99 09/01/18 21:30 123/54 (77) 09/01/18 18:14 4.0 09/01/18 18:11 99.0 20 Nasal Cannula Impression: Primary Impression: Anemia in chronic illness Additional Impression: Blood in stool Condition: Improved Disposition: HOME OR SELF-CARE Referrals: DARIO ROJAS MD (PCP) Problem Qualifiers JOHAN BARRIOS PATROL [employer]PUT[employer]ERIFF-BC September 01, 2018 18:10
--- NOTE | 2018-09-01 18:35 | EKG ---
FACILITY: [facility] [place] PATIENT NAME: JACKLYN FRANCISCO : [id number] MR: [id number] V: [id number] EXAM DATE: ORDERING PHYSICIAN: JOHAN BARRIOS TECHNOLOGIST: NAM Benoit Reason : SOB Blood Pressure : / mmHG Vent. Rate : 081 BPM Atrial Rate : 081 BPM P-R Int : 100 ms QRS Dur : 066 ms QT Int : 364 ms P-R-T Axes : -12 -48 025 degrees QTc Int : 422 ms Sinus rhythm with short MN Left axis deviation Septal infarct (cited on or before 10-MAR-2018) Inferior infarct (cited on or before 07-JAN-2018) Abnormal ECG When compared with ECG of 02-APR-2018 11:32, Previous with a wandering atrial pacemaker and had much artifact Confirmed by GEETHA DEJESUS ([id number]) on 09/01/2018 10:32:40 PM Referred By: FELICITY Confirmed By:GEETHA DEJESUS
[2018-09-01 19:53] LABS: PLATELET COUNT, AUTOMATED 320 K/uL (150-450)
[2018-09-01 19:55] LABS: INR 1.19
[2018-09-01] MEDS ORDERED: ONDANSETRON 4 MG/2 ML VIAL IVP ONE (20:45)
[2018-09-01] MEDS ORDERED: PANTOPRAZOLE SOD 40 MG IV VIAL IVP SCH (21:05)
[2018-09-01] MEDS ORDERED: INFLUENZA VIRUS VAC 0.5ML SYR IM ONLY ONE (22:00)
[2018-09-01] MEDS ORDERED: HYPROMELLOSE 0.4% LUB 15ML BTL OU PRN (22:15)
[2018-09-01 22:20] VITALS: BP 132/70
[2018-09-01 22:52] VITALS: BP 119/83
--- NOTE | 2018-09-01 22:54 | RADIOLOGY IMAGING REPORT ---
FACILITY: [facility] [place] PATIENT NAME: Xin Tran : 1950 MR: [id number] V: [id number] EXAM DATE: ORDERING PHYSICIAN: JOHAN BARRIOS TECHNOLOGIST: [facility] Patient: Xin Tran : 1950 Visit/Account:[id number] Date of Sevice: 09/01/2018 AP CHEST 09/01/2018 6:30 PM. INDICATION: Increased shortness of breath COMPARISON: 03/10/2018. FINDINGS: Unchanged right humeral fixation hardware, left axillary surgical clips, cervical fusion hardware, st imulator leads over the lower neck and left IJ central venous catheter with port terminating in the s uperior vena cava. Mild streaky opacity over the left base likely represents atelectasis. Lungs are otherwise well-expa nded. No suspicious consolidation. No pneumothorax or pleural effusion. Heart size is likely carmita l. IMPRESSION: Mild left base atelectasis. Report Dictated By: Clem Ferrari MD at 09/01/2018 10:50 PM Report E-Signed By: Clem Ferrari MD at 09/01/2018 10:51 PM WSN:[id number]
[2018-09-01] MEDS: NS(*) 0.9% 1000 ML BAG 1,000 ML IV PRN (22:57)
--- NOTE | 2018-09-01 22:58 | History & Physical ---
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 She was in her PCP's office for follow up a ER visit. She had a CBC done which showed a significant drop from April, so was sent to the ER. She reports some blood around the skin during changes of the stoma bag. She reports that the stools are brown or green. The patient has been having falls from chairs and her bed, periodically. However, none after standing or while walking. She reports chest pain for the last week that improves with her pain medication or emptying her ostomy bag. The pain doesn't worsen with activity, but does get more bothersome in the evening. It has not resolved in over a week. She has had stomach discomfort and MEDRANO for 2 weeks, but reports that she has been eating very well. History Problems: (1) DVT (deep venous thrombosis) Status: Resolved (2) Weakness Status: Acute (3) Gastrointestinal bleeding, lower Status: Resolved (4) COPD (chronic obstructive pulmonary disease) Status: Chronic (5) PE (pulmonary thromboembolism) Status: Resolved (6) Depression Status: Chronic (7) Hypothyroidism Status: Chronic (8) Steroid dependence Status: Chronic (9) Anxiety Status: Chronic (10) HTN (hypertension) Status: Chronic (11) High output ileostomy Status: Chronic (12) S/P insertion of IVC (inferior vena caval) filter Status: Resolved (13) S/P ileostomy Status: Chronic (14) S/P partial colectomy Status: Chronic (15) S/P small bowel resection Status: Chronic Home Meds Active Scripts Prednisone 10 Mg Tab (PREDNISONE 10 MG TAB) 10 Mg Tablet, 8 MG PO QDAY for 30 Days, #30 TAB Prov:DARIO ROJAS MD 09/01/18 Diphenoxylate Hcl/Atropine (LOMOTIL TABLET) 1 Each Tablet, 2 TAB PO QID, #180 TAB 4 Refills Prov:DARIO ROJAS MD 07/20/18 Potassium Chloride (POTASSIUM CHLORIDE) 20 Meq Tab.er.prt, 1 TAB PO BID for 30 Days, #30 TAB Prov:DARIO ROJAS MD 06/15/18 Acetaminophen (TYLENOL) 325 Mg Tablet, 1-2 TAB PO Q6H PRN for PAIN for 30 Days, TAB Prov:MONA GONZALES MD 03/14/18 Pantoprazole Sodium (PANTOPRAZOLE SODIUM) 40 Mg Tablet.dr, 1 TAB PO QDAY for 30 Days, #30 TAB Prov:DARIO ROJAS MD 01/22/18 Trazodone Hcl (TRAZODONE HCL) 50 Mg Tablet, 1 TAB PO QHS for 30 Days, #30 TAB Prov:DARIO ROJAS MD 01/21/18 Reported Medications Lidocaine (Lidocaine) 5 % Adh..patch, 1 PATCH.24H TP DAILY apply in am and remove 12 hours later 09/01/18 Benzonatate 100 Mg Cap (TESSALON PERLE 100 MG CAP) 100 Mg Capsule, 100 MG PO TID, #15 CAP 08/11/18 Triamcinolone Acetonide (Nasacort) 10.8 Ml [place], 1 SPRAY NS BID for 30 Days, #1 BOT 05/04/18 Electrolyte,Oral (PEDIALYTE) 1,000 Ml Solution, 240 ML PO QID 04/09/18 Buprenorphine (Buprenorphine) 7.5 Mcg/Hour Patch.tdwk, 1 PATCH.WK TOP QWEEKF 04/09/18 Acetaminophen 500 Mg Tab (ACETAMINOPHEN EXTRA STRENGTH) 500 Mg Tablet, 2 TAB PO BID, TAB 04/09/18 Cholestyramine (With Sugar) (CHOLESTYRAMINE PACKET) 4 Gm Powd.pack, 4 GM PO QID 04/03/18 Venlafaxine Hcl (VENLAFAXINE HCL ER) 75 Mg Tab.er.24, 0.5 TAB PO QDAY 04/01/18 Loperamide HCl (Imodium A-D) 2 Mg Capsule, 1 QID 03/09/18 Hydrocodone Bit/Acetaminophen (NORCO 5-325 TABLET) 1 Each Tablet, 1 EACH PO BID PRN for PAIN, TAB 03/05/18 Oxygen (OXYGEN) Inha, 3 L INH, L 2 Liters Continuous Oxygen and With CPap at HS 01/21/18 Protein Supplement (Protein Powder) 480 Gm Powder, 2 NOTSPEC PO TID 2 scoops of powder in 6-8oz of water between meals 01/21/18 Polyvinyl Alcohol (LIQUITEARS) 15 Ml Drops, 1 GTT OU PRN for dry eyes 01/09/18 Multivitamin (TAB-A-OMAR) 1 Each Tablet, 1 EACH PO QAM 01/07/18 Mag Hydrox/Al Hydrox/Simeth (MAALOX MAXIMUM STRENGTH SUSP) 355 Ml Oral.susp, 15 ML PO Q4H PRN for INDIGESTION 01/07/18 Nystatin 100,000 Unit/Gm Top Powder (NYSTATIN 100,000 UNIT/GM TOP POWDER) 15 Gm Powder, 15 GM TP BID 01/07/18 Tetrahydrozoline Hcl (EYE DROPS) 15 Ml Drops, 1 DROP OU PRN 01/07/18 Guaifenesin/Dextromethorphan (Robitussin Cough-Chest Dm Liq) 100 Mg-5 Mg/5 Ml Liquid, 5 ML PO Q4-6H PRN for COUGH 01/07/18 Calcium Polycarbophil (FIBER) 625 Mg Tablet, 2 TAB PO BID 01/07/18 Calcium Carbonate (Calcium Carbonate) 300 Mg Calcium (750 Mg) Tab.chew, 2 TAB PO PRN Not to exceed 10 tablets in 24 hours 01/07/18 Nifedipine (NIFEDIPINE ER) 30 Mg Tab.er.24, 1 TAB PO QDAY 01/07/18 Levothyroxine Sodium (SYNTHROID) 25 Mcg Tablet, 1 TAB PO QDAY 01/07/18 Fluticasone/Vilanterol 100/25 Mcg/Inh (BREO ELLIPTA 100/25 MCG) 1 Each Aer.pow.ba, 1 INH INH QDAY 01/07/18 Rivaroxaban 20 Mg (XARELTO 20 MG) 20 Mg Tablet, 1 TAB PO DAILY 01/06/18 Discontinued Reported Medications Menthol (BIOFREEZE) 118 Ml Gel..ml., 1 JARETT TOP TID PRN for PAIN 01/07/18 Allergies: Coded Allergies: Sulfa (Sulfonamide Antibiotics) (Verified Allergy, Unknown, 09/01/18) allergic to cream only amitriptyline (Verified Allergy, Unknown, 09/01/18) aspirin (Verified Allergy, Unknown, 09/01/18) Patient History: FH: diabetes mellitus FH: hypertension Hx Smoking: Yes Smoking Status: Former Smoker Caffeine Intake: Soda Caffeine/Cups Per Day: 3 Hx Alcohol Use: No Hx Substance Use Disorder: No Social Drug Use: Never Review of Systems All Systems Reviewed/Normal: Yes, Except as Noted Exam Vital Signs Vital Signs Date Time Temp Pulse Resp B/P (MAP) Pulse Ox O2 Delivery O2 Flow Rate FiO2 09/01/18 21:51 68 99 09/01/18 21:30 123/54 (77) 09/01/18 18:14 4.0 09/01/18 18:11 99.0 20 Nasal Cannula General Appearance: Alert, Awake, No Acute Distress (pale. Breathing comfortably) Neuro: No Gross deficits ENT: Moist Mucous Membranes Cardiovascular: Regular Rate and Rhythm, No JVD Respiratory: Clear to Auscultation GI: Abd Soft and Non-Tender Extremities: Warm, Pulses, Perfused; No Edema Integumentary: No Jaundice, No Cyanosis Medical Decision Making Data Points Result Diagram: 09/01/18191909/01/181919 Item Value Date Time Total Bilirubin < 0.1 mg/dl L 09/01/181919 Aspartate Amino Transf (AST/SGOT) 26 U/L 09/01/18 1920 Alanine Aminotransferase (ALT/SGPT) 27 U/L 09/01/18 1920 Alkaline Phosphatase 83 U/L 09/01/18 1920 Hemoglobin 12.3 g/dL 05/04/18 0905 Hemoglobin 13.1 g/dL 04/02/18 0845 Hemoglobin 7.6 g/dL *L 09/01/18 1528 Hemoglobin 7.6 g/dL *L 09/01/18 1920 Mean Corpuscular Volume 73.8 fL L 09/01/18 1920 Mean Corpuscular Volume 74.3 fL L 09/01/18 1528 Platelet Count 320 K/uL 09/01/18 1920 Platelet Count 370 K/uL 09/01/18 1528 Platelet Count 559 K/uL H 05/04/18 0905 Platelet Count 515 K/uL H 04/02/18 0845 Stool Occult Blood (IFOB) Positive H 09/01/181955 EKG / Imaging EKG Interpretation Vent. Rate : 081 BPM Atrial Rate : 081 BPM P-R Int : 100 ms QRS Dur : 066 ms QT Int : 364 ms P-R-T Axes : -12 -48 025 degrees QTc Int : 422 ms Sinus rhythm with short OK Left axis deviation Septal infarct (cited on or before 10-MAR-2018) Inferior infarct (cited on or before 07-JAN-2018) Abnormal ECG When compared with ECG of 02-APR-2018 11:32, Previous with a wandering atrial pacemaker and had much artifact Confirmed by GEETHA DEJESUS ([id number]) on 09/01/2018 10:32:40 PM Imaging CXR - no official read. No acute abnormalities by my interpretation. Pre-Admit Course Medical Record Review: Yes Assessment and Plan Problems: (1) GI bleed Status: Acute Assessment & Plan: She was sent to the ER after getting a routing blood draw that showed a Hgb of 7.6. Complicated by chronic Xarelto use. She reports some blood on skin with ostomy changes. No reports of melena or blood in stool. Heme positive for occult blood in stool. MCV is low. BP/P stable. No orthostatic hypotension symptoms, but has been falling out of chairs. She will be transfused 2 units of PRBC. Iron studies to be added to ER labs. Dr. Coronado would like to do an EGD and possibly a scope via the ostomy, so NPO at midnight. She has been started on Protonix IV. Xarelto to be stopped. (2) PE (pulmonary thromboembolism) Status: Resolved Assessment & Plan: Has an IVC filter. Chronically on Xarelto. See above. (3) Steroid dependence Status: Chronic Assessment & Plan: Chronically on prednisone, currently on 8mg. It will be held and she will be on hydrocortisone 50mg IV q8. (4) HTN (hypertension) Status: Chronic Assessment & Plan: Chronic nifedipine to be held. (5) COPD (chronic obstructive pulmonary disease) Status: Chronic Assessment & Plan: Lungs are clear. Continue chronic steroids and Breo. (6) Depression Status: Chronic Assessment & Plan: Chronic venlafaxine to be held. (7) High output ileostomy Status: Chronic Assessment & Plan: Chronic cholestyramine to be held. (8) Hypothyroidism Status: Chronic Assessment & Plan: Chronic levothyroxine to be held. (9) Chronic pain Status: Chronic Assessment & Plan: Followed by Dr. Thorpe. Continue chronic Butrans patch. Holding hydrocodone. Morphine IV prn. Copies to: DARIO ROJAS MD; PAUL CORONADO ; Venous Thromboembolism Antithrombotics Is Pt On Any Antithrombotics?: Yes Exam Sepsis Risk: No Definite Risk GEETHA DEJESUS MD September 01, 2018 22:58
[2018-09-01 23:06] VITALS: BP 129/61
[2018-09-02] VITALS (9 sets, daily range): BP systolic 115–151; BP diastolic 53–82; Ht 157.5 cm; Wt 56.0 kg
[2018-09-02] MEDS: HYDROCORTISONE 100 MG/2 ML IVP SCH ×3 (00:39→16:40)
[2018-09-02] MEDS: PROMETHAZINE 25 MG/ML 1 ML AMP IVP PRN ×2 (00:40→14:18)
[2018-09-02] MEDS: MORPHINE 2 MG/ML SYR IVP PRN ×2 (05:32→17:01)
[2018-09-02 06:45] LABS: PLATELET COUNT, AUTOMATED 301 K/uL (150-450)
--- NOTE | 2018-09-02 08:26 | Hospitalist Progress Note ---
Subjective Progress Notes Subjective She denies any new complaints. No blood noted via ostomy. Physical Exam Vital Signs Date Time Temp Pulse Resp B/P (MAP) Pulse Ox O2 Delivery O2 Flow Rate FiO2 09/02/18 08:01 97 Nasal Cannula 2.0 09/02/18 07:49 56 09/02/18 06:42 98.4 16 123/54 (77) Intake and Output 09/02/18 07:00 Intake Total 1700 ml Output Total 250 ml Balance 1450 ml Intake IV Total 550 ml Blood Product 1150 ml Output Stool Total 250 ml # Voids 2 General Appearance: Alert, Awake Cardiovascular: Regular Rate and Rhythm, No Edema Respiratory: Clear to Auscultation GI: Other (soft/BS present/ostomy with thin bown drainage) Extremities: Warm, Perfused Result Diagram: 09/02/1845 09/02/18544 Assessment and Plan Problems: (1) GI bleed Status: Acute Assessment & Plan: She was sent to the ER after getting a routine blood draw th at showed a Hgb of 7.6. She reports some blood on skin with ostomy changes. No reports of melena or blood in stool. Heme positive for occult blood in stool. This is certainly complicated by chronic Xarelto use. MCV is low. BP/P stable. No orthostatic symptoms, but she has been falling out of chairs. She has been transfused 2 units of PRBC. Iron studies do show deficiency with 4% saturation. Dr. Coronado will see regarding possible endoscopy. She has been started on Protonix IV. Xarelto has been stopped. (2) PE (pulmonary thromboembolism) Status: Resolved Assessment & Plan: She does have an IVC filter. Chronically on Xarelto - has been stopped. See above. (3) Steroid dependence Status: Chronic Assessment & Plan: Chronically on prednisone (currently on 8mg). It has been held and she will be on hydrocortisone 50mg IV q8hrs. (4) HTN (hypertension) Status: Chronic Assessment & Plan: Chronic nifedipine to be held. (5) COPD (chronic obstructive pulmonary disease) Status: Chronic Assessment & Plan: Lungs are clear. Continue chronic steroids and Breo. (6) Depression Status: Chronic Assessment & Plan: Chronic venlafaxine to be held. (7) High output ileostomy Status: Chronic Assessment & Plan: Chronic cholestyramine to be held. (8) Hypothyroidism Status: Chronic Assessment & Plan: Chronic levothyroxine to be held. (9) Chronic pain Status: Chronic Assessment & Plan: Followed by Dr. Thorpe. Continue chronic Butrans patch. Holding hydrocodone. Morphine IV prn. Exam Sepsis Risk: No Definite Risk MONA GONZALES MD September 02, 2018 08:26
--- NOTE | 2018-09-02 08:52 | General Surgery Consultation ---
History of Present Illness Reason for Consult anemia Chief Complaint anemia, some blood around stoma History of Present Illness 67 yo f whose hb has dropped about 5 points in the last few months. she has noticed some brb around stoma, but stool has appeared normal. nausea but no vomiting. has diffuse body pain, including shoulder, headache, abd and lower ext. no production from anus and mucous fistula produces, "pus." no recent egd or colonoscopy. pt is tired but no syncope. History Home Meds Active Scripts Prednisone 10 Mg Tab (PREDNISONE 10 MG TAB) 10 Mg Tablet, 8 MG PO QDAY for 30 Days, #30 TAB Prov:DARIO ROJAS MD 09/01/18 Diphenoxylate Hcl/Atropine (LOMOTIL TABLET) 1 Each Tablet, 2 TAB PO QID, #180 TAB 4 Refills Prov:DARIO ROJAS MD 07/20/18 Potassium Chloride (POTASSIUM CHLORIDE) 20 Meq Tab.er.prt, 1 TAB PO BID for 30 Days, #30 TAB Prov:DARIO ROJAS MD 06/15/18 Acetaminophen (TYLENOL) 325 Mg Tablet, 1-2 TAB PO Q6H PRN for PAIN for 30 Days, TAB Prov:MONA GONZALES MD 03/14/18 Pantoprazole Sodium (PANTOPRAZOLE SODIUM) 40 Mg Tablet.dr, 1 TAB PO QDAY for 30 Days, #30 TAB Prov:DARIO ROJAS MD 01/22/18 Trazodone Hcl (TRAZODONE HCL) 50 Mg Tablet, 1 TAB PO QHS for 30 Days, #30 TAB Prov:DARIO ROJAS MD 01/21/18 Reported Medications Lidocaine (Lidocaine) 5 % Adh..patch, 1 PATCH.24H TP DAILY apply in am and remove 12 hours later 09/01/18 Benzonatate 100 Mg Cap (TESSALON PERLE 100 MG CAP) 100 Mg Capsule, 100 MG PO TID, #15 CAP 08/11/18 Triamcinolone Acetonide (Nasacort) 10.8 Ml [place], 1 SPRAY NS BID for 30 Days, #1 BOT 05/04/18 Electrolyte,Oral (PEDIALYTE) 1,000 Ml Solution, 240 ML PO QID 04/09/18 Buprenorphine (Buprenorphine) 7.5 Mcg/Hour Patch.tdwk, 1 PATCH.WK TOP QWEEKF 04/09/18 Acetaminophen 500 Mg Tab (ACETAMINOPHEN EXTRA STRENGTH) 500 Mg Tablet, 2 TAB PO BID, TAB 04/09/18 Cholestyramine (With Sugar) (CHOLESTYRAMINE PACKET) 4 Gm Powd.pack, 4 GM PO QID 04/03/18 Venlafaxine Hcl (VENLAFAXINE HCL ER) 75 Mg Tab.er.24, 0.5 TAB PO QDAY 04/01/18 Loperamide HCl (Imodium A-D) 2 Mg Capsule, 1 QID 03/09/18 Hydrocodone Bit/Acetaminophen (NORCO 5-325 TABLET) 1 Each Tablet, 1 EACH PO BID PRN for PAIN, TAB 03/05/18 Oxygen (OXYGEN) Inha, 3 L INH, L 2 Liters Continuous Oxygen and With CPap at HS 01/21/18 Protein Supplement (Protein Powder) 480 Gm Powder, 2 NOTSPEC PO TID 2 scoops of powder in 6-8oz of water between meals 01/21/18 Polyvinyl Alcohol (LIQUITEARS) 15 Ml Drops, 1 GTT OU PRN for dry eyes 01/09/18 Multivitamin (TAB-A-OMAR) 1 Each Tablet, 1 EACH PO QAM 01/07/18 Mag Hydrox/Al Hydrox/Simeth (MAALOX MAXIMUM STRENGTH SUSP) 355 Ml Oral.susp, 15 ML PO Q4H PRN for INDIGESTION 01/07/18 Nystatin 100,000 Unit/Gm Top Powder (NYSTATIN 100,000 UNIT/GM TOP POWDER) 15 Gm Powder, 15 GM TP BID 01/07/18 Tetrahydrozoline Hcl (EYE DROPS) 15 Ml Drops, 1 DROP OU PRN 01/07/18 Guaifenesin/Dextromethorphan (Robitussin Cough-Chest Dm Liq) 100 Mg-5 Mg/5 Ml Liquid, 5 ML PO Q4-6H PRN for COUGH 01/07/18 Calcium Polycarbophil (FIBER) 625 Mg Tablet, 2 TAB PO BID 01/07/18 Calcium Carbonate (Calcium Carbonate) 300 Mg Calcium (750 Mg) Tab.chew, 2 TAB PO PRN Not to exceed 10 tablets in 24 hours 01/07/18 Nifedipine (NIFEDIPINE ER) 30 Mg Tab.er.24, 1 TAB PO QDAY 01/07/18 Levothyroxine Sodium (SYNTHROID) 25 Mcg Tablet, 1 TAB PO QDAY 01/07/18 Fluticasone/Vilanterol 100/25 Mcg/Inh (BREO ELLIPTA 100/25 MCG) 1 Each Aer.pow.ba, 1 INH INH QDAY 01/07/18 Rivaroxaban 20 Mg (XARELTO 20 MG) 20 Mg Tablet, 1 TAB PO DAILY 01/06/18 Discontinued Reported Medications Menthol (BIOFREEZE) 118 Ml Gel..ml., 1 JARETT TOP TID PRN for PAIN 01/07/18 Allergies: Coded Allergies: Sulfa (Sulfonamide Antibiotics) (Verified Allergy, Unknown, 09/01/18) allergic to cream only amitriptyline (Verified Allergy, Unknown, 09/01/18) aspirin (Verified Allergy, Unknown, 09/01/18) Family History: FH: diabetes mellitus FH: hypertension Review of Systems Constitutional: Other (per hpi) Exam Vital Signs Vital Signs Date Time Temp Pulse Resp B/P (MAP) Pulse Ox O2 Delivery O2 Flow Rate FiO2 09/02/18 08:01 97 Nasal Cannula 2.0 09/02/18 07:49 56 09/02/18 06:42 98.4 16 123/54 (77) General Appearance: Alert, Awake, No Acute Distress, Afebrile Eyes: Other ENT: Moist Mucous Membranes Cardiovascular: Other (slightly bradycardic) Respiratory: No Respiratory Distress GI: Other (abd soft, stoma pink, out is brown liquid) Psych: Appropriate Mood & Affect Medical Decision Making Data Points Result Diagram: 09/02/18 0545 09/02/18 0545 Assessment and Plan Problems: (1) Blood in stool Status: Acute Assessment & Plan: 09/02/18: poss gi bleed. anemia. ppi, egd and endoscopy through stoma tomorrow morning. serial exams/labs. reg diet today. npo at [facility]. Venous Thromboembolism Antithrombotics Is Pt On Any Antithrombotics?: No PAUL TYSON September 02, 2018 08:52
[2018-09-02] MEDS: PANTOPRAZOLE SOD 40 MG IV VIAL IVP SCH ×2 (09:16→20:38)
[2018-09-02] MEDS: ONDANSETRON 4 MG/2 ML VIAL IVP PRN ×2 (09:16→21:09)
[2018-09-02] MEDS: LIDOCAINE 5% PATCH TP SCH (09:17)
[2018-09-02] MEDS: NYSTATIN 100,000 U/GM PWD 15GM TP SCH ×2 (10:49→20:37)
[2018-09-02] MEDS ORDERED: PRE1 PO (12:51)
[2018-09-02] MEDS ORDERED: 0.92DISP2 IV (12:51)
[2018-09-02] MEDS ORDERED: PRED-1 PO ×2 (12:51)
[2018-09-02] MEDS ORDERED: [UNRECOGNIZED DRUG - CODE] IV (12:51)
[2018-09-02] MEDS ORDERED: [UNRECOGNIZED DRUG - CODE] PO (12:51)
[2018-09-02] MEDS ORDERED: MENT118G TOP (12:51)
[2018-09-02] MEDS ORDERED: DIPH-1 PO (12:51)
[2018-09-02] MEDS ORDERED: VENL37.514 PO (12:55)
[2018-09-02] MEDS ORDERED: ACET-1966 PO (12:55)
[2018-09-02] MEDS: NS(*) 0.9% 1000 ML BAG 1,000 ML IV PRN (14:02)
[2018-09-02] MEDS: PATCH REMOVAL 1 EA TP SCH (20:37)
[2018-09-02] MEDS ORDERED: PATCH REMOVAL 1 EA TOP SCH (21:00)
[2018-09-03] VITALS (7 sets, daily range): BP systolic 137–165; BP diastolic 65–90
[2018-09-03] MEDS: HYDROCORTISONE 100 MG/2 ML IVP SCH ×3 (00:31→16:41)
[2018-09-03] MEDS: MORPHINE 2 MG/ML SYR IVP PRN ×4 (00:34→17:12)
[2018-09-03 05:56] LABS: PLATELET COUNT, AUTOMATED 325 K/uL (150-450)
[2018-09-03] MEDS ORDERED: NORMOSOL R SOLN(*) 1000 ML BAG 1,000 ML IV PRN ×2 (06:00)
[2018-09-03] MEDS ORDERED: FAMOTIDINE(*) 20MG/50ML PREMIX 50 ML IVPB ONE (06:00)
--- NOTE | 2018-09-03 06:36 | General Surgery Progress Note ---
Subjective Progress Notes Subjective no acute events Physical Exam Vital Signs Date Time Temp Pulse Resp B/P (MAP) Pulse Ox O2 Delivery O2 Flow Rate FiO2 09/03/18 06:04 66 09/03/18 04:10 98.3 18 165/90 (115) 96 Nasal Cannula 1.0 Intake and Output 09/03/18 07:00 Intake Total 3505 ml Output Total 2650 ml Balance 855 ml Intake Oral 1980 ml IV Total 1525 ml Output Stool Total 2650 ml # Voids 8 General Appearance: No Acute Distress Cardiovascular: Other (reg rate) GI: Other (abd soft) Result Diagram: 09/03/1852109/03/18521 Assessment and Plan Problems: (1) Blood in stool Status: Acute Assessment & Plan: 09/02/18: poss gi bleed. anemia. ppi, egd and endoscopy through stoma tomorrow morning. serial exams/labs. reg diet today. npo at or. 09/03/18: ppi, endoscopy today Exam Sepsis Risk: No Definite Risk PAUL TYSON September 03, 2018 06:36
[2018-09-03] MEDS ORDERED: LIDOCAINE MPF 1% 5 ML VIAL ONE (06:57)
[2018-09-03] MEDS ORDERED: PROPOFOL EMUL(*) 10MG/ML 20 ML 40 ML ONE (06:57)
[2018-09-03] MEDS ORDERED: ONDANSETRON 4 MG/2 ML VIAL ONE (08:01)
[2018-09-03] MEDS: PANTOPRAZOLE SOD 40 MG IV VIAL IVP SCH (09:15)
[2018-09-03] MEDS: NYSTATIN 100,000 U/GM PWD 15GM TP SCH ×2 (09:22→20:52)
[2018-09-03] MEDS: LIDOCAINE 5% PATCH TP SCH (09:22)
[2018-09-03] MEDS: KCL (*) 20 MEQ/100 ML PREMIX 100 ML IV SCH ×2 (09:22→12:08)
[2018-09-03] MEDS: ONDANSETRON 4 MG/2 ML VIAL IVP PRN (13:33)
[2018-09-03] MEDS: PROMETHAZINE 25 MG/ML 1 ML AMP IVP PRN (16:41)
[2018-09-03] MEDS ORDERED: PROMETHAZINE HCL 25 MG TAB PO PRN (20:30)
[2018-09-03] MEDS: APAP/HYDROCODONE 325/5 TAB PO PRN (20:52)
[2018-09-03] MEDS: ONDANSETRON 4 MG TAB PO PRN (20:53)
[2018-09-03] MEDS: PANTOPRAZOLE SOD 40 MG TABEC PO SCH (20:53)
[2018-09-03] MEDS: PATCH REMOVAL 1 EA TP SCH (20:55)
[2018-09-03] MEDS ORDERED: traZODone HCL 50 MG TAB PO SCH (21:00)
[2018-09-04] MEDS: HYDROCORTISONE 100 MG/2 ML IVP SCH ×2 (00:44→08:17)
[2018-09-04] MEDS ORDERED: LEVOTHYROXINE SOD 0.025 MG TAB PO SCH (06:00)
[2018-09-04] MEDS ORDERED: BUPRENORPHINE 7.5 MCG/HR TD SCH (06:30)
[2018-09-04 06:35] LABS: PLATELET COUNT, AUTOMATED 338 K/uL (150-450)
[2018-09-04 07:23] VITALS: BP 168/79
[2018-09-04] MEDS: ONDANSETRON 4 MG TAB PO PRN (08:16)
[2018-09-04] MEDS: PANTOPRAZOLE SOD 40 MG TABEC PO SCH (08:16)
[2018-09-04] MEDS: LIDOCAINE 5% PATCH TP SCH (08:17)
[2018-09-04] MEDS: APAP/HYDROCODONE 325/5 TAB PO PRN (08:17)
[2018-09-04] MEDS: NYSTATIN 100,000 U/GM PWD 15GM TP SCH (08:17)
[2018-09-04] MEDS ORDERED: PANT40TA65 PO (09:32)
[2018-09-04] MEDS ORDERED: SUCR1TAB51 PO (09:32)
[2018-09-04] MEDS ORDERED: ONDA-2 PO (09:32)
--- NOTE | 2018-09-04 09:39 | Hospitalist Depart ---
Discharge Summary Reason for Hosp/Final Diag: (1) GI bleed Status: Acute Hospital Course & Plan: She was sent to the ER after getting a routine blood draw that showed a Hgb of 7.6. She reports some blood on skin with ostomy changes. No reports of melena or blood in stool. Heme positive for occult blood in stool. This is certainly complicated by chronic Xarelto use. MCV is low. BP/P stable. No orthostatic symptoms, but she has been falling out of chairs. She was transfused 2 units of PRBC during admission. Iron studies do show deficiency with 4% saturation. Dr. Coronado performed endoscopy, which showed esophageal ulcer that was not bleeding. She was started on Protonix IV push and now is transitioned to oral Protonix 40mg BID. Xarelto has been stopped. Will also add Carafate AC/HS. She will follow up in 1-2 weeks with PCP. (2) PE (pulmonary thromboembolism) Status: Resolved Hospital Course & Plan: She does have an IVC filter. Chronically on Xarelto - has been stopped. See above. (3) Steroid dependence Status: Chronic Hospital Course & Plan: Chronically on prednisone (currently on 8mg). It was held initially and was placed on hydrocortisone 50mg IV q8hrs. Prednisone now resumed at usual dose. (4) HTN (hypertension) Status: Chronic Hospital Course & Plan: Continue chronic nifedipine. (5) COPD (chronic obstructive pulmonary disease) Status: Chronic Hospital Course & Plan: Lungs are clear. Continue chronic steroids and Breo. (6) Depression Status: Chronic Hospital Course & Plan: Continue chronic venlafaxine. (7) High output ileostomy Status: Chronic Hospital Course & Plan: Continue chronic cholestyramine. (8) Hypothyroidism Status: Chronic Hospital Course & Plan: Chronic levothyroxine to be held. (9) Chronic pain Status: Chronic Hospital Course & Plan: Followed by Dr. Thorpe. Continue chronic Butrans patch, hydrocodone. Departure Latest Vital Signs Vital Signs 09/04/18 09/04/18 09/04/18 09/04/18 07:23 09:14 09:15 09:20 Temp 98.9 Pulse 81 Resp 16 B/P (MAP) 168/79 (108) Pulse Ox 92 O2 Delivery Room Air O2 Flow Rate 0.5 Weight (Pounds): 123 Weight (Ounces): 7.0 Result Diagram: 09/04/1855409/04/18554 Condition: Improved Discharge: Residential PT/OT Follow Up For: PT For Strengthening, OT For ADL's, PT Evaluation and Treat, OT Evaluation and Treat Discharge Instructions Home Meds Active Scripts Ondansetron Hcl (ONDANSETRON HCL) 4 Mg Tablet, 4 MG PO Q6H PRN for NAUSEA, #20 TAB Prov:LUIS ALBERTO HAUSER [facility] 09/04/18 Sucralfate (SUCRALFATE) 1 Gm Tablet, 1 GM PO ACHS1, #120 TAB Prov:LUIS ALBERTO HAUSER [facility] 09/04/18 Pantoprazole Sodium (PANTOPRAZOLE SODIUM) 40 Mg Tablet.dr, 40 MG PO BID, #60 TAB Prov:LUIS ALBERTO HAUSERP 09/04/18 Potassium Chloride (POTASSIUM CHLORIDE) 20 Meq Tab.er.prt, 1 TAB PO BID for 30 Days, #30 TAB Prov:DARIO ROJAS MD 06/15/18 Pantoprazole Sodium (PANTOPRAZOLE SODIUM) 40 Mg Tablet.dr, 1 TAB PO QDAY for 30 Days, #30 TAB Prov:DARIO ROJAS MD 01/22/18 Trazodone Hcl (TRAZODONE HCL) 50 Mg Tablet, 1 TAB PO QHS for 30 Days, #30 TAB Prov:DARIO ROJAS MD 01/21/18 Reported Medications Venlafaxine Hcl (VENLAFAXINE HCL) 37.5 Mg Tab, 37.5 MG PO DAILY, TAB 09/02/18 Acetaminophen (TYLENOL) 325 Mg Tablet, 325 MG PO Q6H, TAB 09/02/18 Prednisone (PREDNISONE) 1 Mg Tab, 8 MG PO DAILY, TAB one time a day for chrinic pain syndrome for 2 weeks 09/02/18 Prednisone 10 Mg Tab (PREDNISONE 10 MG TAB) 10 Mg Tablet, 5 MG PO QDAY, TAB 09/02/18 Electrolyte,Oral (PEDIALYTE) 1,000 Ml Solution, 240 ML PO QID 09/02/18 0.9 % Sodium Chloride (NORMAL SALINE FLUSH) 2 Ml Disp.syrin, 10 ML IV every 28 days 09/02/18 Diphenoxylate Hcl/Atropine (LOMOTIL TABLET) 1 Each Tablet, 2 TAB PO QID PRN for DIARRHEA, TAB 09/02/18 Heparin Sodium,Porcine/Pf (HEPARIN LOCK FLUSH 100 UNIT/ML) 100 Unit/1 Ml Vial, 500 UNIT IV every 28 days, VIAL 09/02/18 Menthol (BIOFREEZE) 118 Ml Gel..ml., 1 JARETT TOP TID for pain 09/02/18 Lidocaine (Lidocaine) 5 % Adh..patch, 1 PATCH.24H TP DAILY apply in am and remove 12 hours later 09/01/18 Benzonatate 100 Mg Cap (TESSALON PERLE 100 MG CAP) 100 Mg Capsule, 100 MG PO TID PRN for cough, #15 CAP 08/11/18 Triamcinolone Acetonide (Nasacort) 10.8 Ml [place], 1 SPRAY NS BID for 30 Days, #1 BOT 05/04/18 Buprenorphine (Buprenorphine) 7.5 Mcg/Hour Patch.tdwk, 1 PATCH.WK TOP QWEEKF 04/09/18 Cholestyramine (With Sugar) (CHOLESTYRAMINE PACKET) 4 Gm Powd.pack, 4 GM PO QID 04/03/18 Loperamide HCl (Imodium A-D) 2 Mg Capsule, 1 QID PRN for DIARRHEA 03/09/18 Hydrocodone Bit/Acetaminophen (NORCO 5-325 TABLET) 1 Each Tablet, 1 EACH PO BID PRN for PAIN, TAB 03/05/18 Oxygen (OXYGEN) Inha, 3 L INH, L 2 Liters Continuous Oxygen and With CPap at HS 01/21/18 Protein Supplement (Protein Powder) 480 Gm Powder, 2 NOTSPEC PO TID 2 scoops of powder in 6-8oz of water between meals 01/21/18 Polyvinyl Alcohol (LIQUITEARS) 15 Ml Drops, 1 GTT OU PRN for dry eyes 01/09/18 Multivitamin (TAB-A-OMAR) 1 Each Tablet, 1 EACH PO QAM 01/07/18 Mag Hydrox/Al Hydrox/Simeth (MAALOX MAXIMUM STRENGTH SUSP) 355 Ml Oral.susp, 15 ML PO Q4H PRN for INDIGESTION 01/07/18 Nystatin 100,000 Unit/Gm Top Powder (NYSTATIN 100,000 UNIT/GM TOP POWDER) 15 Gm Powder, 15 GM TP BID 01/07/18 Tetrahydrozoline Hcl (EYE DROPS) 15 Ml Drops, 1 DROP OU PRN 01/07/18 Guaifenesin/Dextromethorphan (Robitussin Cough-Chest Dm Liq) 100 Mg-5 Mg/5 Ml Liquid, 5 ML PO Q4-6H PRN for COUGH 01/07/18 Calcium Polycarbophil (FIBER) 625 Mg Tablet, 2 TAB PO BID 01/07/18 Calcium Carbonate (Calcium Carbonate) 300 Mg Calcium (750 Mg) Tab.chew, 2 TAB PO PRN Not to exceed 10 tablets in 24 hours 01/07/18 Nifedipine (NIFEDIPINE ER) 30 Mg Tab.er.24, 1 TAB PO QDAY 01/07/18 Levothyroxine Sodium (SYNTHROID) 25 Mcg Tablet, 1 TAB PO QDAY 01/07/18 Fluticasone/Vilanterol 100/25 Mcg/Inh (BREO ELLIPTA 100/25 MCG) 1 Each Aer.pow.ba, 1 INH INH QDAY 01/07/18 Discontinued Reported Medications Rivaroxaban 20 Mg (XARELTO 20 MG) 20 Mg Tablet, 1 TAB PO DAILY 01/06/18 Prednisone 10 Mg Tab (PREDNISONE 10 MG TAB) 10 Mg Tablet, 5 MG PO QDAY, TAB 09/02/18 Electrolyte,Oral (PEDIALYTE) 1,000 Ml Solution, 240 ML PO QID 04/09/18 Acetaminophen 500 Mg Tab (ACETAMINOPHEN EXTRA STRENGTH) 500 Mg Tablet, 2 TAB PO BID, TAB 04/09/18 Venlafaxine Hcl (VENLAFAXINE HCL ER) 75 Mg Tab.er.24, 0.5 TAB PO QDAY 04/01/18 Menthol (BIOFREEZE) 118 Ml Gel..ml., 1 JARETT TOP TID PRN for PAIN 01/07/18 Discontinued Scripts Prednisone 10 Mg Tab (PREDNISONE 10 MG TAB) 10 Mg Tablet, 8 MG PO QDAY for 30 Days, #30 TAB Prov:DARIO ROJAS MD 09/01/18 Diphenoxylate Hcl/Atropine (LOMOTIL TABLET) 1 Each Tablet, 2 TAB PO QID, #180 TAB 4 Refills Prov:DARIO ROJAS MD 07/20/18 Acetaminophen (TYLENOL) 325 Mg Tablet, 1-2 TAB PO Q6H PRN for PAIN for 30 Days, TAB Prov:MONA GONZALES MD 03/14/18 Diet: Regular Activity: As Tolerated Special Instructions: Add Carafate and Protonix. Stop Xarelto. Follow up with Primary Care Provider in 1-2 weeks. Copies to: DARIO ROJAS MD ; Venous Thromboembolism Antithrombotics Is Pt On Any Antithrombotics?: No Prophylaxis Tx Contraindicated Pharmacological Contraindicati: Medical Contraindication Problem Qualifiers (1) HTN (hypertension): Hypertension type: essential hypertension Qualified Codes: I10 - Essential (primary) hypertension LUIS ALBERTO HAUSER [facility] September 04, 2018 09:39
[2018-09-04] MEDS ORDERED: HEPARIN FLSH (PORT) 500 UN/5ML ONE (09:58)
[2018-09-04] MEDS ORDERED: HEPARIN FLSH (PORT) 500 UN/5ML IVP ONE (10:05)
[2018-09-04] MEDS ORDERED: SUCRALFATE 1 GM TAB PO SCH (11:00)
[2018-09-09] MEDS ORDERED: RIVA20TA PO (16:54)
[2018-09-09] MEDS ORDERED: ACET-2146 PO (17:05)
== END 2018-09-04 11:00 | disposition home or self-care (01) | DRG 394 ==
LOC: ER 18:29 → MED 21:53
PROVIDERS: ADMIT Internal Medicine; ATTEND Internal Medicine
PROC: 0DJ08ZZ Inspection of Upper Intestinal Tract, Via Natural or Artificial Opening Endoscopic (ICD-10-PCS; principal; 2018-09-03 07:21)
DX: K94.01 Colostomy hemorrhage (principal); K91.2 Postsurgical malabsorption, not elsewhere classified; M79.7 Fibromyalgia; I48.2 Chronic atrial fibrillation; I10 Essential (primary) hypertension; J44.9 Chronic obstructive pulmonary disease, unspecified; K21.9 Gastro-esophageal reflux disease without esophagitis; K52.9 Noninfective gastroenteritis and colitis, unspecified; E06.3 Autoimmune thyroiditis; F31.9 Bipolar disorder, unspecified; N32.81 Overactive bladder; K44.9 Diaphragmatic hernia without obstruction or gangrene; K29.70 Gastritis, unspecified, without bleeding; G89.29 Other chronic pain; Z88.2 Allergy status to sulfonamides; Z88.8 Allergy status to other drugs, medicaments and biological substances; Z86.73 Personal history of transient ischemic attack (TIA), and cerebral infarction without residual deficits; Z86.718 Personal history of other venous thrombosis and embolism; Z90.49 Acquired absence of other specified parts of digestive tract; Z99.81 Dependence on supplemental oxygen; Z87.440 Personal history of urinary (tract) infections; Z86.711 Personal history of pulmonary embolism; Z86.14 Personal history of Methicillin resistant Staphylococcus aureus infection; Z85.3 Personal history of malignant neoplasm of breast; Z90.710 Acquired absence of both cervix and uterus; Z98.1 Arthrodesis status; Z87.891 Personal history of nicotine dependence; Z79.52 Long term (current) use of systemic steroids
CPT/HCPCS: 36415; 36430; 71045; 82040; 82247; 82274; 82310; 82374; 82435; 82565; 82947; 83540; 83550; 83735; 84075; 84132; 84155; 84295; 84443; 84450; 84460; 84520; 85025; 85610; 85730; 86850; 86900; 86901; 86920; 93005; 94640; 96374; 96375; 96376; 99284; C9113; J1642; J1720; J2001; J2270; J2405; J2550; J2704; J3480; J7030; P9016; S0119

== ENCOUNTER → 2018-09-01 | Outpatient (CLI) | payer MEDICARE ==
[2018-03-11 12:31] VITALS: BMI 22.9
[~2018-09-01] MED LIST changes: +0.92DISP2 IV; +LIDO700A19 TP; +PRE1 PO; +VENL37.514 PO; +[UNRECOGNIZED DRUG - CODE] IV
[2018-09-01 16:29] LABS: PLATELET COUNT, AUTOMATED 370 K/uL (150-450)
== END ==
LOC: LAB 15:11
PROVIDERS: ATTEND Family Medicine
DX: E03.9 Hypothyroidism, unspecified (principal); W19.XXXA Unspecified fall, initial encounter
CPT/HCPCS: 36415; 82040; 82247; 82310; 82374; 82435; 82565; 82947; 84075; 84132; 84155; 84295; 84443; 84450; 84460; 84520; 85025

== ENCOUNTER → 2018-09-17 | Outpatient (REF) | payer MEDICARE ==
[2018-09-02 16:15] VITALS: BMI 22.5
[~2018-09-17] MED LIST changes: +0.92DISP2 IV; +LIDO700A19 TP; +ONDA-2 PO; +PRE1 PO; +SUCR1TAB51 PO; +VENL37.514 PO; +[UNRECOGNIZED DRUG - CODE] IV
== END ==
LOC: ZZLCC 06:50
PROVIDERS: ATTEND Family Medicine
DX: D50.0 Iron deficiency anemia secondary to blood loss (chronic) (principal); E03.8 Other specified hypothyroidism
CPT/HCPCS: 82310; 82374; 82435; 82565; 82947; 84132; 84295; 84443; 84520; 85027

== ENCOUNTER → 2018-10-09 | Outpatient (REF) | payer MEDICARE ==
[2018-09-02 16:15] VITALS: BMI 22.5
== END ==
LOC: ZZLCC 06:56
PROVIDERS: ATTEND Family Medicine
DX: E03.8 Other specified hypothyroidism (principal)
CPT/HCPCS: 84443

== ENCOUNTER 2018-10-15 23:07 | Inpatient (IN) | payer MEDICARE ==
[2018-09-02 16:15] VITALS: Ht 157.5 cm; Wt 54.5 kg
[~2018-10-15] VITALS: Ht 157.5 cm; Wt 54.5 kg
[~2018-10-15 23:07] MED LIST changes: -CHOL500050 PO; -LIDO1ADH41 TOP; -OXYC-854 PO; -OXYC-865 PO; -[UNRECOGNIZED DRUG - CODE] PO
--- NOTE | 2018-10-15 23:20 | ER Report ---
History and Physical Time Seen By MD: 23:18 Hx. of Stated Complaint: FALL AT [facility], LEFT HIP PAIN AND DEFORMITY HPI/ROS CHIEF COMPLAINT: fall with left hip pain HISTORY OF PRESENT ILLNESS: This is a 68 year old female. She fell at [facility]. Was getting out of bed to reach something, and slipped and fell landing on left hip. Pain and unable to move the hip without severe pain. Normally able to ambulate. Remembers the event, no head injury or loss of consciousness. Denies other pain at this time. Can feel the left lower extremity and denies numbness. Is having a little bit of nausea at this time. No skin breakdown or laceration. REVIEW OF SYSTEMS: Constitutional: No fever or chills. Eyes: No vision changes. ENT: No sore throat. No congestion. Cardiovascular: No chest pain. Respiratory: No shortness of breath. Gastrointestinal: No abdominal pain. Genitourinary: No incontinence with the fall. Musculoskeletal: As above. Skin: No rashes. Neurological: Generalized weakness. No dizziness or headache. Allergies: Coded Allergies: Sulfa (Sulfonamide Antibiotics) (Verified Allergy, Unknown, 10/15/18) allergic to cream only amitriptyline (Verified Allergy, Unknown, 10/15/18) aspirin (Verified Allergy, Unknown, 10/15/18) Home Meds Active Scripts Rivaroxaban 20 Mg (XARELTO 20 MG) 20 Mg Tablet, 1 TAB PO DAILY for 90 Days, #90 TAB 4 Refills Prov:DARIO ROJAS MD 09/09/18 Ondansetron Hcl (ONDANSETRON HCL) 4 Mg Tablet, 4 MG PO Q6H PRN for NAUSEA, #20 TAB Prov:LUIS ALBERTO HAUSER 09/04/18 Potassium Chloride (POTASSIUM CHLORIDE) 20 Meq Tab.er.prt, 1 TAB PO BID for 30 Days, #30 TAB Prov:DARIO ROJAS MD 06/15/18 Pantoprazole Sodium (PANTOPRAZOLE SODIUM) 40 Mg Tablet.dr, 1 TAB PO QDAY for 30 Days, #30 TAB Prov:DARIO ROJAS MD 01/22/18 Trazodone Hcl (TRAZODONE HCL) 50 Mg Tablet, 1 TAB PO QHS for 30 Days, #30 TAB Prov:DARIO ROJAS MD 01/21/18 Reported Medications Electrolyte,Oral (PEDIALYTE ELECTROLYTE SINGLES) 237 Ml Solution, 237 ML PO QID 10/16/18 Lidocaine (Lidocare) 4 % Adh..patch, 1 PATCH TOP QDAY 10/16/18 Acetaminophen 500 Mg Tab (ACETAMINOPHEN EXTRA STRENGTH) 500 Mg Tablet, 2 TAB PO BID, TAB 09/09/18 Venlafaxine Hcl (VENLAFAXINE HCL) 37.5 Mg Tab, 37.5 MG PO DAILY, TAB 09/02/18 Electrolyte,Oral (PEDIALYTE) 1,000 Ml Solution, 240 ML PO QID 09/02/18 0.9 % Sodium Chloride (NORMAL SALINE FLUSH) 2 Ml Disp.syrin, 10 ML IV every 28 days 09/02/18 Diphenoxylate Hcl/Atropine (LOMOTIL TABLET) 1 Each Tablet, 2 TAB PO Q6H PRN for DIARRHEA, TAB 09/02/18 Heparin Sodium,Porcine/Pf (HEPARIN LOCK FLUSH 100 UNIT/ML) 100 Unit/1 Ml Vial, 500 UNIT IV every 28 days, VIAL 09/02/18 Menthol (BIOFREEZE) 118 Ml Gel..ml., 1 JARETT TOP TID for pain 09/02/18 Triamcinolone Acetonide (Nasacort) 10.8 Ml [place], 1 SPRAY NS BID for 30 Days, #1 BOT 05/04/18 Buprenorphine (Buprenorphine) 7.5 Mcg/Hour Patch.tdwk, 1 PATCH.WK TOP QWEEKF 04/09/18 Cholestyramine (With Sugar) (CHOLESTYRAMINE PACKET) 4 Gm Powd.pack, 4 GM PO QID 04/03/18 Loperamide HCl (Imodium A-D) 2 Mg Capsule, 1 Q6H PRN for DIARRHEA 03/09/18 Hydrocodone Bit/Acetaminophen (NORCO 5-325 TABLET) 1 Each Tablet, 1 EACH PO BID PRN for PAIN, TAB 03/05/18 Oxygen (OXYGEN) Inha, 3 L INH, L 2 Liters Continuous Oxygen and With CPap at HS 01/21/18 Protein Supplement (Protein Powder) 480 Gm Powder, 2 NOTSPEC PO TID 2 scoops of powder in 6-8oz of water between meals 01/21/18 Polyvinyl Alcohol (LIQUITEARS) 15 Ml Drops, 1 GTT OU PRN for dry eyes 01/09/18 Mag Hydrox/Al Hydrox/Simeth (MAALOX MAXIMUM STRENGTH SUSP) 355 Ml Oral.susp, 15 ML PO Q4H PRN for INDIGESTION 01/07/18 Nystatin 100,000 Unit/Gm Top Powder (NYSTATIN 100,000 UNIT/GM TOP POWDER) 15 Gm Powder, 15 GM TP BID 01/07/18 Tetrahydrozoline Hcl (EYE DROPS) 15 Ml Drops, 1 DROP OU PRN 01/07/18 Guaifenesin/Dextromethorphan (Robitussin Cough-Chest Dm Liq) 100 Mg-5 Mg/5 Ml Liquid, 5 ML PO Q4-6H PRN for COUGH 01/07/18 Calcium Polycarbophil (FIBER) 625 Mg Tablet, 2 TAB PO BID 01/07/18 Calcium Carbonate (Calcium Carbonate) 300 Mg Calcium (750 Mg) Tab.chew, 2 TAB PO PRN Not to exceed 10 tablets in 24 hours 01/07/18 Nifedipine (NIFEDIPINE ER) 30 Mg Tab.er.24, 1 TAB PO QDAY 01/07/18 Fluticasone/Vilanterol 100/25 Mcg/Inh (BREO ELLIPTA 100/25 MCG) 1 Each Aer.pow.ba, 1 INH INH QDAY 01/07/18 Discontinued Reported Medications Benzonatate 100 Mg Cap (TESSALON PERLE 100 MG CAP) 100 Mg Capsule, 1 CAP PO Q8H PRN for COUGH 09/30/18 Multivitamin (TAB-A-OMAR) 1 Each Tablet, 1 EACH PO QAM 01/07/18 Past Medical/Surgical History Atrial fibrillation, hypertension, history of TIA, COPD, hypothyroidism, partial colectomy, and small bowel resection with ileostomy, history of PE and insertion of IVC filter, history of DVT, GERD, history of GI bleeding, fibromyalgia with complex regional pain syndrome with a spinal cord stimulator, anxiety, bipolar, depression. History of breast cancer with left mastectomy. Reviewed Nurses Notes: Yes Hx Smoking: Yes Smoking Status: Former Smoker Hx Substance Use Disorder: No Hx Alcohol Use: No Constitutional Vital Sign - Last 24 Hours 10/15/18 10/15/18 10/15/18 10/15/18 23:07 23:10 23:22 23:30 Temp 98.7 Pulse 77 76 Resp 18 B/P (MAP) 172/81 (111) 172/81 161/82 (108) Pulse Ox 100 100 O2 Delivery Nasal Cannula 10/15/18 10/15/18 10/15/18 10/16/18 23:37 23:38 23:52 00:00 Pulse 79 80 B/P (MAP) 150/73 (98) Pulse Ox 100 98 O2 Flow Rate 3.0 10/16/18 10/16/18 10/16/18 10/16/18 00:07 00:12 00:27 00:30 Pulse 79 81 83 B/P (MAP) 154/68 (96) Pulse Ox 100 100 100 10/16/18 10/16/18 10/16/18 00:42 00:57 01:00 Pulse 84 74 B/P (MAP) 147/74 (98) Pulse Ox 100 100 Physical Exam General Appearance: The patient is alert. No acute distress. Eyes: Pupils are equal, round. No pallor, injection or icterus. Extraocular movements are intact. ENT: Mucous membranes are moist. Normal oral mucosa. Posterior oropharynx is normal. Neck: Supple and non tender. Respiratory: Lungs are clear to auscultation. Cardiovascular: Regular rate and rhythm. No murmurs, gallops or rubs. Normal capillary refill and pulses in left foot. No edema. Gastrointestinal: Abdomen is soft and non tender. Nondistended. Neurological: Alert and oriented x3. Has normal sensation in left lower extremity. Skin: Warm and dry. No rashes. No laceration or skin breakdown. Musculoskeletal: Pain throughout the left hip region with palpation and any movement. No pain in the lower back. No pain in the rest of the leg. Left leg is shortened and rotated. DIFFERENTIAL DIAGNOSIS: After history and physical exam, differential diagnosis was considered for fall with suspected fracture of the left hip. Medical Decision Making Data Points Result Diagram: 10/16/18 1257 10/16/18 1257 EKG/Imaging EKG Interpretation 12 lead EKG: Rhythm: Normal sinus rhythm, rate 70 to [place]: Left axis QRS: Q waves inferior leads ST segments: No ST elevation or depression noted normal appearing T waves [ ] Imaging LEFT HIP: Indication: Injury. Technique: Two views were obtained. Comparison: None available. Findings: There is a comminuted fracture through the intertrochanteric portion of the proximal left femur. The left femoral head appears intact, and there is no evidence of dislocation. The pelvic bones are otherwise intact. There are mild degenerative changes in the lower lumbar spine. An IVC filter is evident in the right paraspinal soft tissues. There is an ostomy site in the right lower quadrant. An electronic device overlies the left hemipelvis. IMPRESSION: Comminuted intertrochanteric fracture of the left proximal femur. No evidence of dislocation. Report Dictated By: Scot Rizzo MD at 10/16/2018 12:05 AM ED Course/Re-evaluation Clinical Indication for ER IV: Hydration, IV Access ED Course Patient given fentanyl for pain and Zofran for nausea. X-ray obtained showing intertrochanteric fracture of the left hip. Discussed with orthopedic surgery, Dr. Shelton. Admitted to the hospitalist service, Dr. Lira-Still accepted the patient. EKG and chest x-ray done for preop clearance purposes. Decision to Disposition Date: Oct 16, 2018 Decision to Disposition Time: 00:35 Depart Departure Latest Vital Signs Vital Signs Date Time Temp Pulse Resp B/P (MAP) Pulse Ox O2 Delivery O2 Flow Rate FiO2 10/16/18 01:00 147/74 (98) 10/16/18 00:57 74 100 10/15/18 23:38 3.0 10/15/18 23:10 98.7 18 Nasal Cannula Impression: Primary Impression: Hip fracture Condition: Condition Unchanged Disposition: Admitted from ER Referrals: DARIO ROJAS MD (PCP) Problem Qualifiers Primary Impression: Hip fracture Encounter type: initial encounter Fracture type: closed Laterality: left Qualified Codes: S72.002A - Fracture of unspecified part of neck of left femur, initial encounter for closed fracture JAYANT DIGGS MD Oct 15, 2018 23:20
[2018-10-15] MEDS ORDERED: NS(*) 0.9% 1000 ML BAG 1,000 ML IV ONE (23:25)
[2018-10-15] MEDS ORDERED: ONDANSETRON 4 MG/2 ML VIAL IVP ONE (23:25)
[2018-10-15] MEDS ORDERED: fentaNYL CITR 100 MCG/2 ML AMP IVP ONE (23:25)
[2018-10-16] VITALS (15 sets, daily range): BP systolic 105–159; BP diastolic 43–111
--- NOTE | 2018-10-16 00:13 | RADIOLOGY IMAGING REPORT ---
FACILITY: [facility] - [place] PATIENT NAME: Xin Tran : 1950 MR: [id number] V: [id number] EXAM DATE: ORDERING PHYSICIAN: JAYANT DGIGS TECHNOLOGIST: Location: [facility] [place] Patient: Xin Tran : 1950 Visit/Account:[id number] Date of Sevice: 10/15/2018 LEFT HIP: Indication: Injury. Technique: Two views were obtained. Comparison: None available. Findings: There is a comminuted fracture through the intertrochanteric portion of the proximal left f emur. The left femoral head appears intact, and there is no evidence of dislocation. The pelvic bones are otherwise intact. There are mild degenerative changes in the lower lumbar spine. An IVC filter is evident in the right paraspinal soft tissues. There is an ostomy site in the right l ower quadrant. An electronic device overlies the left hemipelvis. IMPRESSION: Comminuted intertrochanteric fracture of the left proximal femur. No evidence of dislocat ion. Report Dictated By: Scot Rizzo MD at 10/16/2018 12:05 AM Report E-Signed By: Scot Rizzo MD at 10/16/2018 12:08 AM WSN:[id number]
[2018-10-16] MEDS ORDERED: fentaNYL CITR 100 MCG/2 ML AMP IVP ONE (00:15)
--- NOTE | 2018-10-16 01:07 | EKG ---
FACILITY: [facility] - [place] PATIENT NAME: JACKLYN FRANCISCO : [id number] MR: [id number] V: [id number] EXAM DATE: ORDERING PHYSICIAN: JAYANT DIGGS TECHNOLOGIST: KATHI Benoit Reason : PRE-OP Blood Pressure : / mmHG Vent. Rate : 072 BPM Atrial Rate : 072 BPM P-R Int : 140 ms QRS Dur : 072 ms QT Int : 404 ms P-R-T Axes : 054 -50 032 degrees QTc Int : 442 ms Normal sinus rhythm Left axis deviation Inferior infarct (cited on or before 07-JAN-2018) Abnormal ECG When compared with ECG of 01-SEP-2018 18:15, No significant change was found Confirmed by Jerome Gandara ([id number]) on 10/16/2018 7:35:40 AM Referred By: Confirmed By:Jerome Purvis
--- NOTE | 2018-10-16 01:19 | RADIOLOGY IMAGING REPORT ---
FACILITY: [facility] PATIENT NAME: Xin Tran : 1950 MR: [id number] V: [id number] EXAM DATE: ORDERING PHYSICIAN: JAYANT DIGGS TECHNOLOGIST: [place] [facility] [place]an : 1950 Visit/Account:[id number] Date of Sevice: 10/16/2018 PORTABLE CHEST: Indication: Preoperative evaluation. Technique: A single frontal film was obtained. Comparison: 09/01/2018 Skeletal and soft tissue structures: Stable. No acute deformity. Heart and mediastinum: The heart size is normal. A port catheter remains in satisfactory position. Lung murillo: Well expanded and clear. No focal or diffuse opacities. No vascular congestion. Pleural spaces: Unremarkable. Impression: No acute process or significant change. Report Dictated By: Scot Rizzo MD at 10/16/2018 1:10 AM Report E-Signed By: Scot Rizzo MD at 10/16/2018 1:13 AM WSN:[id number]
[2018-10-16] MEDS ORDERED: FLUSH 10 ML SYR IVP PRN ×2 (01:20→19:55)
--- NOTE | 2018-10-16 01:20 | History & Physical ---
History of Present Illness Chief Complaint L hip pain History of Present Illness 68F from [facility] presented after fall with L hip pain. PMHx significant for PE, COPD, depression, hypothyroid, chronic steroid use. Reports reaching for something this evening when she fell, had sudden onset L hip pain and was unable to get up. In ER XR confirms L intratrochanteric hip Fx. Admitted for surgical repair. History Problems: (1) High output ileostomy Status: Chronic (2) Anemia in chronic illness Status: Chronic (3) Chronic pain Status: Chronic (4) HTN (hypertension) Status: Chronic (5) Steroid dependence Status: Chronic (6) PE (pulmonary thromboembolism) Status: Resolved (7) COPD (chronic obstructive pulmonary disease) Status: Chronic Home Meds Active Scripts Rivaroxaban 20 Mg (XARELTO 20 MG) 20 Mg Tablet, 1 TAB PO DAILY for 90 Days, #90 TAB 4 Refills Prov:DARIO ROJAS MD 09/09/18 Ondansetron Hcl (ONDANSETRON HCL) 4 Mg Tablet, 4 MG PO Q6H PRN for NAUSEA, #20 TAB Prov:LUIS ALBERTO HAUSER TICKET AGENT 09/04/18 Potassium Chloride (POTASSIUM CHLORIDE) 20 Meq Tab.er.prt, 1 TAB PO BID for 30 Days, #30 TAB Prov:DARIO ROJAS MD 06/15/18 Pantoprazole Sodium (PANTOPRAZOLE SODIUM) 40 Mg Tablet.dr, 1 TAB PO QDAY for 30 Days, #30 TAB Prov:DARIO ROJAS MD 01/22/18 Trazodone Hcl (TRAZODONE HCL) 50 Mg Tablet, 1 TAB PO QHS for 30 Days, #30 TAB Prov:DARIO ROJAS MD 01/21/18 Reported Medications Benzonatate 100 Mg Cap (TESSALON PERLE 100 MG CAP) 100 Mg Capsule, 1 CAP PO Q8H PRN for COUGH 09/30/18 Acetaminophen 500 Mg Tab (ACETAMINOPHEN EXTRA STRENGTH) 500 Mg Tablet, 2 TAB PO BID, TAB 09/09/18 Venlafaxine Hcl (VENLAFAXINE HCL) 37.5 Mg Tab, 37.5 MG PO DAILY, TAB 09/02/18 Electrolyte,Oral (PEDIALYTE) 1,000 Ml Solution, 240 ML PO QID 09/02/18 0.9 % Sodium Chloride (NORMAL SALINE FLUSH) 2 Ml Disp.syrin, 10 ML IV every 28 days 09/02/18 Diphenoxylate Hcl/Atropine (LOMOTIL TABLET) 1 Each Tablet, 2 TAB PO QID PRN for DIARRHEA, TAB 09/02/18 Heparin Sodium,Porcine/Pf (HEPARIN LOCK FLUSH 100 UNIT/ML) 100 Unit/1 Ml Vial, 500 UNIT IV every 28 days, VIAL 09/02/18 Menthol (BIOFREEZE) 118 Ml Gel..ml., 1 JARETT TOP TID for pain 09/02/18 Lidocaine (Lidocaine) 5 % Adh..patch, 1 PATCH.24H TP DAILY apply in am and remove 12 hours later 09/01/18 Triamcinolone Acetonide (Nasacort) 10.8 Ml [place], 1 SPRAY NS BID for 30 Days, #1 BOT 05/04/18 Buprenorphine (Buprenorphine) 7.5 Mcg/Hour Patch.tdwk, 1 PATCH.WK TOP QWEEKF 04/09/18 Cholestyramine (With Sugar) (CHOLESTYRAMINE PACKET) 4 Gm Powd.pack, 4 GM PO QID 04/03/18 Loperamide HCl (Imodium A-D) 2 Mg Capsule, 1 QID PRN for DIARRHEA 03/09/18 Hydrocodone Bit/Acetaminophen (NORCO 5-325 TABLET) 1 Each Tablet, 1 EACH PO BID PRN for PAIN, TAB 03/05/18 Oxygen (OXYGEN) Inha, 3 L INH, L 2 Liters Continuous Oxygen and With CPap at HS 01/21/18 Protein Supplement (Protein Powder) 480 Gm Powder, 2 NOTSPEC PO TID 2 scoops of powder in 6-8oz of water between meals 01/21/18 Polyvinyl Alcohol (LIQUITEARS) 15 Ml Drops, 1 GTT OU PRN for dry eyes 01/09/18 Multivitamin (TAB-A-OMAR) 1 Each Tablet, 1 EACH PO QAM 01/07/18 Mag Hydrox/Al Hydrox/Simeth (MAALOX MAXIMUM STRENGTH SUSP) 355 Ml Oral.susp, 15 ML PO Q4H PRN for INDIGESTION 01/07/18 Nystatin 100,000 Unit/Gm Top Powder (NYSTATIN 100,000 UNIT/GM TOP POWDER) 15 Gm Powder, 15 GM TP BID 01/07/18 Tetrahydrozoline Hcl (EYE DROPS) 15 Ml Drops, 1 DROP OU PRN 01/07/18 Guaifenesin/Dextromethorphan (Robitussin Cough-Chest Dm Liq) 100 Mg-5 Mg/5 Ml Liquid, 5 ML PO Q4-6H PRN for COUGH 01/07/18 Calcium Polycarbophil (FIBER) 625 Mg Tablet, 2 TAB PO BID 01/07/18 Calcium Carbonate (Calcium Carbonate) 300 Mg Calcium (750 Mg) Tab.chew, 2 TAB PO PRN Not to exceed 10 tablets in 24 hours 01/07/18 Nifedipine (NIFEDIPINE ER) 30 Mg Tab.er.24, 1 TAB PO QDAY 01/07/18 Fluticasone/Vilanterol 100/25 Mcg/Inh (BREO ELLIPTA 100/25 MCG) 1 Each Aer.pow.ba, 1 INH INH QDAY 01/07/18 Allergies: Coded Allergies: Sulfa (Sulfonamide Antibiotics) (Verified Allergy, Unknown, 10/15/18) allergic to cream only amitriptyline (Verified Allergy, Unknown, 10/15/18) aspirin (Verified Allergy, Unknown, 10/15/18) Patient History: FH: diabetes mellitus FH: hypertension Hx Smoking: Yes Smoking Status: Former Smoker Caffeine Intake: Tea, Soda Caffeine/Cups Per Day: 3 Hx Alcohol Use: No Hx Substance Use Disorder: No Social Drug Use: Never Review of Systems Cardiovascular: No Chest Pain Respiratory: No Shortness of Breath Musculoskeletal: Pain Exam Vital Signs Vital Signs Date Time Temp Pulse Resp B/P (MAP) Pulse Ox O2 Delivery O2 Flow Rate FiO2 10/16/18 00:07 79 100 10/16/18 00:00 150/73 (98) 10/15/18 23:38 3.0 10/15/18 23:10 98.7 18 Nasal Cannula General Appearance: Alert, Awake, No Acute Distress Neuro: No Gross deficits Cardiovascular: Normal Rhythm & Peripheral Pulses Respiratory: No Respiratory Distress GI: Abd Soft and Non-Tender Musculoskeletal: Other (+ Pain L hip) Extremities: Soft and Non Tender, Warm, Pulses, Perfused Assessment and Plan Problems: (1) Hip fracture Status: Acute Assessment & Plan: EKG and CXR pending, if no concerns found, given chronic medical problems she is an intermediate risk for surgery. Will hold her Xarelto and should be able to proceed with surgery on 10.17. Stress dose hydrocortisone prior to surgery. (2) COPD (chronic obstructive pulmonary disease) Status: Chronic Assessment & Plan: On 3L baseline. (3) Chronic pain Status: Chronic Assessment & Plan: On buprenorphine patch and Neon 5/325 PRN, scheduled APAP. Will continue Patch for basal analgesia and cover with IV Dilaudid. (4) PE (pulmonary thromboembolism) Status: Resolved Assessment & Plan: Hold Xarelto until after surgery anticipate 10.17. (5) Steroid dependence Status: Chronic Assessment & Plan: Has recently been tapered off, will stress dose hydr ocortisone before surgery. (6) High output ileostomy Status: Chronic Assessment & Plan: Stable Venous Thromboembolism Antithrombotics Is Pt On Any Antithrombotics?: No Prophylaxis Tx Contraindicated Pharmacological Contraindicati: Surgical Contraindication (resume Xarelto post operatively) Exam Sepsis Risk: No Definite Risk Problem Qualifiers (1) Hip fracture: Encounter type: initial encounter Fracture type: closed Laterality: left Qualified Codes: S72.002A - Fracture of unspecified part of neck of left femur, initial encounter for closed fracture GRACIA WITT DO Oct 16, 2018 01:19
[2018-10-16] MEDS: NS(*) 0.9% 1000 ML BAG 1,000 ML IV PRN ×2 (02:15→12:27)
[2018-10-16] MEDS: HYDROmorphone HCL 2 MG/ML SDV IVP PRN ×5 (02:20→14:00)
[2018-10-16] MEDS: PROMETHAZINE 25 MG/ML 1 ML AMP IVP PRN ×2 (03:31→12:38)
[2018-10-16] MEDS ORDERED: [UNRECOGNIZED DRUG - CODE] PO (04:44)
[2018-10-16] MEDS ORDERED: LIDO1ADH41 TOP (04:44)
[2018-10-16] MEDS ORDERED: ACETAMINOPHEN 500 MG TAB PO SCH (09:00)
[2018-10-16] MEDS: CALCIUM POLYCARBOPH 625 MG TAB PO SCH ×2 (09:46→22:28)
[2018-10-16] MEDS: NIFEdipine XL 30 MG TABCR PO SCH (09:47)
[2018-10-16] MEDS: VENLAFAXINE XR 37.5 MG CAPCR PO SCH (09:47)
[2018-10-16] MEDS: LIDOCAINE 5% PATCH TP SCH (09:47)
[2018-10-16] MEDS: PANTOPRAZOLE SOD 40 MG TABEC PO SCH (09:47)
--- NOTE | 2018-10-16 12:38 | Medical Nutrition Therapy ---
Nutrition Anthropometrics Height (Inches): 62.00 Height (Calculated Centimeters: 157.346369 Weight (Pounds): 120 Weight (Calculated Kilograms): 54.459 BMI: 22 Jani Nutrition Score: Adequate Jani Nutrition Risk Score: 15 Dietary Referral Nutrition Risk Factors: Nutrition Risk Comment: NO TEETH Physical Findings Physical Appearance: WNR Skin Appearance Skin Appearance: Edema Edema Location Modifier: Left Edema Location: Lower Extremity Type of Edema: Degree of Edema: Gastrointestinal Symptoms GI Symtoms: Nausea, Vomiting Tube Present: Bowel Sounds: Recent Bowel Pattern: Stool Characteristics: Liquid, Loose Nutrition/Food History Increased Appetite Good Snacks: Has Pedialyte and Protein Powder BID at [facility] Nutritional Diagnosis Nutritional Risk Acuity 1: Acute/ES Renal Nutritional Risk Acuity 2: Ileostomy Nutritional Risk Acuity 3: Nausea, GI Bleed Past Medical History: COPD, Depression, Hypothyroidism, HTN, Ischemic disease of gut, PE, DVT, partial colectomy, ileostomy, Cellulitis of abdominal wall Nutritional Acuity: 2-Moderate Nutrition Diagnosis: Increased Nutrient Needs Nutrition Etiology: Malabsorption/Intolerance, Increased Nutrient Needs Nutrition Problem/Etiology/Sym: Hip Fx (Increased need for protein), High Output Ileostomy (Increased need for electrolytes) Energy Requirement: 1338 (MSJ) Protein Requirement: 55 (1-1.2g/kg (55-65) for Hip Fx) Fluid Requirement: 1786 (30 mLkg) Nutrition Intervention: Between meal supplement, Vit/min support Nutritional Needs Comment: Nutrition Monitoring & Eval Nutrition Goals: Eat 75-100% Meal RD Patient Assessment Time: [address] Assessment Type: RD Assessment Patient Nutrition Acuity: 2-Moderate Follow Up Date: Oct 21, 2018 Nutritional Comment: -Spoke with pt this am. States wt has been averaging 115-118 lbs at [facility]. She reports high output from her stoma. At [facility] she drinks pedialyte with protein powder BID. Pt has increased energy/protein needs for healing of hip fx, also increased need for electrolytes due to high output stoma. Recommend continue with gatorade and protein powder s/p surgery. Will monitor intake, weight, electrolytes.DOUG FISCHER Oct 16, 2018 12:38
[2018-10-16 13:06] LABS: PLATELET COUNT, AUTOMATED 274 K/uL (150-450)
[2018-10-16] MEDS: ALBUTEROL/IPRATROPIUM 3 ML NEB NEB SCH ×2 (13:13→17:26)
--- NOTE | 2018-10-16 13:19 | Miscellaneous Provider Note ---
Miscellaneous Provider Note Note The patient was admitted for L hip fracture. She is a resident of [facility]. She makes her own medical decisions and has requested to have the hip repaired. Dr. Shelton plans to take her to the OR later this afternoon. EKG shows no acute changes. TSH on 10/09 was WNL at 2.35. CXR shows no acute processes. CBC, BMP and INR are pending. The patient had been on chronic prednisone therapy as an outpatient. Dr. Acosta recently weaned the patient's prednisone down and off (within the last few days). The patient will still have "sluggish" adrenal glands at this point and will need to have stress dosed steroids. She will need to receive Solu- Cortef before her procedure today. Will order. She has an ileostomy in place on the R. She has a history of bipolar disorder. She has had breast cancer. The patient is edentulous. She has a history of DVT and PE and has been on Xarelto. This will be held. An INR has been ordered. She has COPD and sleep apnea. She is chronically on oxygen therapy and CPAP. She uses Breo-Ellipta at [facility]. Will order Duonebs here. The patient has chronic pain and has been on a buprenorphine patch. This was removed upon admission as it was due to be changed the day of admission and is not on formulary at [facility]. Will treat acute pain with Dilaudid prn. She is an acceptable risk for surgery pending her CBC, BMP and INR resu lts. She has a hx of MRSA. ELIAS GONZALES MD Oct 16, 2018 13:19
[2018-10-16] MEDS ORDERED: HYDROCORTISONE 100 MG/2 ML IVP ONE (13:20)
[2018-10-16 13:22] LABS: INR 1.07
[2018-10-16] MEDS ORDERED: NORMOSOL R SOLN(*) 1000 ML BAG 1,000 ML IV ONE (14:30)
[2018-10-16] MEDS ORDERED: FAMOTIDINE 20 MG TAB PO ONE (14:30)
[2018-10-16] MEDS ORDERED: ROPIVACAINE 0.2% 20 ML VIAL ONE (16:59)
[2018-10-16] MEDS ORDERED: BACITRACIN OINT 15 GM TUBE TP ONE (16:59)
[2018-10-16] MEDS ORDERED: fentaNYL CITR 100 MCG/2 ML AMP ONE ×3 (17:37→19:31)
[2018-10-16] MEDS ORDERED: PROPOFOL EMUL(*) 10MG/ML 20 ML 20 ML ONE (17:38)
[2018-10-16] MEDS ORDERED: LIDOCAINE MPF 1% 5 ML VIAL ONE (17:38)
[2018-10-16] MEDS ORDERED: EPINEPHrine HCL 1 MG/ML AMP ONE (17:39)
[2018-10-16] MEDS ORDERED: ONDANSETRON 4 MG/2 ML VIAL ONE (17:39)
[2018-10-16] MEDS ORDERED: NS 0.9% 20 ML SDV 20 ML ONE (17:39)
[2018-10-16] MEDS ORDERED: ROPIVACAINE 0.5% 20 ML VIAL ONE (17:39)
[2018-10-16] MEDS ORDERED: DEXAMETHASONE SOD PHOS 10MG/ML ONE (17:39)
[2018-10-16] MEDS ORDERED: ceFAZolin 1 GM VIAL ONE (18:05)
[2018-10-16] MEDS ORDERED: ePHEDrine 25 MG/5 ML DISP.SYR IVP ONE (18:05)
[2018-10-16] MEDS ORDERED: HYDROCORTISONE 100 MG/2 ML ONE (18:05)
[2018-10-16] MEDS ORDERED: ceFAZolin 1 GM VIAL IVP ONE (18:08)
[2018-10-16] MEDS ORDERED: DEXAMETHASONE SOD 4 MG/ML VIAL ONE (18:17)
[2018-10-16] MEDS ORDERED: ceFAZolin(*) 1 GM VIAL 1 GM in NS(*) 0.9% 100 ML MINI-BAG 100 ML IV ONE (19:05)
--- NOTE | 2018-10-16 19:34 | RADIOLOGY IMAGING REPORT ---
FACILITY: [facility] PATIENT NAME: Xin Tran : 1950 MR: [id number] V: [id number] EXAM DATE: ORDERING PHYSICIAN: MENDY CHEEMA TECHNOLOGIST: Location: [facility] [place] Patient: Xin Tran : 1950 Visit/Account:[id number] Date of Sevice: 10/16/2018 C-ARM FLUORO 1 HR HISTORY: LEFT HIP GAMMA NAILING INTRAOPERATIVE FILMS (four films) Intraoperative films films demonstrating demonstrates a left proximal femur intramedullary nirmala and le ft femoral neck compression screw traversing a previously seen and described comminuted intertrochant guillermo fracture. There is good anatomic alignment. IMPRESSION: 1. Intraoperative films as described. Fluoroscopic time is 79.7 seconds. DAP of [id number] Report Dictated By: Kailash Foster MD at 10/16/2018 7:25 PM Report E-Signed By: Kailash Foster MD at 10/16/2018 7:29 PM WSN:[id number]
--- NOTE | 2018-10-16 19:51 | OPERATIVE REPORT 1 ---
EVENT DATE: October 16, 2018 SURGEON: Ty Shelton MD ANESTHESIOLOGIST: Aureliano Olmos MD ANESTHESIA: General plus fascia iliaca block. CUSTOM FEED MILL OPERATOR: REUBEN Villareal PREOPERATIVE DIAGNOSIS Left intratrochanteric femur fracture. POSTOPERATIVE DIAGNOSIS Left intratrochanteric femur fracture. PROCEDURE PERFORMED Left hip intratrochanteric femur fracture intramedullary rodding with Gamma nail. ESTIMATED BLOOD LOSS 50 INTRAVENOUS FLUIDS 700 TOURNIQUET TIME None. SPECIMENS None. COMPLICATIONS None. IMPLANTS USED [place] Gamma nail 125 degrees with 30 mm locking screw and 95 mm lag screw, as well as one interlock screw proximally. SUMMARY OF PROCEDURE The patient was brought in to the operating room and left on the OR table. She was given a fascia iliaca block under ultrasound guidance by Dr. Olmos. After confirming adequacy of analgesia, she was then given a light general anesthetic and transferred over to the fracture table. The fracture was reduced under fluoroscopic guidance. We prepped the hip after marking the anatomic landmarks and then waited three minutes for the alcohol-based prep to dry. The shower curtain drape was then applied, and using the previously marked landmarks, I made a small skin incision and palpated the trochanteric tip. The guidewire was placed, followed by over reaming, and then we placed the nirmala. However, it did not go in all the way. It was quite challenging to get it to advance, so I used a truck driver supervisor and advanced it a bit more, and then I started being concerned that it would not go down and might fracture the femur, so I extracted it with some difficulty, and we used flexible reamers to ream up to 12.5. I then tried again, and it went in quite nicely. The 125-degree nirmala was used, and I placed a bit of additional traction under direct vision to allow for the angles to match and then placed the screw. It measured 95. We reamed to this and then placed the final lag screw. A compression device was used as this was a relatively basicervical fracture and got nice compression, and then we placed the locking screw and backed it off a quarter. Distally, the interlock screw was placed. It was a 30, and it had very good purchase. She had excellent cortices. We checked AP and lateral on both sides and also did fluoroscopy with the screw head to ensure that it was not breaching the cortex. It was central on both views. The wound was irrigated, and then the fascia was closed, followed by the skin with fior. She had been given stress doses of steroids, and we had also confirmed that her spinal cord stimulator was no longer active. MTDD
[2018-10-16] MEDS ORDERED: ACETAMINOPHEN 500 MG TAB PO PRN (19:55)
[2018-10-16] MEDS ORDERED: KCL/D5LR 20 MEQ/1000 ML PREMIX 1,000 ML IV PRN (19:55)
[2018-10-16] MEDS ORDERED: diphenhydrAMINE 25 MG CAP PO PRN (19:55)
[2018-10-16] MEDS ORDERED: MORPHINE 50 MG/50 ML PCA BAG IV PRN (19:55)
[2018-10-16] MEDS ORDERED: MAGNESIUM CITRATE 300 ML BTL PO PRN (19:55)
[2018-10-16] MEDS ORDERED: NALOXONE HCL 0.4 MG/ML VIAL IVP PRN (19:55)
[2018-10-16] MEDS: PATCH REMOVAL 1 EA TP SCH (21:00)
[2018-10-16] MEDS ORDERED: PCA LOCKBOX KEYS XX ONE (21:56)
[2018-10-17] VITALS (14 sets, daily range): BP systolic 90–133; BP diastolic 42–66
[2018-10-17] MEDS: ALBUTEROL/IPRATROPIUM 3 ML NEB NEB SCH ×5 (00:45→23:34)
[2018-10-17] MEDS: ONDANSETRON 4 MG/2 ML VIAL IVP PRN (02:40)
[2018-10-17] MEDS: ceFAZolin(*) 1 GM VIAL 1 GM in NS(*) 0.9% 100 ML MINI-BAG 100 ML IVPB SCH ×3 (02:40→18:47)
[2018-10-17] MEDS: traZODone HCL 50 MG TAB PO PRN ×2 (02:40→20:28)
[2018-10-17] MEDS: PROMETHAZINE 25 MG/ML 1 ML AMP IVP PRN ×2 (05:56→13:12)
[2018-10-17 06:03] LABS: PLATELET COUNT, AUTOMATED 262 K/uL (150-450)
[2018-10-17] MEDS ORDERED: NS(*) 0.9% 500 ML BAG 500 ML IV PRN (07:35)
[2018-10-17] MEDS: KCL (*) 20 MEQ/100 ML PREMIX 100 ML IV SCH ×2 (08:22→10:48)
[2018-10-17] MEDS: CALCIUM POLYCARBOPH 625 MG TAB PO SCH ×2 (08:23→20:28)
[2018-10-17] MEDS: VENLAFAXINE XR 37.5 MG CAPCR PO SCH (08:23)
[2018-10-17] MEDS: PANTOPRAZOLE SOD 40 MG TABEC PO SCH (08:23)
[2018-10-17] MEDS: LIDOCAINE 5% PATCH TP SCH (08:23)
[2018-10-17] MEDS: NIFEdipine XL 30 MG TABCR PO SCH (09:00)
[2018-10-17] MEDS: oxyCODON/ACET (*)5/325MG (CII) 1 TAB TAB PO PRN ×3 (11:07→19:23)
--- NOTE | 2018-10-17 11:21 | Hospitalist Progress Note ---
Subjective Progress Notes Subjective Admitted for hip fracture, Surgical repair done by Dr. Shelton on 10/16/18. No acute changes overnight. Patient Complains of: Neurological: No: Confusion, Weakness Cardiovascular: No: Chest Pain, Palpitations Respiratory: No: Shortness of Breath Physical Exam Vital Signs Date Time Temp Pulse Resp B/P (MAP) Pulse Ox O2 Delivery O2 Flow Rate FiO2 10/17/18 10:59 99.2 93 105/48 (67) 96 Room Air 10/17/18 08:19 20 0.5 Intake and Output 10/17/18 07:02 Intake Total 3290 ml Output Total 1450 ml Balance 1840 ml Intake Oral 640 ml IV Total 2650 ml Output Urine Total 800 ml Stool Total 600 ml Estimated Blood Loss 50 ml General Appearance: Alert, Awake, No Acute Distress Neuro: No Gross deficits Cardiovascular: Regular Rate and Rhythm Respiratory: No Respiratory Distress Chest: No Tenderness Result Diagram: 10/17/18 0541 10/16/18 1257 Assessment and Plan Problems: (1) Hip fracture Status: Acute Assessment & Plan: Admitted for a hip fracture. Repair done my Dr. Shelton on 10/16/18. On chronic treatment with Xarelto which will need to be restated when Hemoglobin is stable. (2) Acute blood loss anemia Assessment & Plan: Scheduled to receive two units of PRBC's today. Will recheck Hemoglobin tomorrow. (3) COPD (chronic obstructive pulmonary disease) Status: Chronic Assessment & Plan: On 3L baseline. (4) Chronic pain Status: Chronic Assessment & Plan: On buprenorphine patch chronically, however, patch is due to be changed and patient did not bring a replacement. Currently on Morphine CLOTH WINDER, but will be transitioning to oral pain medication. (5) PE (pulmonary thromboembolism) Status: Resolved Assessment & Plan: On chronic treatment with Xarelto which is on hold as listed above. (6) Steroid dependence Status: Chronic Assessment & Plan: Has recently been tapered off steroids. (7) High output ileostomy Status: Chronic Assessment & Plan: Stable Exam Sepsis Risk: No Definite Risk Problem Qualifiers (1) Hip fracture: Encounter type: initial encounter Fracture type: closed Laterality: left Qualified Codes: S72.002A - Fracture of unspecified part of neck of left femur, initial encounter for closed fracture MENDY LUNDBERG Oct 17, 2018 11:21
[2018-10-17] MEDS ORDERED: NS(*) 0.9% 500 ML BAG 500 ML IV ONE (13:20)
--- NOTE | 2018-10-17 13:36 | NUR ---
Physical Therapy Impression PT eval complete. Pt most limited by pain during eval. Pt required Mod A supine>sit and Mod A x2 sit>supine, Min A to perform stand pivot transfer using RW bed<>commode. Although willing to attempt to ambulate, Pt unable due to pain. Recommend Pt return to [facility] for her rehabilitation. Physical Therapy Goals 1. Min A bed mobility. 2. CGA sit<>stand with RW. 3. CGA ambulate x 50' with RW. Patient's Goals
[2018-10-17] MEDS ORDERED: PCA LOCKBOX KEYS XX ONE (17:49)
[2018-10-17] MEDS: PATCH REMOVAL 1 EA TP SCH (20:29)
[2018-10-18 03:10] VITALS: BP 131/90
[2018-10-18] MEDS: PROMETHAZINE 25 MG/ML 1 ML AMP IVP PRN ×2 (05:52→14:25)
[2018-10-18] MEDS: oxyCODON/ACET (*)5/325MG (CII) 1 TAB TAB PO PRN ×4 (05:52→20:37)
[2018-10-18 05:57] LABS: PLATELET COUNT, AUTOMATED 236 K/uL (150-450)
[2018-10-18] MEDS: ALBUTEROL/IPRATROPIUM 3 ML NEB NEB SCH ×4 (06:13→23:13)
[2018-10-18 07:16] VITALS: BP 119/56
[2018-10-18] MEDS: KCL (*) 20 MEQ/100 ML PREMIX 100 ML IV SCH ×4 (07:22→16:51)
[2018-10-18] MEDS: LIDOCAINE 5% PATCH TP SCH (09:03)
[2018-10-18] MEDS: NIFEdipine XL 30 MG TABCR PO SCH (09:03)
[2018-10-18] MEDS: PANTOPRAZOLE SOD 40 MG TABEC PO SCH (09:03)
[2018-10-18] MEDS: VENLAFAXINE XR 37.5 MG CAPCR PO SCH (09:04)
[2018-10-18] MEDS: CALCIUM POLYCARBOPH 625 MG TAB PO SCH ×2 (09:04→20:22)
[2018-10-18] MEDS: ONDANSETRON 4 MG/2 ML VIAL IVP PRN ×3 (09:05→20:38)
[2018-10-18] MEDS ORDERED: MAGNESIUM SUL* 2 GM/50 ML IVPB 50 ML IVPB ONE (10:20)
--- NOTE | 2018-10-18 10:38 | Hospitalist Progress Note ---
Subjective Progress Notes Subjective She is wanting to have her O2 increased to help with her chronic chest pain. No concerns from staff. Physical Exam Vital Signs Date Time Temp Pulse Resp B/P (MAP) Pulse Ox O2 Delivery O2 Flow Rate FiO2 10/18/18 09:39 96 Nasal Cannula 0.5 10/18/18 07:16 98.6 96 19 119/56 (77) Intake and Output 10/18/18 07:02 Intake Total 4820 ml Output Total 1600 ml Balance 3220 ml Intake Oral 3020 ml IV Total 1300 ml Blood Product 500 ml Stool Total 1600 ml # Voids 3 General Appearance: Alert, Awake, No Acute Distress Cardiovascular: Regular Rate and Rhythm Respiratory: Clear to Auscultation Extremities: No Edema Result Diagram: 10/18/1834 10/18/18533 Assessment and Plan Problems: (1) Hip fracture Status: Acute Assessment & Plan: Admitted for a hip fracture. Repair done my Dr. Shelton on 10/16/18. On chronic treatment with Xarelto which will restarted today. (2) Acute blood loss anemia Assessment & Plan: Scheduled to receive two units of PRBC's. Hgb increased appropriately. No signs of GI blood loss. Continue to follow. (3) Hypokalemia Status: Acute Assessment & Plan: Secondary to high output from ileostomy. Will give 60 mEq IV, restart oral potassium 20 mEq bid, and replace Mg. Follow K and Mg. (4) COPD (chronic obstructive pulmonary disease) Status: Chronic Assessment & Plan: On 3L baseline. (5) Chronic pain Status: Chronic Assessment & Plan: On buprenorphine patch chronically, however, patch is due to be changed and patient did not bring a replacement. [facility] to bring a patch today. 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 (6) PE (pulmonary thromboembolism) Status: Resolved Assessment & Plan: On chronic treatment with Xarelto which is on hold as listed above. (7) Steroid dependence Status: Chronic Assessment & Plan: Has recently been tapered off steroids. (8) High output ileostomy Status: Chronic Assessment & Plan: Potassium supplements to restart. She is chronically no Pedialyte, but hasn't been continued. Exam Sepsis Risk: No Definite Risk Problem Qualifiers (1) Hip fracture: Encounter type: initial encounter Fracture type: closed Laterality: left Qualified Codes: S72.002A - Fracture of unspecified part of neck of left femur, initial encounter for closed fracture GEETHA DEJESUS MD Oct 18, 2018 10:38
[2018-10-18] MEDS: POTASSIUM CHL 20 MEQ TABCR PO SCH ×2 (10:58→16:20)
[2018-10-18] MEDS: RIVAROXABAN 10 MG TAB PO SCH (10:58)
[2018-10-18] MEDS ORDERED: MAGNESIUM SUL* 4 GM/100 ML BAG 100 ML IVPB ONE (12:00)
[2018-10-18] MEDS ORDERED: BUPRENORPHINE 1 EACH PATCH.TDWK TD SCH (14:30)
[2018-10-18 14:46] VITALS: BP 125/53
[2018-10-18 19:56] VITALS: BP 135/53
[2018-10-18] MEDS: traZODone HCL 50 MG TAB PO PRN (20:22)
[2018-10-18] MEDS: PATCH REMOVAL 1 EA TP SCH (20:24)
[2018-10-18 23:40] VITALS: BP 134/56
[2018-10-19 00:03] VITALS: BP 103/53
[2018-10-19 03:29] VITALS: BP 107/64
[2018-10-19 05:37] LABS: PLATELET COUNT, AUTOMATED 263 K/uL (150-450)
[2018-10-19] MEDS: oxyCODON/ACET (*)5/325MG (CII) 1 TAB TAB PO PRN ×2 (05:51→10:33)
[2018-10-19] MEDS: ONDANSETRON 4 MG/2 ML VIAL IVP PRN ×2 (05:51→10:33)
[2018-10-19] MEDS: ALBUTEROL/IPRATROPIUM 3 ML NEB NEB SCH ×2 (05:56→12:03)
[2018-10-19 07:10] VITALS: BP 114/61
[2018-10-19] MEDS: LIDOCAINE 5% PATCH TP SCH (08:27)
[2018-10-19] MEDS: NIFEdipine XL 30 MG TABCR PO SCH (08:27)
[2018-10-19] MEDS: POTASSIUM CHL 20 MEQ TABCR PO SCH (08:27)
[2018-10-19] MEDS: CALCIUM POLYCARBOPH 625 MG TAB PO SCH (08:27)
[2018-10-19] MEDS: VENLAFAXINE XR 37.5 MG CAPCR PO SCH (08:27)
[2018-10-19] MEDS: RIVAROXABAN 10 MG TAB PO SCH (08:27)
[2018-10-19] MEDS: PANTOPRAZOLE SOD 40 MG TABEC PO SCH (08:27)
[2018-10-19] MEDS ORDERED: OXYC-865 PO (08:53)
[2018-10-19] MEDS ORDERED: HEPARIN FLSH (PORT) 500 UN/5ML ONE (11:17)
[2018-10-19 11:39] VITALS: BP 139/67
--- NOTE | 2018-10-19 18:32 | Hospitalist Depart ---
Discharge Summary Reason for Hosp/Final Diag: (1) Hip fracture Status: Acute Hospital Course & Plan: Admitted for a hip fracture. Repair done my Dr. Shelton on 10/16/18. On chronic treatment with Xarelto which was restarted. (2) Acute blood loss anemia Hospital Course & Plan: Received two units of PRBC's. Hgb increased appropriately. No signs of GI blood loss. (3) Hypokalemia Status: Acute Hospital Course & Plan: Secondary to high output from ileostomy. Improved with replacement (4) COPD (chronic obstructive pulmonary disease) Status: Chronic Hospital Course & Plan: On 3L baseline. (5) Chronic pain Status: Chronic Hospital Course & Plan: On buprenorphine patch chronically, Percocet near term for breakthrough pain. (6) PE (pulmonary thromboembolism) Status: Resolved Hospital Course & Plan: On chronic treatment with Xarelto. (7) Steroid dependence Status: Chronic Hospital Course & Plan: Has recently been tapered off steroids. (8) High output ileostomy Status: Chronic Hospital Course & Plan: Potassium supplements to restart. She is chronically no Pedialyte, but hasn't been continued. Departure Weight (Pounds): 120 Weight (Ounces): 1.0 Result Diagram: 10/19/1852310/19/18523 Condition: Improved PT/OT Follow Up For: PT For Surgical Rehab, OT For ADL's Discharge Instructions Home Meds Active Scripts Oxycodone Hcl/Acetaminophen (PERCOCET 5-325 MG TABLET) 1 Each Tablet, 1 EACH PO Q6H PRN for PAIN, #30 TAB Prov:MENDY LUNDBERG 10/19/18 Rivaroxaban 20 Mg (XARELTO 20 MG) 20 Mg Tablet, 1 TAB PO DAILY for 90 Days, #90 TAB 4 Refills Prov:DARIO ROJAS MD 09/09/18 Ondansetron Hcl (ONDANSETRON HCL) 4 Mg Tablet, 4 MG PO Q6H PRN for NAUSEA, #20 TAB Prov:LUIS ALBERTO HAUSER 09/04/18 Potassium Chloride (POTASSIUM CHLORIDE) 20 Meq Tab.er.prt, 1 TAB PO BID for 30 Days, #30 TAB Prov:DARIO ROJAS MD 06/15/18 Pantoprazole Sodium (PANTOPRAZOLE SODIUM) 40 Mg Tablet., 1 TAB PO QDAY for 30 Days, #30 TAB Prov:DARIO ROJAS MD 01/22/18 Trazodone Hcl (TRAZODONE HCL) 50 Mg Tablet, 1 TAB PO QHS for 30 Days, #30 TAB Prov:DARIO ROJAS MD 01/21/18 Reported Medications Electrolyte,Oral (PEDIALYTE ELECTROLYTE SINGLES) 237 Ml Solution, 237 ML PO QID 10/16/18 Lidocaine (Lidocare) 4 % Adh..patch, 1 PATCH TOP QDAY 10/16/18 Acetaminophen 500 Mg Tab (ACETAMINOPHEN EXTRA STRENGTH) 500 Mg Tablet, 2 TAB PO BID, TAB 09/09/18 Venlafaxine Hcl (VENLAFAXINE HCL) 37.5 Mg Tab, 37.5 MG PO DAILY, TAB 09/02/18 Electrolyte,Oral (PEDIALYTE) 1,000 Ml Solution, 240 ML PO QID 09/02/18 Menthol (BIOFREEZE) 118 Ml Gel..ml., 1 JARETT TOP TID for pain 09/02/18 Buprenorphine (Buprenorphine) 7.5 Mcg/Hour Patch.tdwk, 1 PATCH.WK TOP QWEEKF 04/09/18 Cholestyramine (With Sugar) (CHOLESTYRAMINE PACKET) 4 Gm Powd.pack, 4 GM PO QID 04/03/18 Oxygen (OXYGEN) Inha, 3 L INH, L 2 Liters Continuous Oxygen and With CPap at HS 01/21/18 Protein Supplement (Protein Powder) 480 Gm Powder, 2 NOTSPEC PO TID 2 scoops of powder in 6-8oz of water between meals 01/21/18 Polyvinyl Alcohol (LIQUITEARS) 15 Ml Drops, 1 GTT OU PRN for dry eyes 01/09/18 Mag Hydrox/Al Hydrox/Simeth (MAALOX MAXIMUM STRENGTH SUSP) 355 Ml Oral.susp, 15 ML PO Q4H PRN for INDIGESTION 01/07/18 Tetrahydrozoline Hcl (EYE DROPS) 15 Ml Drops, 1 DROP OU PRN 01/07/18 Calcium Polycarbophil (FIBER) 625 Mg Tablet, 2 TAB PO BID 01/07/18 Calcium Carbonate (Calcium Carbonate) 300 Mg Calcium (750 Mg) Tab.chew, 2 TAB PO PRN Not to exceed 10 tablets in 24 hours 01/07/18 Nifedipine (NIFEDIPINE ER) 30 Mg Tab.er.24, 1 TAB PO QDAY 01/07/18 Fluticasone/Vilanterol 100/25 Mcg/Inh (BREO ELLIPTA 100/25 MCG) 1 Each Aer.pow.ba, 1 INH INH QDAY 01/07/18 Discontinued Reported Medications 0.9 % Sodium Chloride (NORMAL SALINE FLUSH) 2 Ml Disp.syrin, 10 ML IV every 28 days 09/02/18 Diphenoxylate Hcl/Atropine (LOMOTIL TABLET) 1 Each Tablet, 2 TAB PO Q6H PRN for DIARRHEA, TAB 09/02/18 Heparin Sodium,Porcine/Pf (HEPARIN LOCK FLUSH 100 UNIT/ML) 100 Unit/1 Ml Vial, 500 UNIT IV every 28 days, VIAL 09/02/18 Triamcinolone Acetonide (Nasacort) 10.8 Ml [place], 1 SPRAY NS BID for 30 Days, #1 BOT 05/04/18 Loperamide HCl (Imodium A-D) 2 Mg Capsule, 1 Q6H PRN for DIARRHEA 03/09/18 Nystatin 100,000 Unit/Gm Top Powder (NYSTATIN 100,000 UNIT/GM TOP POWDER) 15 Gm Powder, 15 GM TP BID 01/07/18 Guaifenesin/Dextromethorphan (Robitussin Cough-Chest Dm Liq) 100 Mg-5 Mg/5 Ml Liquid, 5 ML PO Q4-6H PRN for COUGH 01/07/18 Benzonatate 100 Mg Cap (TESSALON PERLE 100 MG CAP) 100 Mg Capsule, 1 CAP PO Q8H PRN for COUGH 09/30/18 Multivitamin (TAB-A-OMAR) 1 Each Tablet, 1 EACH PO QAM 01/07/18 Diet: Regular Activity: As Tolerated, With Walker Special Instructions: PT to evaluate and treat for post operative strengthening. Copies to: DARIO ROJAS MD ; Venous Thromboembolism Antithrombotics Is Pt On Any Antithrombotics?: No Problem Qualifiers (1) Hip fracture: Encounter type: initial encounter Fracture type: closed Laterality: left Qualified Codes: S72.002A - Fracture of unspecified part of neck of left femur, initial encounter for closed fracture GRACIA WITT DO Oct 19, 2018 18:31
[2018-10-19] MEDS ORDERED: OXYC-854 PO (18:39)
[2018-10-25] MEDS ORDERED: PATCH REMOVAL 1 EA TP SCH (14:30)
== END 2018-10-19 12:11 | DRG 481 ==
LOC: ER 23:12 → MED 10-16 01:01
PROVIDERS: ADMIT Internal Medicine; ATTEND Internal Medicine
PROC: 0QS736Z Reposition Left Upper Femur with Intramedullary Internal Fixation Device, Percutaneous Approach (ICD-10-PCS; principal; 2018-10-16 17:50)
PROC: 30233N1 Transfusion of Nonautologous Red Blood Cells into Peripheral Vein, Percutaneous Approach (ICD-10-PCS; 2018-10-17)
DX: S72.142A Displaced intertrochanteric fracture of left femur, initial encounter for closed fracture (principal); D62 Acute posthemorrhagic anemia; G90.50 Complex regional pain syndrome I, unspecified; E87.6 Hypokalemia; I48.2 Chronic atrial fibrillation; J44.9 Chronic obstructive pulmonary disease, unspecified; I10 Essential (primary) hypertension; E03.9 Hypothyroidism, unspecified; Z93.2 Ileostomy status; K21.9 Gastro-esophageal reflux disease without esophagitis; F31.9 Bipolar disorder, unspecified; Z96.89 Presence of other specified functional implants; W06.XXXA Fall from bed, initial encounter; Z85.3 Personal history of malignant neoplasm of breast; Z90.12 Acquired absence of left breast and nipple; Z87.891 Personal history of nicotine dependence; Y92.003 Bedroom of unspecified non-institutional (private) residence as the place of occurrence of the external cause; Y99.8 Other external cause status; Z79.01 Long term (current) use of anticoagulants; Z99.81 Dependence on supplemental oxygen; Z86.14 Personal history of Methicillin resistant Staphylococcus aureus infection; Z79.52 Long term (current) use of systemic steroids; Z88.2 Allergy status to sulfonamides; Z88.8 Allergy status to other drugs, medicaments and biological substances; Z86.73 Personal history of transient ischemic attack (TIA), and cerebral infarction without residual deficits; Z90.49 Acquired absence of other specified parts of digestive tract; Z86.718 Personal history of other venous thrombosis and embolism
CPT/HCPCS: 36415; 71045; 76000; 76942; 82040; 82247; 82310; 82374; 82435; 82565; 82947; 83735; 84075; 84132; 84155; 84295; 84450; 84460; 84520; 85014; 85018; 85025; 85610; 86850; 86900; 86901; 86920; 93005; 94640; 96361; 96374; 96375; 97162; 99285; C1713; C1758; J0171; J0690; J1100; J1170; J1642; J1720; J2001; J2270; J2405; J2550; J2704; J2795; J3010; J3475; J3480; J7030; J7050; P9016

== ENCOUNTER → 2018-10-15 | Outpatient (CLI) | payer MEDICARE ==
[2018-09-02 16:15] VITALS: BMI 22.5
[~2018-10-15] MED LIST changes: +CHOL500050 PO; +LIDO1ADH41 TOP; +OXYC-854 PO; +OXYC-865 PO; +[UNRECOGNIZED DRUG - CODE] PO
== END ==
LOC: AMB 22:41
PROVIDERS: ATTEND Nurse Practitioner
DX: M25.552 Pain in left hip (principal)
CPT/HCPCS: A0425; A0427

== ENCOUNTER → 2018-10-26 | Outpatient (REF) | payer MEDICARE ==
[2018-09-02 16:15] VITALS: BMI 22.5
[~2018-10-26] MED LIST changes: +CHOL500050 PO; +LIDO1ADH41 TOP; +OXYC-854 PO; +OXYC-865 PO; +[UNRECOGNIZED DRUG - CODE] PO
== END ==
LOC: ZZLCC 06:41
PROVIDERS: ATTEND Family Medicine
DX: D50.0 Iron deficiency anemia secondary to blood loss (chronic) (principal); M81.0 Age-related osteoporosis without current pathological fracture
CPT/HCPCS: 82306; 82310; 82374; 82435; 82565; 82947; 84132; 84295; 84520; 85027

== ENCOUNTER → 2018-10-29 | Outpatient (REF) | payer MEDICARE ==
[2018-09-02 16:15] VITALS: BMI 22.5
== END ==
LOC: ZZLCC 07:52
PROVIDERS: ATTEND Family Medicine
DX: E87.1 Hypo-osmolality and hyponatremia (principal)
CPT/HCPCS: 82310; 82374; 82435; 82565; 82947; 84132; 84295; 84520

== ENCOUNTER → 2018-10-30 | Outpatient (REF) | payer MEDICARE ==
[2018-09-02 16:15] VITALS: BMI 22.5
[2018-10-30 16:23] LABS: PLATELET COUNT, AUTOMATED 625 K/uL (150-450)
== END ==
LOC: ZZLCC 15:36
PROVIDERS: ATTEND Family Medicine
DX: D64.9 Anemia, unspecified (principal); J44.9 Chronic obstructive pulmonary disease, unspecified; I10 Essential (primary) hypertension; K55.059 Acute (reversible) ischemia of intestine, part and extent unspecified; F31.9 Bipolar disorder, unspecified
CPT/HCPCS: 85025

== ENCOUNTER 2018-11-02 10:38 | Emergency (ER) | payer MEDICARE ==
[2018-09-02 16:15] VITALS: Wt 49.9 kg
[~2018-11-02 10:38] MED LIST changes: -[UNRECOGNIZED DRUG - OTHER] PO; -[UNRECOGNIZED DRUG - OTHER] PO
--- NOTE | 2018-11-02 10:45 | ER Report ---
History and Physical Time Seen By MD: 10:41 Hx. of Stated Complaint: HAD LEFT HEP SURG EARLIER THIS MONTH. WOKE UP WITH SWOLLEN, RED AND PAINFUL LEFT FOOT TODAY HPI/ROS CHIEF COMPLAINT: Left lower extremity distal swelling HISTORY OF PRESENT ILLNESS: Patient is a 68-year-old female here with complaints of distal left lower extremity swelling, erythema, pain which started several days ago. Patient reports having a left hip replacement several weeks ago. Over the past several days she has developed increasing pain and does have a history of prior clots currently not on anticoagulation, unclear when anticoagulation was stopped. Patient is hemodynamically stable, denies current chest pain, fevers or chills. REVIEW OF SYSTEMS: Constitutional: No fever, no chills. Eyes: No discharge. ENT: No sore throat. Cardiovascular: No chest pain, no palpitations. Respiratory: No cough, no shortness of breath. Gastrointestinal: No abdominal pain, no vomiting. Genitourinary: No hematuria. Musculoskeletal: Left lower extremity distal ankle pain, bilateral erythema Skin: No rashes. Neurological: Neurovascular exam intact. Allergies: Coded Allergies: Sulfa (Sulfonamide Antibiotics) (Verified Allergy, Unknown, 11/02/18) allergic to cream only amitriptyline (Verified Allergy, Unknown, 11/02/18) aspirin (Verified Allergy, Unknown, 11/02/18) Home Meds Active Scripts Cephalexin Monohydrate (CEPHALEXIN) 500 Mg Cap, 500 MG PO Q6H for 7 Days, #28 CAP 0 Refills Prov:CARYN BLEVINS DO 11/02/18 Diphenoxylate Hcl/Atropine (LOMOTIL TABLET) 1 Each Tablet, 2 TAB PO QID, #180 TAB 4 Refills Prov:DARIO ROJAS MD 10/26/18 Ondansetron Hcl (ONDANSETRON HCL) 4 Mg Tablet, 4 MG PO Q6H PRN for NAUSEA, #20 TAB Prov:LUIS ALBERTO HAUSER 09/04/18 Potassium Chloride (POTASSIUM CHLORIDE) 20 Meq Tab.er.prt, 1 TAB PO BID for 30 Days, #30 TAB Prov:DARIO ROJAS MD 06/15/18 Pantoprazole Sodium (PANTOPRAZOLE SODIUM) 40 Mg Tablet.dr, 1 TAB PO QDAY for 30 Days, #30 TAB Prov:DARIO ROJAS MD 01/22/18 Trazodone Hcl (TRAZODONE HCL) 50 Mg Tablet, 1 TAB PO QHS for 30 Days, #30 TAB Prov:DARIO ROJAS MD 01/21/18 Reported Medications Cholecalciferol (Vitamin D3) (VITAMIN D3) 50,000 Unit Capsule, 1 CAP PO QWEEK Weekly for 8 weeks 10/26/18 Hydrocodone Bit/Acetaminophen (NORCO 5-325 TABLET) 1 Each Tablet, 2 TAB PO Q4H PRN for PAIN 10/21/18 Electrolyte,Oral (PEDIALYTE ELECTROLYTE SINGLES) 237 Ml Solution, 237 ML PO QID 10/16/18 Lidocaine (Lidocare) 4 % Adh..patch, 1 PATCH TOP QDAY 10/16/18 Acetaminophen 500 Mg Tab (ACETAMINOPHEN EXTRA STRENGTH) 500 Mg Tablet, 2 TAB PO BID, TAB ON HOLD UNTIL 10/28/18-While on higher dose NORCO 09/09/18 Venlafaxine Hcl (VENLAFAXINE HCL) 37.5 Mg Tab, 37.5 MG PO DAILY, TAB 09/02/18 Electrolyte,Oral (PEDIALYTE) 1,000 Ml Solution, 240 ML PO QID 09/02/18 Menthol (BIOFREEZE) 118 Ml Gel..ml., 1 JARETT TOP TID for pain 09/02/18 Buprenorphine (Buprenorphine) 7.5 Mcg/Hour Patch.tdwk, 1 PATCH.WK TOP QWEEKF 04/09/18 Cholestyramine (With Sugar) (CHOLESTYRAMINE PACKET) 4 Gm Powd.pack, 4 GM PO QID 04/03/18 Oxygen (OXYGEN) Inha, 3 L INH, L 2 Liters Continuous Oxygen and With CPap at HS 01/21/18 Protein Supplement (Protein Powder) 480 Gm Powder, 2 NOTSPEC PO TID 2 scoops of powder in 6-8oz of water between meals 01/21/18 Polyvinyl Alcohol (LIQUITEARS) 15 Ml Drops, 1 GTT OU PRN for dry eyes 01/09/18 Mag Hydrox/Al Hydrox/Simeth (MAALOX MAXIMUM STRENGTH SUSP) 355 Ml Oral.susp, 15 ML PO Q4H PRN for INDIGESTION 01/07/18 Tetrahydrozoline Hcl (EYE DROPS) 15 Ml Drops, 1 DROP OU PRN 01/07/18 Calcium Polycarbophil (FIBER) 625 Mg Tablet, 2 TAB PO BID 01/07/18 Calcium Carbonate (Calcium Carbonate) 300 Mg Calcium (750 Mg) Tab.chew, 2 TAB PO PRN Not to exceed 10 tablets in 24 hours 01/07/18 Nifedipine (NIFEDIPINE ER) 30 Mg Tab.er.24, 1 TAB PO QDAY 01/07/18 Fluticasone/Vilanterol 100/25 Mcg/Inh (BREO ELLIPTA 100/25 MCG) 1 Each Aer.po w.ba, 1 INH INH QDAY 01/07/18 Discontinued Scripts Rivaroxaban 20 Mg (XARELTO 20 MG) 20 Mg Tablet, 1 TAB PO DAILY for 90 Days, #90 TAB 4 Refills Prov:DARIO ROJAS MD 09/09/18 Hx Smoking: Yes Smoking Status: Former Smoker Hx Substance Use Disorder: No Hx Alcohol Use: Yes Constitutional Vital Sign - Last 24 Hours 11/02/18 11/02/18 11/02/18 11/02/18 10:42 11:00 11:30 12:00 Temp 98.6 Pulse 60 68 67 64 Resp 20 25 15 15 B/P (MAP) 115/54 116/60 (78) 117/53 (74) 116/59 (78) Pulse Ox 100 100 100 100 O2 Delivery Nasal Cannula 11/02/18 11/02/18 12:25 12:30 Resp 28 B/P (MAP) 112/95 (101) Pulse Ox 81 O2 Flow Rate 2.0 Physical Exam General Appearance: The patient is alert, has no immediate need for airway protection and no signs of toxicity. No acute distress Eyes: Pupils equal and round no pallor or injection. ENT, Mouth: Mucous membranes are moist. Respiratory: There are no retractions, lungs are clear to auscultation. Cardiovascular: Regular rate and rhythm. Gastrointestinal: Abdomen is soft and non tender, no masses, bowel sounds normal. Neurological: No focal neurological deficits on examination Skin: Mild erythema and edema of the left lower extremity starting at the ankle extending into the lateral foot Musculoskeletal: Mild edema and erythema of the left lower extremity with associated tenderness especially in the lateral aspect of the ankle DIFFERENTIAL DIAGNOSIS: After history and physical exam differential diagnosis was considered for cellulitis, DVT, superficial thrombophlebitis, trauma Medical Decision Making Data Points Result Diagram: 11/02/18 1106 11/02/18 1106 Laboratory Hematology Test 11/02/18 11:06 White Blood Count 7.2 k/uL (4.5-11.0) Red Blood Count 3.25 M/uL (4.17-5.56) L Hemoglobin 9.5 g/dL (12.0-16.0) L Hematocrit 28.7 % (34.0-47.0) L Mean Corpuscular Volume 88.3 fL (80.0-96.0) Mean Corpuscular Hemoglobin 29.2 pg (26.0-33.0) Mean Corpuscular Hemoglobin Concent 33.1 g/dL (32.0-36.0) Red Cell Distribution Width 21.6 % (11.5-14.5) H Platelet Count 392 K/uL (150-450) Mean Platelet Volume 5.7 fL (7.2-11.1) L Neutrophils (%) (Auto) 81.8 % (39.4-72.5) H Lymphocytes (%) (Auto) 9.1 % (17.6-49.6) L Monocytes (%) (Auto) 7.5 % (4.1-12.4) Eosinophils (%) (Auto) 0.4 % (0.4-6.7) Basophils (%) (Auto) 1.2 % (0.3-1.4) Nucleated RBC Relative Count (auto) 0.0 /100WBC Neutrophils # (Auto) 5.9 K/uL (2.0-7.4) Lymphocytes # (Auto) 0.7 K/uL (1.3-3.6) L Monocytes # (Auto) 0.5 K/uL (0.3-1.0) Eosinophils # (Auto) 0.0 K/uL (0.0-0.5) Basophils # (Auto) 0.1 K/uL (0.0-0.1) Nucleated RBC Absolute Count (auto) 0.00 K/uL Peripheral Blood Smear Yes Y/N Erythrocyte Sedimentation Rate 25 mm/HOUR (0-30) Chemistry Test 11/02/18 11:06 Sodium Level 134 mmol/L (137-145) Potassium Level 3.4 mmol/L (3.5-5.0) Chloride Level 102 mmol/L (98-107) Carbon Dioxide Level 22 mmol/L (22-31) Blood Urea Nitrogen 12 mg/dl (7-18) Creatinine 0.70 mg/dl (0.52-1.04) Glomerular Filtration Rate Calc > 60.0 Random Glucose 111 mg/dl (75-110) Calcium Level 8.3 mg/dl (8.4-10.2) Total Bilirubin 0.5 mg/dl (0.2-1.3) Aspartate Amino Transf (AST/SGOT) 38 U/L (0-35) Alanine Aminotransferase (ALT/SGPT) 38 U/L (0-56) Alkaline Phosphatase 288 U/L (0-126) C-Reactive Protein 3.9 mg/dl (<1.0) Total Protein 6.5 g/dl (6.3-8.2) Albumin 3.2 g/dl (3.5-5.0) Lipase 159 U/L (23-300) Urinalysis Test 11/02/18 12:27 Urine Color Straw Urine Clarity Clear Urine pH 5.0 pH (4.8-9.5) Urine Specific [place] 1.002 Urine Protein Negative mg/dL (NEGATIVE) Urine Glucose (UA) Negative mg/dL (NEGATIVE) Urine Ketones Negative mg/dL (NEGATIVE) Urine Blood Small (NEGATIVE) Urine Nitrite Negative (NEGATIVE) Urine Bilirubin Negative (NEGATIVE) Urine Urobilinogen Negative mg/dL (0.2-1.9) Urine Leukocyte Esterase Small (NEGATIVE) Urine RBC 1 /HPF (0-2/HPF) Urine WBC 2 /HPF (0-5/HPF) Urine Squamous Epithelial Cells Moderate /LPF (</=FEW) Urine Transitional Epithelial Cells Few /LPF (NONE-FEW) Urine Bacteria Few /HPF (NONE-FEW) Urine Mucus None /HPF (NONE-FEW) EKG/Imaging Imaging PATIENT NAME: Xin Tran : 1950 MR: [id number] V: [id number] EXAM DATE: ORDERING PHYSICIAN: CARYN BLEVINS TECHNOLOGIST: Location: [facility] Patient: Xin Tran : 1950 Visit/Account:[id number] Date of Sevice: 11/02/2018 3 views left ankle Indication: Edema and pain in the left ankle times one week Comparison: None Available Findings: No evidence of fracture, dislocation, or acute osseous abnormality of the left ankle. Partial visualization of a left tibial nirmala traversing a chronic healed tibial fracture. There 2 distal interlocking screws. No visualized complication. The ankle mortise is symmetric. There is no significant ankle joint effusion. Nonspecific soft tissue swelling surrounding the ankle. No evidence of radiopaque foreign body. IMPRESSION: 1. No acute osseous abnormality of the left ankle. 2. Nonspecific soft tissue swelling. 3. Grossly unremarkable appearance of partially visualized tibial ORIF hardware PATIENT NAME: Xin Tran : 1950 MR: [id number] V: [id number] EXAM DATE: ORDERING PHYSICIAN: CARYN BLEVINS TECHNOLOGIST: Location: [facility] Patient: Xin Tran : 1950 Visit/Account:[id number] Date of Sevice: 11/02/2018 US VENOUS LOWER EXT LT HISTORY: 5 weeks postoperative from hip surgery. History of IVC filter, not currently on blood thinners. Recent falls. Lower extremity edema. Concern for deep venous thrombus. COMPARISON: None. FINDINGS: Grayscale, duplex and color Doppler interrogation of the left lower extremity deep veins from common femoral vein to proximal calf was completed. Compression was performed where it was possible. The right common femoral vein was evaluated using similar technique. Common femoral vein - Negative. Femoral vein - negative for acute thrombus. On image 22, there is near but incomplete compressibility of the mid superficial femoral vein, which may be due to wall thickening/chronic, eccentric clot measuring only 2 mm in thickness. Deep femoral vein - Negative. Popliteal vein - Negative. Visualized deep calf veins - Negative. Popliteal fossa: Negative. Visualized soft tissues are unremarkable for mild soft tissue/subcutaneous fat edema in the distal thigh and moderate, somewhat confluent edema at the knee and proximal lower leg. Contralateral (right) common femoral vein: Negative. IMPRESSION: 1. No evidence of acute deep venous thrombosis in the visualized veins of the left lower extremity. 2. Question of a small amount of eccentric, chronic clot versus simple wall thickening of the mid superficial femoral vein, seen on a single image. 3. Left lower extremity soft tissue edema. ED Course/Re-evaluation ED Course Patient is a 68-year-old female here with complaints of left lower extremity distal erythema, tenderness which is been present for the past several days. Duplex imaging was negative for DVT, x-ray imaging showed no acute underlying fractures. Patient was erythematous and edematous consistent with early infectious etiology. Patient's labs were unremarkable except for mildly elevated CRP. Patient will be treated with antimicrobial therapy. Recommended close PCP follow-up. Return precautions provided. Decision to Disposition Date: Nov 02, 2018 Decision to Disposition Time: 13:31 Depart Departure Latest Vital Signs Vital Signs Date Time Temp Pulse Resp B/P (MAP) Pulse Ox O2 Delivery O2 Flow Rate FiO2 11/02/18 12:30 28 112/95 (101) 81 11/02/18 12:25 2.0 11/02/18 12:00 64 11/02/18 10:42 98.6 Nasal Cannula Impression: Primary Impression: Cellulitis of ankle Condition: Improved Disposition: HOME OR SELF-CARE Referrals: DARIO ROJAS MD (PCP) New Scripts Cephalexin Monohydrate (CEPHALEXIN) 500 Mg Cap 500 MG PO Q6H for 7 Days, #28 CAP 0 Refills Prov: CARYN BLEVINS DO 11/02/18 Patient Instructions: Cellulitis (ED) Additional Instructions: Please drink plenty of water. CARYN BLEVINS DO Nov 02, 2018 10:45
[2018-11-02] MEDS ORDERED: NS(*) 0.9% 1000 ML BAG 1,000 ML IV ONE (10:50)
[2018-11-02 11:18] LABS: PLATELET COUNT, AUTOMATED 392 K/uL (150-450)
--- NOTE | 2018-11-02 11:27 | RADIOLOGY IMAGING REPORT ---
FACILITY: [facility] PATIENT NAME: Xin Tran : 1950 MR: [id number] V: [id number] EXAM DATE: ORDERING PHYSICIAN: CARYN BLEVINS TECHNOLOGIST: Location: [facility] [place] Patient: Xin Tran : 1950 Visit/Account:[id number] Date of Sevice: 11/02/2018 3 views left ankle Indication: Edema and pain in the left ankle times one week Comparison: None Available Findings: No evidence of fracture, dislocation, or acute osseous abnormality of the left ankle. Partial visualization of a left tibial nirmala traversing a chronic healed tibial fracture. There 2 dist al interlocking screws. No visualized complication. The ankle mortise is symmetric. There is no significant ankle joint effusion. Nonspecific soft tissue swelling surrounding the ankle. No evidence of radiopaque foreign body. IMPRESSION: 1. No acute osseous abnormality of the left ankle. 2. Nonspecific soft tissue swelling. 3. Grossly unremarkable appearance of partially visualized tibial ORIF hardware Report Dictated By: Delroy Ward MD at 11/02/2018 11:18 AM Report E-Signed By: Delroy Ward MD at 11/02/2018 11:20 AM WSN:[id number]
--- NOTE | 2018-11-02 12:11 | RADIOLOGY IMAGING REPORT ---
FACILITY: [facility] - [place] PATIENT NAME: Xin Tran : 1950 MR: [id number] V: [id number] EXAM DATE: ORDERING PHYSICIAN: CARYN BLEVINS TECHNOLOGIST: Location: [facility] [place] Patient: Xin Tran : 1950 Visit/Account:[id number] Date of Sevice: 11/02/2018 US VENOUS LOWER EXT LT HISTORY: 5 weeks postoperative from hip surgery. History of IVC filter, not currently on blood thinn ers. Recent falls. Lower extremity edema. Concern for deep venous thrombus. COMPARISON: None. FINDINGS: Grayscale, duplex and color Doppler interrogation of the left lower extremity deep veins from common femoral vein to proximal calf was completed. Compression was performed where it was possible. The rig ht common femoral vein was evaluated using similar technique. Common femoral vein - Negative. Femoral vein - negative for acute thrombus. On image 22, there is near but incomplete compressibility of the mid superficial femoral vein, which may be due to wall thickening/chronic, eccentric clot coby suring only 2 mm in thickness. Deep femoral vein - Negative. Popliteal vein - Negative. Visualized deep calf veins - Negative. Popliteal fossa: Negative. Visualized soft tissues are unremarkable for mild soft tissue/subcutaneous fat edema in the distal thigh and moderate, somewhat confluent edema at the knee and proximal lower leg. Contralateral (right) common femoral vein: Negative. IMPRESSION: 1. No evidence of acute deep venous thrombosis in the visualized veins of the left lower extremity. 2. Question of a small amount of eccentric, chronic clot versus simple wall thickening of the mid schumacher perficial femoral vein, seen on a single image. 3. Left lower extremity soft tissue edema. Report Dictated By: Xavi Vital at 11/02/2018 11:58 AM Report E-Signed By: Xavi Vital at 11/02/2018 12:01 PM WSN:[id number]
[2018-11-02] MEDS ORDERED: CEPH500C24 PO (12:33)
[2018-11-02] MEDS ORDERED: cefTRIAXone 1 GM VIAL IVP ONE (12:35)
[2018-11-02] MEDS ORDERED: HEPARIN FLSH (PORT) 500 UN/5ML IVP ONE (12:45)
[2018-11-02 13:30] VITALS: BP 117/54
== END 2018-11-02 13:55 | disposition home or self-care (01) ==
LOC: ER 10:54
DX: L03.116 Cellulitis of left lower limb (principal)
CPT/HCPCS: 73600; 81001; 83690; 85025; 85651; 86140; 93971; 96361; 96374; 99284; J0696; J1642; J7030; 82040; 82247; 82310; 82374; 82435; 82565; 82947; 84075; 84132; 84155; 84295; 84450; 84460; 84520

== ENCOUNTER → 2018-11-02 | Outpatient (CLI) | payer MEDICARE, OTHER ==
[2018-09-02 16:15] VITALS: BMI 22.5
[~2018-11-02] MED LIST changes: +[UNRECOGNIZED DRUG - OTHER] PO; +[UNRECOGNIZED DRUG - OTHER] PO
== END ==
LOC: AMB 10:22
PROVIDERS: ATTEND Nurse Practitioner
DX: M25.472 Effusion, left ankle (principal); R51 Headache; R53.1 Weakness
CPT/HCPCS: A0425; A0429

== ENCOUNTER → 2018-11-02 | Outpatient (CLI) | payer MEDICARE, OTHER ==
[2018-09-02 16:15] VITALS: BMI 22.5
== END ==
LOC: AMB 13:51
PROVIDERS: ATTEND Nurse Practitioner
DX: L03.119 Cellulitis of unspecified part of limb (principal); R53.1 Weakness
CPT/HCPCS: A0425; A0428

== ENCOUNTER → 2018-11-16 | Outpatient (CLI) | payer MEDICARE ==
[2018-09-02 16:15] VITALS: BMI 22.5
[~2018-11-16] MED LIST changes: +[UNRECOGNIZED DRUG - OTHER] PO; +[UNRECOGNIZED DRUG - OTHER] PO
[2018-11-16 10:42] LABS: PLATELET COUNT, AUTOMATED 350 K/uL (150-450)
== END ==
LOC: LAB 10:07
PROVIDERS: ATTEND Family Medicine
DX: G89.29 Other chronic pain (principal); Z93.2 Ileostomy status
CPT/HCPCS: 36415; 82040; 82247; 82310; 82374; 82435; 82565; 82947; 84075; 84132; 84155; 84295; 84450; 84460; 84520; 85025